=== PATIENT | male | born 1990 | race Two or more races ===

== ENCOUNTER 2017-11-03 16:29 | Emergency (ER) | payer BC ==
[2017-11-03] MEDS ORDERED: Propranolol 60 MG Cap.ER PO ONE (17:16)
[2017-11-03] MEDS ORDERED: chlordiazePOXIDE 25 MG Cap PO ONE (17:16)
--- NOTE | 2017-11-03 18:46 | EDM.PDOCBH ---
ED HPI GENERAL MEDICAL PROBLEM - General Chief Complaint: Drug or Alcohol Abuse Stated Complaint: DIABETIC HAVING ALCOHOL WITHDRAWALS Time Seen by Provider: 11/03/17 16:50 Source of Information: Reports: Patient History Limitations: Reports: No Limitations - History of Present Illness INITIAL COMMENTS - FREE TEXT/NARRATIVE: Patient is a 27-year-old male presents ED complaining of anxiety, hypertension, and also alcohol withdrawal symptoms. As of yesterday patient quit drinking alcohol. Last drink was vodka at approximately noon. Patient's been drinking 1 pint of vodka every day for the past 2 years. Has attempted to decrease the amount of alcohol use to only a few shots as of recent. Patient quit his job last week because it was not a healthy environment. His girlfriend and child moved out of his residence since she does not want to be with him anymore. Patient admits to being alcoholic and has not had routine medical care for his diabetes and hypertension. Patient states he is a type II diabetic and was on metformin thousand milligrams every day along with lisinopril 40 mg every day and also baby aspirin. He has not taken these medications for almost one year. In addition he stopped smoking pot as of recent since he wants to get a better job. He does not smoke cigarettes. Of note he has been having difficulty with sleeping and has been experiencing hot flashes with stopping alcohol. He feels like he needs to drink alcohol but is adamant about stopping. There's been no recent documented fever, nausea/vomiting, chest pain, shortness of breath, abdominal pain, hallucinations, suicidal ideations, homicidal ideations, or any additional complaints. Abdominal Pain Score (Numeric/FACES): 5 - Related Data Allergies Allergy/AdvReac Type Severity Reaction Status Date / Time No Known Allergies Allergy Verified 11/03/17 16:52 Home Meds: Home Meds . [No Known Home Meds] 11/03/17 [History] Past Medical History Cardiovascular History: Reports: Hypertension Endocrine/Metabolic History: Reports: Diabetes, Type II Social & Family History - Tobacco Use Smoking Status *Q: Former Smoker Used Tobacco, but Quit: Yes Month Tobacco Last Used: 2015 - Caffeine Use Caffeine Use: Reports: Soda Caffeine Use Comment: doesnt drink soda often, "takes me 3 hours to finish one soda" - Recreational Drug Use Recreational Drug Use: Yes Recreational Drug Type: Reports: Marijuana/Hashish Other Recreational Drug Type: quit 2 weeks ago, used to use weekly Recreational Drug Use Frequency: Weekly ED ROS GENERAL - Review of Systems Review Of Systems: ROS reveals no pertinent complaints other than HPI. ED EXAM, BEHAVIORAL HEALTH - Physical Exam Exam: See Below Exam Limited By: No Limitations General Appearance: Alert, WD/WN, Anxious Eye Exam: Bilateral Eye: EOMI, Nystagmus (None found), PERRL Ears: Hearing Grossly Normal Nose: Normal Inspection Throat/Mouth: Normal Inspection, Normal Oropharynx, Normal Voice, No Airway Compromise Neck: Normal Inspection, Supple Respiratory/Chest: No Respiratory Distress, Lungs Clear, Normal Breath Sounds, No Accessory Muscle Use, Chest Non-Tender Cardiovascular: Normal Peripheral Pulses, No Murmur, Tachycardia GI/Abdominal: Normal Bowel Sounds, Soft, Non-Tender, No Organomegaly, No Distention Back Exam: Normal Inspection Extremities: Normal Inspection Neurological: Alert, Normal Mood/Affect, CN II-XII Intact, Normal Cognition, Normal Gait, No Motor/Sensory Deficits, Oriented x 3 Psychiatric: Alert, Normal Affect, Normal Cognition, Oriented, Other (Anxious). No: Homicidal Thoughts, Suicidal Plan, Suicidal Thoughts, Auditory Hallucinations, Visual Hallucinations Skin Exam: Warm, Dry, Intact, Normal color, No rash COURSE, BEHAVIORAL HEALTH COMP - Course Vital Signs: Last Vital Signs Temp 97.8 F 11/03/17 16:40 Pulse 85 11/03/17 16:40 Resp 18 11/03/17 16:40 BP 185/138 H 11/03/17 16:40 Pulse Ox 100 11/03/17 16:40 Orders, Labs, Meds: Active Orders 24 hr Category Date Time Status EKG Documentation Completion [RC] STAT Care 11/03/17 17:16 Active HYDROmorphone [Dilaudid] Med 11/03/17 22:54 Once 0.5 mg IVPUSH ONETIME ONE LORazepam [Ativan] Med 11/03/17 22:54 Once 0.5 mg IVPUSH ONETIME ONE Sodium Chloride 0.9% @ 125 MLS/HR (1000ml Bag) Med 11/03/17 23:00 Ordered Sodium Chloride 0.9% [Normal Saline] 1,000 ml IV ASDIRECTED Laboratory Tests 11/03/17 11/03/17 11/03/17 Range/Units 16:48 16:50 16:50 WBC 6.91 (4.23-9.07) K/mm3 RBC 5.96 (4.63-6.08) M/mm3 Hgb 19.0 H (13.7-17.5) gm/L Hct 52.3 H (40.1-51.0) % MCV 87.8 (79.0-92.2) fl MCH 31.9 (25.7-32.2) pg MCHC 36.3 H (32.2-35.5) g/dl RDW Std Deviation 38.0 (35.1-43.9) fL Plt Count 189 (163-337) K/mm3 MPV 10.8 (9.4-12.3) fl Neut % (Auto) 78.5 H (34.0-67.9) % Lymph % (Auto) 11.7 L (21.8-53.1) % Bracken % (Auto) 9.0 (5.3-12.2) % Eos % (Auto) 0.1 L (0.8-7.0) Baso % (Auto) 0.4 (0.1-1.2) % Neut # (Auto) 5.42 H (1.78-5.38) K/mm3 Lymph # (Auto) 0.81 L (1.32-3.57) K/mm3 [place] # (Auto) 0.62 (0.30-0.82) K/mm3 Eos # (Auto) 0.01 L (0.04-0.54) K/mm3 Baso # (Auto) 0.03 (0.01-0.08) K/mm3 PT (8.0-13.0) SECONDS INR Sodium 135 L (136-145) mEq/L Potassium 3.5 (3.5-5.1) mEq/L Chloride 94 L (98-107) mEq/L Carbon Dioxide 25 (21-32) mEq/L Anion Gap 19.5 H (5-15) BUN 9 (7-18) mg/dL Creatinine 1.0 (0.7-1.3) mg/dL Est Cr Clr Drug Dosing 112.54 mL/min Estimated GFR (MDRD) > 60 (>60) mL/min BUN/Creatinine Ratio 9.0 L (14-18) Glucose 247 H (74-106) mg/dL POC Glucose 209 H (70-105) mg/dL Calcium 9.7 (8.5-10.1) mg/dL Total Bilirubin 2.5 H (0.2-1.0) mg/dL Direct Bilirubin (0.0-0.2) mg/dl GGT (15-85) U/L AST 176 H (15-37) U/L ALT 314 H (16-63) U/L Alkaline Phosphatase 120 H (46-116) U/L Total Protein 8.7 H (6.4-8.2) g/dl Albumin 4.4 (3.4-5.0) g/dl Globulin 4.3 gm/dL Albumin/Globulin Ratio 1.0 (1-2) Lipase (73-393) U/L TSH 3rd Generation 2.518 (0.358-3.74) uIU/mL Urine Color (Yellow) Urine Appearance (Clear) Urine pH (5.0-8.0) Ur Specific [place] (1.005-1.030) Urine Protein (Negative) Urine Glucose (UA) (Negative) Urine Ketones (Negative) Urine Occult Blood (Negative) Urine Nitrite (Negative) Urine Bilirubin (Negative) Urine Urobilinogen (0.2-1.0) Ur Leukocyte Esterase (Negative) Urine RBC (0-5) /hpf Urine WBC (0-5) /hpf Ur Epithelial Cells (0-5) /hpf Urine Bacteria (FEW) /hpf Urine Mucus (FEW) /hpf Urine Opiates Screen (NEGATIVE) Ur Buprenorphine Scrn (NEGATIVE) Ur Oxycodone Screen (NEGATIVE) Urine Methadone Screen (NEGATIVE) Ur Propoxyphene Screen (NEGATIVE) Ur Barbiturates Screen (NEGATIVE) Ur Tricyclics Screen (NEGATIVE) Ur Phencyclidine Scrn (NEGATIVE) Ur Amphetamine Screen (NEGATIVE) U Methamphetamines Scrn (NEGATIVE) U Benzodiazepines Scrn (NEGATIVE) U Cocaine Metab Screen (NEGATIVE) U Marijuana (THC) Screen (NEGATIVE) Ethyl Alcohol 0.00 (0.00) gm% 11/03/17 11/03/17 11/03/17 Range/Units 16:50 16:50 16:50 WBC (4.23-9.07) K/mm3 RBC (4.63-6.08) M/mm3 Hgb (13.7-17.5) gm/L Hct (40.1-51.0) % MCV (79.0-92.2) fl MCH (25.7-32.2) pg MCHC (32.2-35.5) g/dl RDW Std Deviation (35.1-43.9) fL Plt Count (163-337) K/mm3 MPV (9.4-12.3) fl Neut % (Auto) (34.0-67.9) % Lymph % (Auto) (21.8-53.1) % Bracken % (Auto) (5.3-12.2) % Eos % (Auto) (0.8-7.0) Baso % (Auto) (0.1-1.2) % Neut # (Auto) (1.78-5.38) K/mm3 Lymph # (Auto) (1.32-3.57) K/mm3 Bracken # (Auto) (0.30-0.82) K/mm3 Eos # (Auto) (0.04-0.54) K/mm3 Baso # (Auto) (0.01-0.08) K/mm3 PT 10.4 (8.0-13.0) SECONDS INR 0.96 Sodium (136-145) mEq/L Potassium (3.5-5.1) mEq/L Chloride (98-107) mEq/L Carbon Dioxide (21-32) mEq/L Anion Gap (5-15) BUN (7-18) mg/dL Creatinine (0.7-1.3) mg/dL Est Cr Clr Drug Dosing mL/min Estimated GFR (MDRD) (>60) mL/min BUN/Creatinine Ratio (14-18) Glucose (74-106) mg/dL POC Glucose (70-105) mg/dL Calcium (8.5-10.1) mg/dL Total Bilirubin (0.2-1.0) mg/dL Direct Bilirubin (0.0-0.2) mg/dl GGT 646 H (15-85) U/L AST (15-37) U/L ALT (16-63) U/L Alkaline Phosphatase (46-116) U/L Total Protein (6.4-8.2) g/dl Albumin (3.4-5.0) g/dl Globulin gm/dL Albumin/Globulin Ratio (1-2) Lipase 2585 H (73-393) U/L TSH 3rd Generation (0.358-3.74) uIU/mL Urine Color (Yellow) Urine Appearance (Clear) Urine pH (5.0-8.0) Ur Specific [place] (1.005-1.030) Urine Protein (Negative) Urine Glucose (UA) (Negative) Urine Ketones (Negative) Urine Occult Blood (Negative) Urine Nitrite (Negative) Urine Bilirubin (Negative) Urine Urobilinogen (0.2-1.0) Ur Leukocyte Esterase (Negative) Urine RBC (0-5) /hpf Urine WBC (0-5) /hpf Ur Epithelial Cells (0-5) /hpf Urine Bacteria (FEW) /hpf Urine Mucus (FEW) /hpf Urine Opiates Screen (NEGATIVE) Ur Buprenorphine Scrn (NEGATIVE) Ur Oxycodone Screen (NEGATIVE) Urine Methadone Screen (NEGATIVE) Ur Propoxyphene Screen (NEGATIVE) Ur Barbiturates Screen (NEGATIVE) Ur Tricyclics Screen (NEGATIVE) Ur Phencyclidine Scrn (NEGATIVE) Ur Amphetamine Screen (NEGATIVE) U Methamphetamines Scrn (NEGATIVE) U Benzodiazepines Scrn (NEGATIVE) U Cocaine Metab Screen (NEGATIVE) U Marijuana (THC) Screen (NEGATIVE) Ethyl Alcohol (0.00) gm% 11/03/17 11/03/17 11/03/17 Range/Units 17:45 17:45 19:23 WBC (4.23-9.07) K/mm3 RBC (4.63-6.08) M/mm3 Hgb (13.7-17.5) gm/L Hct (40.1-51.0) % MCV (79.0-92.2) fl MCH (25.7-32.2) pg MCHC (32.2-35.5) g/dl RDW Std Deviation (35.1-43.9) fL Plt Count (163-337) K/mm3 MPV (9.4-12.3) fl Neut % (Auto) (34.0-67.9) % Lymph % (Auto) (21.8-53.1) % Bracken % (Auto) (5.3-12.2) % Eos % (Auto) (0.8-7.0) Baso % (Auto) (0.1-1.2) % Neut # (Auto) (1.78-5.38) K/mm3 Lymph # (Auto) (1.32-3.57) K/mm3 Bracken # (Auto) (0.30-0.82) K/mm3 Eos # (Auto) (0.04-0.54) K/mm3 Baso # (Auto) (0.01-0.08) K/mm3 PT (8.0-13.0) SECONDS INR Sodium (136-145) mEq/L Potassium (3.5-5.1) mEq/L Chloride (98-107) mEq/L Carbon Dioxide (21-32) mEq/L Anion Gap (5-15) BUN (7-18) mg/dL Creatinine (0.7-1.3) mg/dL Est Cr Clr Drug Dosing mL/min Estimated GFR (MDRD) (>60) mL/min BUN/Creatinine Ratio (14-18) Glucose (74-106) mg/dL POC Glucose (70-105) mg/dL Calcium (8.5-10.1) mg/dL Total Bilirubin (0.2-1.0) mg/dL Direct Bilirubin 0.60 H (0.0-0.2) mg/dl GGT (15-85) U/L AST (15-37) U/L ALT (16-63) U/L Alkaline Phosphatase (46-116) U/L Total Protein (6.4-8.2) g/dl Albumin (3.4-5.0) g/dl Globulin gm/dL Albumin/Globulin Ratio (1-2) Lipase (73-393) U/L TSH 3rd Generation (0.358-3.74) uIU/mL Urine Color Yellow (Yellow) Urine Appearance Clear (Clear) Urine pH 6.5 (5.0-8.0) Ur Specific [place] 1.025 (1.005-1.030) Urine Protein 3+ H (Negative) Urine Glucose (UA) 2+ H (Negative) Urine Ketones 3+ H (Negative) Urine Occult Blood Trace-intact H (Negative) Urine Nitrite Negative (Negative) Urine Bilirubin 2+ H (Negative) Urine Urobilinogen 1.0 (0.2-1.0) Ur Leukocyte Esterase Negative (Negative) Urine RBC 0-5 (0-5) /hpf Urine WBC 0-5 (0-5) /hpf Ur Epithelial Cells 0-5 (0-5) /hpf Urine Bacteria Few (FEW) /hpf Urine Mucus Not seen (FEW) /hpf Urine Opiates Screen Negative (NEGATIVE) Ur Buprenorphine Scrn Negative (NEGATIVE) Ur Oxycodone Screen Negative (NEGATIVE) Urine Methadone Screen Negative (NEGATIVE) Ur Propoxyphene Screen Negative (NEGATIVE) Ur Barbiturates Screen Negative (NEGATIVE) Ur Tricyclics Screen Negative (NEGATIVE) Ur Phencyclidine Scrn Negative (NEGATIVE) Ur Amphetamine Screen Negative (NEGATIVE) U Methamphetamines Scrn Negative (NEGATIVE) U Benzodiazepines Scrn Negative (NEGATIVE) U Cocaine Metab Screen Negative (NEGATIVE) U Marijuana (THC) Screen Presumptive positive H (NEGATIVE) Ethyl Alcohol (0.00) gm% Medications Discontinued Medications Generic Name Dose Route Start Last Admin Trade Name Chase PRN Reason Stop Dose Admin Chlordiazepoxide HCl 25 mg 11/03/17 17:16 11/03/17 17:43 Librium PO 11/03/17 17:17 25 mg ONETIME ONE Administration Hydromorphone HCl 0.25 mg 11/03/17 18:52 11/03/17 18:58 Dilaudid IVPUSH 11/03/17 18:53 0.25 mg ONETIME ONE Administration Hydromorphone HCl 0.5 mg 11/03/17 21:16 11/03/17 21:23 Dilaudid IVPUSH 11/03/17 21:17 0.5 mg ONETIME ONE Administration Sodium Chloride 2,000 mls @ 999 mls/hr 11/03/17 18:49 11/03/17 18:54 Normal Saline IV 11/03/17 20:49 999 mls/hr ONETIME ONE Administration Lisinopril 40 mg 11/03/17 22:53 Prinivil PO 11/03/17 22:54 ONETIME ONE Propranolol HCl 60 mg 11/03/17 17:16 11/03/17 17:43 Inderal La PO 11/03/17 17:17 60 mg ONETIME ONE Administration Re-Assessment/Re-Exam: Will go ahead and obtain basic labs including CBC, chem 14, urine drug tox, serum EtOH, INR, TSH, UA, and EKG. Ordered Inderal long-acting 60 mg by mouth and also Librium 25 mg by mouth. EKG sinus rhythm at a rate of [address] changes noted. Labs reviewed: Blood cell count 6.91, hemoglobin 19.0, platelet count 189, INR 0.96, sodium 135, potassium 3.5, hCG 19.5, creatinine 1.0, glucose 247, bili care glucose is 209, AST 176, AST 314, alk phosphatase 120, AG 19.5, and TSH 2.518. UA revealed 2+ protein, 2+ glucose, ketones 3+, occult blood trace, bilirubin 2+ , serum EtOH 0.00. Ordered normal saline 2000mL/h. Urine drug tox positive for THC. Reassessment, patient's vital signs are normalized. He is resting comfortably but complains of some back discomfort. I ordered Dilaudid 0.25 mg IVP and and lipase. Patient's also having some pain to the right upper quadrant with positive orantes sign. Ordered ultrasound of the right upper quadrant. GGT and direct bilirubin ordered as well. GGT 646. Lipase 2585. Direct bilirubin pending. Direct Bilirubin: 0.6 Preliminary ultrasound results: Fatty liver disease with no signs of gallstones , gallbladder wall thickening and common bile duct obstruction. 2115 reassessment, patient lying in bed complaining of pain to the right upper quadrant and also back. Ordered Dilaudid 0.5 mg IVP. I did speak with Dr. Watkins absence management consultant hospitalist with possible admission. Still awaiting for final interpretation of ultrasound. She requesed attempting admission to [facility] for alcohol withdrawal, recreational drug dependency, and also pancreatitis. Patient has no hospital preference at this time. Will await for final interpretation of the ultrasound prior to calling. 2149 limited abdominal ultrasound impression: Echogenic liver compatible with fatty infiltration. Poorly seen pancreas. No additional abnormalities identified on right upper quadrant abdominal ultrasound. 2199 Discussed results of ultrasound with patient. He requested transfer to [facility] if unable to stay here. 2204 Called [facility] One Call was placed on hold for 10 minutes. They will call when admission coordinator is available. The patient requires admission for acute pancreatitis, alcohol withdrawal and treatment, and drug dependence. 2234 [facility] one call has called me back. I spoke to Dr. Earl absence management consultant hospitalist and she has accepted patient. Per patients request I spoke with Dr. Watkins to see about admission here in [place]. Dr. Watknis requested patient be transported to [facility] for admission. Ambulance has been notified for transport. Patient is experiencing some mild discomfort and is mildly anxious. Ordered Ativan 0.5 mg IVP and also Dilaudid 0.5 mg IVP. Blood pressure is trending upward. Will start him back on his lisinopril 40 mg by mouth. Patient was instructed to remain nothing by mouth. Departure - Departure Time of Disposition: 22:00 Disposition: DC/Tfer to [facility] 02 Condition: Fair Clinical Impression: Alcohol abuse, Drug abuse, Drug dependence Pancreatitis, alcoholic, acute Qualifiers: Acute pancreatitis complication: unspecified Qualified Code(s): K85.20 - Alcohol induced acute pancreatitis without necrosis or infection - Discharge Information Referrals: PCP,None [Primary Care Provider] - - My Orders Last 24 Hours: My Active Orders 11/03/17 17:16 EKG Documentation Completion [RC] STAT 11/03/17 22:54 HYDROmorphone [Dilaudid] 0.5 mg IVPUSH ONETIME ONE LORazepam [Ativan] 0.5 mg IVPUSH ONETIME ONE 11/03/17 23:00 Sodium Chloride 0.9% @ 125 MLS/HR (1000ml Bag) Sodium Chloride 0.9% [Normal Saline] 1,000 ml IV ASDIRECTED - Assessment/Plan Last 24 Hours: My Active Orders 11/03/17 17:16 EKG Documentation Completion [RC] STAT 11/03/17 22:54 HYDROmorphone [Dilaudid] 0.5 mg IVPUSH ONETIME ONE LORazepam [Ativan] 0.5 mg IVPUSH ONETIME ONE 11/03/17 23:00 Sodium Chloride 0.9% @ 125 MLS/HR (1000ml Bag) Sodium Chloride 0.9% [Normal Saline] 1,000 ml IV ASDIRECTED
[2017-11-03] MEDS ORDERED: Sodium Chloride 0.9% 2,000 ML IV ONE (18:49)
[2017-11-03] MEDS ORDERED: HYDROmorphone 0.5 MG/0.5 ML Syringe IVPUSH ONE ×3 (18:52→22:54)
--- NOTE | 2017-11-03 21:44 | US ---
Limited abdominal ultrasound: Multiple real-time images of the upper right abdomen were obtained. Liver is echogenic. Gallbladder shows no gallstones. No gallbladder wall thickening is seen. No biliary duct dilatation is seen. Right kidney shows no hydronephrosis or mass and has a length of 11.6 cm. Pancreas is poorly seen. Visualized portions of pancreas is grossly unremarkable. Inferior vena cava is patent. Portal vein shows normal hepatopedal flow. Impression: 1. Echogenic liver compatible with fatty infiltration. 2. Poorly seen pancreas. 3. No additional abnormality is identified on right upper quadrant abdominal ultrasound. Diagnostic code #3
[2017-11-03] MEDS ORDERED: Lisinopril 20 MG Tab PO ONE (22:53)
[2017-11-03] MEDS ORDERED: LORazepam 2 MG/ML MDV IVPUSH ONE (22:54)
[2017-11-03] MEDS ORDERED: Sodium Chloride 0.9% 1,000 ML IV SCH (23:00)
== END 2017-11-03 23:24 ==
LOC: JD.ED 16:29
DX: K85.20 Alcohol induced acute pancreatitis without necrosis or infection (principal); F10.10 Alcohol abuse, uncomplicated; F19.20 Other psychoactive substance dependence, uncomplicated; I10 Essential (primary) hypertension; E11.9 Type 2 diabetes mellitus without complications; Z87.891 Personal history of nicotine dependence
CPT/HCPCS: 36415; 76705; 80053; 80306; 81001; 82248; 82962; 82977; 83690; 84443; 85025; 85610; 93005; 96361; 96374; 96375; 96376; 99285; A9270; G0480; J1170; J2060; J7040; 99284-25

== ENCOUNTER 2018-01-11 03:21 | Emergency (ER) | payer SELFPAY ==
[2018-01-11] MEDS ORDERED: Acetaminophen 325 MG Tab PO ONE (03:43)
[2018-01-11] MEDS ORDERED: LORazepam 1 MG Tab PO ONE (03:43)
[2018-01-11] MEDS ORDERED: Metoprolol Tartrate 50 MG Tab PO ONE (03:43)
[2018-01-11] MEDS ORDERED: Ondansetron 4 MG Tab.DIS PO ONE (03:46)
--- NOTE | 2018-01-11 03:47 | EDM.PDOC ---
ED HPI GENERAL MEDICAL PROBLEM - General Chief Complaint: Back Pain or Injury Stated Complaint: BACK PAIN FATTY LIVER ISSUE Time Seen by Provider: 01/11/18 03:32 Source of Information: Reports: Patient, RN Notes Reviewed - History of Present Illness INITIAL COMMENTS - FREE TEXT/NARRATIVE: 27-year-old male comes in with abdominal pain. This started about 1 day ago. Pain is primarily upper mid abdomen and right upper quadrant radiating to his back. He states he is been unable to sleep last night and this morning due to severity of discomfort. He has had some nausea and vomiting as well. He states he does have history of "fatty liver from prior heavy drinking. He has cut back on the alcohol quite a lot. No chest pain or difficulty breathing. He states he ran out of his blood pressure medicine about a week ago and also ran out of his metformin a few days ago. Right Back Pain Score (Numeric/FACES): 8 - Related Data Allergies Allergy/AdvReac Type Severity Reaction Status Date / Time No Known Allergies Allergy Verified 11/03/17 16:52 Home Meds: Home Meds LORazepam [Ativan] 1 mg PO BID PRN #14 tab 01/11/18 [Rx] Metoprolol Tartrate 50 mg PO BID #20 tablet 01/11/18 [Rx] metFORMIN [Glucophage] 500 mg PO BIDMEALS #30 tab 01/11/18 [Rx] oxyCODONE HCl/Acetaminophen [Percocet 5-325 mg Tablet] 1 each PO Q6HR PRN #20 tablet 01/11/18 [Rx] Past Medical History HEENT History: Reports: Impaired Vision Other HEENT History: Wears glasss Cardiovascular History: Reports: Hypertension Gastrointestinal History: Reports: Other (See Below) Other Gastrointestinal History: Fatty liver Psychiatric History: Reports: Anxiety Endocrine/Metabolic History: Reports: Diabetes, Type II Social & Family History - Tobacco Use Smoking Status *Q: Never Smoker Used Tobacco, but Quit: Yes Month/Year Tobacco Last Used: 2015 - Caffeine Use Caffeine Use: Reports: Soda Caffeine Use Comment: doesnt drink soda often, "takes me 3 hours to finish one soda" - Alcohol Use Days Per Week of Alcohol Use: 3 Number of Drinks Per Day: 5 Total Drinks Per Week: 15 - Recreational Drug Use Recreational Drug Use: Yes Recreational Drug Type: Reports: Marijuana/Hashish Other Recreational Drug Type: quit 2 weeks ago, used to use weekly Recreational Drug Use Frequency: Weekly ED ROS GENERAL - Review of Systems Review Of Systems: See Below Constitutional: Denies: Fever, Chills, Diaphoresis HEENT: Reports: No Symptoms Respiratory: Denies: Shortness of Breath, Pleuritic Chest Pain Cardiovascular: Denies: Chest Pain GI/Abdominal: Reports: Abdominal Pain, Nausea, Vomiting : Reports: No Symptoms Musculoskeletal: Reports: Back Pain Skin: Reports: No Symptoms Neurological: Reports: No Symptoms ED EXAM, GI/ABD - Physical Exam Exam: See Below General Appearance: Alert, Anxious, Moderate Distress Throat/Mouth: Normal Inspection Head: Atraumatic. No: Facial Swelling Neck: Supple Respiratory/Chest: No Respiratory Distress, Lungs Clear, Normal Breath Sounds Cardiovascular: Tachycardia GI/Abdominal Exam: Tender (Mild to moderate tenderness upper mid abdomen and right upper quadrant, abdomen otherwise soft nontender). No: Guarding Back Exam: No: CVA Tenderness (L), CVA Tenderness (R) Extremities: Normal Inspection. No: Pedal Edema, Leg Pain Neurological: Alert, No Motor/Sensory Deficits Skin Exam: Warm, Dry, Normal Color Course - Vital Signs Last Recorded V/S: Last Vital Signs Temp 98.3 F 01/11/18 03:25 Pulse 108 H 01/11/18 03:47 Resp 16 01/11/18 03:25 BP 174/124 H 01/11/18 03:47 Pulse Ox 97 01/11/18 03:25 - Orders/Labs/Meds Labs: Laboratory Tests 01/11/18 01/11/18 Range/Units 04:05 04:05 WBC 7.64 (4.23-9.07) K/mm3 RBC 5.53 (4.63-6.08) M/mm3 Hgb 17.3 (13.7-17.5) gm/L Hct 49.1 (40.1-51.0) % MCV 88.8 (79.0-92.2) fl MCH 31.3 (25.7-32.2) pg MCHC 35.2 (32.2-35.5) g/dl RDW Std Deviation 40.5 (35.1-43.9) fL Plt Count 204 (163-337) K/mm3 MPV 10.4 (9.4-12.3) fl Neut % (Auto) 65.2 (34.0-67.9) % Lymph % (Auto) 25.5 (21.8-53.1) % Glenn % (Auto) 6.5 (5.3-12.2) % Eos % (Auto) 1.6 (0.8-7.0) Baso % (Auto) 0.9 (0.1-1.2) % Neut # (Auto) 4.98 (1.78-5.38) K/mm3 Lymph # (Auto) 1.95 (1.32-3.57) K/mm3 Glenn # (Auto) 0.50 (0.30-0.82) K/mm3 Eos # (Auto) 0.12 (0.04-0.54) K/mm3 Baso # (Auto) 0.07 (0.01-0.08) K/mm3 Sodium 135 L (136-145) mEq/L Potassium 3.5 (3.5-5.1) mEq/L Chloride 98 (98-107) mEq/L Carbon Dioxide 24 (21-32) mEq/L Anion Gap 16.5 H (5-15) BUN 11 (7-18) mg/dL Creatinine 0.9 (0.7-1.3) mg/dL Est Cr Clr Drug Dosing 125.05 mL/min Estimated GFR (MDRD) > 60 (>60) mL/min BUN/Creatinine Ratio 12.2 L (14-18) Glucose 278 H (74-106) mg/dL Calcium 8.6 (8.5-10.1) mg/dL Total Bilirubin 1.3 H (0.2-1.0) mg/dL AST 108 H (15-37) U/L ALT 164 H (16-63) U/L Alkaline Phosphatase 113 (46-116) U/L Total Protein 7.9 (6.4-8.2) g/dl Albumin 4.0 (3.4-5.0) g/dl Globulin 3.9 gm/dL Albumin/Globulin Ratio 1.0 (1-2) Lipase 491 H (73-393) U/L Meds: Medications Discontinued Medications Generic Name Dose Route Start Last Admin Trade Name Freq PRN Reason Stop Dose Admin Acetaminophen 975 mg 01/11/18 03:43 01/11/18 03:48 Tylenol PO 01/11/18 03:44 975 mg NOW ONE Administration Lorazepam 1 mg 01/11/18 03:43 01/11/18 03:48 Ativan PO 01/11/18 03:44 1 mg ONETIME ONE Administration Metoprolol Tartrate 50 mg 01/11/18 03:43 01/11/18 03:47 Lopressor PO 01/11/18 03:44 50 mg ONETIME ONE Administration Ondansetron HCl 4 mg 01/11/18 03:46 01/11/18 03:51 Zofran Odt PO 01/11/18 03:47 4 mg ONETIME ONE Administration Oxycodone/Acetaminophen 1 tab 01/11/18 05:05 01/11/18 05:10 Percocet 325-5 Mg PO 01/11/18 05:06 1 tab ONETIME ONE Administration - Re-Assessments/Exams Free Text/Narrative Re-Assessment/Exam: 01/11/18 05:21. Lipase is come back elevated at 491, other labs as documented, he apparently does have some mild pancreatitis coming back. Today her much better than what he presented with about 8 weeks ago late October. He states his abdominal pain really just started yesterday. He is not actively vomiting at this time. He has run out of his metoprolol and his metformin so those meds will be prescribed as well as Percocet for pain when necessary and also Ativan 1 mg twice a day to help him not drink. He states he was totally off alcohol for a while and then has started drinking about every second or third day but not near as heavily as he had been. He realizes he does need to stop. Also advised to contact [facility] human services regarding various support groups available and also to see a counselor as needed. Departure - Departure Time of Disposition: 05:13 Disposition: Home, Self-Care 01 Clinical Impression: Pancreatitis Qualifiers: Chronicity: acute Pancreatitis type: alcohol induced Acute pancreatitis complication: unspecified Qualified Code(s): K85.20 - Alcohol induced acute pancreatitis without necrosis or infection - Discharge Information Prescriptions: oxyCODONE HCl/Acetaminophen [Percocet 5-325 mg Tablet] 1 each PO Q6HR PRN #20 tablet PRN Reason: Pain LORazepam [Ativan] 1 mg PO BID PRN #14 tab PRN Reason: Anxiety metFORMIN [Glucophage] 500 mg PO BIDMEALS #30 tab Metoprolol Tartrate 50 mg PO BID #20 tablet Referrals: PCP,None [Primary Care Provider] - Forms: ED Department Discharge Additional Instructions: Avoid further alcohol, Ativan 1/2-1 mg twice daily for anxiety and to help you rest and to help you avoid further alcohol, Metropolol 50 mg twice daily for hypertension, Percocet 1 tab every 6-8 hours as needed for severe pain, metformin 500 mg twice daily. See one of our medical providers at our [facility] medical clinic early next week for follow-up. Dr. Edwards or Dr. Segovia, both family practice highly recommended. Call [phone] for appointment. Return to ED as needed if symptoms worsening in any way. Contact [email or web address] for information regarding support groups available and to see counselor as needed.
[2018-01-11] MEDS ORDERED: Acetaminophen/oxyCODONE 325-5 MG Tab PO ONE (05:05)
== END 2018-01-11 05:30 | disposition home or self-care (01) ==
LOC: JD.ED 03:21
DX: K85.20 Alcohol induced acute pancreatitis without necrosis or infection (principal); I10 Essential (primary) hypertension; E11.9 Type 2 diabetes mellitus without complications; Z79.899 Other long term (current) drug therapy
CPT/HCPCS: 36415; 80053; 83690; 85025; 99284; A9270; 99283

== ENCOUNTER 2018-01-30 12:32 | Inpatient (IN) | payer MEDICAID, OTHER ==
[2018-01-30] MEDS ORDERED: Morphine 2 MG/ML Syringe IVPUSH ONE ×2 (13:11→14:18)
--- NOTE | 2018-01-30 13:16 | EDM.PDOC ---
<Park Freedman - Last Filed: 01/30/18 13:16> ED HPI GENERAL MEDICAL PROBLEM - General Chief Complaint: Abdominal Pain Stated Complaint: ABDOMINAL PAIN Time Seen by Provider: 01/30/18 13:00 Source of Information: Reports: Patient History Limitations: Reports: No Limitations - History of Present Illness INITIAL COMMENTS - FREE TEXT/NARRATIVE: Patient is a 27 YO male who presents today due to continued RUQ pain. He was here 01/11/2018 and diagnosed with acute pancreatitis. Since being here, he has been drinking clear fluids and recently started to incorporate smoothies into his diet. He states he was getting better until last night when it started to feel like all the fluids were getting "stuck" in his stomach and not going through. He denies GERD symptoms. This has caused him to vomit once. He was seen at [facility] yesterday where he had some labs drawn. He does not know the results of these labs. He was then seen by a provider this morning at the clinic and they recommended to come back to the ER since he isn't getting better. He states he was drinking pretty heavy this past year and stopped drinking in October. He had a relapse 5 days ago where he drank a pint of vodka. He has not had alcohol since. He has chronic diarrhea from his Metformin. He denies recently fever. Upper Abdomen Pain Score (Numeric/FACES): 9 - Related Data Allergies Allergy/AdvReac Type Severity Reaction Status Date / Time No Known Allergies Allergy Verified 01/30/18 12:46 Home Meds: Home Meds LORazepam [Ativan] 1 mg PO BID PRN #14 tab 01/11/18 [Rx] Metoprolol Tartrate 50 mg PO BID #20 tablet 01/11/18 [Rx] metFORMIN [Glucophage] 500 mg PO BIDMEALS #30 tab 01/11/18 [Rx] Lisinopril 40 mg PO DAILY 01/30/18 [History] oxyCODONE HCl/Acetaminophen [Percocet 5-325 mg Tablet] 1 each PO BEDTIME PRN [History] Past Medical History HEENT History: Reports: Impaired Vision Other HEENT History: Wears glasss Cardiovascular History: Reports: Hypertension Gastrointestinal History: Reports: Other (See Below) Other Gastrointestinal History: Fatty liver, acute pancreatitis Psychiatric History: Reports: Anxiety Endocrine/Metabolic History: Reports: Diabetes, Type II Social & Family History - Tobacco Use Smoking Status *Q: Former Smoker Used Tobacco, but Quit: Yes Month/Year Tobacco Last Used: 2 years ago - Caffeine Use Caffeine Use: Reports: None Caffeine Use Comment: doesnt drink soda often, "takes me 3 hours to finish one soda" - Alcohol Use Days Per Week of Alcohol Use: 3 Number of Drinks Per Day: 5 Total Drinks Per Week: 15 - Recreational Drug Use Recreational Drug Use: No Recreational Drug Type: Reports: Marijuana/Hashish Other Recreational Drug Type: quit 2 weeks ago, used to use weekly Recreational Drug Use Frequency: Weekly ED ROS GENERAL - Review of Systems Review Of Systems: See Below Constitutional: Reports: No Symptoms Respiratory: Reports: No Symptoms Cardiovascular: Reports: No Symptoms GI/Abdominal: Reports: Abdominal Pain (RUQ), Diarrhea (Chronic), Decreased Appetite, Nausea, Vomiting. Denies: Bloody Stool Musculoskeletal: Reports: Back Pain (pain radiating into his back) Skin: Reports: No Symptoms Neurological: Reports: No Symptoms Psychiatric: Reports: Anxiety (reports anxiety worse in the mornings) ED EXAM, GI/ABD - Physical Exam Exam: See Below Exam Limited By: No Limitations General Appearance: Alert, WD/WN, Mild Distress Respiratory/Chest: No Respiratory Distress, Lungs Clear, Normal Breath Sounds Cardiovascular: Regular Rate, Rhythm, No Murmur GI/Abdominal Exam: Normal Bowel Sounds, Distended, Tender (RUQ and epigastic). No: Guarding, Rebound Neurological: Alert, Oriented, CN II-XII Intact, Normal Cognition, No Motor/ Sensory Deficits Psychiatric: Normal Affect, Normal Mood Skin Exam: Warm, Dry, Intact, Normal Color, No Rash Course - Vital Signs Last Recorded V/S: Last Vital Signs Temp 36.2 C 01/30/18 12:44 Pulse 91 01/30/18 12:44 Resp 19 01/30/18 12:44 BP 178/117 H 01/30/18 12:44 Pulse Ox 99 01/30/18 12:44 - Orders/Labs/Meds Orders: Active Orders 24 hr Category Date Time Status CIWAA Assessment [RC] ASDIRECTED Care 01/30/18 17:12 Active Peripheral IV Care [RC] . DIRECTED Care 01/30/18 13:11 Active DRUG SCREEN, URINE [URCHEM] Stat Lab 01/30/18 18:31 Ordered UA W/MICROSCOPIC [URIN] Stat Lab 01/30/18 18:31 Ordered Sodium Chloride 0.9% [Saline Flush] Med 01/30/18 13:11 Active 10 ml FLUSH ASDIRECTED PRN Peripheral IV Insertion Adult [OM.PC] Stat Oth 01/30/18 13:09 Ordered Medication Orders Sodium Chloride (Saline Flush) 10 ml FLUSH ASDIRECTED PRN PRN Reason: Keep Vein Open Last Admin: 01/30/18 13:35 Dose: 10 ml Labs: Laboratory Tests 01/30/18 01/30/18 01/30/18 Range/Units 12:50 12:50 12:50 WBC 11.78 H (4.23-9.07) K/mm3 RBC 5.94 (4.63-6.08) M/mm3 Hgb 18.6 H (13.7-17.5) gm/L Hct 52.5 H (40.1-51.0) % MCV 88.4 (79.0-92.2) fl MCH 31.3 (25.7-32.2) pg MCHC 35.4 (32.2-35.5) g/dl RDW Std Deviation 39.9 (35.1-43.9) fL Plt Count 230 (163-337) K/mm3 MPV 11.1 (9.4-12.3) fl Neutrophils % (Manual) 72 H (40-60) % Band Neutrophils % 0 (0-10) % Lymphocytes % (Manual) 26 (20-40) % Atypical Lymphs % 0 % Monocytes % (Manual) 2 (2-10) % Eosinophils % (Manual) 0 L (0.8-7.0) % Basophils % (Manual) 0 L (0.2-1.2) Platelet Estimate Adequate RBC Morph Comment Normal Sodium 137 (136-145) mEq/L Potassium 4.5 (3.5-5.1) mEq/L Chloride 95 L (98-107) mEq/L Carbon Dioxide 29 (21-32) mEq/L Anion Gap 17.5 H (5-15) BUN 17 (7-18) mg/dL Creatinine 1.2 (0.7-1.3) mg/dL Est Cr Clr Drug Dosing 93.78 mL/min Estimated GFR (MDRD) > 60 (>60) mL/min BUN/Creatinine Ratio 14.2 (14-18) Glucose 244 H (74-106) mg/dL Calcium 10.1 (8.5-10.1) mg/dL Total Bilirubin 2.3 H (0.2-1.0) mg/dL AST 95 H (15-37) U/L ALT 168 H (16-63) U/L Alkaline Phosphatase 115 (46-116) U/L C-Reactive Protein 1.1 H* (<1.0) mg/dL Total Protein 9.1 H (6.4-8.2) g/dl Albumin 4.7 (3.4-5.0) g/dl Globulin 4.4 gm/dL Albumin/Globulin Ratio 1.1 (1-2) Amylase 230 H (25-115) U/L Lipase 4107 H (73-393) U/L Acetaminophen 0 L (10-30) ug/mL Ethyl Alcohol 0.00 (0.00) gm% Meds: Medications Generic Name Dose Route Start Last Admin Trade Name Freq PRN Reason Stop Dose Admin Sodium Chloride 10 ml 01/30/18 13:11 01/30/18 13:35 Saline Flush FLUSH 10 ml ASDIRECTED PRN Administration Keep Vein Open Discontinued Medications Generic Name Dose Route Start Last Admin Trade Name Freq PRN Reason Stop Dose Admin Diatrizoate Meglum/Diatrizoate Sod 90 ml 01/30/18 14:22 01/30/18 14:40 Gastrografin 37% PO 01/30/18 14:23 90 ml ONETIME ONE Administration Hydromorphone HCl 1 mg 01/30/18 15:24 01/30/18 15:29 Dilaudid IVPUSH 01/30/18 15:25 1 mg ONETIME ONE Administration Hydromorphone HCl 0.5 mg 01/30/18 16:19 01/30/18 16:24 Dilaudid IVPUSH 01/30/18 16:20 0.5 mg ONETIME ONE Administration Sodium Chloride 1,000 mls @ 999 mls/hr 01/30/18 13:26 01/30/18 13:30 Normal Saline IV 01/30/18 14:26 999 mls/hr ONETIME ONE Administration Sodium Chloride 1,000 mls @ 999 mls/hr 01/30/18 15:24 01/30/18 15:29 Normal Saline IV 01/30/18 16:24 999 mls/hr ONETIME ONE Administration Iopamidol 125 ml 01/30/18 14:22 01/30/18 14:40 Isovue-300 (61%) IVPUSH 01/30/18 14:23 125 ml ONETIME ONE Administration Lorazepam 1 mg 01/30/18 16:07 01/30/18 16:17 Ativan IVPUSH 01/30/18 16:08 1 mg ONETIME ONE Administration Morphine Sulfate 2 mg 01/30/18 13:11 01/30/18 13:34 Morphine IVPUSH 01/30/18 13:12 2 mg ONETIME ONE Administration Morphine Sulfate 2 mg 01/30/18 14:18 01/30/18 14:25 Morphine IVPUSH 01/30/18 14:19 2 mg ONETIME ONE Administration Ondansetron HCl 4 mg 01/30/18 13:26 01/30/18 13:31 Zofran IVPUSH 01/30/18 13:27 4 mg ONETIME ONE Administration Sodium Chloride 10 ml 01/30/18 14:22 01/30/18 14:40 Saline Flush FLUSH 01/30/18 14:23 10 ml ONETIME ONE Administration Departure - Departure Disposition: Admitted As Inpatient 64 Clinical Impression: Pancreatitis, alcoholic, acute Qualifiers: Acute pancreatitis complication: unspecified Qualified Code(s): K85.20 - Alcohol induced acute pancreatitis without necrosis or infection - Discharge Information Referrals: Sylvester Price MD [Primary Care Provider] - Forms: ED Department Discharge Additional Instructions: Patient be admitted to ICU for acute alcohol induced pancreatitis. - My Orders Last 24 Hours: My Active Orders 01/30/18 17:12 CIWAA Assessment [RC] ASDIRECTED 01/30/18 18:31 DRUG SCREEN, URINE [URCHEM] Stat UA W/MICROSCOPIC [URIN] Stat - Assessment/Plan Last 24 Hours: My Active Orders 01/30/18 17:12 CIWAA Assessment [RC] ASDIRECTED 01/30/18 18:31 DRUG SCREEN, URINE [URCHEM] Stat UA W/MICROSCOPIC [URIN] Stat <Sana Perdomo - Last Filed: 01/30/18 18:44> ED HPI GENERAL MEDICAL PROBLEM - General Source of Information: Reports: Old Records - History of Present Illness INITIAL COMMENTS - FREE TEXT/NARRATIVE: Patient was initially seen by LUIS Tapia I seen the patient. With the history of present illness assessment by Park. States acute symptoms started this morning. He reports associated symptoms of nausea, vomiting, diaphoresis and night sweats. Reports pain in the epigastric and upper abdominal area. He states that he feels like food and fluids are being "stuck ". He did see a provider at [facility] yesterday and had labs done. He was told something was elevated but is unsure what. He was told to come to the ER today due to his increasing pain. Reviewed the patient's records show he was seen in the ER in October for pancreatitis. At that time he was sent to [facility] due to his alcohol abuse. He was seen again the end of December for pancreatitis and that time he was sent home with instructions for clear fluids. Patient states since his hospitalization in October he has been sober. 7 days ago he relapsed began drinking again. He drank for 2 days but has now been sober for the last 5 days. ED ROS GENERAL - Review of Systems Constitutional: Reports: Diaphoresis, Weight Loss (due to history of recent pancreatitis and clear fluid diet) GI/Abdominal: Reports: Other (pain across the upper abdomen, greatest in the epigastric area) ED EXAM, GI/ABD - Physical Exam General Appearance: Obese Course - Radiology Interpretation Free Text/Narrative:: CT abdomen and pelvis Technique: Multiple axial sections were obtained from above the dome of the diaphragm inferiorly through the pubic symphysis. Intravenous and oral contrast was utilized. Delayed images were also obtained through the bladder. Comparison: Prior right upper quadrant abdominal ultrasound of 11/03/17. Visualized lung bases shows nothing acute. Findings: Liver shows diffuse fatty infiltration. No focal abnormality is appreciated within the liver. Gallbladder contains no calcified gallstones. Spleen appears within normal limits. Adrenal glands show no nodule. Kidneys show symmetric contrast enhancement without hydronephrosis or mass. Mild inflammatory change is identified around the pancreas which is compatible with mild pancreatitis. Aorta shows no aneurysmal dilatation. No retroperitoneal adenopathy or mesenteric abnormalities are seen. No pelvic mass or adenopathy is seen. Delayed images shows contrast within the distal ureters and within the bladder. Bone window settings were reviewed which shows minimal degenerative change within the lower thoracic spine. 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 Impression: 1. Mild inflammatory change around the pancreas compatible with mild pancreatitis. 2. Fatty infiltration within the liver. 3. Incidental bone findings as noted above. - Re-Assessments/Exams Free Text/Narrative Re-Assessment/Exam: 01/30/18 17:20 Patient was initially seen by LUIS Tapia. I agree with history of present illness, review of systems and physical exam as documented by Park. Have seen the patient and examined him myself. Patient has required multiple doses of pain medication for pain control. He was initially given 2 mg of morphine and then another 2 mg. This was then switched to Dilaudid and he was given 1 mg IV Dilaudid. I then decided to give him a milligram of Ativan to see if that would also help but he continued to have worsening pain. given an additional 0.5 mg IV Ativan. Given his difficulty with pain control and his recurrence of his pancreatitis I do not feel he is safe to go home at this point. He is agreeable to come in the hospital. I discussed the case with Dr. Watkins, hospice on-call. She has agreed to come to see the patient in the ER. 01/30/18 18:01 Dr. Watkins has seen the patient here in the ER. He'll be admitted to the ICU. Departure - Departure Time of Disposition: 17:30 Condition: Poor
[2018-01-30] MEDS ORDERED: Ondansetron 4 MG/2 ML SDV IVPUSH ONE (13:26)
[2018-01-30] MEDS ORDERED: Sodium Chloride 0.9% 1,000 ML IV ONE ×2 (13:26→15:24)
[2018-01-30] MEDS: Sodium Chloride 0.9% 10 ML Syringe FLUSH PRN (13:35)
[2018-01-30] MEDS ORDERED: Iopamidol 612 MG/ML 150 ML Bottle IVPUSH ONE (14:22)
[2018-01-30] MEDS ORDERED: Diatrizoate Meglumine/Diatrizoate Sodium 37% 120 ML Bottle PO ONE (14:22)
[2018-01-30] MEDS ORDERED: Sodium Chloride 0.9% 10 ML Syringe FLUSH ONE (14:22)
--- NOTE | 2018-01-30 15:08 | CT ---
CT abdomen and pelvis Technique: Multiple axial sections were obtained from above the dome of the diaphragm inferiorly through the pubic symphysis. Intravenous and oral contrast was utilized. Delayed images were also obtained through the bladder. Comparison: Prior right upper quadrant abdominal ultrasound of 11/03/17. Visualized lung bases shows nothing acute. Findings: Liver shows diffuse fatty infiltration. No focal abnormality is appreciated within the liver. Gallbladder contains no calcified gallstones. Spleen appears within normal limits. Adrenal glands show no nodule. Kidneys show symmetric contrast enhancement without hydronephrosis or mass. Mild inflammatory change is identified around the pancreas which is compatible with mild pancreatitis. Aorta shows no aneurysmal dilatation. No retroperitoneal adenopathy or mesenteric abnormalities are seen. No pelvic mass or adenopathy is seen. Delayed images shows contrast within the distal ureters and within the bladder. Bone window settings were reviewed which shows minimal degenerative change within the lower thoracic spine. 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 Impression: 1. Mild inflammatory change around the pancreas compatible with mild pancreatitis. 2. Fatty infiltration within the liver. 3. Incidental bone findings as noted above. Diagnostic code #3
[2018-01-30] MEDS ORDERED: HYDROmorphone 0.5 MG/0.5 ML SYRINGE IVPUSH ONE ×2 (15:24→16:19)
--- NOTE | 2018-01-30 15:28 | CR ---
Chest: Portable view of the chest was obtained. Comparison: No prior chest x-ray. Heart size and mediastinum are normal. Lungs are clear. Bony structures are grossly intact. Impression: 1. Nothing acute is seen on portable chest x-ray. Diagnostic code #1
[2018-01-30] MEDS ORDERED: LORazepam 2 MG/ML SDV IVPUSH ONE (16:07)
[2018-01-30] MEDS ORDERED: Ondansetron 4 MG/2 ML SDV IVPUSH PRN (19:28)
[2018-01-30] MEDS ORDERED: Sodium Chloride 0.9% 1,000 ML IV SCH ×2 (19:30→21:30)
[2018-01-30] MEDS ORDERED: 50% Dextrose in Water 50 ML Syringe IVPUSH PRN (19:33)
[2018-01-30] MEDS ORDERED: Acetaminophen 325 MG Tab PO PRN (19:37)
--- NOTE | 2018-01-30 19:41 | PCM.HP ---
H&P History of Present Illness - General Date of Service: 01/30/18 Admit Problem/Dx: Admission Diagnosis/Problem Admission Diagnosis/Problem Pancreatitis Source of Information: Patient, Provider History Limitations: Reports: No Limitations - History of Present Illness Initial Comments - Free Text/Narative: 27 year old male with abdominal pain, has acute pancreatitis (ppt by ETOH). Had a 2 day period of binge drinking after reported sobriety from mid October to December 2017. The patient reports difficulty with handling stress; states that he has been anxious and medication for his anxiety has worsened his depression. He is originally from [place] and has the support of his brother and a few friends in town. 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 he admits to N/V but denies fever or chills. His abdominal pain began after his drinking binge. He is reluctant to eat or drink, stating that he is disgusted by food. There has been no change in GI/ habits. Onset of Symptoms: Reports: Gradual Symptom Onset Date: 01/25/18 Duration of Symptoms: Reports: Day(s):, Getting Worse Location: Reports: Abdomen, Generalized Severity: Moderate Improves with: Reports: Medication Worsens with: Reports: Other (drinking) Associated Symptoms: Reports: Loss of Appetite, Nausea/Vomiting, Weakness Upper Abdomen Pain Score (Numeric/FACES): 9 - Related Data Allergies/Adverse Reactions: Allergies Allergy/AdvReac Type Severity Reaction Status Date / Time No Known Allergies Allergy Verified 01/30/18 19:40 Home Medications: Home Meds LORazepam [Ativan] 1 mg PO BID PRN #14 tab 01/11/18 [Rx] Metoprolol Tartrate 50 mg PO BID #20 tablet 01/11/18 [Rx] metFORMIN [Glucophage] 500 mg PO BIDMEALS #30 tab 01/11/18 [Rx] Lisinopril 40 mg PO DAILY 01/30/18 [History] oxyCODONE HCl/Acetaminophen [Percocet 5-325 mg Tablet] 1 each PO BEDTIME PRN [History] Past Medical History HEENT History: Reports: Impaired Vision Other HEENT History: Wears glasss Cardiovascular History: Reports: Hypertension Gastrointestinal History: Reports: Other (See Below) Other Gastrointestinal History: Fatty liver, acute pancreatitis Psychiatric History: Reports: Anxiety Endocrine/Metabolic History: Reports: Diabetes, Type II Social & Family History - Tobacco Use Smoking Status *Q: Never Smoker Used Tobacco, but Quit: Yes Month/Year Tobacco Last Used: 2 years ago - Caffeine Use Caffeine Use: Reports: Soda Caffeine Use Comment: doesnt drink soda often, "takes me 3 hours to finish one soda" - Alcohol Use Days Per Week of Alcohol Use: 3 Number of Drinks Per Day: 5 Total Drinks Per Week: 15 - Recreational Drug Use Recreational Drug Use: Yes Recreational Drug Type: Reports: Marijuana/Hashish Other Recreational Drug Type: quit 2 weeks ago, used to use weekly Recreational Drug Use Frequency: Rarely H&P Review of Systems - Review of Systems: Review Of Systems: See Below General: Reports: Weakness HEENT: Reports: No Symptoms Pulmonary: Reports: No Symptoms Cardiovascular: Reports: No Symptoms Gastrointestinal: Reports: Abdominal Pain, Decreased Appetite Genitourinary: Reports: No Symptoms Musculoskeletal: Reports: No Symptoms Skin: Reports: No Symptoms Psychiatric: Reports: Depression, Anxiety Neurological: Reports: No Symptoms Hematologic/Lymphatic: Reports: No Symptoms Immunologic: Reports: No Symptoms Exam - Exam Exam: See Below - Vital Signs Vital Signs: Last Vital Signs Temp 36.2 C 01/30/18 12:44 Pulse 91 01/30/18 12:44 Resp 19 01/30/18 12:44 BP 178/117 H 01/30/18 12:44 Pulse Ox 99 01/30/18 12:44 Weight: 99.518 kg - Exam Quality Assessment: DVT Prophylaxis General: Alert, Oriented, Mild Distress HEENT: EOMI, Nares Patent, Normal Nasal Septum, Pupils Equal, Pupils Reactive, Abnormal Pupils Neck: Supple, Trachea Midline Lungs: Clear to Auscultation, Normal Respiratory Effort Cardiovascular: Regular Rate, Tachycardia GI/Abdominal Exam: Normal Bowel Sounds, Soft, No Organomegaly, No Distention, Tender (Male) Exam: Deferred Rectal (Males) Exam: Deferred Back Exam: Normal Inspection Extremities: Normal Inspection, Slow Capillary Refill Skin: Warm Neurological: Cranial Nerves Intact, Normal Gait, Normal Speech Neuro Extensive - Mental Status: Alert, Oriented x3 Neuro Extensive - Motor, Sensory, Reflexes: CN II-XII Intact Psychiatric: Alert, Anxious, Depressed - Patient Data Lab Results Last 24 hrs: Laboratory Results - last 24 hr 04/17/18 04/17/18 04/17/18 Range/Units 12:50 12:50 12:50 WBC 11.78 H (4.23-9.07) K/mm3 RBC 5.94 (4.63-6.08) M/mm3 Hgb 18.6 H (13.7-17.5) gm/L Hct 52.5 H (40.1-51.0) % MCV 88.4 (79.0-92.2) fl MCH 31.3 (25.7-32.2) pg MCHC 35.4 (32.2-35.5) g/dl RDW Std Deviation 39.9 (35.1-43.9) fL Plt Count 230 (163-337) K/mm3 MPV 11.1 (9.4-12.3) fl Neutrophils % (Manual) 72 H (40-60) % Band Neutrophils % 0 (0-10) % Lymphocytes % (Manual) 26 (20-40) % Atypical Lymphs % 0 % Monocytes % (Manual) 2 (2-10) % Eosinophils % (Manual) 0 L (0.8-7.0) % Basophils % (Manual) 0 L (0.2-1.2) Platelet Estimate Adequate RBC Morph Comment Normal Sodium 137 (136-145) mEq/L Potassium 4.5 (3.5-5.1) mEq/L Chloride 95 L (98-107) mEq/L Carbon Dioxide 29 (21-32) mEq/L Anion Gap 17.5 H (5-15) BUN 17 (7-18) mg/dL Creatinine 1.2 (0.7-1.3) mg/dL Est Cr Clr Drug Dosing 93.78 mL/min Estimated GFR (MDRD) > 60 (>60) mL/min BUN/Creatinine Ratio 14.2 (14-18) Glucose 244 H (74-106) mg/dL POC Glucose (70-105) mg/dL Calcium 10.1 (8.5-10.1) mg/dL Total Bilirubin 2.3 H (0.2-1.0) mg/dL AST 95 H (15-37) U/L ALT 168 H (16-63) U/L Alkaline Phosphatase 115 (46-116) U/L C-Reactive Protein 1.1 H* (<1.0) mg/dL Total Protein 9.1 H (6.4-8.2) g/dl Albumin 4.7 (3.4-5.0) g/dl Globulin 4.4 gm/dL Albumin/Globulin Ratio 1.1 (1-2) Amylase 230 H (25-115) U/L Lipase 4107 H (73-393) U/L Urine Color (Yellow) Urine Appearance (Clear) Urine pH (5.0-8.0) Ur Specific Plaza (1.005-1.030) Urine Protein (Negative) Urine Glucose (UA) (Negative) Urine Ketones (Negative) Urine Occult Blood (Negative) Urine Nitrite (Negative) Urine Bilirubin (Negative) Urine Urobilinogen (0.2-1.0) Ur Leukocyte Esterase (Negative) Urine RBC (0-5) /hpf Urine WBC (0-5) /hpf Ur Epithelial Cells (0-5) /hpf Urine Bacteria (FEW) /hpf Urine Mucus (FEW) /hpf Urine Opiates Screen (NEGATIVE) Ur Buprenorphine Scrn (NEGATIVE) Ur Oxycodone Screen (NEGATIVE) Urine Methadone Screen (NEGATIVE) Ur Propoxyphene Screen (NEGATIVE) Acetaminophen 0 L (10-30) ug/mL Ur Barbiturates Screen (NEGATIVE) Ur Tricyclics Screen (NEGATIVE) Ur Phencyclidine Scrn (NEGATIVE) Ur Amphetamine Screen (NEGATIVE) U Methamphetamines Scrn (NEGATIVE) U Benzodiazepines Scrn (NEGATIVE) U Cocaine Metab Screen (NEGATIVE) U Marijuana (THC) Screen (NEGATIVE) Ethyl Alcohol 0.00 (0.00) gm% 01/30/18 01/30/18 01/30/18 Range/Units 18:00 18:00 19:29 WBC (4.23-9.07) K/mm3 RBC (4.63-6.08) M/mm3 Hgb (13.7-17.5) gm/L Hct (40.1-51.0) % MCV (79.0-92.2) fl MCH (25.7-32.2) pg MCHC (32.2-35.5) g/dl RDW Std Deviation (35.1-43.9) fL Plt Count (163-337) K/mm3 MPV (9.4-12.3) fl Neutrophils % (Manual) (40-60) % Band Neutrophils % (0-10) % Lymphocytes % (Manual) (20-40) % Atypical Lymphs % % Monocytes % (Manual) (2-10) % Eosinophils % (Manual) (0.8-7.0) % Basophils % (Manual) (0.2-1.2) Platelet Estimate RBC Morph Comment Sodium (136-145) mEq/L Potassium (3.5-5.1) mEq/L Chloride (98-107) mEq/L Carbon Dioxide (21-32) mEq/L Anion Gap (5-15) BUN (7-18) mg/dL Creatinine (0.7-1.3) mg/dL Est Cr Clr Drug Dosing mL/min Estimated GFR (MDRD) (>60) mL/min BUN/Creatinine Ratio (14-18) Glucose (74-106) mg/dL POC Glucose 171 H (70-105) mg/dL Calcium (8.5-10.1) mg/dL Total Bilirubin (0.2-1.0) mg/dL AST (15-37) U/L ALT (16-63) U/L Alkaline Phosphatase (46-116) U/L C-Reactive Protein (<1.0) mg/dL Total Protein (6.4-8.2) g/dl Albumin (3.4-5.0) g/dl Globulin gm/dL Albumin/Globulin Ratio (1-2) Amylase (25-115) U/L Lipase (73-393) U/L Urine Color Yellow (Yellow) Urine Appearance Clear (Clear) Urine pH 5.5 (5.0-8.0) Ur Specific Plaza 1.015 (1.005-1.030) Urine Protein 2+ H (Negative) Urine Glucose (UA) 2+ H (Negative) Urine Ketones 4+ H (Negative) Urine Occult Blood Trace-lysed H (Negative) Urine Nitrite Negative (Negative) Urine Bilirubin 1+ H (Negative) Urine Urobilinogen 0.2 (0.2-1.0) Ur Leukocyte Esterase Negative (Negative) Urine RBC 0-5 (0-5) /hpf Urine WBC 0-5 (0-5) /hpf Ur Epithelial Cells 0-5 (0-5) /hpf Urine Bacteria Occasional (FEW) /hpf Urine Mucus Not seen (FEW) /hpf Urine Opiates Screen Presumptive positive H (NEGATIVE) Ur Buprenorphine Scrn Negative (NEGATIVE) Ur Oxycodone Screen Presumptive positive H (NEGATIVE) Urine Methadone Screen Negative (NEGATIVE) Ur Propoxyphene Screen Negative (NEGATIVE) Acetaminophen (10-30) ug/mL Ur Barbiturates Screen Negative (NEGATIVE) Ur Tricyclics Screen Negative (NEGATIVE) Ur Phencyclidine Scrn Negative (NEGATIVE) Ur Amphetamine Screen Negative (NEGATIVE) U Methamphetamines Scrn Negative (NEGATIVE) U Benzodiazepines Scrn Negative (NEGATIVE) U Cocaine Metab Screen Negative (NEGATIVE) U Marijuana (THC) Screen Presumptive positive H (NEGATIVE) Ethyl Alcohol (0.00) gm% Result Diagrams: 01/31/18 05:56 01/31/18 05:56 - Problem List (1) Hypertension SNOMED Code(s): 79476954 ICD Code: I10 - ESSENTIAL (PRIMARY) HYPERTENSION Status: Acute Current Visit: Yes (2) Diabetes mellitus SNOMED Code(s): 39516599 ICD Code: E11.9 - TYPE 2 DIABETES MELLITUS WITHOUT COMPLICATIONS Status: Acute Current Visit: Yes (3) Hyperlipidemia due to type 2 diabetes mellitus SNOMED Code(s): 537937795129519 ICD Code: E11.69 - TYPE 2 DIABETES MELLITUS WITH OTHER SPECIFIED COMPLICATION ; E78.5 - HYPERLIPIDEMIA, UNSPECIFIED Status: Acute Current Visit: Yes (4) Pancreatitis, alcoholic, acute SNOMED Code(s): 543363484 ICD Code: K85.20 - ALCOHOL INDUCED ACUTE PANCREATITIS WITHOUT NECROSIS OR INFCT Status: Acute Current Visit: Yes Qualifiers: Acute pancreatitis complication: unspecified Qualified Code(s): K85.20 - Alcohol induced acute pancreatitis without necrosis or infection (5) Alcohol abuse SNOMED Code(s): 12079001 ICD Code: F10.10 - ALCOHOL ABUSE, UNCOMPLICATED Status: Acute Current Visit: No Problem List Initiated/Reviewed/Updated: Yes Orders Last 24hrs: Active Orders 24 hr Category Date Time Status Patient Status [ADT] Stat ADT 01/30/18 18:44 Active Accu Check [Blood Glucose Check, Bedside] [RC] Q6HR Care 01/30/18 19:30 Active Blood Glucose Check, Bedside [RC] QIDACANDBED Care 01/30/18 19:33 Active CIWAA Assessment [RC] ASDIRECTED Care 01/30/18 17:12 Active Notify Provider Consults [RC] ASDIRECTED Care 01/30/18 19:35 Active Consult for Substance Abuse [CONS] Routine Cons 01/31/18 09:00 Active Consult to Case Management [CONS] Routine Cons 01/30/18 19:38 Active Consult to Physician [CONS] Routine Cons 01/30/18 19:34 Active NPO [Nothing Per Oral Diet] [DIET] Diet 01/30/18 Dinner Active DRUG SCREEN, URINE [URCHEM] Stat Lab 01/30/18 18:00 Ordered UA W/MICROSCOPIC [URIN] Stat Lab 01/30/18 18:00 Ordered Acetaminophen [Tylenol] Med 01/30/18 19:37 Ordered 650 mg PO Q8H PRN Dextrose 50% in Water Med 01/30/18 19:33 Ordered 50 ml IVPUSH ASDIRECTED PRN HYDROmorphone [Dilaudid] Med 01/30/18 19:29 Ordered 1 mg IVPUSH Q4H PRN Insulin Aspart [NovoLOG] Med 01/30/18 22:00 Ordered See Protocol SUBCUT QIDACANDBED Ketorolac [Toradol] Med 01/30/18 19:30 Ordered 30 mg IVPUSH Q6H Metoprolol Tartrate [Lopressor] Med 01/30/18 21:00 Ordered 25 mg PO Q12HR Ondansetron [Zofran] Med 01/30/18 19:28 Ordered 4 mg IVPUSH Q8H PRN Pantoprazole [ProTONIX IV] Med 01/30/18 19:30 Ordered 40 mg IVPUSH Q12H Sodium Chloride 0.9% [Normal Saline] 1,000 ml Med 01/30/18 19:30 Ordered IV ASDIRECTED Sodium Chloride 0.9% [Saline Flush] Med 01/30/18 13:11 Active 10 ml FLUSH ASDIRECTED PRN chlordiazePOXIDE [Librium] Med 01/30/18 19:30 Ordered 10 mg PO BID PRN Peripheral IV Insertion Adult [OM.PC] Stat Oth 01/30/18 13:09 Ordered HELIO Hose [Antiembolic Hose] [OM.PC] Routine Oth 01/30/18 19:36 Ordered Medication Orders Acetaminophen (Tylenol) 650 mg PO Q8H PRN PRN Reason: Pain/Fever Chlordiazepoxide HCl (Librium) 10 mg PO BID PRN PRN Reason: Anxiety Dextrose/Water (Dextrose 50% In Water) 50 ml IVPUSH ASDIRECTED PRN PRN Reason: Hypoglycemia Hydromorphone HCl (Dilaudid) 1 mg IVPUSH Q4H PRN PRN Reason: Pain (moderate 4-6) Sodium Chloride (Normal Saline) 1,000 mls @ 999 mls/hr IV ASDIRECTED [facility] Insulin Aspart (Novolog) 0 unit SUBCUT QIDACANDBED [facility]; Protocol Ketorolac Tromethamine (Toradol) 30 mg IVPUSH Q6H ALBERTO Metoprolol Tartrate (Lopressor) 25 mg PO Q12HR [facility] Ondansetron HCl (Zofran) 4 mg IVPUSH Q8H PRN PRN Reason: Nausea/Vomiting Pantoprazole Sodium (Protonix Iv) 40 mg IVPUSH Q12H [facility] Sodium Chloride (Saline Flush) 10 ml FLUSH ASDIRECTED PRN PRN Reason: Keep Vein Open Last Admin: 01/30/18 13:35 Dose: 10 ml Assessment/Plan Comment:: Impression: Acute pancreatitis Fatty liver with alcohol abuse/dependence Anxiety/depression Hypertension Diabetes mellitus type 2 Hyperlipidemia Plan: NPO except ice chips and meds IVF--0.45 NS MVI/Folic Acid/Thiamine Pain control--NSAIDS>Opiates CIWA protocol Alpha/Beta Blockade Antianxiety meds Antidepression meds Consult Psych/SA Case management re: med insurance Consult Diabetic Ed Consult Dietary re: ADA/Heart healthy/Wgt Loss DVT/GI prophylaxis
[2018-01-30] MEDS: Pantoprazole 40 MG Vial IVPUSH SCH (20:10)
[2018-01-30] MEDS: chlordiazePOXIDE 10 MG Cap PO PRN (20:11)
[2018-01-30] MEDS: Ketorolac 30 MG/ML SDV IVPUSH SCH (20:11)
[2018-01-30] MEDS: hydrALAZINE 20 MG/ML SDV IVPUSH PRN (20:11)
[2018-01-30] MEDS: Metoprolol Tartrate 25 MG Tab PO SCH (20:40)
[2018-01-30] MEDS: Sodium Chloride 0.45% 1,000 ML IV SCH ×3 (20:45→22:51)
[2018-01-30] MEDS ORDERED: LORazepam 2 MG/ML SDV IVPUSH PRN (20:53)
[2018-01-30] MEDS ORDERED: Temazepam 15 MG Cap PO PRN (22:11)
[2018-01-30] MEDS: Insulin Aspart 100 Units/ML 3 ML Pen SUBCUT SCH (22:48)
[2018-01-30] MEDS: cloNIDine 0.1 MG Tab PO SCH (22:49)
[2018-01-30] MEDS: HYDROmorphone 0.5 MG/0.5 ML SYRINGE IVPUSH PRN (23:37)
[2018-01-31] MEDS: Ketorolac 30 MG/ML SDV IVPUSH SCH ×4 (01:58→20:14)
[2018-01-31] MEDS: hydrALAZINE 20 MG/ML SDV IVPUSH PRN ×4 (02:05→23:57)
[2018-01-31] MEDS: Metoprolol Tartrate 5 MG/5 ML SDV IVPUSH PRN ×2 (02:55→11:19)
[2018-01-31] MEDS: HYDROmorphone 0.5 MG/0.5 ML SYRINGE IVPUSH PRN ×4 (05:10→23:51)
[2018-01-31] MEDS: Sodium Chloride 0.45% 1,000 ML IV SCH ×2 (05:11→11:57)
[2018-01-31] MEDS: Insulin Aspart 100 Units/ML 3 ML Pen SUBCUT SCH ×4 (06:41→21:57)
[2018-01-31] MEDS: Pantoprazole 40 MG Vial IVPUSH SCH (06:41)
[2018-01-31] MEDS: Metoprolol Tartrate 25 MG Tab PO SCH ×2 (08:02→20:14)
[2018-01-31] MEDS: cloNIDine 0.1 MG Tab PO SCH ×3 (08:03→20:15)
[2018-01-31] MEDS: chlordiazePOXIDE 10 MG Cap PO PRN (08:03)
[2018-01-31] MEDS ORDERED: chlordiazePOXIDE 10 MG Cap PO PRN (10:10)
--- NOTE | 2018-01-31 14:18 | PCM.PN ---
- General Info Date of Service: 01/31/18 Subjective Update: NPO for breakfast, will try clear liquids; less need for opiates has had relief with TORADOL. Functional Status: Reports: Pain Controlled (decreased), Ambulating, Urinating - Review of Systems General: Reports: No Symptoms HEENT: Reports: No Symptoms Pulmonary: Reports: No Symptoms Cardiovascular: Reports: No Symptoms Gastrointestinal: Reports: Abdominal Pain Genitourinary: Reports: No Symptoms Musculoskeletal: Reports: No Symptoms Skin: Reports: No Symptoms Neurological: Reports: No Symptoms Psychiatric: Reports: Depression, Anxiety - Patient Data Vitals - Most Recent: Last Vital Signs Temp 37.4 C 01/31/18 11:32 Pulse 126 H 01/31/18 11:19 Resp 16 01/31/18 11:32 BP 167/92 H 01/31/18 14:00 Pulse Ox 100 01/31/18 11:32 Weight - Most Recent: 100.244 kg I&O - Last 24 Hours: Intake & Output 01/30/18 01/31/18 01/31/18 22:59 06:59 14:59 Intake Total 2654 1347 Output Total 850 Balance 2654 497 Lab Results Last 24 Hours: Laboratory Results - last 24 hr 01/30/18 01/30/18 01/30/18 Range/Units 12:50 18:00 18:00 WBC (4.23-9.07) K/mm3 RBC (4.63-6.08) M/mm3 Hgb (13.7-17.5) gm/L Hct (40.1-51.0) % MCV (79.0-92.2) fl MCH (25.7-32.2) pg MCHC (32.2-35.5) g/dl RDW Std Deviation (35.1-43.9) fL Plt Count (163-337) K/mm3 MPV (9.4-12.3) fl Neut % (Auto) (34.0-67.9) % Lymph % (Auto) (21.8-53.1) % [place] % (Auto) (5.3-12.2) % Eos % (Auto) (0.8-7.0) Baso % (Auto) (0.1-1.2) % Neut # (Auto) (1.78-5.38) K/mm3 Lymph # (Auto) (1.32-3.57) K/mm3 [place] # (Auto) (0.30-0.82) K/mm3 Eos # (Auto) (0.04-0.54) K/mm3 Baso # (Auto) (0.01-0.08) K/mm3 Manual Slide Review Sodium 137 (136-145) mEq/L Potassium 4.5 (3.5-5.1) mEq/L Chloride 95 L (98-107) mEq/L Carbon Dioxide 29 (21-32) mEq/L Anion Gap 17.5 H (5-15) BUN 17 (7-18) mg/dL Creatinine 1.2 (0.7-1.3) mg/dL Est Cr Clr Drug Dosing 93.78 mL/min Estimated GFR (MDRD) > 60 (>60) mL/min BUN/Creatinine Ratio 14.2 (14-18) Glucose 244 H (74-106) mg/dL POC Glucose (70-105) mg/dL Calcium 10.1 (8.5-10.1) mg/dL Magnesium (1.8-2.4) mg/dl Total Bilirubin 2.3 H (0.2-1.0) mg/dL AST 95 H (15-37) U/L ALT 168 H (16-63) U/L Alkaline Phosphatase 115 (46-116) U/L C-Reactive Protein (<1.0) mg/dL Total Protein 9.1 H (6.4-8.2) g/dl Albumin 4.7 (3.4-5.0) g/dl Globulin 4.4 gm/dL Albumin/Globulin Ratio 1.1 (1-2) Amylase 230 H (25-115) U/L Lipase 4107 H (73-393) U/L Urine Color Yellow (Yellow) Urine Appearance Clear (Clear) Urine pH 5.5 (5.0-8.0) Ur Specific [place] 1.015 (1.005-1.030) Urine Protein 2+ H (Negative) Urine Glucose (UA) 2+ H (Negative) Urine Ketones 4+ H (Negative) Urine Occult Blood Trace-lysed H (Negative) Urine Nitrite Negative (Negative) Urine Bilirubin 1+ H (Negative) Urine Urobilinogen 0.2 (0.2-1.0) Ur Leukocyte Esterase Negative (Negative) Urine RBC 0-5 (0-5) /hpf Urine WBC 0-5 (0-5) /hpf Ur Epithelial Cells 0-5 (0-5) /hpf Urine Bacteria Occasional (FEW) /hpf Urine Mucus Not seen (FEW) /hpf Urine Opiates Screen Presumptive positive H (NEGATIVE) Ur Buprenorphine Scrn Negative (NEGATIVE) Ur Oxycodone Screen Presumptive positive H (NEGATIVE) Urine Methadone Screen Negative (NEGATIVE) Ur Propoxyphene Screen Negative (NEGATIVE) Ur Barbiturates Screen Negative (NEGATIVE) Ur Tricyclics Screen Negative (NEGATIVE) Ur Phencyclidine Scrn Negative (NEGATIVE) Ur Amphetamine Screen Negative (NEGATIVE) U Methamphetamines Scrn Negative (NEGATIVE) U Benzodiazepines Scrn Negative (NEGATIVE) U Cocaine Metab Screen Negative (NEGATIVE) U Marijuana (THC) Screen Presumptive positive H (NEGATIVE) Ethyl Alcohol 0.00 (0.00) gm% 01/30/18 01/30/18 01/31/18 Range/Units 19:29 22:48 05:56 WBC 13.86 H (4.23-9.07) K/mm3 RBC 5.52 (4.63-6.08) M/mm3 Hgb 17.7 H (13.7-17.5) gm/L Hct 49.0 (40.1-51.0) % MCV 88.8 (79.0-92.2) fl MCH 32.1 (25.7-32.2) pg MCHC 36.1 H (32.2-35.5) g/dl RDW Std Deviation 40.3 (35.1-43.9) fL Plt Count 193 (163-337) K/mm3 MPV 10.7 (9.4-12.3) fl Neut % (Auto) 83.6 H (34.0-67.9) % Lymph % (Auto) 8.1 L (21.8-53.1) % [place] % (Auto) 7.7 (5.3-12.2) % Eos % (Auto) 0.1 L (0.8-7.0) Baso % (Auto) 0.1 (0.1-1.2) % Neut # (Auto) 11.59 H (1.78-5.38) K/mm3 Lymph # (Auto) 1.12 L (1.32-3.57) K/mm3 [place] # (Auto) 1.07 H (0.30-0.82) K/mm3 Eos # (Auto) 0.01 L (0.04-0.54) K/mm3 Baso # (Auto) 0.02 (0.01-0.08) K/mm3 Manual Slide Review Abnormal smear Sodium (136-145) mEq/L Potassium (3.5-5.1) mEq/L Chloride (98-107) mEq/L Carbon Dioxide (21-32) mEq/L Anion Gap (5-15) BUN (7-18) mg/dL Creatinine (0.7-1.3) mg/dL Est Cr Clr Drug Dosing mL/min Estimated GFR (MDRD) (>60) mL/min BUN/Creatinine Ratio (14-18) Glucose (74-106) mg/dL POC Glucose 171 H 163 H (70-105) mg/dL Calcium (8.5-10.1) mg/dL Magnesium (1.8-2.4) mg/dl Total Bilirubin (0.2-1.0) mg/dL AST (15-37) U/L ALT (16-63) U/L Alkaline Phosphatase (46-116) U/L C-Reactive Protein (<1.0) mg/dL Total Protein (6.4-8.2) g/dl Albumin (3.4-5.0) g/dl Globulin gm/dL Albumin/Globulin Ratio (1-2) Amylase (25-115) U/L Lipase (73-393) U/L Urine Color (Yellow) Urine Appearance (Clear) Urine pH (5.0-8.0) Ur Specific [place] (1.005-1.030) Urine Protein (Negative) Urine Glucose (UA) (Negative) Urine Ketones (Negative) Urine Occult Blood (Negative) Urine Nitrite (Negative) Urine Bilirubin (Negative) Urine Urobilinogen (0.2-1.0) Ur Leukocyte Esterase (Negative) Urine RBC (0-5) /hpf Urine WBC (0-5) /hpf Ur Epithelial Cells (0-5) /hpf Urine Bacteria (FEW) /hpf Urine Mucus (FEW) /hpf Urine Opiates Screen (NEGATIVE) Ur Buprenorphine Scrn (NEGATIVE) Ur Oxycodone Screen (NEGATIVE) Urine Methadone Screen (NEGATIVE) Ur Propoxyphene Screen (NEGATIVE) Ur Barbiturates Screen (NEGATIVE) Ur Tricyclics Screen (NEGATIVE) Ur Phencyclidine Scrn (NEGATIVE) Ur Amphetamine Screen (NEGATIVE) U Methamphetamines Scrn (NEGATIVE) U Benzodiazepines Scrn (NEGATIVE) U Cocaine Metab Screen (NEGATIVE) U Marijuana (THC) Screen (NEGATIVE) Ethyl Alcohol (0.00) gm% 01/31/18 01/31/18 Range/Units 05:56 06:40 WBC (4.23-9.07) K/mm3 RBC (4.63-6.08) M/mm3 Hgb (13.7-17.5) gm/L Hct (40.1-51.0) % MCV (79.0-92.2) fl MCH (25.7-32.2) pg MCHC (32.2-35.5) g/dl RDW Std Deviation (35.1-43.9) fL Plt Count (163-337) K/mm3 MPV (9.4-12.3) fl Neut % (Auto) (34.0-67.9) % Lymph % (Auto) (21.8-53.1) % [place] % (Auto) (5.3-12.2) % Eos % (Auto) (0.8-7.0) Baso % (Auto) (0.1-1.2) % Neut # (Auto) (1.78-5.38) K/mm3 Lymph # (Auto) (1.32-3.57) K/mm3 [place] # (Auto) (0.30-0.82) K/mm3 Eos # (Auto) (0.04-0.54) K/mm3 Baso # (Auto) (0.01-0.08) K/mm3 Manual Slide Review Sodium 131 L (136-145) mEq/L Potassium 3.8 (3.5-5.1) mEq/L Chloride 96 L (98-107) mEq/L Carbon Dioxide 20 L (21-32) mEq/L Anion Gap 18.8 H (5-15) BUN 8 (7-18) mg/dL Creatinine 0.8 (0.7-1.3) mg/dL Est Cr Clr Drug Dosing 140.68 mL/min Estimated GFR (MDRD) > 60 (>60) mL/min BUN/Creatinine Ratio 10.0 L (14-18) Glucose 159 H (74-106) mg/dL POC Glucose 152 H (70-105) mg/dL Calcium 9.0 (8.5-10.1) mg/dL Magnesium 1.8 (1.8-2.4) mg/dl Total Bilirubin (0.2-1.0) mg/dL AST (15-37) U/L ALT (16-63) U/L Alkaline Phosphatase (46-116) U/L C-Reactive Protein 5.1 H* (<1.0) mg/dL Total Protein (6.4-8.2) g/dl Albumin (3.4-5.0) g/dl Globulin gm/dL Albumin/Globulin Ratio (1-2) Amylase (25-115) U/L Lipase 1775 H (73-393) U/L Urine Color (Yellow) Urine Appearance (Clear) Urine pH (5.0-8.0) Ur Specific [place] (1.005-1.030) Urine Protein (Negative) Urine Glucose (UA) (Negative) Urine Ketones (Negative) Urine Occult Blood (Negative) Urine Nitrite (Negative) Urine Bilirubin (Negative) Urine Urobilinogen (0.2-1.0) Ur Leukocyte Esterase (Negative) Urine RBC (0-5) /hpf Urine WBC (0-5) /hpf Ur Epithelial Cells (0-5) /hpf Urine Bacteria (FEW) /hpf Urine Mucus (FEW) /hpf Urine Opiates Screen (NEGATIVE) Ur Buprenorphine Scrn (NEGATIVE) Ur Oxycodone Screen (NEGATIVE) Urine Methadone Screen (NEGATIVE) Ur Propoxyphene Screen (NEGATIVE) Ur Barbiturates Screen (NEGATIVE) Ur Tricyclics Screen (NEGATIVE) Ur Phencyclidine Scrn (NEGATIVE) Ur Amphetamine Screen (NEGATIVE) U Methamphetamines Scrn (NEGATIVE) U Benzodiazepines Scrn (NEGATIVE) U Cocaine Metab Screen (NEGATIVE) U Marijuana (THC) Screen (NEGATIVE) Ethyl Alcohol (0.00) gm% Med Orders - Current: Current Medications Acetaminophen (Tylenol) 650 mg PO Q8H PRN PRN Reason: Pain/Fever Chlordiazepoxide HCl (Librium) 10 mg PO TID PRN PRN Reason: Anxiety Last Admin: 01/31/18 13:03 Dose: 10 mg Clonidine HCl (Catapres) 0.1 mg PO TID ALBERTO Last Admin: 01/31/18 08:03 Dose: 0.1 mg Dextrose/Water (Dextrose 50% In Water) 50 ml IVPUSH ASDIRECTED PRN PRN Reason: Hypoglycemia Hydralazine HCl (Apresoline) 20 mg IVPUSH Q6H PRN PRN Reason: Hypertension Last Admin: 01/31/18 13:02 Dose: 20 mg Hydromorphone HCl (Dilaudid) 1 mg IVPUSH Q4H PRN PRN Reason: Pain (moderate 4-6) Last Admin: 01/31/18 11:14 Dose: 1 mg Insulin Aspart (Novolog) 0 unit SUBCUT QIDACANDBED [facility]; Protocol Last Admin: 01/31/18 11:12 Dose: 1 unit Ketorolac Tromethamine (Toradol) 30 mg IVPUSH Q6H [facility] Last Admin: 01/31/18 13:08 Dose: 30 mg Lorazepam (Ativan) 1 mg IVPUSH Q4H PRN; Protocol PRN Reason: Anxiety Metoprolol Tartrate (Lopressor) 25 mg PO Q12HR [facility] Last Admin: 01/31/18 08:02 Dose: 25 mg Metoprolol Tartrate (Lopressor) 5 mg IVPUSH Q6H PRN PRN Reason: Tachycardia Last Admin: 01/31/18 11:19 Dose: 5 mg Ondansetron HCl (Zofran) 4 mg IVPUSH Q8H PRN PRN Reason: Nausea/Vomiting Pantoprazole Sodium (Protonix) 40 mg PO BID [facility] Sodium Chloride (Saline Flush) 10 ml FLUSH ASDIRECTED PRN PRN Reason: Keep Vein Open Last Admin: 01/30/18 13:35 Dose: 10 ml Temazepam (Restoril) 15 mg PO BEDTIME PRN PRN Reason: Insomnia Last Admin: 01/30/18 22:44 Dose: 15 mg Discontinued Medications Chlordiazepoxide HCl (Librium) 10 mg PO BID PRN PRN Reason: Anxiety Last Admin: 01/31/18 08:03 Dose: 10 mg Diatrizoate Meglum/Diatrizoate Sod (Gastrografin 37%) 90 ml PO ONETIME ONE Stop: 01/30/18 14:23 Last Admin: 01/30/18 14:40 Dose: 90 ml Hydromorphone HCl (Dilaudid) 1 mg IVPUSH ONETIME ONE Stop: 01/30/18 15:25 Last Admin: 01/30/18 15:29 Dose: 1 mg Hydromorphone HCl (Dilaudid) 0.5 mg IVPUSH ONETIME ONE Stop: 01/30/18 16:20 Last Admin: 01/30/18 16:24 Dose: 0.5 mg Sodium Chloride (Normal Saline) 1,000 mls @ 999 mls/hr IV ONETIME ONE Stop: 01/30/18 14:26 Last Admin: 01/30/18 13:30 Dose: 999 mls/hr Sodium Chloride (Normal Saline) 1,000 mls @ 999 mls/hr IV ONETIME ONE Stop: 01/30/18 16:24 Last Admin: 01/30/18 15:29 Dose: 999 mls/hr Sodium Chloride (Normal Saline) 1,000 mls @ 999 mls/hr IV ASDIRECTED ALBERTO Stop: 01/31/18 21:30 Sodium Chloride (Normal Saline) 1,000 mls @ 150 mls/hr IV ASDIRECTED ALBERTO Sodium Chloride (Sodium Chloride 0.45%) 1,000 mls @ 150 mls/hr IV ASDIRECTED ALBERTO Last Admin: 01/31/18 11:57 Dose: 150 mls/hr Sodium Chloride (Sodium Chloride 0.45%) 1,000 mls @ 1,000 mls/hr IV Q1H [facility] Stop: 01/30/18 22:44 Last Admin: 01/30/18 21:43 Dose: 1,000 mls/hr Iopamidol (Isovue-300 (61%)) 125 ml IVPUSH ONETIME ONE Stop: 01/30/18 14:23 Last Admin: 01/30/18 14:40 Dose: 125 ml Lorazepam (Ativan) 1 mg IVPUSH ONETIME ONE Stop: 01/30/18 16:08 Last Admin: 01/30/18 16:17 Dose: 1 mg Morphine Sulfate (Morphine) 2 mg IVPUSH ONETIME ONE Stop: 01/30/18 13:12 Last Admin: 01/30/18 13:34 Dose: 2 mg Morphine Sulfate (Morphine) 2 mg IVPUSH ONETIME ONE Stop: 01/30/18 14:19 Last Admin: 01/30/18 14:25 Dose: 2 mg Ondansetron HCl (Zofran) 4 mg IVPUSH ONETIME ONE Stop: 01/30/18 13:27 Last Admin: 01/30/18 13:31 Dose: 4 mg Pantoprazole Sodium (Protonix Iv) 40 mg IVPUSH Q12H ALBERTO Last Admin: 01/31/18 06:41 Dose: 40 mg Sodium Chloride (Saline Flush) 10 ml FLUSH ONETIME ONE Stop: 01/30/18 14:23 Last Admin: 01/30/18 14:40 Dose: 10 ml - Exam Quality Assessment: DVT Prophylaxis General: Alert, Oriented, Cooperative, No Acute Distress HEENT: Pupils Equal, Pupils Reactive, EOMI Neck: Supple, Trachea Midline Lungs: Clear to Auscultation, Normal Respiratory Effort Cardiovascular: Regular Rate, Tachycardia GI/Abdominal Exam: Normal Bowel Sounds, Soft, Non-Tender, No Organomegaly, No Distention (Male) Exam: Deferred Back Exam: Normal Inspection Extremities: Normal Inspection, Normal Range of Motion, Non-Tender, No Pedal Edema, Normal Capillary Refill Skin: Warm Neurological: No New Focal Deficit, Normal Gait, Normal Speech Psy/Mental Status: Alert, Anxious, Depressed - Problem List Review Problem List Initiated/Reviewed/Updated: Yes - My Orders Last 24 Hours: My Active Orders 01/30/18 19:28 Ondansetron [Zofran] 4 mg IVPUSH Q8H PRN 01/30/18 19:29 HYDROmorphone [Dilaudid] 1 mg IVPUSH Q4H PRN 01/30/18 19:33 Blood Glucose Check, Bedside [RC] QIDACANDBED Dextrose 50% in Water 50 ml IVPUSH ASDIRECTED PRN 01/30/18 19:34 Consult to Physician [CONS] Routine 01/30/18 19:35 Notify Provider Consults [RC] ASDIRECTED 01/30/18 19:36 HELIO Hose [Antiembolic Hose] [OM.PC] Routine 01/30/18 19:37 Acetaminophen [Tylenol] 650 mg PO Q8H PRN 01/30/18 19:38 Consult to Case Management [CONS] Routine 01/30/18 19:45 hydrALAZINE [Apresoline] 20 mg IVPUSH Q6H PRN 01/30/18 20:00 Ketorolac [Toradol] 30 mg IVPUSH Q6H 01/30/18 20:53 LORazepam [Ativan] 1 mg IVPUSH Q4H PRN 01/30/18 21:00 Metoprolol Tartrate [Lopressor] 25 mg PO Q12HR 01/30/18 22:00 Insulin Aspart [NovoLOG] See Protocol SUBCUT QIDACANDBED 01/30/18 22:11 Temazepam [Restoril] 15 mg PO BEDTIME PRN 01/30/18 22:19 Metoprolol Tartrate [Lopressor] 5 mg IVPUSH Q6H PRN 01/30/18 22:35 cloNIDine [Catapres] 0.1 mg PO TID 01/31/18 03:39 Resuscitation Status Routine 01/31/18 09:00 Consult for Substance Abuse [CONS] Routine 01/31/18 10:10 chlordiazePOXIDE [Librium] 10 mg PO TID PRN 01/31/18 14:13 Convert IV to Saline Lock [OM.PC] Routine 01/31/18 21:00 Pantoprazole [ProTONIX] 40 mg PO BID 01/31/18 Lunch Clear Liquid Diet [DIET] 02/01/18 05:00 BMP [BASIC METABOLIC PANEL,BMP] [CHEM] DAILY CBC WITH AUTO DIFF [HEME] DAILY CRP [C-REACTIVE PROTEIN] [CHEM] DAILY LIPASE [CHEM] DAILY MAGNESIUM [CHEM] DAILY 02/01/18 Breakfast Full Liquid Diet [DIET] 02/02/18 05:00 BMP [BASIC METABOLIC PANEL,BMP] [CHEM] DAILY CBC WITH AUTO DIFF [HEME] DAILY CRP [C-REACTIVE PROTEIN] [CHEM] DAILY LIPASE [CHEM] DAILY MAGNESIUM [CHEM] DAILY 02/03/18 05:00 BMP [BASIC METABOLIC PANEL,BMP] [CHEM] DAILY CBC WITH AUTO DIFF [HEME] DAILY CRP [C-REACTIVE PROTEIN] [CHEM] DAILY LIPASE [CHEM] DAILY MAGNESIUM [CHEM] DAILY 02/04/18 05:00 BMP [BASIC METABOLIC PANEL,BMP] [CHEM] DAILY CBC WITH AUTO DIFF [HEME] DAILY CRP [C-REACTIVE PROTEIN] [CHEM] DAILY LIPASE [CHEM] DAILY MAGNESIUM [CHEM] DAILY - Plan Plan:: mpression: Acute pancreatitis Fatty liver with alcohol abuse/dependence Anxiety/depression Hypertension Diabetes mellitus type 2 Hyperlipidemia Plan: NPO except ice chips and meds IVF--0.45 NS MVI/Folic Acid/Thiamine Pain control--NSAIDS>Opiates CIWA protocol Alpha/Beta Blockade Antianxiety meds Antidepression meds Consult Psych/SA Case management re: med insurance Consult Diabetic Ed Consult Dietary re: ADA/Heart healthy/Wgt Loss DVT/GI prophylaxis
[2018-01-31] MEDS ORDERED: Magnesium Sulfate/Water 2 GM in Premix Bag 1 BAG IV ONE (15:40)
[2018-01-31] MEDS: Thiamine 100 MG Tab PO SCH (20:14)
[2018-01-31] MEDS: Temazepam 15 MG Cap PO PRN (20:14)
[2018-01-31] MEDS: amLODIPine 10 MG Tab PO SCH (20:15)
[2018-01-31] MEDS: chlordiazePOXIDE 10 MG Cap PO SCH (20:15)
[2018-01-31] MEDS: Pantoprazole 40 MG Tab.CR PO SCH (20:16)
[2018-01-31] MEDS ORDERED: cloNIDine 0.1 MG Tab PO SCH (22:20)
[2018-02-01] MEDS: Ketorolac 30 MG/ML SDV IVPUSH SCH ×4 (02:05→20:07)
[2018-02-01] MEDS: Insulin Aspart 100 Units/ML 3 ML Pen SUBCUT SCH ×4 (06:41→21:16)
[2018-02-01] MEDS: Sodium Chloride 0.9% 10 ML Syringe FLUSH PRN (07:58)
[2018-02-01] MEDS: Pantoprazole 40 MG Tab.CR PO SCH ×2 (08:02→20:07)
[2018-02-01] MEDS: chlordiazePOXIDE 10 MG Cap PO SCH ×3 (08:02→20:07)
[2018-02-01] MEDS: FLUoxetine 20 MG Cap PO SCH (08:03)
[2018-02-01] MEDS: Folic Acid 1 MG Tab PO SCH (08:03)
[2018-02-01] MEDS: cloNIDine 0.1 MG Tab PO SCH ×3 (08:03→20:04)
[2018-02-01] MEDS: Metoprolol Tartrate 25 MG Tab PO SCH ×2 (08:04→20:06)
--- NOTE | 2018-02-01 09:53 | PCM.PN ---
- General Info Date of Service: 02/01/18 Subjective Update: Patient is feeling better, has less abdominal pain. Functional Status: Reports: Pain Controlled, Tolerating Diet, Ambulating, Urinating - Review of Systems General: Reports: No Symptoms HEENT: Reports: No Symptoms Pulmonary: Reports: No Symptoms Cardiovascular: Reports: No Symptoms Gastrointestinal: Reports: No Symptoms Genitourinary: Reports: No Symptoms Musculoskeletal: Reports: No Symptoms Skin: Reports: No Symptoms Neurological: Reports: No Symptoms Psychiatric: Reports: No Symptoms - Patient Data Vitals - Most Recent: Last Vital Signs Temp 37.2 C 02/01/18 07:37 Pulse 126 H 02/01/18 08:04 Resp 18 02/01/18 07:37 BP 154/102 H 02/01/18 09:28 Pulse Ox 99 02/01/18 07:37 Weight - Most Recent: 99.473 kg I&O - Last 24 Hours: Intake & Output 01/31/18 02/01/18 02/01/18 22:59 06:59 14:59 Intake Total 690 250 Output Total 400 450 Balance 290 -200 Lab Results Last 24 Hours: Laboratory Results - last 24 hr 01/31/18 01/31/18 01/31/18 Range/Units 11:11 17:30 21:55 WBC (4.23-9.07) K/mm3 RBC (4.63-6.08) M/mm3 Hgb (13.7-17.5) gm/L Hct (40.1-51.0) % MCV (79.0-92.2) fl MCH (25.7-32.2) pg MCHC (32.2-35.5) g/dl RDW Std Deviation (35.1-43.9) fL Plt Count (163-337) K/mm3 MPV (9.4-12.3) fl Neut % (Auto) (34.0-67.9) % Lymph % (Auto) (21.8-53.1) % [place] % (Auto) (5.3-12.2) % Eos % (Auto) (0.8-7.0) Baso % (Auto) (0.1-1.2) % Neut # (Auto) (1.78-5.38) K/mm3 Lymph # (Auto) (1.32-3.57) K/mm3 [place] # (Auto) (0.30-0.82) K/mm3 Eos # (Auto) (0.04-0.54) K/mm3 Baso # (Auto) (0.01-0.08) K/mm3 Sodium (136-145) mEq/L Potassium (3.5-5.1) mEq/L Chloride (98-107) mEq/L Carbon Dioxide (21-32) mEq/L Anion Gap (5-15) BUN (7-18) mg/dL Creatinine (0.7-1.3) mg/dL Est Cr Clr Drug Dosing mL/min Estimated GFR (MDRD) (>60) mL/min BUN/Creatinine Ratio (14-18) Glucose (74-106) mg/dL POC Glucose 150 H 161 H 172 H (70-105) mg/dL Hemoglobin A1c (4.50-6.20) % Calcium (8.5-10.1) mg/dL Magnesium (1.8-2.4) mg/dl C-Reactive Protein (<1.0) mg/dL Lipase (73-393) U/L TSH 3rd Generation (0.358-3.74) uIU/mL 02/01/18 02/01/18 02/01/18 Range/Units 05:40 05:40 05:46 WBC 9.77 H (4.23-9.07) K/mm3 RBC 5.61 (4.63-6.08) M/mm3 Hgb 17.6 H (13.7-17.5) gm/L Hct 50.1 (40.1-51.0) % MCV 89.3 (79.0-92.2) fl MCH 31.4 (25.7-32.2) pg MCHC 35.1 (32.2-35.5) g/dl RDW Std Deviation 40.9 (35.1-43.9) fL Plt Count 186 (163-337) K/mm3 MPV 10.8 (9.4-12.3) fl Neut % (Auto) 68.4 H (34.0-67.9) % Lymph % (Auto) 19.9 L (21.8-53.1) % [place] % (Auto) 10.6 (5.3-12.2) % Eos % (Auto) 0.7 L (0.8-7.0) Baso % (Auto) 0.2 (0.1-1.2) % Neut # (Auto) 6.68 H (1.78-5.38) K/mm3 Lymph # (Auto) 1.94 (1.32-3.57) K/mm3 [place] # (Auto) 1.04 H (0.30-0.82) K/mm3 Eos # (Auto) 0.07 (0.04-0.54) K/mm3 Baso # (Auto) 0.02 (0.01-0.08) K/mm3 Sodium 133 L (136-145) mEq/L Potassium 3.6 (3.5-5.1) mEq/L Chloride 97 L (98-107) mEq/L Carbon Dioxide 22 (21-32) mEq/L Anion Gap 17.6 H (5-15) BUN 13 (7-18) mg/dL Creatinine 0.8 (0.7-1.3) mg/dL Est Cr Clr Drug Dosing 140.68 mL/min Estimated GFR (MDRD) > 60 (>60) mL/min BUN/Creatinine Ratio 16.3 (14-18) Glucose 159 H (74-106) mg/dL POC Glucose (70-105) mg/dL Hemoglobin A1c 8.00 H (4.50-6.20) % Calcium 9.4 (8.5-10.1) mg/dL Magnesium 2.3 (1.8-2.4) mg/dl C-Reactive Protein 17.2 H* (<1.0) mg/dL Lipase 2168 H (73-393) U/L TSH 3rd Generation 1.023 (0.358-3.74) uIU/mL 02/01/18 Range/Units 06:40 WBC (4.23-9.07) K/mm3 RBC (4.63-6.08) M/mm3 Hgb (13.7-17.5) gm/L Hct (40.1-51.0) % MCV (79.0-92.2) fl MCH (25.7-32.2) pg MCHC (32.2-35.5) g/dl RDW Std Deviation (35.1-43.9) fL Plt Count (163-337) K/mm3 MPV (9.4-12.3) fl Neut % (Auto) (34.0-67.9) % Lymph % (Auto) (21.8-53.1) % [place] % (Auto) (5.3-12.2) % Eos % (Auto) (0.8-7.0) Baso % (Auto) (0.1-1.2) % Neut # (Auto) (1.78-5.38) K/mm3 Lymph # (Auto) (1.32-3.57) K/mm3 [place] # (Auto) (0.30-0.82) K/mm3 Eos # (Auto) (0.04-0.54) K/mm3 Baso # (Auto) (0.01-0.08) K/mm3 Sodium (136-145) mEq/L Potassium (3.5-5.1) mEq/L Chloride (98-107) mEq/L Carbon Dioxide (21-32) mEq/L Anion Gap (5-15) BUN (7-18) mg/dL Creatinine (0.7-1.3) mg/dL Est Cr Clr Drug Dosing mL/min Estimated GFR (MDRD) (>60) mL/min BUN/Creatinine Ratio (14-18) Glucose (74-106) mg/dL POC Glucose 156 H (70-105) mg/dL Hemoglobin A1c (4.50-6.20) % Calcium (8.5-10.1) mg/dL Magnesium (1.8-2.4) mg/dl C-Reactive Protein (<1.0) mg/dL Lipase (73-393) U/L TSH 3rd Generation (0.358-3.74) uIU/mL Med Orders - Current: Current Medications Acetaminophen (Tylenol) 650 mg PO Q8H PRN PRN Reason: Pain/Fever Last Admin: 02/01/18 05:44 Dose: 650 mg Amlodipine Besylate (Norvasc) 10 mg PO BEDTIME [facility] Last Admin: 01/31/18 20:15 Dose: 10 mg Chlordiazepoxide HCl (Librium) 10 mg PO TID [facility] Last Admin: 02/01/18 08:02 Dose: 10 mg Clonidine HCl (Catapres) 0.1 mg PO TID [facility] Last Admin: 02/01/18 08:03 Dose: 0.1 mg Dextrose/Water (Dextrose 50% In Water) 50 ml IVPUSH ASDIRECTED PRN PRN Reason: Hypoglycemia Fluoxetine HCl (Prozac) 20 mg PO DAILY [facility] Last Admin: 02/01/18 08:03 Dose: 20 mg Folic Acid (Folic Acid) 1 mg PO DAILY [facility] Last Admin: 02/01/18 08:03 Dose: 1 mg Hydralazine HCl (Apresoline) 20 mg IVPUSH Q6H PRN PRN Reason: Hypertension Last Admin: 01/31/18 23:57 Dose: 20 mg Hydromorphone HCl (Dilaudid) 1 mg IVPUSH Q4H PRN PRN Reason: Pain (moderate 4-6) Last Admin: 01/31/18 23:51 Dose: 1 mg Insulin Aspart (Novolog) 0 unit SUBCUT QIDACANDBED [facility]; Protocol Last Admin: 02/01/18 06:41 Dose: 1 unit Ketorolac Tromethamine (Toradol) 30 mg IVPUSH Q6H [facility] Last Admin: 02/01/18 07:58 Dose: 30 mg Lorazepam (Ativan) 1 mg IVPUSH Q4H PRN; Protocol PRN Reason: Anxiety Metoprolol Tartrate (Lopressor) 5 mg IVPUSH Q6H PRN PRN Reason: Tachycardia Last Admin: 01/31/18 11:19 Dose: 5 mg Metoprolol Tartrate (Lopressor) 50 mg PO Q12HR [facility] Last Admin: 02/01/18 08:04 Dose: 50 mg Ondansetron HCl (Zofran) 4 mg IVPUSH Q8H PRN PRN Reason: Nausea/Vomiting Pantoprazole Sodium (Protonix) 40 mg PO BID [facility] Last Admin: 02/01/18 08:02 Dose: 40 mg Sodium Chloride (Saline Flush) 10 ml FLUSH ASDIRECTED PRN PRN Reason: Keep Vein Open Last Admin: 02/01/18 07:58 Dose: 10 ml Temazepam (Restoril) 30 mg PO BEDTIME PRN PRN Reason: Insomnia Last Admin: 01/31/18 20:14 Dose: 30 mg Thiamine HCl (Vitamin B-1) 100 mg PO BEDTIME [facility] Last Admin: 01/31/18 20:14 Dose: 100 mg Discontinued Medications Chlordiazepoxide HCl (Librium) 10 mg PO BID PRN PRN Reason: Anxiety Last Admin: 01/31/18 08:03 Dose: 10 mg Chlordiazepoxide HCl (Librium) 10 mg PO TID PRN PRN Reason: Anxiety Last Admin: 01/31/18 13:03 Dose: 10 mg Diatrizoate Meglum/Diatrizoate Sod (Gastrografin 37%) 90 ml PO ONETIME ONE Stop: 01/30/18 14:23 Last Admin: 01/30/18 14:40 Dose: 90 ml Hydromorphone HCl (Dilaudid) 1 mg IVPUSH ONETIME ONE Stop: 01/30/18 15:25 Last Admin: 01/30/18 15:29 Dose: 1 mg Hydromorphone HCl (Dilaudid) 0.5 mg IVPUSH ONETIME ONE Stop: 01/30/18 16:20 Last Admin: 01/30/18 16:24 Dose: 0.5 mg Sodium Chloride (Normal Saline) 1,000 mls @ 999 mls/hr IV ONETIME ONE Stop: 01/30/18 14:26 Last Admin: 01/30/18 13:30 Dose: 999 mls/hr Sodium Chloride (Normal Saline) 1,000 mls @ 999 mls/hr IV ONETIME ONE Stop: 01/30/18 16:24 Last Admin: 01/30/18 15:29 Dose: 999 mls/hr Sodium Chloride (Normal Saline) 1,000 mls @ 999 mls/hr IV ASDIRECTED [facility] Stop: 01/31/18 21:30 Sodium Chloride (Normal Saline) 1,000 mls @ 150 mls/hr IV ASDIRECTED [facility] Sodium Chloride (Sodium Chloride 0.45%) 1,000 mls @ 150 mls/hr IV ASDIRECTED [facility] Last Admin: 01/31/18 11:57 Dose: 150 mls/hr Sodium Chloride (Sodium Chloride 0.45%) 1,000 mls @ 1,000 mls/hr IV Q1H [facility] Stop: 01/30/18 22:44 Last Admin: 01/30/18 21:43 Dose: 1,000 mls/hr Magnesium Sulfate 2 gm/ Premix 50 mls @ 25 mls/hr IV ONETIME ONE Stop: 01/31/18 17:39 Last Admin: 01/31/18 16:02 Dose: 25 mls/hr Iopamidol (Isovue-300 (61%)) 125 ml IVPUSH ONETIME ONE Stop: 01/30/18 14:23 Last Admin: 01/30/18 14:40 Dose: 125 ml Lorazepam (Ativan) 1 mg IVPUSH ONETIME ONE Stop: 01/30/18 16:08 Last Admin: 01/30/18 16:17 Dose: 1 mg Metoprolol Tartrate (Lopressor) 25 mg PO Q12HR [facility] Last Admin: 01/31/18 08:02 Dose: 25 mg Morphine Sulfate (Morphine) 2 mg IVPUSH ONETIME ONE Stop: 01/30/18 13:12 Last Admin: 01/30/18 13:34 Dose: 2 mg Morphine Sulfate (Morphine) 2 mg IVPUSH ONETIME ONE Stop: 01/30/18 14:19 Last Admin: 01/30/18 14:25 Dose: 2 mg Ondansetron HCl (Zofran) 4 mg IVPUSH ONETIME ONE Stop: 01/30/18 13:27 Last Admin: 01/30/18 13:31 Dose: 4 mg Pantoprazole Sodium (Protonix Iv) 40 mg IVPUSH Q12H [facility] Last Admin: 01/31/18 06:41 Dose: 40 mg Sodium Chloride (Saline Flush) 10 ml FLUSH ONETIME ONE Stop: 01/30/18 14:23 Last Admin: 01/30/18 14:40 Dose: 10 ml Temazepam (Restoril) 15 mg PO BEDTIME PRN PRN Reason: Insomnia Last Admin: 01/30/18 22:44 Dose: 15 mg - Exam Quality Assessment: DVT Prophylaxis General: Alert, Oriented, Cooperative, No Acute Distress HEENT: Pupils Equal, Pupils Reactive, EOMI Neck: Trachea Midline Lungs: Normal Respiratory Effort Cardiovascular: Regular Rate, Regular Rhythm GI/Abdominal Exam: Normal Bowel Sounds, Soft, Non-Tender, No Organomegaly, No Distention (Male) Exam: Deferred Back Exam: Normal Inspection Extremities: Normal Inspection, Normal Range of Motion, Non-Tender, No Pedal Edema, Normal Capillary Refill Skin: Warm, Dry, Intact Neurological: No New Focal Deficit, Normal Gait, Normal Speech Psy/Mental Status: Alert, Normal Affect, Normal Mood - Problem List Review Problem List Initiated/Reviewed/Updated: Yes - My Orders Last 24 Hours: My Active Orders 01/31/18 09:00 Consult for Substance Abuse [CONS] Routine 01/31/18 14:13 Convert IV to Saline Lock [OM.PC] Routine 01/31/18 19:56 Temazepam [Restoril] 30 mg PO BEDTIME PRN 01/31/18 21:00 Metoprolol Tartrate [Lopressor] 50 mg PO Q12HR Pantoprazole [ProTONIX] 40 mg PO BID Thiamine [Vitamin B-1] 100 mg PO BEDTIME amLODIPine [Norvasc] 10 mg PO BEDTIME chlordiazePOXIDE [Librium] 10 mg PO TID 02/01/18 09:00 FLUoxetine [PROzac] 20 mg PO DAILY Folic Acid 1 mg PO DAILY 02/01/18 Breakfast Full Liquid Diet [DIET] 02/02/18 05:00 BMP [BASIC METABOLIC PANEL,BMP] [CHEM] DAILY CBC WITH AUTO DIFF [HEME] DAILY CRP [C-REACTIVE PROTEIN] [CHEM] DAILY LIPASE [CHEM] DAILY MAGNESIUM [CHEM] DAILY 02/03/18 05:00 BMP [BASIC METABOLIC PANEL,BMP] [CHEM] DAILY CBC WITH AUTO DIFF [HEME] DAILY CRP [C-REACTIVE PROTEIN] [CHEM] DAILY LIPASE [CHEM] DAILY MAGNESIUM [CHEM] DAILY 02/04/18 05:00 BMP [BASIC METABOLIC PANEL,BMP] [CHEM] DAILY CBC WITH AUTO DIFF [HEME] DAILY CRP [C-REACTIVE PROTEIN] [CHEM] DAILY LIPASE [CHEM] DAILY MAGNESIUM [CHEM] DAILY - Plan Plan:: Impression: Acute pancreatitis Fatty liver with alcohol abuse/dependence Anxiety/depression Hypertension Diabetes mellitus type 2 Hyperlipidemia Plan: Clear liquids, well tolerated advanced to full liquids IVF--0.45 NS MVI/Folic Acid/Thiamine Pain control--NSAIDS-->DC Toradol, change to Motrin 02/02/18 Start ACEI after off of Toradol DM educator 02/02/18. CIWA protocol Alpha/Beta Blockade Antianxiety meds Antidepression meds Consult Psych/SA Case management re: med insurance Consult Diabetic Ed Consult Dietary re: ADA/Heart healthy/Wgt Loss DVT/GI prophylaxis
[2018-02-01] MEDS ORDERED: Cyclobenzaprine 10 MG Tab PO PRN (10:43)
[2018-02-01] MEDS ORDERED: Lisinopril 20 MG Tab PO SCH (12:00)
[2018-02-01] MEDS: Metoprolol Tartrate 5 MG/5 ML SDV IVPUSH PRN (14:27)
[2018-02-01] MEDS: hydrALAZINE 20 MG/ML SDV IVPUSH PRN (14:30)
[2018-02-01] MEDS ORDERED: hydrALAZINE 20 MG/ML SDV IVPUSH PRN (14:35)
[2018-02-01] MEDS: amLODIPine 10 MG Tab PO SCH (20:07)
[2018-02-01] MEDS: Thiamine 100 MG Tab PO SCH (20:07)
[2018-02-01] MEDS: Temazepam 15 MG Cap PO PRN (21:15)
[2018-02-02] MEDS: Ketorolac 30 MG/ML SDV IVPUSH SCH ×2 (01:16→07:58)
[2018-02-02] MEDS: Insulin Aspart 100 Units/ML 3 ML Pen SUBCUT SCH ×4 (06:46→21:37)
[2018-02-02] MEDS: cloNIDine 0.1 MG Tab PO SCH ×3 (09:23→21:12)
[2018-02-02] MEDS: Metoprolol Tartrate 25 MG Tab PO SCH ×2 (09:23→21:11)
[2018-02-02] MEDS: Folic Acid 1 MG Tab PO SCH (09:23)
[2018-02-02] MEDS: Pantoprazole 40 MG Tab.CR PO SCH ×2 (09:24→21:15)
[2018-02-02] MEDS: FLUoxetine 20 MG Cap PO SCH (09:24)
[2018-02-02] MEDS: chlordiazePOXIDE 10 MG Cap PO SCH (09:24)
--- NOTE | 2018-02-02 11:55 | PCM.PN ---
- General Info Date of Service: 02/02/18 Subjective Update: Feels better, diet has been advanced with mild discomfort. CIWAs are now 0-2, will adjust meds accordingly. Functional Status: Reports: Pain Controlled, Tolerating Diet, Ambulating, Urinating - Review of Systems General: Reports: No Symptoms HEENT: Reports: No Symptoms Pulmonary: Reports: No Symptoms Cardiovascular: Reports: No Symptoms Gastrointestinal: Reports: No Symptoms Genitourinary: Reports: No Symptoms Musculoskeletal: Reports: No Symptoms Skin: Reports: No Symptoms Neurological: Reports: No Symptoms Psychiatric: Reports: Anxiety - Patient Data Vitals - Most Recent: Last Vital Signs Temp 37.0 C 02/02/18 08:00 Pulse 104 H 02/02/18 09:23 Resp 16 02/02/18 08:00 BP 120/76 02/02/18 09:23 Pulse Ox 97 02/02/18 08:00 Weight - Most Recent: 99.337 kg I&O - Last 24 Hours: Intake & Output 02/01/18 02/02/18 02/02/18 22:59 06:59 14:59 Intake Total 1160 280 320 Balance 1160 280 320 Lab Results Last 24 Hours: Laboratory Results - last 24 hr 02/01/18 02/01/18 02/02/18 Range/Units 17:30 20:18 06:45 WBC (4.23-9.07) K/mm3 RBC (4.63-6.08) M/mm3 Hgb (13.7-17.5) gm/L Hct (40.1-51.0) % MCV (79.0-92.2) fl MCH (25.7-32.2) pg MCHC (32.2-35.5) g/dl RDW Std Deviation (35.1-43.9) fL Plt Count (163-337) K/mm3 MPV (9.4-12.3) fl Neut % (Auto) (34.0-67.9) % Lymph % (Auto) (21.8-53.1) % [place] % (Auto) (5.3-12.2) % Eos % (Auto) (0.8-7.0) Baso % (Auto) (0.1-1.2) % Neut # (Auto) (1.78-5.38) K/mm3 Lymph # (Auto) (1.32-3.57) K/mm3 [place] # (Auto) (0.30-0.82) K/mm3 Eos # (Auto) (0.04-0.54) K/mm3 Baso # (Auto) (0.01-0.08) K/mm3 Sodium (136-145) mEq/L Potassium (3.5-5.1) mEq/L Chloride (98-107) mEq/L Carbon Dioxide (21-32) mEq/L Anion Gap (5-15) BUN (7-18) mg/dL Creatinine (0.7-1.3) mg/dL Est Cr Clr Drug Dosing mL/min Estimated GFR (MDRD) (>60) mL/min BUN/Creatinine Ratio (14-18) Glucose (74-106) mg/dL POC Glucose 209 H 183 H 152 H (70-105) mg/dL Calcium (8.5-10.1) mg/dL Magnesium (1.8-2.4) mg/dl C-Reactive Protein (<1.0) mg/dL Lipase (73-393) U/L 02/02/18 02/02/18 02/02/18 Range/Units 07:50 07:50 11:10 WBC 7.72 (4.23-9.07) K/mm3 RBC 5.47 (4.63-6.08) M/mm3 Hgb 17.2 (13.7-17.5) gm/L Hct 49.2 (40.1-51.0) % MCV 89.9 (79.0-92.2) fl MCH 31.4 (25.7-32.2) pg MCHC 35.0 (32.2-35.5) g/dl RDW Std Deviation 41.0 (35.1-43.9) fL Plt Count 189 (163-337) K/mm3 MPV 10.3 (9.4-12.3) fl Neut % (Auto) 62.0 (34.0-67.9) % Lymph % (Auto) 23.2 (21.8-53.1) % [place] % (Auto) 11.0 (5.3-12.2) % Eos % (Auto) 2.7 (0.8-7.0) Baso % (Auto) 0.8 (0.1-1.2) % Neut # (Auto) 4.79 (1.78-5.38) K/mm3 Lymph # (Auto) 1.79 (1.32-3.57) K/mm3 [place] # (Auto) 0.85 H (0.30-0.82) K/mm3 Eos # (Auto) 0.21 (0.04-0.54) K/mm3 Baso # (Auto) 0.06 (0.01-0.08) K/mm3 Sodium 138 (136-145) mEq/L Potassium 4.2 (3.5-5.1) mEq/L Chloride 101 (98-107) mEq/L Carbon Dioxide 28 (21-32) mEq/L Anion Gap 13.2 (5-15) BUN 19 H (7-18) mg/dL Creatinine 1.1 (0.7-1.3) mg/dL Est Cr Clr Drug Dosing 102.31 mL/min Estimated GFR (MDRD) > 60 (>60) mL/min BUN/Creatinine Ratio 17.3 (14-18) Glucose 159 H (74-106) mg/dL POC Glucose 236 H (70-105) mg/dL Calcium 9.6 (8.5-10.1) mg/dL Magnesium 2.4 (1.8-2.4) mg/dl C-Reactive Protein 10.0 H* (<1.0) mg/dL Lipase 2181 H (73-393) U/L Med Orders - Current: Current Medications Acetaminophen (Tylenol) 650 mg PO Q8H PRN PRN Reason: Pain/Fever Last Admin: 02/01/18 05:44 Dose: 650 mg Amlodipine Besylate (Norvasc) 10 mg PO BEDTIME [facility] Last Admin: 02/01/18 20:07 Dose: 10 mg Chlordiazepoxide HCl (Librium) 10 mg PO Q8HR PRN PRN Reason: Withdrawal Symptoms Clonidine HCl (Catapres) 0.2 mg PO TID [facility] Last Admin: 02/02/18 09:23 Dose: 0.2 mg Cyclobenzaprine HCl (Flexeril) 10 mg PO Q8H PRN PRN Reason: PAIN Last Admin: 02/01/18 11:04 Dose: 10 mg Dextrose/Water (Dextrose 50% In Water) 50 ml IVPUSH ASDIRECTED PRN PRN Reason: Hypoglycemia Fluoxetine HCl (Prozac) 20 mg PO DAILY [facility] Last Admin: 02/02/18 09:24 Dose: 20 mg Folic Acid (Folic Acid) 1 mg PO DAILY [facility] Last Admin: 02/02/18 09:23 Dose: 1 mg Hydralazine HCl (Apresoline) 20 mg IVPUSH Q6H PRN PRN Reason: Hypertension Insulin Aspart (Novolog) 0 unit SUBCUT QIDACANDBED [facility]; Protocol Last Admin: 02/02/18 11:11 Dose: 2 unit Lisinopril (Prinivil) 20 mg PO DAILY [facility] Lorazepam (Ativan) 1 mg IVPUSH Q4H PRN; Protocol PRN Reason: Anxiety Last Admin: 02/01/18 21:15 Dose: 1 mg Metoprolol Tartrate (Lopressor) 5 mg IVPUSH Q6H PRN PRN Reason: Tachycardia Last Admin: 02/01/18 14:27 Dose: 5 mg Metoprolol Tartrate (Lopressor) 50 mg PO Q12HR [facility] Last Admin: 02/02/18 09:23 Dose: 50 mg Ondansetron HCl (Zofran) 4 mg IVPUSH Q8H PRN PRN Reason: Nausea/Vomiting Pantoprazole Sodium (Protonix) 40 mg PO BID [facility] Last Admin: 02/02/18 09:24 Dose: 40 mg Sodium Chloride (Saline Flush) 10 ml FLUSH ASDIRECTED PRN PRN Reason: Keep Vein Open Last Admin: 02/01/18 07:58 Dose: 10 ml Temazepam (Restoril) 30 mg PO BEDTIME PRN PRN Reason: Insomnia Last Admin: 02/01/18 21:15 Dose: 30 mg Thiamine HCl (Vitamin B-1) 100 mg PO BEDTIME [facility] Last Admin: 02/01/18 20:07 Dose: 100 mg Discontinued Medications Chlordiazepoxide HCl (Librium) 10 mg PO BID PRN PRN Reason: Anxiety Last Admin: 01/31/18 08:03 Dose: 10 mg Chlordiazepoxide HCl (Librium) 10 mg PO TID PRN PRN Reason: Anxiety Last Admin: 01/31/18 13:03 Dose: 10 mg Chlordiazepoxide HCl (Librium) 10 mg PO TID [facility] Last Admin: 02/02/18 09:24 Dose: 10 mg Clonidine HCl (Catapres) 0.1 mg PO TID [facility] Last Admin: 02/01/18 08:03 Dose: 0.1 mg Diatrizoate Meglum/Diatrizoate Sod (Gastrografin 37%) 90 ml PO ONETIME ONE Stop: 01/30/18 14:23 Last Admin: 01/30/18 14:40 Dose: 90 ml Hydralazine HCl (Apresoline) 20 mg IVPUSH Q6H PRN PRN Reason: Hypertension Last Admin: 02/01/18 14:30 Dose: 20 mg Hydromorphone HCl (Dilaudid) 1 mg IVPUSH ONETIME ONE Stop: 01/30/18 15:25 Last Admin: 01/30/18 15:29 Dose: 1 mg Hydromorphone HCl (Dilaudid) 0.5 mg IVPUSH ONETIME ONE Stop: 01/30/18 16:20 Last Admin: 01/30/18 16:24 Dose: 0.5 mg Hydromorphone HCl (Dilaudid) 1 mg IVPUSH Q4H PRN PRN Reason: Pain (moderate 4-6) Last Admin: 01/31/18 23:51 Dose: 1 mg Sodium Chloride (Normal Saline) 1,000 mls @ 999 mls/hr IV ONETIME ONE Stop: 01/30/18 14:26 Last Admin: 01/30/18 13:30 Dose: 999 mls/hr Sodium Chloride (Normal Saline) 1,000 mls @ 999 mls/hr IV ONETIME ONE Stop: 01/30/18 16:24 Last Admin: 01/30/18 15:29 Dose: 999 mls/hr Sodium Chloride (Normal Saline) 1,000 mls @ 999 mls/hr IV ASDIRECTED [facility] Stop: 01/31/18 21:30 Sodium Chloride (Normal Saline) 1,000 mls @ 150 mls/hr IV ASDIRECTED [facility] Sodium Chloride (Sodium Chloride 0.45%) 1,000 mls @ 150 mls/hr IV ASDIRECTED [facility] Last Admin: 01/31/18 11:57 Dose: 150 mls/hr Sodium Chloride (Sodium Chloride 0.45%) 1,000 mls @ 1,000 mls/hr IV Q1H [facility] Stop: 01/30/18 22:44 Last Admin: 01/30/18 21:43 Dose: 1,000 mls/hr Magnesium Sulfate 2 gm/ Premix 50 mls @ 25 mls/hr IV ONETIME ONE Stop: 01/31/18 17:39 Last Admin: 01/31/18 16:02 Dose: 25 mls/hr Iopamidol (Isovue-300 (61%)) 125 ml IVPUSH ONETIME ONE Stop: 01/30/18 14:23 Last Admin: 01/30/18 14:40 Dose: 125 ml Ketorolac Tromethamine (Toradol) 30 mg IVPUSH Q6H [facility] Stop: 02/02/18 09:00 Last Admin: 02/02/18 07:58 Dose: 30 mg Lisinopril (Prinivil) 20 mg PO DAILY [facility] Lorazepam (Ativan) 1 mg IVPUSH ONETIME ONE Stop: 01/30/18 16:08 Last Admin: 01/30/18 16:17 Dose: 1 mg Metoprolol Tartrate (Lopressor) 25 mg PO Q12HR [facility] Last Admin: 01/31/18 08:02 Dose: 25 mg Morphine Sulfate (Morphine) 2 mg IVPUSH ONETIME ONE Stop: 01/30/18 13:12 Last Admin: 01/30/18 13:34 Dose: 2 mg Morphine Sulfate (Morphine) 2 mg IVPUSH ONETIME ONE Stop: 01/30/18 14:19 Last Admin: 01/30/18 14:25 Dose: 2 mg Ondansetron HCl (Zofran) 4 mg IVPUSH ONETIME ONE Stop: 01/30/18 13:27 Last Admin: 01/30/18 13:31 Dose: 4 mg Pantoprazole Sodium (Protonix Iv) 40 mg IVPUSH Q12H [facility] Last Admin: 01/31/18 06:41 Dose: 40 mg Sodium Chloride (Saline Flush) 10 ml FLUSH ONETIME ONE Stop: 01/30/18 14:23 Last Admin: 01/30/18 14:40 Dose: 10 ml Temazepam (Restoril) 15 mg PO BEDTIME PRN PRN Reason: Insomnia Last Admin: 01/30/18 22:44 Dose: 15 mg - Exam Quality Assessment: DVT Prophylaxis General: Alert, Oriented, Cooperative, No Acute Distress HEENT: Pupils Equal, Pupils Reactive, EOMI Neck: Trachea Midline, No JVD Lungs: Normal Respiratory Effort Cardiovascular: Regular Rate, Regular Rhythm GI/Abdominal Exam: Normal Bowel Sounds, Soft, Non-Tender, No Organomegaly, No Distention (Male) Exam: Deferred Back Exam: Normal Inspection Extremities: Normal Inspection, Normal Range of Motion, Non-Tender, No Pedal Edema, Normal Capillary Refill Skin: Warm Neurological: No New Focal Deficit, Normal Gait, Normal Speech Psy/Mental Status: Alert, Anxious - Problem List & Annotations (1) Anxiety SNOMED Code(s): 07205561 Code(s): F41.9 - ANXIETY DISORDER, UNSPECIFIED Status: Acute (2) Major depression SNOMED Code(s): 136974433 Code(s): F32.9 - MAJOR DEPRESSIVE DISORDER, SINGLE EPISODE, UNSPECIFIED Status: Acute (3) Alcohol abuse SNOMED Code(s): 81143946 Code(s): F10.10 - ALCOHOL ABUSE, UNCOMPLICATED Status: Acute (4) Diabetes mellitus SNOMED Code(s): 51377954 Code(s): E11.9 - TYPE 2 DIABETES MELLITUS WITHOUT COMPLICATIONS Status: Acute (5) Drug abuse SNOMED Code(s): 68895879 Code(s): F19.10 - OTHER PSYCHOACTIVE SUBSTANCE ABUSE, UNCOMPLICATED Status : Acute (6) Drug dependence SNOMED Code(s): 350645375 Code(s): F19.20 - OTHER PSYCHOACTIVE SUBSTANCE DEPENDENCE, UNCOMPLICATED Status: Acute (7) Hyperlipidemia due to type 2 diabetes mellitus SNOMED Code(s): 074048959199896 Code(s): E11.69 - TYPE 2 DIABETES MELLITUS WITH OTHER SPECIFIED COMPLICATION ; E78.5 - HYPERLIPIDEMIA, UNSPECIFIED Status: Acute (8) Hypertension SNOMED Code(s): 16234516 Code(s): I10 - ESSENTIAL (PRIMARY) HYPERTENSION Status: Acute (9) Pancreatitis, alcoholic, acute SNOMED Code(s): 527409399 Code(s): K85.20 - ALCOHOL INDUCED ACUTE PANCREATITIS WITHOUT NECROSIS OR INFCT Status: Acute Qualifiers: Acute pancreatitis complication: unspecified Qualified Code(s): K85.20 - Alcohol induced acute pancreatitis without necrosis or infection - Problem List Review Problem List Initiated/Reviewed/Updated: Yes - My Orders Last 24 Hours: My Active Orders 02/01/18 14:35 hydrALAZINE [Apresoline] 20 mg IVPUSH Q6H PRN 02/01/18 15:00 cloNIDine [Catapres] 0.2 mg PO TID 02/01/18 Dinner ADA Diabetic [[place] Diet] [DIET] 02/02/18 09:00 Consult to Motor Vehicle Compliance Analyst [Consult to Diabetic Nurse Specialist] [CONS] Routine 02/02/18 09:16 Patient Status [ADT] Routine 02/02/18 12:00 Lisinopril [Prinivil] 20 mg PO DAILY 02/02/18 15:00 chlordiazePOXIDE [Librium] 10 mg PO Q8HR PRN 02/03/18 05:00 BMP [BASIC METABOLIC PANEL,BMP] [CHEM] DAILY CBC WITH AUTO DIFF [HEME] DAILY CRP [C-REACTIVE PROTEIN] [CHEM] DAILY LIPASE [CHEM] DAILY MAGNESIUM [CHEM] DAILY 02/04/18 05:00 BMP [BASIC METABOLIC PANEL,BMP] [CHEM] DAILY CBC WITH AUTO DIFF [HEME] DAILY CRP [C-REACTIVE PROTEIN] [CHEM] DAILY LIPASE [CHEM] DAILY MAGNESIUM [CHEM] DAILY - Plan Plan:: Impression: Acute pancreatitis---resolving Fatty liver with alcohol abuse/dependence Anxiety, NOS; major depressive disorder Hypertension Diabetes mellitus type 2 Hyperlipidemia--diet controlled x3 months recheck before statin Plan: Advance diet as tolerated. IVF--0.45 NS--saline locked MVI/Folic Acid/Thiamine Pain control--NSAIDS-->DC Toradol, change to Motrin 02/02/18 Start ACEI after off of Toradol DM educator 02/02/18. CIWA protocol Alpha/Beta Blockade Antianxiety meds Antidepression meds Consult Psych/SA---completed Case management re: med insurance assistance provided Consult Diabetic Ed--completed Consult Dietary re: ADA/Heart healthy/Wgt Loss needs 50 pound weight loss DVT/GI prophylaxis
[2018-02-02] MEDS ORDERED: Ibuprofen 600 MG Tab PO PRN (11:57)
[2018-02-02] MEDS: Lisinopril 20 MG Tab PO SCH (12:09)
[2018-02-02] MEDS ORDERED: chlordiazePOXIDE 10 MG Cap PO PRN (15:00)
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
[2018-02-02] MEDS ORDERED: Sodium Chloride 0.45% 1,000 ML IV SCH (16:00)
[2018-02-02] MEDS ORDERED: QUEtiapine 25 MG Tab PO SCH (21:00)
[2018-02-02] MEDS: Thiamine 100 MG Tab PO SCH (21:15)
[2018-02-02] MEDS: amLODIPine 10 MG Tab PO SCH (21:15)
[2018-02-02] MEDS: Temazepam 15 MG Cap PO PRN (21:15)
--- NOTE | 2018-02-02 23:29 | CONS ---
CONSULTING PHYSICIAN: Herminio Cartagena MD DATE OF CONSULTATION: 02/02/2018 PSYCHIATRIC EVALUATION This is a 60-minute inpatient clinical event. IDENTIFICATION: The patient is a 27-year-old male, who is admitted to the inpatient MICU at [facility] in [place], [place]. He is seen for psychiatric evaluation. CHIEF COMPLAINT: "I had acute pain from an acute pancreatitis." HISTORY OF PRESENT ILLNESS: The patient is a 27-year-old male, who reports that he was admitted on 12/01/2017 to the MICU with third episode of pancreatitis "in 2018." The patient states that he has been binge drinking and then he went sober and then he got the pancreatitis and states "it started this past Monday," a couple days before admission. He is stating that he has been struggling with increased sadness and loneliness because "my girlfriend broke up and left me in September and took our daughter" with her. He states "I just want to be with my daughter." The patient does continue to have dialogue with his ex-girlfriend, and he does see his daughter, but he states it is pretty hard. He states that he has been drinking and that was part of the reason for the break up. He reports lack of self-esteem, lack of interest. He reports increased crying episodes. He states he has a hard time falling asleep and definitely staying asleep. He gets only about 6 hours of sleep per 24-hour period. He denies any excessive mood swings, but he states "I believe I have high functioning anxiety" because he is able to hold a job. He has racing thoughts, ruminations, "especially when I go to sleep," but he states the "morning and night" are pretty tough for him, and he states he has some coughing rituals in the morning, which is a way for him to help reduce his anxiety before he goes out for the day. MEDICATIONS: On presentation, Ativan 1 mg b.i.d. p.r.n. ALLERGIES: No known drug allergies. PAST MEDICAL HISTORY: 1. Pancreatitis. 2. Type 2 diabetes. REVIEW OF SYSTEMS: Aside from GI and endocrine, all other major organ systems are negative at this point in time for acute difficulties or complications. FAMILY PSYCHIATRIC AND CD HISTORY: The patient reports his father has a history of alcoholism. PAST PSYCHIATRIC AND CD HISTORY: The patient denies any previous psychiatric hospitalizations or chemical dependency treatment. He reports 2 previous detox admissions. He denies any exposure to AA. He has been mostly drinking hard liquor. He began drinking at 19 years of age. He had a period of sobriety from about 22 to 25 years of age. He denies any previous suicide attempts, self-injurious behaviors, or eating disorder history. Past psychiatric diagnoses include depression, anxiety, possibly Tourette's. Past psychiatric medication history includes Prozac, Zoloft, and possibly Seroquel. He feels the Prozac may have helped him. SOCIAL HISTORY: The patient was born in [place], [place], raised in [place], [place]. He is the third of 4 siblings, having 1 brother, 2 stepbrothers, and a stepsister. The patient's parents when the patient was 9 years of age. He stayed with his mom. Father was working in a factory. Mother was a business center representative. The patient's highest level of education is 1 year of college. 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 He has never been , not involved in current relationships. He had a girlfriend, who he broke up with in September, who is the mother of his only child, an [id number] girl. She works as a credit control officer at the [employer]. He denies any prior service or legal difficulties. Agnostic in terms of his cy formation. He enjoys playing music. He lives in [place] with a roommate. MENTAL STATUS EXAM: The patient is a 27-year-old male in no apparent distress. Speech is of regular rate. The patient is cognitively oriented. Psychomotor activity is within normal limits. There is no abnormal motor movements or tics observed. Gait and station are not observed. This patient is lying in bed for the inpatient consult. Mood is anxious and depressed. Affect is cooperative overall for the purposes of the inpatient consult and talkative, but able to be right redirected when needed. There is no behavioral or stated evidence of acute suicidal or homicidal ideation. No acute psychotic, delusional, or paranoid symptoms. Thought processes are significant for racing thoughts and ruminations, however, there are no acute manic symptoms or loose associations evident. Judgment and insight appear unimpaired at this point. Motivation for help is fair to good. VITAL SIGNS: 5 feet 11 inches tall, 215 pounds, 118/83, 74, 16, 98.6 degrees. IMPRESSION: Lengby I: 1. Alcohol dependence, F10.20. 2. Major depressive disorder, F32.3. 3. Anxiety disorder, not otherwise specified, F41.9. 4. Rule out panic disorder. 5. Rule out obsessive-compulsive disorder. 6. Rule out bipolar affective disease, mixed type. Lengby II: Rule out personality disorder, not otherwise specified, with prominent cluster B traits. Lengby III: 1. Pancreatitis. 2. Diabetes type 2. Lengby IV: Severe. Lengby V: 55 to 60. PLAN: 1. Sobriety. 2. AA rep to visit the patient while in the unit. 3. Pastoral guidance. 4. Begin trial of Prozac 20 mg q.a.m. to help with mood. 5. Begin Seroquel 25 mg at bedtime to help with sleep initiation, maintenance of anxiety reduction, mood stability, and help with reducing racing thoughts and ruminations and clarity of thought. 6. Folic acid supplementation. 7. Thiamine supplementation. 8. Ativan per [facility] protocol as needed. 9. Other medications per primary inpatient medical treatment team. 10.Recommend that if the patient is medically stabilized, he will be discharged back to the community and follow up with AA for purposes of maintaining sobriety. 11.If the patient is unable to maintain sobriety on his own, we would recommend inpatient residential chemical dependency treatment going forward. 12.Recommend that the patient follow up with outpatient provider once discharged to community to monitor his prescribed treatment regimen on discharge. 13.We will continue to follow up with the patient on an as-needed basis while he remains in the inpatient medical unit. 14.We will follow up with the patient sooner if any complications in the interim. 15.Crisis plan is in place. MELECIO /[id number]
[2018-02-03] MEDS: Insulin Aspart 100 Units/ML 3 ML Pen SUBCUT SCH ×2 (09:07→11:24)
[2018-02-03] MEDS: cloNIDine 0.1 MG Tab PO SCH (09:08)
[2018-02-03] MEDS: Metoprolol Tartrate 25 MG Tab PO SCH (09:09)
[2018-02-03] MEDS: FLUoxetine 20 MG Cap PO SCH (09:10)
[2018-02-03] MEDS: Pantoprazole 40 MG Tab.CR PO SCH (09:10)
[2018-02-03] MEDS: Lisinopril 20 MG Tab PO SCH (09:10)
[2018-02-03] MEDS: Folic Acid 1 MG Tab PO SCH (09:10)
--- NOTE | 2018-02-03 14:18 | PCM.DCSUM1 ---
Discharge Summary - Hospital Course Free Text/Narrative:: 7 year old male with abdominal pain, has acute pancreatitis (ppt by ETOH). Had a 2 day period of binge drinking after reported sobriety from mid October to December 2017. The patient reports difficulty with handling stress; states that he has been anxious and medication for his anxiety has worsened his depression. He is originally from [place] and has the support of his brother and a few friends in town. 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 he admits to N/V but denies fever or chills. His abdominal pain began after his drinking binge. He is reluctant to eat or drink , stating that he is disgusted by food. There has been no change in GI/ habits. ++++++++++++++++ Patient did not participate in SA evaluation however appeared to be more cooperative with with psychiatric evaluation. ICU stay-2 days then transferred to [facility]. Final Dx Acute pancreatitis ppt by ETOH ETOH withdrawal ETOH dependence Anxiety, NOS Major Depressive disorder Hypertension Diabetes mellitus type 2 Obesity Psychiatric disorder as above Could not exclude Panic disorder; OCD; Bipolar affective disorder ( mixed type ) Consults Pastoral care DM educator Dietary Substance Abuse Psychiatry - Discharge Data Discharge Date: 02/03/18 Discharge Disposition: Home, Self-Care 01 Condition: Good - Patient Summary/Data Consults: Consultations 01/30/18 19:34 Consult to Physician [CONS] Routine 01/30/18 19:38 Consult to Case Management [CONS] Routine 01/31/18 09:00 Consult for Substance Abuse [CONS] Routine 02/02/18 09:00 Consult to Servicer [Consult to Diabetic Nurse Specialist] [CONS] Routine - Patient Instructions Diet: Heart Healthy Diet, Diabetic Diet Activity: As Tolerated Driving: May Drive Today Showering/Bathing: May Shower Notify Provider of: Fever, Increased Pain, Nausea and/or Vomiting - Discharge Plan Prescriptions/Med Rec: Chlorthalidone 25 mg PO DAILY #30 tab FLUoxetine HCl [Prozac] 20 mg PO DAILY #30 capsule Folic Acid 1 mg PO DAILY #30 tablet Lisinopril 40 mg PO DAILY #30 tablet metFORMIN [Glucophage] 500 mg PO BIDMEALS #60 tab Metoprolol Tartrate 50 mg PO BID #60 tablet Norvasc. 10 mg PO DAILY #30 QUEtiapine [SEROquel] 25 mg PO BEDTIME #30 tablet Thiamine [Vitamin B-1] 100 mg PO BEDTIME #30 tablet Home Medications: Home Meds LORazepam [Ativan] 1 mg PO BID PRN #14 tab 01/11/18 [Rx] Chlorthalidone 25 mg PO DAILY #30 tab 02/03/18 [Rx] FLUoxetine HCl [Prozac] 20 mg PO DAILY #30 capsule 02/03/18 [Rx] Folic Acid 1 mg PO DAILY #30 tablet 02/03/18 [Rx] Lisinopril 40 mg PO DAILY #30 tablet 02/03/18 [Rx] Metoprolol Tartrate 50 mg PO BID #60 tablet 02/03/18 [Rx] Norvasc. 10 mg PO DAILY #30 02/03/18 [Rx] QUEtiapine [SEROquel] 25 mg PO BEDTIME #30 tablet 02/03/18 [Rx] Thiamine [Vitamin B-1] 100 mg PO BEDTIME #30 tablet 02/03/18 [Rx] metFORMIN [Glucophage] 500 mg PO BIDMEALS #60 tab 02/03/18 [Rx] Other Amb Orders: BASIC METABOLIC PANEL,BMP [CHEM] Time Frame: 1 Week, Facility: [facility], Location: Program Director/[facility] - [facility] LIPASE [CHEM] Time Frame: 1 Week, Facility: [facility], Location : Program Director/[facility] Unit - [facility] MAGNESIUM [CHEM] Time Frame: 1 Week, Facility: [facility], Location: Program Director/[facility] Unit - [facility] Patient Handouts: Type 2 Diabetes Mellitus, Diagnosis, Adult, Diabetes and Foot Care, Heart Disease Prevention, Acute Pancreatitis, [id number], Chronic Pancreatitis Forms: ED Department Discharge Referrals: Sylvester Price MD [Primary Care Provider] - (Please follow up with your primary care provider in 7-10 days.) - Discharge Summary/Plan Comment DC Time >30 min.: No Discharge Summary/Plan Comment: mpression: Acute pancreatitis---resolved Fatty liver with alcohol abuse/dependence Anxiety, NOS; major depressive disorder Hypertension Diabetes mellitus type 2 Hyperlipidemia--diet controlled x3 months recheck before statin Plan: Advance diet as tolerated. IVF--0.45 NS--saline locked MVI/Folic Acid/Thiamine Pain control--NSAIDS-->DC Toradol, change to Motrin 02/02/18 Start ACEI after off of Toradol DM educator 02/02/18. CIWA protocol Alpha/Beta Blockade Antianxiety meds Antidepression meds Consult Psych/SA---completed Case management re: med insurance assistance provided Consult Diabetic Ed--completed Consult Dietary re: ADA/Heart healthy/Wgt Loss needs 50 pound weight loss DVT/GI prophylaxis - General Info Date of Service: 01/30/18 Functional Status: Reports: Pain Controlled, Tolerating Diet, Ambulating, Urinating - Review of Systems General: Reports: No Symptoms HEENT: Reports: No Symptoms Pulmonary: Reports: No Symptoms Cardiovascular: Reports: No Symptoms Gastrointestinal: Reports: No Symptoms Genitourinary: Reports: No Symptoms Musculoskeletal: Reports: No Symptoms Skin: Reports: No Symptoms Neurological: Reports: No Symptoms Psychiatric: Reports: No Symptoms - Patient Data Vitals - Most Recent: Last Vital Signs Temp 36.8 C 02/03/18 08:04 Pulse 58 L 02/03/18 09:09 Resp 12 02/03/18 08:04 BP 101/69 02/03/18 09:10 Pulse Ox 98 02/03/18 08:04 Weight - Most Recent: 95.736 kg I&O - Last 24 hours: Intake & Output 02/02/18 02/03/18 02/03/18 22:59 06:59 14:59 Intake Total 1020 700 860 Balance 1020 700 860 Lab Results - Last 24 hrs: Laboratory Results - last 24 hr 02/02/18 02/02/18 02/03/18 Range/Units 16:49 21:21 05:09 WBC 6.64 (4.23-9.07) K/mm3 RBC 5.07 (4.63-6.08) M/mm3 Hgb 16.0 (13.7-17.5) gm/L Hct 46.3 (40.1-51.0) % MCV 91.3 (79.0-92.2) fl MCH 31.6 (25.7-32.2) pg MCHC 34.6 (32.2-35.5) g/dl RDW Std Deviation 40.7 (35.1-43.9) fL Plt Count 221 (163-337) K/mm3 MPV 10.3 (9.4-12.3) fl Neut % (Auto) 50.8 (34.0-67.9) % Lymph % (Auto) 34.9 (21.8-53.1) % Guthrie % (Auto) 8.9 (5.3-12.2) % Eos % (Auto) 4.4 (0.8-7.0) Baso % (Auto) 0.8 (0.1-1.2) % Neut # (Auto) 3.38 (1.78-5.38) K/mm3 Lymph # (Auto) 2.32 (1.32-3.57) K/mm3 Guthrie # (Auto) 0.59 (0.30-0.82) K/mm3 Eos # (Auto) 0.29 (0.04-0.54) K/mm3 Baso # (Auto) 0.05 (0.01-0.08) K/mm3 Sodium (136-145) mEq/L Potassium (3.5-5.1) mEq/L Chloride (98-107) mEq/L Carbon Dioxide (21-32) mEq/L Anion Gap (5-15) BUN (7-18) mg/dL Creatinine (0.7-1.3) mg/dL Est Cr Clr Drug Dosing mL/min Estimated GFR (MDRD) (>60) mL/min BUN/Creatinine Ratio (14-18) Glucose (74-106) mg/dL POC Glucose 133 H 274 H (70-105) mg/dL Calcium (8.5-10.1) mg/dL Magnesium (1.8-2.4) mg/dl C-Reactive Protein (<1.0) mg/dL Lipase (73-393) U/L 02/03/18 02/03/18 02/03/18 Range/Units 05:09 05:52 10:54 WBC (4.23-9.07) K/mm3 RBC (4.63-6.08) M/mm3 Hgb (13.7-17.5) gm/L Hct (40.1-51.0) % MCV (79.0-92.2) fl MCH (25.7-32.2) pg MCHC (32.2-35.5) g/dl RDW Std Deviation (35.1-43.9) fL Plt Count (163-337) K/mm3 MPV (9.4-12.3) fl Neut % (Auto) (34.0-67.9) % Lymph % (Auto) (21.8-53.1) % Guthrie % (Auto) (5.3-12.2) % Eos % (Auto) (0.8-7.0) Baso % (Auto) (0.1-1.2) % Neut # (Auto) (1.78-5.38) K/mm3 Lymph # (Auto) (1.32-3.57) K/mm3 Guthrie # (Auto) (0.30-0.82) K/mm3 Eos # (Auto) (0.04-0.54) K/mm3 Baso # (Auto) (0.01-0.08) K/mm3 Sodium 141 (136-145) mEq/L Potassium 4.0 (3.5-5.1) mEq/L Chloride 105 (98-107) mEq/L Carbon Dioxide 28 (21-32) mEq/L Anion Gap 12.0 (5-15) BUN 20 H (7-18) mg/dL Creatinine 1.0 (0.7-1.3) mg/dL Est Cr Clr Drug Dosing 112.54 mL/min Estimated GFR (MDRD) > 60 (>60) mL/min BUN/Creatinine Ratio 20.0 H (14-18) Glucose 173 H (74-106) mg/dL POC Glucose 179 H 243 H (70-105) mg/dL Calcium 9.4 (8.5-10.1) mg/dL Magnesium 2.2 (1.8-2.4) mg/dl C-Reactive Protein 5.6 H* (<1.0) mg/dL Lipase 662 H (73-393) U/L Med Orders - Current: Current Medications Discontinued Medications Acetaminophen (Tylenol) 650 mg PO Q8H PRN PRN Reason: Pain/Fever Last Admin: 02/01/18 05:44 Dose: 650 mg Amlodipine Besylate (Norvasc) 10 mg PO BEDTIME ALBERTO Last Admin: 02/02/18 21:15 Dose: 10 mg Chlordiazepoxide HCl (Librium) 10 mg PO BID PRN PRN Reason: Anxiety Last Admin: 01/31/18 08:03 Dose: 10 mg Chlordiazepoxide HCl (Librium) 10 mg PO TID PRN PRN Reason: Anxiety Last Admin: 01/31/18 13:03 Dose: 10 mg Chlordiazepoxide HCl (Librium) 10 mg PO TID [facility] Last Admin: 02/02/18 09:24 Dose: 10 mg Chlordiazepoxide HCl (Librium) 10 mg PO Q8HR PRN PRN Reason: Withdrawal Symptoms Clonidine HCl (Catapres) 0.1 mg PO TID [facility] Last Admin: 02/01/18 08:03 Dose: 0.1 mg Clonidine HCl (Catapres) 0.2 mg PO TID [facility] Last Admin: 02/03/18 09:08 Dose: Not Given Cyclobenzaprine HCl (Flexeril) 10 mg PO Q8H PRN PRN Reason: PAIN Last Admin: 02/01/18 11:04 Dose: 10 mg Dextrose/Water (Dextrose 50% In Water) 50 ml IVPUSH ASDIRECTED PRN PRN Reason: Hypoglycemia Diatrizoate Meglum/Diatrizoate Sod (Gastrografin 37%) 90 ml PO ONETIME ONE Stop: 01/30/18 14:23 Last Admin: 01/30/18 14:40 Dose: 90 ml Fluoxetine HCl (Prozac) 20 mg PO DAILY [facility] Last Admin: 02/03/18 09:10 Dose: 20 mg Folic Acid (Folic Acid) 1 mg PO DAILY [facility] Last Admin: 02/03/18 09:10 Dose: 1 mg Hydralazine HCl (Apresoline) 20 mg IVPUSH Q6H PRN PRN Reason: Hypertension Last Admin: 02/01/18 14:30 Dose: 20 mg Hydralazine HCl (Apresoline) 20 mg IVPUSH Q6H PRN PRN Reason: Hypertension Hydromorphone HCl (Dilaudid) 1 mg IVPUSH ONETIME ONE Stop: 01/30/18 15:25 Last Admin: 01/30/18 15:29 Dose: 1 mg Hydromorphone HCl (Dilaudid) 0.5 mg IVPUSH ONETIME ONE Stop: 01/30/18 16:20 Last Admin: 01/30/18 16:24 Dose: 0.5 mg Hydromorphone HCl (Dilaudid) 1 mg IVPUSH Q4H PRN PRN Reason: Pain (moderate 4-6) Last Admin: 01/31/18 23:51 Dose: 1 mg Sodium Chloride (Normal Saline) 1,000 mls @ 999 mls/hr IV ONETIME ONE Stop: 01/30/18 14:26 Last Admin: 01/30/18 13:30 Dose: 999 mls/hr Sodium Chloride (Normal Saline) 1,000 mls @ 999 mls/hr IV ONETIME ONE Stop: 01/30/18 16:24 Last Admin: 01/30/18 15:29 Dose: 999 mls/hr Sodium Chloride (Normal Saline) 1,000 mls @ 999 mls/hr IV ASDIRECTED [facility] Stop: 01/31/18 21:30 Sodium Chloride (Normal Saline) 1,000 mls @ 150 mls/hr IV ASDIRECTED [facility] Sodium Chloride (Sodium Chloride 0.45%) 1,000 mls @ 150 mls/hr IV ASDIRECTED [facility] Last Admin: 01/31/18 11:57 Dose: 150 mls/hr Sodium Chloride (Sodium Chloride 0.45%) 1,000 mls @ 1,000 mls/hr IV Q1H [facility] Stop: 01/30/18 22:44 Last Admin: 01/30/18 21:43 Dose: 1,000 mls/hr Magnesium Sulfate 2 gm/ Premix 50 mls @ 25 mls/hr IV ONETIME ONE Stop: 01/31/18 17:39 Last Admin: 01/31/18 16:02 Dose: 25 mls/hr Sodium Chloride (Sodium Chloride 0.45%) 1,000 mls @ 150 mls/hr IV ASDIRECTED [facility] Stop: 02/02/18 20:00 Last Admin: 02/02/18 17:21 Dose: 150 mls/hr Ibuprofen (Motrin) 600 mg PO Q6H PRN PRN Reason: Pain/Fever Last Admin: 02/02/18 16:31 Dose: 600 mg Insulin Aspart (Novolog) 0 unit SUBCUT QIDACANDBED [facility]; Protocol Last Admin: 02/03/18 11:24 Dose: 2 unit Iopamidol (Isovue-300 (61%)) 125 ml IVPUSH ONETIME ONE Stop: 01/30/18 14:23 Last Admin: 01/30/18 14:40 Dose: 125 ml Ketorolac Tromethamine (Toradol) 30 mg IVPUSH Q6H [facility] Stop: 02/02/18 09:00 Last Admin: 02/02/18 07:58 Dose: 30 mg Lisinopril (Prinivil) 20 mg PO DAILY [facility] Lisinopril (Prinivil) 20 mg PO DAILY [facility] Last Admin: 02/03/18 09:10 Dose: Not Given Lorazepam (Ativan) 1 mg IVPUSH ONETIME ONE Stop: 01/30/18 16:08 Last Admin: 01/30/18 16:17 Dose: 1 mg Lorazepam (Ativan) 1 mg IVPUSH Q4H PRN; Protocol PRN Reason: Anxiety Last Admin: 02/01/18 21:15 Dose: 1 mg Metoprolol Tartrate (Lopressor) 25 mg PO Q12HR [facility] Last Admin: 01/31/18 08:02 Dose: 25 mg Metoprolol Tartrate (Lopressor) 5 mg IVPUSH Q6H PRN PRN Reason: Tachycardia Last Admin: 02/01/18 14:27 Dose: 5 mg Metoprolol Tartrate (Lopressor) 50 mg PO Q12HR [facility] Last Admin: 02/03/18 09:09 Dose: Not Given Morphine Sulfate (Morphine) 2 mg IVPUSH ONETIME ONE Stop: 01/30/18 13:12 Last Admin: 01/30/18 13:34 Dose: 2 mg Morphine Sulfate (Morphine) 2 mg IVPUSH ONETIME ONE Stop: 01/30/18 14:19 Last Admin: 01/30/18 14:25 Dose: 2 mg Ondansetron HCl (Zofran) 4 mg IVPUSH ONETIME ONE Stop: 01/30/18 13:27 Last Admin: 01/30/18 13:31 Dose: 4 mg Ondansetron HCl (Zofran) 4 mg IVPUSH Q8H PRN PRN Reason: Nausea/Vomiting Pantoprazole Sodium (Protonix Iv) 40 mg IVPUSH Q12H [facility] Last Admin: 01/31/18 06:41 Dose: 40 mg Pantoprazole Sodium (Protonix) 40 mg PO BID [facility] Last Admin: 02/03/18 09:10 Dose: 40 mg Quetiapine Fumarate (Seroquel) 25 mg PO BEDTIME [facility] Last Admin: 02/02/18 21:15 Dose: 25 mg Sodium Chloride (Saline Flush) 10 ml FLUSH ASDIRECTED PRN PRN Reason: Keep Vein Open Last Admin: 02/01/18 07:58 Dose: 10 ml Sodium Chloride (Saline Flush) 10 ml FLUSH ONETIME ONE Stop: 01/30/18 14:23 Last Admin: 01/30/18 14:40 Dose: 10 ml Temazepam (Restoril) 15 mg PO BEDTIME PRN PRN Reason: Insomnia Last Admin: 01/30/18 22:44 Dose: 15 mg Temazepam (Restoril) 30 mg PO BEDTIME PRN PRN Reason: Insomnia Last Admin: 02/02/18 21:15 Dose: 30 mg Thiamine HCl (Vitamin B-1) 100 mg PO BEDTIME ALBERTO Last Admin: 02/02/18 21:15 Dose: 100 mg - Exam Quality Assessment: Reports: DVT Prophylaxis General: Reports: Alert, Oriented, Cooperative, No Acute Distress HEENT: Reports: Pupils Equal, Pupils Reactive, EOMI Neck: Reports: Supple, Trachea Midline, No JVD Lungs: Reports: Normal Respiratory Effort Cardiovascular: Reports: Regular Rate, Regular Rhythm GI/Abdominal Exam: Normal Bowel Sounds, Soft, Non-Tender, No Organomegaly, No Distention (Male) Exam: Deferred Rectal (Males) Exam: Deferred Back Exam: Reports: Normal Inspection Extremities: Normal Inspection, Normal Range of Motion, Non-Tender, No Pedal Edema, Normal Capillary Refill Skin: Reports: Warm, Dry Neurological: Reports: No New Focal Deficit, Normal Gait, Normal Speech Psy/Mental Status: Reports: Alert, Normal Affect, Normal Mood
== END 2018-02-03 12:52 | disposition home or self-care (01) | DRG 439 ==
LOC: JD.ED 12:32 → JD.ICU 18:44 → JD.MS 02-02 15:58
PROVIDERS: ADMIT Internal Medicine Cardiovascular Disease; ATTEND Internal Medicine Cardiovascular Disease
DX: K85.20 Alcohol induced acute pancreatitis without necrosis or infection (principal); F10.239 Alcohol dependence with withdrawal, unspecified; F31.89 Other bipolar disorder; K52.1 Toxic gastroenteritis and colitis; F41.9 Anxiety disorder, unspecified; I10 Essential (primary) hypertension; E11.9 Type 2 diabetes mellitus without complications; E66.9 Obesity, unspecified; Z68.31 Body mass index [BMI] 31.0-31.9, adult; F41.0 Panic disorder [episodic paroxysmal anxiety]; F42.9 Obsessive-compulsive disorder, unspecified; K70.0 Alcoholic fatty liver; E78.5 Hyperlipidemia, unspecified; H54.7 Unspecified visual loss; Z87.891 Personal history of nicotine dependence; T38.3X5A Adverse effect of insulin and oral hypoglycemic [antidiabetic] drugs, initial encounter; F12.10 Cannabis abuse, uncomplicated; Z79.84 Long term (current) use of oral hypoglycemic drugs; Z79.891 Long term (current) use of opiate analgesic; Z79.899 Other long term (current) drug therapy
CPT/HCPCS: 36415; 71045; 71045-26; 74177; 74177-26; 80048; 80053; 80306; 81001; 82150; 82962; 83036; 83690; 83735; 84443; 85025; 86140; 96361; 96374; 96375; 96376; 99222; 99231; 99232; 99238; 99284; 99285-25; A9270-GY; C9113; G0480; J0360; J1170; J1815-GY; J1885; J2060; J2270; J2405; J3475; J3490; J7030; J7040; J7050; Q9963; Q9967

== ENCOUNTER 2019-02-14 14:07 | Inpatient (IN) | payer MEDICAID ==
--- NOTE | 2019-02-14 14:20 | EDM.PDOC ---
ED HPI GENERAL MEDICAL PROBLEM - General Chief Complaint: Abdominal Pain Stated Complaint: FEELS LIKE PANCREAS IS SWOLLEN Time Seen by Provider: 02/14/19 14:20 Source of Information: Reports: Patient History Limitations: Reports: No Limitations - History of Present Illness INITIAL COMMENTS - FREE TEXT/NARRATIVE: 28-year-old male presents to the ED with diffuse upper abdominal pain 2 days. States he first awoke with pain yesterday morning about 0500 hrs. History of recurrent pancreatitis. He was felt mostly to be alcohol induced. However he was identified to have cholelithiasis in September last year and did undergo a laparoscopic cholecystectomy a believe October 08. Was identified to have stones in the common bile duct and had to go to [place] for ERCP and had a common bile duct stent placed. He had to go back 3 weeks later to have the stent removed through EGD. He said since that time he's been pretty good he's had 1 bout of or flareup of pancreatitis which was alcohol induced. Patient was sent to [place] for treatment after consultation with alcohol and drug counselor Ricci Oconnell. He states he still has the occasional drink but has cut down. Will to nothing. He has been taking some protein milkshakes the last day or so. States for 3 hours during the night he had no pain but pain recurred again 5:00 this morning and is persisted as the day has gone on. Feels nauseated but has not vomited. He gets anxious at times which starts him coughing and wretching. States pain is radiating through to his right back inferior to the scapula. Bowels are loose and but semi-formed without blood. States he last drank any alcohol 2 weeks ago. He's been using his insulin-- lispro per sliding scale. This is usually 2-5 units as needed Onset: Sudden Onset Date: 02/13/19 Onset Time: 05:00 Duration: Day(s):, Constant, Getting Worse Location: Reports: Abdomen (Dose the epigastrium right upper quadrant that radiated through to his right back inferior to the scapula. Today moved over to the left upper abdomen and into his left upper back as well.), Radiates to ( Both infrascapular areas.) Quality: Reports: Ache Severity: Moderate (Rates pain as 8 out of 10) Improves with: Reports: None Worsens with: Reports: Eating Context: Denies: Activity, Exercise, Lifting, Sick Contact, Trauma, Other Associated Symptoms: Reports: Loss of Appetite, Weakness. 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: Reports: Other (see below) (None.) Upper Abdomen Pain Score (Numeric/FACES): 7 - Related Data Allergies Allergy/AdvReac Type Severity Reaction Status Date / Time No Known Allergies Allergy Verified 11/24/18 20:28 Home Meds: Home Meds metFORMIN [Glucophage] 500 mg PO BIDMEALS #60 tab 02/03/18 [Rx] Metoprolol Tartrate 25 mg PO BID 07/27/18 [History] Lisinopril [Prinivil] 40 mg PO DAILY tablet 11/29/18 [Rx] Insulin Lispro [HumaLOG] 2 - 5 unit INJECT ASDIRECTED 02/14/19 [History] Past Medical History HEENT History: Reports: Impaired Vision Other HEENT History: Wears glasss Cardiovascular History: Reports: Hypertension Gastrointestinal History: Reports: Pancreatitis, Other (See Below) Other Gastrointestinal History: Fatty liver, acute pancreatitis--recurrent bouts of pancreatitis due to alcohol use Psychiatric History: Reports: Addiction, Anxiety, Other (See Below) Other Psychiatric History: alcohol abuse Endocrine/Metabolic History: Reports: Diabetes, Type II (for past two years) - Infectious Disease History Infectious Disease History: Reports: Chicken Pox - Past Surgical History Head Surgeries/Procedures: Reports: None Social & Family History - Family History Family Medical History: Noncontributory - Caffeine Use Caffeine Use: Reports: Soda Caffeine Use Comment: doesnt drink soda often, "takes me 3 hours to finish one soda" - Living Situation & Occupation Living situation: Reports: Single, Other (Has a 2-year daughter with ex- girlfriend) 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 Denies: Fever, Chills , Malaise, Weakness, Fatigue HEENT: Reports: No Symptoms Respiratory: Reports: No Symptoms Cardiovascular: Reports: No Symptoms Endocrine: Reports: No Symptoms GI/Abdominal: Reports: Abdominal Pain (See history of present illness), Diarrhea , Nausea. Denies: Constipation (Stools are looser than normal but not watery diarrhea.), Vomiting : Reports: No Symptoms Musculoskeletal: Reports: Back Pain Skin: Reports: No Symptoms (Bilateral mid back pain infrascapular bilaterally.) Neurological: Reports: No Symptoms Psychiatric: Reports: Anxiety Hematologic/Lymphatic: Reports: No Symptoms Immunologic: Reports: No Symptoms ED EXAM, GI/ABD - Physical Exam Exam: See Below Exam Limited By: No Limitations General Appearance: Alert, WD/WN, No Apparent Distress, Other (Blood pressure is elevated at 1 5496. Respiratory is 20 sats are 99% on room air he is afebrile.) Eyes: Bilateral: Normal Appearance (No scleral icterus) Throat/Mouth: Other Head: Atraumatic (Tongue is mildly dry and coated white.), Normocephalic Neck: Normal Inspection, Supple, Non-Tender, Full Range of Motion. No: Lymphadenopathy (L), Lymphadenopathy (R) Respiratory/Chest: No Respiratory Distress, Lungs Clear, Normal Breath Sounds, No Accessory Muscle Use, Chest Non-Tender, Respiratory Distress (Mild tachypnea. No ketones on his breath.) Cardiovascular: Normal Peripheral Pulses, Regular Rate, Rhythm, No Edema, No Gallop, No Murmur, No Rub GI/Abdominal Exam: Soft, No Organomegaly, Tender, Abnormal Bowel Sounds (Bowel sounds are quiet sent in all 4 quadrants.). No: Distended, Guarding (Mildly tender epigastrium right upper quadrant and left upper quadrant with no rebound or guarding), Rigid, Rebound (Male) Exam: No Hernia Extremities: Normal Inspection, Normal Range of Motion, Non-Tender, No Pedal Edema Neurological: Alert, Oriented, CN II-XII Intact, Normal Cognition Psychiatric: Normal Affect, Normal Mood, Other (Mildly apprehensive as he was told he had any further alcohol on his assessments he would be sent directly back to [place].) Skin Exam: Warm, Dry, Intact, Normal Color Course - Vital Signs Last Recorded V/S: Last Vital Signs Temp 36.4 C 02/14/19 17:29 Pulse 108 H 02/14/19 17:29 Resp 17 02/14/19 17:29 BP 170/99 H 02/14/19 18:54 Pulse Ox 97 02/14/19 17:29 - Orders/Labs/Meds Orders: Medication Orders Clonazepam (Klonopin) 0.5 mg PO TID [facility] Last Admin: 02/14/19 20:14 Dose: 0.5 mg Admin: 02/14/19 18:51 Dose: 0.5 mg Enoxaparin Sodium (Lovenox) 40 mg SUBCUT DAILY [facility] Last Admin: 02/14/19 18:00 Dose: 40 mg Hydromorphone HCl (Dilaudid) 1 mg IVPUSH Q2H PRN PRN Reason: Pain (severe 7-10) Lactated Ringer's (Ringers, Lactated) 1,000 mls @ 125 mls/hr IV ASDIRECTED [facility] Last Admin: 02/14/19 17:59 Dose: 125 mls/hr Insulin Human Lispro (Humalog) 0 unit SUBCUT Q6HR [facility]; Protocol Last Admin: 02/14/19 18:59 Dose: 6 unit Ondansetron HCl (Zofran) 4 mg IV Q4H PRN PRN Reason: Nausea/Vomiting Last Admin: 02/14/19 18:50 Dose: 4 mg Labs: Laboratory Tests 02/14/19 02/14/19 02/14/19 Range/Units 14:33 14:33 14:33 WBC 8.06 (4.23-9.07) K/mm3 RBC 5.43 (4.63-6.08) M/mm3 Hgb 16.6 D (13.7-17.5) gm/L Hct 47.4 (40.1-51.0) % MCV 87.3 (79.0-92.2) fl MCH 30.6 (25.7-32.2) pg MCHC 35.0 (32.2-35.5) g/dl RDW Std Deviation 40.9 (35.1-43.9) fL Plt Count 186 (163-337) K/mm3 MPV 10.5 (9.4-12.3) fl Neutrophils % (Manual) 75 H (40-60) % Band Neutrophils % 0 (0-10) % Lymphocytes % (Manual) 17 L (20-40) % Atypical Lymphs % 0 % Monocytes % (Manual) 7 (2-10) % Eosinophils % (Manual) 1 (0.8-7.0) % Basophils % (Manual) 0 L (0.2-1.2) Platelet Estimate Adequate Plt Morphology Comment Normal RBC Morph Comment Normal PT 10.3 (9.5-12.1) SECONDS INR 0.94 Sodium 135 L (136-145) mEq/L Potassium 4.1 (3.5-5.1) mEq/L Chloride 96 L (98-107) mEq/L Carbon Dioxide 16 L (21-32) mEq/L Anion Gap 27.1 H (5-15) BUN 16 (7-18) mg/dL Creatinine 0.8 (0.7-1.3) mg/dL Est Cr Clr Drug Dosing 139.41 mL/min Estimated GFR (MDRD) > 60 (>60) mL/min BUN/Creatinine Ratio 20.0 H (14-18) Glucose 234 H (74-106) mg/dL POC Glucose (70-105) mg/dL Hemoglobin A1c (4.50-6.20) % Calcium 9.7 (8.5-10.1) mg/dL Magnesium 2.0 (1.8-2.4) mg/dl Total Bilirubin 2.1 H (0.2-1.0) mg/dL GGT 277 H (15-85) U/L AST 61 H (15-37) U/L ALT 160 H (16-63) U/L Alkaline Phosphatase 134 H (46-116) U/L C-Reactive Protein 1.0 (<1.0) mg/dL Total Protein 8.3 H (6.4-8.2) g/dl Albumin 4.6 (3.4-5.0) g/dl Globulin 3.7 gm/dL Albumin/Globulin Ratio 1.2 (1-2) Amylase 227 H (25-115) U/L Lipase 3485 H (73-393) U/L Ethyl Alcohol 0.00 (0.00) gm% 02/14/19 02/14/19 Range/Units 14:44 15:05 WBC (4.23-9.07) K/mm3 RBC (4.63-6.08) M/mm3 Hgb (13.7-17.5) gm/L Hct (40.1-51.0) % MCV (79.0-92.2) fl MCH (25.7-32.2) pg MCHC (32.2-35.5) g/dl RDW Std Deviation (35.1-43.9) fL Plt Count (163-337) K/mm3 MPV (9.4-12.3) fl Neutrophils % (Manual) (40-60) % Band Neutrophils % (0-10) % Lymphocytes % (Manual) (20-40) % Atypical Lymphs % % Monocytes % (Manual) (2-10) % Eosinophils % (Manual) (0.8-7.0) % Basophils % (Manual) (0.2-1.2) Platelet Estimate Plt Morphology Comment RBC Morph Comment PT (9.5-12.1) SECONDS INR Sodium (136-145) mEq/L Potassium (3.5-5.1) mEq/L Chloride (98-107) mEq/L Carbon Dioxide (21-32) mEq/L Anion Gap (5-15) BUN (7-18) mg/dL Creatinine (0.7-1.3) mg/dL Est Cr Clr Drug Dosing mL/min Estimated GFR (MDRD) (>60) mL/min BUN/Creatinine Ratio (14-18) Glucose (74-106) mg/dL POC Glucose 204 H (70-105) mg/dL Hemoglobin A1c 9.90 H (4.50-6.20) % Calcium (8.5-10.1) mg/dL Magnesium (1.8-2.4) mg/dl Total Bilirubin (0.2-1.0) mg/dL GGT (15-85) U/L AST (15-37) U/L ALT (16-63) U/L Alkaline Phosphatase (46-116) U/L C-Reactive Protein (<1.0) mg/dL Total Protein (6.4-8.2) g/dl Albumin (3.4-5.0) g/dl Globulin gm/dL Albumin/Globulin Ratio (1-2) Amylase (25-115) U/L Lipase (73-393) U/L Ethyl Alcohol (0.00) gm% Meds: Medications Generic Name Dose Route Start Last Admin Trade Name Freq PRN Reason Stop Dose Admin Clonazepam 0.5 mg 02/14/19 18:00 02/14/19 20:14 Klonopin PO 0.5 mg TID ALBERTO Administration Enoxaparin Sodium 40 mg 02/14/19 17:30 02/14/19 18:00 Lovenox SUBCUT 40 mg DAILY ALBERTO Administration Hydromorphone HCl 1 mg 02/14/19 18:48 Dilaudid IVPUSH Q2H PRN Pain (severe 7-10) Lactated Ringer's 1,000 mls @ 125 mls/hr 02/14/19 17:30 02/14/19 17:59 Ringers, Lactated IV 125 mls/hr ASDIRECTED ALBERTO Administration Insulin Human Lispro 0 unit 02/14/19 18:00 02/14/19 18:59 Humalog SUBCUT 6 unit Q6HR ALBERTO Administration Protocol Ondansetron HCl 4 mg 02/14/19 17:23 02/14/19 18:50 Zofran IV 4 mg Q4H PRN Administration Nausea/Vomiting Discontinued Medications Generic Name Dose Route Start Last Admin Trade Name Freq PRN Reason Stop Dose Admin Hydromorphone HCl 1 mg 02/14/19 14:35 02/14/19 15:00 Dilaudid IVPUSH 02/14/19 14:36 1 mg ONETIME ONE Administration Hydromorphone HCl 1 mg 02/14/19 15:48 02/14/19 15:57 Dilaudid IVPUSH 02/14/19 15:49 1 mg ONETIME ONE Administration Hydromorphone HCl 0.5 mg 02/14/19 17:23 02/14/19 18:46 Dilaudid IVPUSH 0.5 mg Q2H PRN Administration Pain (severe 7-10) Sodium Chloride 150 mls @ 999 mls/hr 02/14/19 14:34 02/14/19 14:54 Normal Saline IV 02/14/19 14:43 Not Given ASDIRECTED ONE Sodium Chloride 1,000 mls @ 999 mls/hr 02/14/19 15:00 02/14/19 14:58 Normal Saline IV 999 mls/hr ASDIRECTED ALBERTO Administration Sodium Chloride 1,000 mls @ 999 mls/hr 02/14/19 17:09 02/14/19 17:15 Normal Saline IV 02/14/19 18:09 999 mls/hr ONETIME ONE Administration Insulin Human Lispro 0 unit 02/14/19 18:00 Humalog SUBCUT Q6HR ALBERTO Protocol Lorazepam 1 mg 02/14/19 15:49 02/14/19 15:58 Ativan IVPUSH 02/14/19 15:50 1 mg ONETIME ONE Administration Metoclopramide HCl 7.5 mg 02/14/19 14:35 02/14/19 14:58 Reglan IVPUSH 02/14/19 14:36 7.5 mg ONETIME ONE Administration - Radiology Interpretation Free Text/Narrative:: 28-year-old male presents to the ED with diffuse upper abdominal pain of 2 days ' duration. Patient has a history of recurrent pancreatitis or chronic pancreatitis secondary to chronic alcohol abuse. Patient had his gallbladder removed and did have some stones in his common bile duct before [place] and states that he's only had one bout of parotitis since that time. This is felt to be alcohol-related in November of this year and he was sent to [place] to time of discharge for alcohol treatment. He states he's had a few alcohol drinks since that time but doesn't drink near as heavily as he used to. Awoke with upper abdominal pain yesterday morning about 5:00 and this then became right upper quadrant abdominal pain right infrascapular pain. For. Of time last night he seemed to settle down about 34 hours but then returned about 5:00 this morning and has persisted. Pain is now moved over to the left upper quadrant and into his left upper back. He feels nauseated times but is not vomiting. Stools are quite loose but semi-formed. No blood noted. No fever or chills. States his last alcohol drink was probably 2 weeks ago. Plan normal saline at open. Patient has type 2 diabetes and is controlled with metformin and insulin. He's not sure what her sugars been running because he ran out of strips to test. Plan bedside blood sugar. Will be given Dilaudid 1 mg IV with Reglan 7.5 mg IV for pain. Labs to include an amylase and lipase since on the last 3 occasions they were still in the normal range. GGT to be done since he has a history of choledocholithiasis. Blood alcohol will also be obtained. One view of the abdomen will be obtained as well. - Re-Assessments/Exams Free Text/Narrative Re-Assessment/Exam: 02/14/19 15:48 Labs are back. White count is 8.06 with 75% neutrophils and no band cells. Hemoglobin is 16.6 with hematocrit of 47.4 indicating some degree of hemoconcentration. Platelet count is normal and 186,000. Sodium is 135 with a potassium of 4.1. Chloride is 96 with a bicarbonate of 16. Anion gap is markedly elevated at 27.1. BUN is 16 with a creatinine of 0.8. GFR is greater than 60. Glucose is 234 in the lab in 204 at the bedside. Calcium is 9.7. Magnesium is 2.0 total bilirubin is 2.1 GGT is elevated at 277. Normal in our lab is up to 85. AST is 61 ALT is 160. Alk phosphatase is 134 mildly elevated. C -reactive protein is 1.0. Total protein is 8.3. His lipase is 3485 amylase is 227. Blood alcohol is currently 0.00. Patient is asking for more analgesia. I will repeat Dilaudid 1 mg IV and Ativan 1 mg IV for pain relief. The elevated liver function and GGT's suggest that he does have some mild biliary tree inflammation and/or early cirrhosis development. Normal white count is against any significant infection. He is indeed volume depleted and will require volume replacement and pain management likely in the hospital. 02/14/19 16:[address] Padilla--[facility] hospitalist. He will accept the patient to the [facility] surgery floor at this time. He is to be admitted for rehydration, pain management, for relapsing pancreatitis most likely induced by alcohol use although the patient will not admit to recent usage of alcohol. Departure - Departure Time of Disposition: 17:10 Disposition: Admitted As Inpatient 64 Condition: Fair Clinical Impression: Relapsing pancreatitis, Volume depletion Uncontrolled type 2 diabetes mellitus Qualifiers: Glycemic state: with hyperglycemia Qualified Code(s): E11.65 - Type 2 diabetes mellitus with hyperglycemia - Discharge Information *PRESCRIPTION DRUG MONITORING PROGRAM REVIEWED*: Not Applicable *COPY OF PRESCRIPTION DRUG MONITORING REPORT IN PATIENT KENJI: Not Applicable
[2019-02-14] MEDS ORDERED: HYDROmorphone 1 MG/ML Syringe IVPUSH ONE ×2 (14:35→15:48)
[2019-02-14] MEDS ORDERED: Metoclopramide 10 MG/2 ML SDV IVPUSH ONE (14:35)
[2019-02-14] MEDS ORDERED: Sodium Chloride 0.9% 1,000 ML IV SCH (15:00)
[2019-02-14] MEDS ORDERED: LORazepam 2 MG/ML SDV IVPUSH ONE (15:49)
[2019-02-14 15:54] LABS: HEMOGLOBIN A1C 9.9 % (4.50-6.20)
[2019-02-14] MEDS ORDERED: Sodium Chloride 0.9% 1,000 ML IV ONE (17:09)
--- NOTE | 2019-02-14 17:52 | CR ---
Abdomen: Supine view of the abdomen was obtained. Comparison: No prior abdominal x-ray previous CT abdomen and pelvis exam of 10/02/18. Bowel gas pattern is normal. Surgical clips are seen presumably from prior cholecystectomy which is an interval change from prior CT exam. No abnormal calcifications or soft tissue abnormality is seen. Bony structures are unremarkable. Impression: 1. Surgical clips presumably from prior cholecystectomy. 2. Supine abdominal x-ray is otherwise unremarkable. Diagnostic code #2
[2019-02-14] MEDS: HYDROmorphone 1 MG/ML Syringe IVPUSH PRN ×4 (17:59→23:00)
[2019-02-14] MEDS: Lactated Ringers 1,000 ML IV SCH (17:59)
[2019-02-14] MEDS: Enoxaparin 40 MG/0.4 ML Syringe SUBCUT SCH (18:00)
[2019-02-14] MEDS ORDERED: Insulin Lispro 100 Units/ML 3 ML Vial SUBCUT SCH (18:00)
[2019-02-14] MEDS: Ondansetron 4 MG/2 ML SDV IV PRN (18:50)
[2019-02-14] MEDS: ClonazePAM 0.5 MG Tab PO SCH ×2 (18:51→20:14)
[2019-02-14] MEDS: Insulin Lispro 100 Units/ML 3 ML Vial SUBCUT SCH ×2 (18:59→23:14)
--- NOTE | 2019-02-14 19:03 | PCM.HP ---
H&P History of Present Illness - General Date of Service: 02/14/19 Admit Problem/Dx: Admission Diagnosis/Problem Admission Diagnosis/Problem Relapsing pancreatitis Source of Information: Patient - History of Present Illness Initial Comments - Free Text/Narative: 28 yo male with h/o DM, Etoh abuse, pancreatitis, cholelithiasis admitted through ED with acute onset of severe abdominal pain, elevated lipase, N/V. Previously underwent cholecystectomy with subsequent ERCP. Admitted for further treatment. Upper Abdomen Pain Score (Numeric/FACES): 7 - Related Data Allergies/Adverse Reactions: Allergies Allergy/AdvReac Type Severity Reaction Status Date / Time No Known Allergies Allergy Verified 11/24/18 20:28 Home Medications: Home Meds metFORMIN [Glucophage] 500 mg PO BIDMEALS #60 tab 02/03/18 [Rx] Metoprolol Tartrate 25 mg PO BID 07/27/18 [History] Lisinopril [Prinivil] 40 mg PO DAILY tablet 11/29/18 [Rx] Insulin Lispro [HumaLOG] 2 - 5 unit INJECT ASDIRECTED 02/14/19 [History] Past Medical History HEENT History: Reports: Impaired Vision Other HEENT History: Wears glasss Cardiovascular History: Reports: Hypertension Gastrointestinal History: Reports: Pancreatitis, Other (See Below) Other Gastrointestinal History: Fatty liver, acute pancreatitis--recurrent bouts of pancreatitis due to alcohol use Psychiatric History: Reports: Addiction, Anxiety, Other (See Below) Other Psychiatric History: alcohol abuse Endocrine/Metabolic History: Reports: Diabetes, Type II - Infectious Disease History Infectious Disease History: Reports: Chicken Pox - Past Surgical History Head Surgeries/Procedures: Reports: None Cardiovascular Surgical History: Reports: None GI Surgical History: Reports: Cholecystectomy Endocrine Surgical History: Reports: None Social & Family History - Family History Family Medical History: Noncontributory - Tobacco Use Smoking Status *Q: Never Smoker - Caffeine Use Caffeine Use: Reports: Soda Caffeine Use Comment: doesnt drink soda often, "takes me 3 hours to finish one soda" - Alcohol Use Days Per Week of Alcohol Use: 0 - Recreational Drug Use Recreational Drug Use: Yes Recreational Drug Type: Reports: Other (see below) Other Recreational Drug Type: THC 5 days ago Recreational Drug Last Use: When available - Living Situation & Occupation Living situation: Reports: Single, Other (Has a 2-year daughter with ex- girlfriend) 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 Denies: Chest Pain, Palpitations Gastrointestinal: Reports: Abdominal Pain, Anorexia, Nausea, Vomiting Genitourinary: Reports: No Symptoms Musculoskeletal: Reports: No Symptoms Skin: Reports: No Symptoms Psychiatric: Reports: Anxiety. Denies: Suicidal Ideation, Homicidal Ideation Neurological: Denies: Confusion, Seizure, Syncope Hematologic/Lymphatic: Denies: Easy Bleeding, Easy Bruising Exam - Exam Exam: See Below - Vital Signs Vital Signs: Last Vital Signs Temp 97.3 F 02/14/19 14:23 Pulse 63 02/14/19 14:23 Resp 20 02/14/19 14:23 BP 154/96 H 02/14/19 14:23 Pulse Ox 99 02/14/19 14:23 Weight: 204 lb 14.4 oz - Exam General: Alert, Oriented, Moderate Distress HEENT: Conjunctiva Clear, EOMI. No: Mucosa Moist & [place] Neck: Supple, Trachea Midline. No: Lymphadenopathy Lungs: Clear to Auscultation, Normal Respiratory Effort. No: Wheezing Cardiovascular: Regular Rate, Regular Rhythm, Normal S1, Normal S2 GI/Abdominal Exam: No Distention, Tender, Abnormal Bowel Sounds. No: Distended , Hepatomegaly, Splenomegaly Extremities: Normal Range of Motion, Normal Capillary Refill. No: Pedal Edema Peripheral Pulses: 2+: Posterior Tibial (L), Posterior Tibial (R) Skin: Warm, Dry, Intact Neuro Extensive - Mental Status: Alert, Oriented x3, Memory Intact Neuro Extensive - Motor, Sensory, Reflexes: CN II-XII Intact, Normal Gait, Normal Reflexes. No: Motor/Sensory Deficits Psychiatric: Normal Affect, Anxious - Patient Data Lab Results Last 24 hrs: Laboratory Results - last 24 hr 02/14/19 02/14/19 02/14/19 Range/Units 14:33 14:33 14:33 WBC 8.06 (4.23-9.07) K/mm3 RBC 5.43 (4.63-6.08) M/mm3 Hgb 16.6 D (13.7-17.5) gm/L Hct 47.4 (40.1-51.0) % MCV 87.3 (79.0-92.2) fl MCH 30.6 (25.7-32.2) pg MCHC 35.0 (32.2-35.5) g/dl RDW Std Deviation 40.9 (35.1-43.9) fL Plt Count 186 (163-337) K/mm3 MPV 10.5 (9.4-12.3) fl Neutrophils % (Manual) 75 H (40-60) % Band Neutrophils % 0 (0-10) % Lymphocytes % (Manual) 17 L (20-40) % Atypical Lymphs % 0 % Monocytes % (Manual) 7 (2-10) % Eosinophils % (Manual) 1 (0.8-7.0) % Basophils % (Manual) 0 L (0.2-1.2) Platelet Estimate Adequate Plt Morphology Comment Normal RBC Morph Comment Normal PT 10.3 (9.5-12.1) SECONDS INR 0.94 Sodium 135 L (136-145) mEq/L Potassium 4.1 (3.5-5.1) mEq/L Chloride 96 L (98-107) mEq/L Carbon Dioxide 16 L (21-32) mEq/L Anion Gap 27.1 H (5-15) BUN 16 (7-18) mg/dL Creatinine 0.8 (0.7-1.3) mg/dL Est Cr Clr Drug Dosing 139.41 mL/min Estimated GFR (MDRD) > 60 (>60) mL/min BUN/Creatinine Ratio 20.0 H (14-18) Glucose 234 H (74-106) mg/dL POC Glucose (70-105) mg/dL Hemoglobin A1c (4.50-6.20) % Calcium 9.7 (8.5-10.1) mg/dL Magnesium 2.0 (1.8-2.4) mg/dl Total Bilirubin 2.1 H (0.2-1.0) mg/dL GGT 277 H (15-85) U/L AST 61 H (15-37) U/L ALT 160 H (16-63) U/L Alkaline Phosphatase 134 H (46-116) U/L C-Reactive Protein 1.0 (<1.0) mg/dL Total Protein 8.3 H (6.4-8.2) g/dl Albumin 4.6 (3.4-5.0) g/dl Globulin 3.7 gm/dL Albumin/Globulin Ratio 1.2 (1-2) Amylase 227 H (25-115) U/L Lipase 3485 H (73-393) U/L Ethyl Alcohol 0.00 (0.00) gm% 02/14/19 02/14/19 Range/Units 14:44 15:05 WBC (4.23-9.07) K/mm3 RBC (4.63-6.08) M/mm3 Hgb (13.7-17.5) gm/L Hct (40.1-51.0) % MCV (79.0-92.2) fl MCH (25.7-32.2) pg MCHC (32.2-35.5) g/dl RDW Std Deviation (35.1-43.9) fL Plt Count (163-337) K/mm3 MPV (9.4-12.3) fl Neutrophils % (Manual) (40-60) % Band Neutrophils % (0-10) % Lymphocytes % (Manual) (20-40) % Atypical Lymphs % % Monocytes % (Manual) (2-10) % Eosinophils % (Manual) (0.8-7.0) % Basophils % (Manual) (0.2-1.2) Platelet Estimate Plt Morphology Comment RBC Morph Comment PT (9.5-12.1) SECONDS INR Sodium (136-145) mEq/L Potassium (3.5-5.1) mEq/L Chloride (98-107) mEq/L Carbon Dioxide (21-32) mEq/L Anion Gap (5-15) BUN (7-18) mg/dL Creatinine (0.7-1.3) mg/dL Est Cr Clr Drug Dosing mL/min Estimated GFR (MDRD) (>60) mL/min BUN/Creatinine Ratio (14-18) Glucose (74-106) mg/dL POC Glucose 204 H (70-105) mg/dL Hemoglobin A1c 9.90 H (4.50-6.20) % Calcium (8.5-10.1) mg/dL Magnesium (1.8-2.4) mg/dl Total Bilirubin (0.2-1.0) mg/dL GGT (15-85) U/L AST (15-37) U/L ALT (16-63) U/L Alkaline Phosphatase (46-116) U/L C-Reactive Protein (<1.0) mg/dL Total Protein (6.4-8.2) g/dl Albumin (3.4-5.0) g/dl Globulin gm/dL Albumin/Globulin Ratio (1-2) Amylase (25-115) U/L Lipase (73-393) U/L Ethyl Alcohol (0.00) gm% Result Diagrams: 02/14/19 14:33 02/14/19 14:33 - Problem List (1) Relapsing pancreatitis SNOMED Code(s): 479796845 ICD Code: K86.1 - OTHER CHRONIC PANCREATITIS Status: Acute Priority: High Current Visit: Yes (2) Uncontrolled type 2 diabetes mellitus SNOMED Code(s): 080591907, 347262305 ICD Code: E11.65 - TYPE 2 DIABETES MELLITUS WITH HYPERGLYCEMIA Status: Acute Current Visit: Yes Qualifiers: Glycemic state: with hyperglycemia Qualified Code(s): E11.65 - Type 2 diabetes mellitus with hyperglycemia (3) Anxiety SNOMED Code(s): 24904409 ICD Code: F41.9 - ANXIETY DISORDER, UNSPECIFIED Status: Acute Priority: High Current Visit: Yes Problem List Initiated/Reviewed/Updated: Yes Orders Last 24hrs: Active Orders 24 hr Category Date Time Status Admission Status [Patient Status] [ADT] Routine ADT 02/14/19 16:37 Active Change Admitting Physician [ADT] Stat ADT 02/14/19 18:03 Ordered Bedrest Bedside Commode [RC] ASDIRECTED Care 02/14/19 17:23 Active Blood Glucose Check, Bedside [RC] ONETIME Care 02/14/19 14:48 Active Blood Glucose Check, Bedside [RC] Q6HR Care 02/14/19 17:27 Active Height and Weight [RC] DAILY Care 02/14/19 17:23 Active Intake and Output [RC] QSHIFT Care 02/14/19 17:24 Active VTE/DVT Education [RC] PER UNIT ROUTINE Care 02/14/19 17:24 Active Vital Signs [RC] Q4H Care 02/14/19 17:24 Active Nothing per Oral Now Diet [DIET] Diet 02/14/19 Breakfast Active Abdomen Pelvis wo Cont [CT] Stat Exams 02/14/19 18:00 Ordered CBC WITH AUTO DIFF [HEME] AM Lab 02/15/19 05:11 Ordered COMPREHENSIVE METABOLIC PN,CMP [CHEM] AM Lab 02/15/19 05:11 Ordered GLUCOSE,POC [POC] Routine Lab 02/14/19 18:56 Received GLYCOSYLATED HEMOGLOBIN,HGBA1C [CHEM] AM Lab 02/15/19 05:11 Ordered LACTIC ACID [CHEM] Q6H Lab 02/14/19 18:02 Received LACTIC ACID [CHEM] Q6H Lab 02/14/19 23:33 Ordered LACTIC ACID [CHEM] Q6H Lab 02/15/19 05:33 Ordered LIPASE [CHEM] AM Lab 02/15/19 05:11 Ordered LIPID PANEL [CHEM] AM Lab 02/15/19 05:11 Ordered MAGNESIUM [CHEM] AM Lab 02/15/19 05:00 Ordered PHOSPHORUS [CHEM] AM Lab 02/15/19 05:00 Ordered ClonazePAM [KlonoPIN] Med 02/14/19 18:00 Active 0.5 mg PO TID Enoxaparin [Lovenox] Med 02/14/19 17:30 Active 40 mg SUBCUT DAILY HYDROmorphone [Dilaudid] Med 02/14/19 18:48 Ordered 1 mg IVPUSH Q2H PRN Insulin Lispro [HumaLOG] Med 02/14/19 18:00 Active See Protocol SUBCUT Q6HR Lactated Ringers [Ringers, Lactated] 1,000 ml Med 02/14/19 17:30 Active IV ASDIRECTED Ondansetron [Zofran] Med 02/14/19 17:23 Active 4 mg IV Q4H PRN Resuscitation Status Routine Resus Stat 02/14/19 17:23 Ordered Medication Orders Clonazepam (Klonopin) 0.5 mg PO TID [facility] Last Admin: 02/14/19 18:51 Dose: 0.5 mg Enoxaparin Sodium (Lovenox) 40 mg SUBCUT DAILY [facility] Last Admin: 02/14/19 18:00 Dose: 40 mg Hydromorphone HCl (Dilaudid) 1 mg IVPUSH Q2H PRN PRN Reason: Pain (severe 7-10) Lactated Ringer's (Ringers, Lactated) 1,000 mls @ 125 mls/hr IV ASDIRECTED [facility] Last Admin: 02/14/19 17:59 Dose: 125 mls/hr Insulin Human Lispro (Humalog) 0 unit SUBCUT Q6HR ALBERTO; Protocol Ondansetron HCl (Zofran) 4 mg IV Q4H PRN PRN Reason: Nausea/Vomiting Last Admin: 02/14/19 18:50 Dose: 4 mg Assessment/Plan Comment:: 1. NPO, IVF, pain control, CT abdomen, serial lipase. 2. Hold metformin, start SSI. 3. Start clonazepam, will add SSRI before discharge.
--- NOTE | 2019-02-14 20:47 | CT ---
CT abdomen and pelvis Technique: Multiple axial sections were obtained from above the dome of the diaphragm inferiorly through the pubic symphysis. Intravenous and oral contrast not utilized which diminishes details of the study. Comparison: Prior CT abdomen and pelvis exam dated 11/24/18. Findings: Small portion of the visualized lung bases shows nothing acute. Diffuse and severe fatty infiltration is seen within the liver. Surgical clips are seen from prior cholecystectomy. Spleen appears normal. Adrenal glands are unremarkable. Kidneys show no abnormal calcifications or hydronephrosis. Mild inflammatory change is noted around the pancreas which does not appear as severe as on previous CT exam. Aorta shows no aneurysm. No retroperitoneal adenopathy is seen. Appendix is seen which is normal in size. No pelvic mass or adenopathy is seen. No free fluid or inflammatory change is seen. Bone window settings were reviewed which shows nothing acute. Impression: 1. Mild inflammatory change around the pancreas compatible with pancreatitis. Findings do not appear as severe as on prior CT exam. 2. Severe fatty infiltration within the liver. 3. No additional abnormality is appreciated. Diagnostic code #3
[2019-02-15] MEDS: HYDROmorphone 1 MG/ML Syringe IVPUSH PRN ×7 (01:04→22:04)
[2019-02-15] MEDS: Ondansetron 4 MG/2 ML SDV IV PRN ×2 (01:11→08:07)
[2019-02-15] MEDS: Lactated Ringers 1,000 ML IV SCH ×2 (02:26→10:26)
[2019-02-15] MEDS: HYDROmorphone 0.5 MG/0.5 ML Syringe IVPUSH PRN ×3 (03:47→08:02)
[2019-02-15] MEDS: Insulin Lispro 100 Units/ML 3 ML Vial SUBCUT SCH ×2 (05:58→13:24)
[2019-02-15 07:04] LABS: HEMOGLOBIN A1C 9.5 % (4.50-6.20)
[2019-02-15] MEDS: Enoxaparin 40 MG/0.4 ML Syringe SUBCUT SCH (08:02)
[2019-02-15] MEDS: ClonazePAM 0.5 MG Tab PO SCH ×3 (08:02→20:01)
[2019-02-15] MEDS: Dextrose 5%-0.9% NaCl 1,000 ML IV SCH ×2 (13:25→19:15)
--- NOTE | 2019-02-15 16:08 | PCM.PN ---
- General Info Date of Service: 02/15/19 Admission Dx/Problem (Free Text): 28 yo male with h/o DM, Etoh abuse, pancreatitis, cholelithiasis admitted through ED with acute onset of severe abdominal pain, elevated lipase, N/V. Previously underwent cholecystectomy with subsequent ERCP. Admitted for further treatment. 02/15/19, lipase improving, pain persists, developed metabolic acidosis/DKA, started insulin IV gtt. CT showed pancreatitis, fatty liver, no gallstones. - Review of Systems Systems Review Comment:: General: Denies: Fever, Chills, Weight Loss HEENT: Denies: Dysphasia, Hearing Changes, Vertigo Pulmonary: Denies: Shortness of Breath, Wheezing, Hemoptysis Cardiovascular: Reports: Blood Pressure Problem. Denies: Chest Pain, Palpitations Gastrointestinal: Reports: Abdominal Pain, Anorexia, Nausea, Vomiting Genitourinary: Reports: No Symptoms Musculoskeletal: Reports: No Symptoms Skin: Reports: No Symptoms Psychiatric: Reports: Anxiety. Denies: Suicidal Ideation, Homicidal Ideation Neurological: Denies: Confusion, Seizure, Syncope Hematologic/Lymphatic: Denies: Easy Bleeding, Easy Bruising - Patient Data Vitals - Most Recent: Last Vital Signs Temp 98.1 F 02/15/19 03:41 Pulse 130 H 02/15/19 12:34 Resp 16 02/15/19 12:34 BP 157/92 H 02/15/19 12:43 Pulse Ox 100 02/15/19 12:34 Weight - Most Recent: 204 lb 14.4 oz I&O - Last 24 Hours: Intake & Output 02/15/19 02/15/19 02/15/19 03:59 11:59 19:59 Intake Total 1066 Output Total 2100 Balance -1034 Lab Results Last 24 Hours: Laboratory Results - last 24 hr 02/14/19 02/14/19 02/14/19 Range/Units 18:02 18:56 21:06 WBC (4.23-9.07) K/mm3 RBC (4.63-6.08) M/mm3 Hgb (13.7-17.5) gm/L Hct (40.1-51.0) % MCV (79.0-92.2) fl MCH (25.7-32.2) pg MCHC (32.2-35.5) g/dl RDW Std Deviation (35.1-43.9) fL Plt Count (163-337) K/mm3 MPV (9.4-12.3) fl Neut % (Auto) (34.0-67.9) % Lymph % (Auto) (21.8-53.1) % [place] % (Auto) (5.3-12.2) % Eos % (Auto) (0.8-7.0) Baso % (Auto) (0.1-1.2) % Neut # (Auto) (1.78-5.38) K/mm3 Lymph # (Auto) (1.32-3.57) K/mm3 [place] # (Auto) (0.30-0.82) K/mm3 Eos # (Auto) (0.04-0.54) K/mm3 Baso # (Auto) (0.01-0.08) K/mm3 Manual Slide Review Puncture Site ABG pH (7.35-7.45) ABG pCO2 (35.0-45.0) mmHg ABG pO2 (80.0-100.0) mmHg ABG HCO3 (22.0-26.0) meq/L ABG O2 Saturation (96.0-97.0) % ABG Base Excess (-2-2.0) Faisal Test O2 Delivery Device FiO2 (21.00-100.00) % Sodium (136-145) mEq/L Potassium (3.5-5.1) mEq/L Chloride (98-107) mEq/L Carbon Dioxide (21-32) mEq/L Anion Gap (5-15) BUN (7-18) mg/dL Creatinine (0.7-1.3) mg/dL Est Cr Clr Drug Dosing mL/min Estimated GFR (MDRD) (>60) mL/min BUN/Creatinine Ratio (14-18) Glucose (74-106) mg/dL POC Glucose 219 H 186 H (70-105) mg/dL Hemoglobin A1c (4.50-6.20) % Lactic Acid 1.3 (0.4-2.0) mmol/L Calcium (8.5-10.1) mg/dL Phosphorus (2.6-4.7) mg/dL Magnesium (1.8-2.4) mg/dl Total Bilirubin (0.2-1.0) mg/dL AST (15-37) U/L ALT (16-63) U/L Alkaline Phosphatase (46-116) U/L Total Protein (6.4-8.2) g/dl Albumin (3.4-5.0) g/dl Globulin gm/dL Albumin/Globulin Ratio (1-2) Triglycerides (<150) mg/dL Cholesterol (<200) mg/dL LDL Cholesterol Direct (<100) mg/dL HDL Cholesterol (40-59) mg/dL Lipase (73-393) U/L Urine Opiates Screen (JEFQKU=342) Ur Buprenorphine Scrn (CUTOFF=10) Ur Oxycodone Screen (HME7FA=039) Urine Methadone Screen (FFF5YI=974) Ur Propoxyphene Screen (SBEBDU=970) Ur Barbiturates Screen (PQFJST=531) Ur Tricyclics Screen (YSOKLE=764) Ur Phencyclidine Scrn (CUTOFF=25) Ur Amphetamine Screen (IDNQTT=337) U Methamphetamines Scrn (MHSXTR=721) U Benzodiazepines Scrn (CEYRQS=492) U Cocaine Metab Screen (IDFDUE=107) U Marijuana (THC) Screen (CUTOFF=50) 02/14/19 02/14/19 02/15/19 Range/Units 23:02 23:40 05:41 WBC (4.23-9.07) K/mm3 RBC (4.63-6.08) M/mm3 Hgb (13.7-17.5) gm/L Hct (40.1-51.0) % MCV (79.0-92.2) fl MCH (25.7-32.2) pg MCHC (32.2-35.5) g/dl RDW Std Deviation (35.1-43.9) fL Plt Count (163-337) K/mm3 MPV (9.4-12.3) fl Neut % (Auto) (34.0-67.9) % Lymph % (Auto) (21.8-53.1) % [place] % (Auto) (5.3-12.2) % Eos % (Auto) (0.8-7.0) Baso % (Auto) (0.1-1.2) % Neut # (Auto) (1.78-5.38) K/mm3 Lymph # (Auto) (1.32-3.57) K/mm3 [place] # (Auto) (0.30-0.82) K/mm3 Eos # (Auto) (0.04-0.54) K/mm3 Baso # (Auto) (0.01-0.08) K/mm3 Manual Slide Review Puncture Site ABG pH (7.35-7.45) ABG pCO2 (35.0-45.0) mmHg ABG pO2 (80.0-100.0) mmHg ABG HCO3 (22.0-26.0) meq/L ABG O2 Saturation (96.0-97.0) % ABG Base Excess (-2-2.0) Faisal Test O2 Delivery Device FiO2 (21.00-100.00) % Sodium (136-145) mEq/L Potassium (3.5-5.1) mEq/L Chloride (98-107) mEq/L Carbon Dioxide (21-32) mEq/L Anion Gap (5-15) BUN (7-18) mg/dL Creatinine (0.7-1.3) mg/dL Est Cr Clr Drug Dosing mL/min Estimated GFR (MDRD) (>60) mL/min BUN/Creatinine Ratio (14-18) Glucose (74-106) mg/dL POC Glucose 195 H 169 H (70-105) mg/dL Hemoglobin A1c (4.50-6.20) % Lactic Acid 1.0 (0.4-2.0) mmol/L Calcium (8.5-10.1) mg/dL Phosphorus (2.6-4.7) mg/dL Magnesium (1.8-2.4) mg/dl Total Bilirubin (0.2-1.0) mg/dL AST (15-37) U/L ALT (16-63) U/L Alkaline Phosphatase (46-116) U/L Total Protein (6.4-8.2) g/dl Albumin (3.4-5.0) g/dl Globulin gm/dL Albumin/Globulin Ratio (1-2) Triglycerides (<150) mg/dL Cholesterol (<200) mg/dL LDL Cholesterol Direct (<100) mg/dL HDL Cholesterol (40-59) mg/dL Lipase (73-393) U/L Urine Opiates Screen (YQAIBK=467) Ur Buprenorphine Scrn (CUTOFF=10) Ur Oxycodone Screen (FGK2LK=173) Urine Methadone Screen (KRC8GA=451) Ur Propoxyphene Screen (BUAAOG=696) Ur Barbiturates Screen (FZDWPW=663) Ur Tricyclics Screen (ROGERH=731) Ur Phencyclidine Scrn (CUTOFF=25) Ur Amphetamine Screen (YBLDDU=134) U Methamphetamines Scrn (YODTTT=351) U Benzodiazepines Scrn (XOZCVM=218) U Cocaine Metab Screen (WUEBKD=405) U Marijuana (THC) Screen (CUTOFF=50) 02/15/19 02/15/19 02/15/19 Range/Units 05:42 05:42 05:42 WBC 13.23 H (4.23-9.07) K/mm3 RBC 5.81 (4.63-6.08) M/mm3 Hgb 17.8 H (13.7-17.5) gm/L Hct 52.0 H (40.1-51.0) % MCV 89.5 (79.0-92.2) fl MCH 30.6 (25.7-32.2) pg MCHC 34.2 (32.2-35.5) g/dl RDW Std Deviation 42.5 (35.1-43.9) fL Plt Count 184 (163-337) K/mm3 MPV 10.8 (9.4-12.3) fl Neut % (Auto) 87.1 H (34.0-67.9) % Lymph % (Auto) 4.8 L (21.8-53.1) % [place] % (Auto) 7.0 (5.3-12.2) % Eos % (Auto) 0 L (0.8-7.0) Baso % (Auto) 0.1 (0.1-1.2) % Neut # (Auto) 11.52 H (1.78-5.38) K/mm3 Lymph # (Auto) 0.64 L (1.32-3.57) K/mm3 [place] # (Auto) 0.93 H (0.30-0.82) K/mm3 Eos # (Auto) 0.00 L (0.04-0.54) K/mm3 Baso # (Auto) 0.01 (0.01-0.08) K/mm3 Manual Slide Review Abnormal smear Puncture Site ABG pH (7.35-7.45) ABG pCO2 (35.0-45.0) mmHg ABG pO2 (80.0-100.0) mmHg ABG HCO3 (22.0-26.0) meq/L ABG O2 Saturation (96.0-97.0) % ABG Base Excess (-2-2.0) Faisal Test O2 Delivery Device FiO2 (21.00-100.00) % Sodium 131 L (136-145) mEq/L Potassium 5.2 H (3.5-5.1) mEq/L Chloride 97 L (98-107) mEq/L Carbon Dioxide 8 L* (21-32) mEq/L Anion Gap 31.2 H (5-15) BUN 10 (7-18) mg/dL Creatinine 1.0 (0.7-1.3) mg/dL Est Cr Clr Drug Dosing 111.53 mL/min Estimated GFR (MDRD) > 60 (>60) mL/min BUN/Creatinine Ratio 10.0 L (14-18) Glucose 192 H (74-106) mg/dL POC Glucose (70-105) mg/dL Hemoglobin A1c (4.50-6.20) % Lactic Acid (0.4-2.0) mmol/L Calcium 9.2 (8.5-10.1) mg/dL Phosphorus 3.9 (2.6-4.7) mg/dL Magnesium 2.1 (1.8-2.4) mg/dl Total Bilirubin 1.2 H (0.2-1.0) mg/dL AST 97 H (15-37) U/L ALT 190 H (16-63) U/L Alkaline Phosphatase 141 H (46-116) U/L Total Protein 8.9 H (6.4-8.2) g/dl Albumin 4.6 (3.4-5.0) g/dl Globulin 4.3 gm/dL Albumin/Globulin Ratio 1.1 (1-2) Triglycerides 144 (<150) mg/dL Cholesterol 284 H (<200) mg/dL LDL Cholesterol Direct 184 H* (<100) mg/dL HDL Cholesterol 79.0 H (40-59) mg/dL Lipase 2149 H (73-393) U/L Urine Opiates Screen (FEOHCL=585) Ur Buprenorphine Scrn (CUTOFF=10) Ur Oxycodone Screen (KHV7SD=053) Urine Methadone Screen (ANQ0IM=422) Ur Propoxyphene Screen (KBVOLC=802) Ur Barbiturates Screen (ZUCOJM=515) Ur Tricyclics Screen (DLTLTN=220) Ur Phencyclidine Scrn (CUTOFF=25) Ur Amphetamine Screen (AXYFON=074) U Methamphetamines Scrn (QHRKOZ=716) U Benzodiazepines Scrn (SFTQJT=009) U Cocaine Metab Screen (ORIWAV=547) U Marijuana (THC) Screen (CUTOFF=50) 02/15/19 02/15/19 02/15/19 Range/Units 05:42 05:42 10:46 WBC (4.23-9.07) K/mm3 RBC (4.63-6.08) M/mm3 Hgb (13.7-17.5) gm/L Hct (40.1-51.0) % MCV (79.0-92.2) fl MCH (25.7-32.2) pg MCHC (32.2-35.5) g/dl RDW Std Deviation (35.1-43.9) fL Plt Count (163-337) K/mm3 MPV (9.4-12.3) fl Neut % (Auto) (34.0-67.9) % Lymph % (Auto) (21.8-53.1) % [place] % (Auto) (5.3-12.2) % Eos % (Auto) (0.8-7.0) Baso % (Auto) (0.1-1.2) % Neut # (Auto) (1.78-5.38) K/mm3 Lymph # (Auto) (1.32-3.57) K/mm3 [place] # (Auto) (0.30-0.82) K/mm3 Eos # (Auto) (0.04-0.54) K/mm3 Baso # (Auto) (0.01-0.08) K/mm3 Manual Slide Review Puncture Site Lt radial ABG pH 7.16 L* (7.35-7.45) ABG pCO2 19.7 L* (35.0-45.0) mmHg ABG pO2 102.0 H (80.0-100.0) mmHg ABG HCO3 6.8 L (22.0-26.0) meq/L ABG O2 Saturation 98.0 H (96.0-97.0) % ABG Base Excess -21.4 L (-2-2.0) Faisal Test Positive O2 Delivery Device Room air FiO2 0.00 L (21.00-100.00) % Sodium (136-145) mEq/L Potassium (3.5-5.1) mEq/L Chloride (98-107) mEq/L Carbon Dioxide (21-32) mEq/L Anion Gap (5-15) BUN (7-18) mg/dL Creatinine (0.7-1.3) mg/dL Est Cr Clr Drug Dosing mL/min Estimated GFR (MDRD) (>60) mL/min BUN/Creatinine Ratio (14-18) Glucose (74-106) mg/dL POC Glucose (70-105) mg/dL Hemoglobin A1c 9.50 H (4.50-6.20) % Lactic Acid 0.9 (0.4-2.0) mmol/L Calcium (8.5-10.1) mg/dL Phosphorus (2.6-4.7) mg/dL Magnesium (1.8-2.4) mg/dl Total Bilirubin (0.2-1.0) mg/dL AST (15-37) U/L ALT (16-63) U/L Alkaline Phosphatase (46-116) U/L Total Protein (6.4-8.2) g/dl Albumin (3.4-5.0) g/dl Globulin gm/dL Albumin/Globulin Ratio (1-2) Triglycerides (<150) mg/dL Cholesterol (<200) mg/dL LDL Cholesterol Direct (<100) mg/dL HDL Cholesterol (40-59) mg/dL Lipase (73-393) U/L Urine Opiates Screen (WHXZJP=180) Ur Buprenorphine Scrn (CUTOFF=10) Ur Oxycodone Screen (KKS7ZJ=291) Urine Methadone Screen (XUU2FL=922) Ur Propoxyphene Screen (SRJFOQ=134) Ur Barbiturates Screen (IPUVOO=616) Ur Tricyclics Screen (TVQRJU=617) Ur Phencyclidine Scrn (CUTOFF=25) Ur Amphetamine Screen (DQRDKN=498) U Methamphetamines Scrn (TVSIPS=232) U Benzodiazepines Scrn (SYAHZA=503) U Cocaine Metab Screen (YKBVNH=973) U Marijuana (THC) Screen (CUTOFF=50) 02/15/19 02/15/19 02/15/19 Range/Units 12:11 12:41 13:28 WBC (4.23-9.07) K/mm3 RBC (4.63-6.08) M/mm3 Hgb (13.7-17.5) gm/L Hct (40.1-51.0) % MCV (79.0-92.2) fl MCH (25.7-32.2) pg MCHC (32.2-35.5) g/dl RDW Std Deviation (35.1-43.9) fL Plt Count (163-337) K/mm3 MPV (9.4-12.3) fl Neut % (Auto) (34.0-67.9) % Lymph % (Auto) (21.8-53.1) % [place] % (Auto) (5.3-12.2) % Eos % (Auto) (0.8-7.0) Baso % (Auto) (0.1-1.2) % Neut # (Auto) (1.78-5.38) K/mm3 Lymph # (Auto) (1.32-3.57) K/mm3 [place] # (Auto) (0.30-0.82) K/mm3 Eos # (Auto) (0.04-0.54) K/mm3 Baso # (Auto) (0.01-0.08) K/mm3 Manual Slide Review Puncture Site ABG pH (7.35-7.45) ABG pCO2 (35.0-45.0) mmHg ABG pO2 (80.0-100.0) mmHg ABG HCO3 (22.0-26.0) meq/L ABG O2 Saturation (96.0-97.0) % ABG Base Excess (-2-2.0) Faisal Test O2 Delivery Device FiO2 (21.00-100.00) % Sodium 129 L (136-145) mEq/L Potassium 5.0 (3.5-5.1) mEq/L Chloride 96 L (98-107) mEq/L Carbon Dioxide 9 L (21-32) mEq/L Anion Gap 29.0 H (5-15) BUN 10 (7-18) mg/dL Creatinine 1.1 (0.7-1.3) mg/dL Est Cr Clr Drug Dosing 101.39 mL/min Estimated GFR (MDRD) > 60 (>60) mL/min BUN/Creatinine Ratio 9.1 L (14-18) Glucose 183 H (74-106) mg/dL POC Glucose 177 H 170 H (70-105) mg/dL Hemoglobin A1c (4.50-6.20) % Lactic Acid (0.4-2.0) mmol/L Calcium 9.1 (8.5-10.1) mg/dL Phosphorus 3.2 (2.6-4.7) mg/dL Magnesium 1.9 (1.8-2.4) mg/dl Total Bilirubin (0.2-1.0) mg/dL AST (15-37) U/L ALT (16-63) U/L Alkaline Phosphatase (46-116) U/L Total Protein (6.4-8.2) g/dl Albumin (3.4-5.0) g/dl Globulin gm/dL Albumin/Globulin Ratio (1-2) Triglycerides (<150) mg/dL Cholesterol (<200) mg/dL LDL Cholesterol Direct (<100) mg/dL HDL Cholesterol (40-59) mg/dL Lipase (73-393) U/L Urine Opiates Screen (FPCAPH=634) Ur Buprenorphine Scrn (CUTOFF=10) Ur Oxycodone Screen (MRA7MM=040) Urine Methadone Screen (ZNB9HE=962) Ur Propoxyphene Screen (JDKICN=641) Ur Barbiturates Screen (PTIHCM=612) Ur Tricyclics Screen (WTUUJJ=282) Ur Phencyclidine Scrn (CUTOFF=25) Ur Amphetamine Screen (HVHLIS=752) U Methamphetamines Scrn (OOQPDF=716) U Benzodiazepines Scrn (KROGCR=935) U Cocaine Metab Screen (YEUGYD=992) U Marijuana (THC) Screen (CUTOFF=50) 02/15/19 02/15/19 02/15/19 Range/Units 14:28 14:40 15:25 WBC (4.23-9.07) K/mm3 RBC (4.63-6.08) M/mm3 Hgb (13.7-17.5) gm/L Hct (40.1-51.0) % MCV (79.0-92.2) fl MCH (25.7-32.2) pg MCHC (32.2-35.5) g/dl RDW Std Deviation (35.1-43.9) fL Plt Count (163-337) K/mm3 MPV (9.4-12.3) fl Neut % (Auto) (34.0-67.9) % Lymph % (Auto) (21.8-53.1) % [place] % (Auto) (5.3-12.2) % Eos % (Auto) (0.8-7.0) Baso % (Auto) (0.1-1.2) % Neut # (Auto) (1.78-5.38) K/mm3 Lymph # (Auto) (1.32-3.57) K/mm3 [place] # (Auto) (0.30-0.82) K/mm3 Eos # (Auto) (0.04-0.54) K/mm3 Baso # (Auto) (0.01-0.08) K/mm3 Manual Slide Review Puncture Site ABG pH (7.35-7.45) ABG pCO2 (35.0-45.0) mmHg ABG pO2 (80.0-100.0) mmHg ABG HCO3 (22.0-26.0) meq/L ABG O2 Saturation (96.0-97.0) % ABG Base Excess (-2-2.0) Faisal Test O2 Delivery Device FiO2 (21.00-100.00) % Sodium (136-145) mEq/L Potassium (3.5-5.1) mEq/L Chloride (98-107) mEq/L Carbon Dioxide (21-32) mEq/L Anion Gap (5-15) BUN (7-18) mg/dL Creatinine (0.7-1.3) mg/dL Est Cr Clr Drug Dosing mL/min Estimated GFR (MDRD) (>60) mL/min BUN/Creatinine Ratio (14-18) Glucose (74-106) mg/dL POC Glucose 126 H 116 H (70-105) mg/dL Hemoglobin A1c (4.50-6.20) % Lactic Acid (0.4-2.0) mmol/L Calcium (8.5-10.1) mg/dL Phosphorus (2.6-4.7) mg/dL Magnesium (1.8-2.4) mg/dl Total Bilirubin (0.2-1.0) mg/dL AST (15-37) U/L ALT (16-63) U/L Alkaline Phosphatase (46-116) U/L Total Protein (6.4-8.2) g/dl Albumin (3.4-5.0) g/dl Globulin gm/dL Albumin/Globulin Ratio (1-2) Triglycerides (<150) mg/dL Cholesterol (<200) mg/dL LDL Cholesterol Direct (<100) mg/dL HDL Cholesterol (40-59) mg/dL Lipase (73-393) U/L Urine Opiates Screen Presumptive positive H (SZVGNJ=467) Ur Buprenorphine Scrn Negative (CUTOFF=10) Ur Oxycodone Screen Negative (PYT2FG=651) Urine Methadone Screen Negative (DTV8DM=945) Ur Propoxyphene Screen Negative (GXSCWL=454) Ur Barbiturates Screen Negative (LQXARB=247) Ur Tricyclics Screen Negative (IYYEZC=943) Ur Phencyclidine Scrn Negative (CUTOFF=25) Ur Amphetamine Screen Negative (PIYOAD=841) U Methamphetamines Scrn Negative (JSEHZF=292) U Benzodiazepines Scrn Presumptive positive H (QOLRQD=297) U Cocaine Metab Screen Negative (QYIKRN=088) U Marijuana (THC) Screen Presumptive positive H (CUTOFF=50) Med Orders - Current: Current Medications Clonazepam (Klonopin) 0.5 mg PO TID [facility] Last Admin: 02/15/19 14:29 Dose: 0.5 mg Hydromorphone HCl (Dilaudid) 2 mg IVPUSH Q2H PRN PRN Reason: Abdominal Pain Last Admin: 02/15/19 14:30 Dose: 2 mg Dextrose/Sodium Chloride (Dextrose 5%-Normal Saline) 1,000 mls @ 125 mls/hr IV CONTINUOUS ALBERTO Last Admin: 02/15/19 13:25 Dose: 125 mls/hr Insulin Human Regular 100 unit (/ Sodium Chloride) 100 mls @ 5 mls/hr IV CONTINUOUS ALBERTO Last Infusion: 02/15/19 15:29 Dose: 4 mls/hr Discontinued Medications Enoxaparin Sodium (Lovenox) 40 mg SUBCUT DAILY ALBERTO Last Admin: 02/15/19 08:02 Dose: 40 mg Hydromorphone HCl (Dilaudid) 1 mg IVPUSH ONETIME ONE Stop: 02/14/19 14:36 Last Admin: 02/14/19 15:00 Dose: 1 mg Hydromorphone HCl (Dilaudid) 1 mg IVPUSH ONETIME ONE Stop: 02/14/19 15:49 Last Admin: 02/14/19 15:57 Dose: 1 mg Hydromorphone HCl (Dilaudid) 0.5 mg IVPUSH Q2H PRN PRN Reason: Pain (severe 7-10) Last Admin: 02/14/19 18:46 Dose: 0.5 mg Hydromorphone HCl (Dilaudid) 1 mg IVPUSH Q2H PRN PRN Reason: Pain (severe 7-10) Last Admin: 02/15/19 01:04 Dose: 1 mg Hydromorphone HCl (Dilaudid) 1 mg IVPUSH Q2H PRN PRN Reason: Pain (severe 7-10) Last Admin: 02/15/19 08:02 Dose: 1 mg Hydromorphone HCl (Dilaudid) 1 mg IVPUSH Q2H PRN PRN Reason: Pain (severe 7-10) Last Admin: 02/15/19 12:30 Dose: 1 mg Sodium Chloride (Normal Saline) 150 mls @ 999 mls/hr IV ASDIRECTED ONE Stop: 02/14/19 14:43 Last Admin: 02/14/19 14:54 Dose: Not Given Sodium Chloride (Normal Saline) 1,000 mls @ 999 mls/hr IV ASDIRECTED ALBERTO Last Admin: 02/14/19 14:58 Dose: 999 mls/hr Sodium Chloride (Normal Saline) 1,000 mls @ 999 mls/hr IV ONETIME ONE Stop: 02/14/19 18:09 Last Admin: 02/14/19 17:15 Dose: 999 mls/hr Lactated Ringer's (Ringers, Lactated) 1,000 mls @ 125 mls/hr IV ASDIRECTED ALBERTO Last Admin: 02/15/19 10:26 Dose: 125 mls/hr Insulin Human Lispro (Humalog) 0 unit SUBCUT Q6HR ALBERTO; Protocol Insulin Human Lispro (Humalog) 0 unit SUBCUT Q6HR ALBERTO; Protocol Last Admin: 02/15/19 13:24 Dose: Not Given Lorazepam (Ativan) 1 mg IVPUSH ONETIME ONE Stop: 02/14/19 15:50 Last Admin: 05/02/19 15:58 Dose: 1 mg Metoclopramide HCl (Reglan) 7.5 mg IVPUSH ONETIME ONE Stop: 02/14/19 14:36 Last Admin: 02/14/19 14:58 Dose: 7.5 mg Ondansetron HCl (Zofran) 4 mg IV Q4H PRN PRN Reason: Nausea/Vomiting Last Admin: 02/15/19 08:07 Dose: 4 mg - Exam Physical Findings Comments:: General: Alert, Oriented, Moderate Distress HEENT: Conjunctiva Clear, EOMI. No: Mucosa Moist & Ixl Neck: Supple, Trachea Midline. No: Lymphadenopathy Lungs: Clear to Auscultation, Normal Respiratory Effort. No: Wheezing Cardiovascular: Regular Rate, Regular Rhythm, Normal S1, Normal S2 GI/Abdominal Exam: No Distention, Tender, Abnormal Bowel Sounds. No: Distended , Hepatomegaly, Splenomegaly Extremities: Normal Range of Motion, Normal Capillary Refill. No: Pedal Edema Peripheral Pulses: 2+: Posterior Tibial (L), Posterior Tibial (R) Skin: Warm, Dry, Intact Neuro Extensive - Mental Status: Alert, Oriented x3, Memory Intact Neuro Extensive - Motor, Sensory, Reflexes: CN II-XII Intact, Normal Gait, Normal Reflexes. No: Motor/Sensory Deficits Psychiatric: Normal Affect, Anxious - Problem List & Annotations (1) Relapsing pancreatitis SNOMED Code(s): 441310861 Code(s): K86.1 - OTHER CHRONIC PANCREATITIS Status: Acute Priority: High Current Visit: Yes (2) Uncontrolled type 2 diabetes mellitus SNOMED Code(s): 137836361, 245357909 Code(s): E11.65 - TYPE 2 DIABETES MELLITUS WITH HYPERGLYCEMIA Status: Acute Current Visit: Yes Qualifiers: Glycemic state: with hyperglycemia Qualified Code(s): E11.65 - Type 2 diabetes mellitus with hyperglycemia (3) Anxiety SNOMED Code(s): 42508280 Code(s): F41.9 - ANXIETY DISORDER, UNSPECIFIED Status: Acute Priority: High Current Visit: Yes - Problem List Review Problem List Initiated/Reviewed/Updated: Yes - My Orders Last 24 Hours: My Active Orders 02/14/19 18:00 ClonazePAM [KlonoPIN] 0.5 mg PO TID 02/14/19 18:03 Change Admitting Physician [ADT] Stat 02/15/19 10:46 Consult to Relay Dispatcher [Consult to Diabetic Nurse Specialist] [CONS] Routine 02/15/19 12:28 Dextrose 5%-0.9% NaCl [Dextrose 5%-Normal Saline] 1,000 ml IV CONTINUOUS 02/15/19 12:30 Blood Glucose Check, Bedside [RC] Q1HR 02/15/19 12:59 HYDROmorphone [Dilaudid] 2 mg IVPUSH Q2H PRN 02/15/19 13:00 Patient Status [ADT] Routine Insulin Regular, Human [HumuLIN R] 100 unit Sodium Chloride 0.9% [Normal Saline] 99 ml IV CONTINUOUS 02/15/19 18:33 BASIC METABOLIC PANEL,BMP [CHEM] Q6H MAGNESIUM [CHEM] Q6H PHOSPHORUS [CHEM] Q6H 02/16/19 00:33 BASIC METABOLIC PANEL,BMP [CHEM] Q6H 02/16/19 00:34 MAGNESIUM [CHEM] Q6H 02/16/19 00:35 PHOSPHORUS [CHEM] Q6H 02/16/19 05:00 MAGNESIUM [CHEM] AM PHOSPHORUS [CHEM] AM 02/16/19 05:11 CBC WITH AUTO DIFF [HEME] AM COMPREHENSIVE METABOLIC PN,CMP [CHEM] AM LACTIC ACID [CHEM] AM LIPASE [CHEM] AM - Plan Plan:: 1. NPO, IVF, pain control, CT abdomen, serial lipase.improving. 2. Hold metformin, start SSI.now on IV insulin due to worsening acidosis. 3.continue clonazepam, SSRI before discharge.
[2019-02-15] MEDS: Lisinopril 20 MG Tab PO SCH (19:11)
[2019-02-15] MEDS ORDERED: Labetalol 100 MG/20 ML MDV IVPUSH ONE (21:07)
[2019-02-16] MEDS ORDERED: Insulin Regular, Human 100 Units/ML 3 ML Vial IV ONE ×2 (00:44→17:22)
[2019-02-16] MEDS: Dextrose 5%-0.9% NaCl 1,000 ML IV SCH ×5 (01:13→23:05)
[2019-02-16] MEDS: HYDROmorphone 1 MG/ML Syringe IVPUSH PRN ×8 (02:32→23:06)
[2019-02-16] MEDS ORDERED: Magnesium Sulfate/Water 2 GM in Premix Bag 1 BAG IV ONE (06:36)
[2019-02-16] MEDS: ClonazePAM 0.5 MG Tab PO SCH ×3 (08:17→20:11)
[2019-02-16] MEDS: Lisinopril 20 MG Tab PO SCH (08:17)
[2019-02-16] MEDS ORDERED: Potassium Phosphates 30 MMOLE in Sodium Chloride 0.9% 250 ML IV ONE (09:45)
[2019-02-16] MEDS: Citalopram 20 MG Tab PO SCH (10:12)
[2019-02-16] MEDS: Ondansetron 4 MG/2 ML SDV IVPUSH SCH ×2 (10:12→17:45)
[2019-02-16] MEDS: Metoclopramide 10 MG/2 ML SDV IVPUSH SCH ×3 (10:12→21:00)
[2019-02-16] MEDS: Insulin Glarg,Human.Rec.Analog 100 UNIT/ML ML SUBCUT SCH (10:15)
--- NOTE | 2019-02-16 17:17 | PCM.PN ---
- General Info Date of Service: 02/16/19 Admission Dx/Problem (Free Text): 28 yo male with h/o DM, Etoh abuse, pancreatitis, cholelithiasis admitted through ED with acute onset of severe abdominal pain, elevated lipase, N/V. Previously underwent cholecystectomy with subsequent ERCP. Admitted for further treatment. Daily progress: 02/15/19, lipase improving, pain persists, developed metabolic acidosis/DKA, started insulin IV gtt. CT showed pancreatitis, fatty liver, no gallstones. 02/19/19, acidosis improving, AG at 20, still requires insulin IV gtt, added glargine, started po intake, lipase normalizing, added citalopram, continue clonazepam, added ondansetron.Persistently tachycardic, will benefit from CCB instead of BBL. - Review of Systems Systems Review Comment:: General: Denies: Fever, Chills, Weight Loss HEENT: Denies: Dysphasia, Hearing Changes, Vertigo Pulmonary: Denies: Shortness of Breath, Wheezing, Hemoptysis Cardiovascular: Reports: Blood Pressure Problem. Denies: Chest Pain, Palpitations Gastrointestinal: Reports: Abdominal Pain, Anorexia, Nausea, Vomiting Genitourinary: Reports: No Symptoms Musculoskeletal: Reports: No Symptoms Skin: Reports: No Symptoms Psychiatric: Reports: Anxiety. Denies: Suicidal Ideation, Homicidal Ideation Neurological: Denies: Confusion, Seizure, Syncope Hematologic/Lymphatic: Denies: Easy Bleeding, Easy Bruising - Patient Data Vitals - Most Recent: Last Vital Signs Temp 97.8 F 02/16/19 16:00 Pulse 99 02/16/19 04:00 Resp 18 02/16/19 16:00 BP 148/96 H 02/16/19 16:00 Pulse Ox 100 02/16/19 16:00 Weight - Most Recent: 202 lb 1.6 oz I&O - Last 24 Hours: Intake & Output 02/16/19 02/16/19 02/16/19 03:59 11:59 19:59 Intake Total 1843 2185 Output Total 1600 800 Balance 243 1385 Lab Results Last 24 Hours: Laboratory Results - last 24 hr 02/15/19 02/15/19 02/15/19 Range/Units 17:28 17:42 18:02 WBC (4.23-9.07) K/mm3 RBC (4.63-6.08) M/mm3 Hgb (13.7-17.5) gm/L Hct (40.1-51.0) % MCV (79.0-92.2) fl MCH (25.7-32.2) pg MCHC (32.2-35.5) g/dl RDW Std Deviation (35.1-43.9) fL Plt Count (163-337) K/mm3 MPV (9.4-12.3) fl Neut % (Auto) (34.0-67.9) % Lymph % (Auto) (21.8-53.1) % [place] % (Auto) (5.3-12.2) % Eos % (Auto) (0.8-7.0) Baso % (Auto) (0.1-1.2) % Neut # (Auto) (1.78-5.38) K/mm3 Lymph # (Auto) (1.32-3.57) K/mm3 [place] # (Auto) (0.30-0.82) K/mm3 Eos # (Auto) (0.04-0.54) K/mm3 Baso # (Auto) (0.01-0.08) K/mm3 Puncture Site ABG pH (7.35-7.45) ABG pCO2 (35.0-45.0) mmHg ABG pO2 (80.0-100.0) mmHg ABG HCO3 (22.0-26.0) meq/L ABG O2 Saturation (96.0-97.0) % ABG Base Excess (-2-2.0) Faisal Test A-a Gradient mmHg O2 Delivery Device FiO2 (21.00-100.00) % Sodium 134 L (136-145) mEq/L Potassium 4.0 (3.5-5.1) mEq/L Chloride 100 (98-107) mEq/L Carbon Dioxide 12 L (21-32) mEq/L Anion Gap 26.0 H (5-15) BUN 10 (7-18) mg/dL Creatinine 1.0 (0.7-1.3) mg/dL Est Cr Clr Drug Dosing 111.53 mL/min Estimated GFR (MDRD) > 60 (>60) mL/min BUN/Creatinine Ratio 10.0 L (14-18) Glucose 133 H (74-106) mg/dL POC Glucose 84 134 H (70-105) mg/dL Lactic Acid (0.4-2.0) mmol/L Calcium 9.1 (8.5-10.1) mg/dL Phosphorus 2.2 L (2.6-4.7) mg/dL Magnesium 2.0 (1.8-2.4) mg/dl Total Bilirubin (0.2-1.0) mg/dL AST (15-37) U/L ALT (16-63) U/L Alkaline Phosphatase (46-116) U/L Total Protein (6.4-8.2) g/dl Albumin (3.4-5.0) g/dl Globulin gm/dL Albumin/Globulin Ratio (1-2) Lipase (73-393) U/L 02/15/19 02/15/19 02/15/19 Range/Units 19:10 20:02 21:02 WBC (4.23-9.07) K/mm3 RBC (4.63-6.08) M/mm3 Hgb (13.7-17.5) gm/L Hct (40.1-51.0) % MCV (79.0-92.2) fl MCH (25.7-32.2) pg MCHC (32.2-35.5) g/dl RDW Std Deviation (35.1-43.9) fL Plt Count (163-337) K/mm3 MPV (9.4-12.3) fl Neut % (Auto) (34.0-67.9) % Lymph % (Auto) (21.8-53.1) % [place] % (Auto) (5.3-12.2) % Eos % (Auto) (0.8-7.0) Baso % (Auto) (0.1-1.2) % Neut # (Auto) (1.78-5.38) K/mm3 Lymph # (Auto) (1.32-3.57) K/mm3 [place] # (Auto) (0.30-0.82) K/mm3 Eos # (Auto) (0.04-0.54) K/mm3 Baso # (Auto) (0.01-0.08) K/mm3 Puncture Site ABG pH (7.35-7.45) ABG pCO2 (35.0-45.0) mmHg ABG pO2 (80.0-100.0) mmHg ABG HCO3 (22.0-26.0) meq/L ABG O2 Saturation (96.0-97.0) % ABG Base Excess (-2-2.0) Faisal Test A-a Gradient mmHg O2 Delivery Device FiO2 (21.00-100.00) % Sodium (136-145) mEq/L Potassium (3.5-5.1) mEq/L Chloride (98-107) mEq/L Carbon Dioxide (21-32) mEq/L Anion Gap (5-15) BUN (7-18) mg/dL Creatinine (0.7-1.3) mg/dL Est Cr Clr Drug Dosing mL/min Estimated GFR (MDRD) (>60) mL/min BUN/Creatinine Ratio (14-18) Glucose (74-106) mg/dL POC Glucose 124 H 141 H 127 H (70-105) mg/dL Lactic Acid (0.4-2.0) mmol/L Calcium (8.5-10.1) mg/dL Phosphorus (2.6-4.7) mg/dL Magnesium (1.8-2.4) mg/dl Total Bilirubin (0.2-1.0) mg/dL AST (15-37) U/L ALT (16-63) U/L Alkaline Phosphatase (46-116) U/L Total Protein (6.4-8.2) g/dl Albumin (3.4-5.0) g/dl Globulin gm/dL Albumin/Globulin Ratio (1-2) Lipase (73-393) U/L 02/15/19 02/15/19 02/16/19 Range/Units 22:00 23:02 00:02 WBC (4.23-9.07) K/mm3 RBC (4.63-6.08) M/mm3 Hgb (13.7-17.5) gm/L Hct (40.1-51.0) % MCV (79.0-92.2) fl MCH (25.7-32.2) pg MCHC (32.2-35.5) g/dl RDW Std Deviation (35.1-43.9) fL Plt Count (163-337) K/mm3 MPV (9.4-12.3) fl Neut % (Auto) (34.0-67.9) % Lymph % (Auto) (21.8-53.1) % [place] % (Auto) (5.3-12.2) % Eos % (Auto) (0.8-7.0) Baso % (Auto) (0.1-1.2) % Neut # (Auto) (1.78-5.38) K/mm3 Lymph # (Auto) (1.32-3.57) K/mm3 [place] # (Auto) (0.30-0.82) K/mm3 Eos # (Auto) (0.04-0.54) K/mm3 Baso # (Auto) (0.01-0.08) K/mm3 Puncture Site ABG pH (7.35-7.45) ABG pCO2 (35.0-45.0) mmHg ABG pO2 (80.0-100.0) mmHg ABG HCO3 (22.0-26.0) meq/L ABG O2 Saturation (96.0-97.0) % ABG Base Excess (-2-2.0) Faisal Test A-a Gradient mmHg O2 Delivery Device FiO2 (21.00-100.00) % Sodium (136-145) mEq/L Potassium (3.5-5.1) mEq/L Chloride (98-107) mEq/L Carbon Dioxide (21-32) mEq/L Anion Gap (5-15) BUN (7-18) mg/dL Creatinine (0.7-1.3) mg/dL Est Cr Clr Drug Dosing mL/min Estimated GFR (MDRD) (>60) mL/min BUN/Creatinine Ratio (14-18) Glucose (74-106) mg/dL POC Glucose 155 H 150 H 182 H (70-105) mg/dL Lactic Acid (0.4-2.0) mmol/L Calcium (8.5-10.1) mg/dL Phosphorus (2.6-4.7) mg/dL Magnesium (1.8-2.4) mg/dl Total Bilirubin (0.2-1.0) mg/dL AST (15-37) U/L ALT (16-63) U/L Alkaline Phosphatase (46-116) U/L Total Protein (6.4-8.2) g/dl Albumin (3.4-5.0) g/dl Globulin gm/dL Albumin/Globulin Ratio (1-2) Lipase (73-393) U/L 02/16/19 02/16/19 02/16/19 Range/Units 00:05 01:11 02:01 WBC (4.23-9.07) K/mm3 RBC (4.63-6.08) M/mm3 Hgb (13.7-17.5) gm/L Hct (40.1-51.0) % MCV (79.0-92.2) fl MCH (25.7-32.2) pg MCHC (32.2-35.5) g/dl RDW Std Deviation (35.1-43.9) fL Plt Count (163-337) K/mm3 MPV (9.4-12.3) fl Neut % (Auto) (34.0-67.9) % Lymph % (Auto) (21.8-53.1) % [place] % (Auto) (5.3-12.2) % Eos % (Auto) (0.8-7.0) Baso % (Auto) (0.1-1.2) % Neut # (Auto) (1.78-5.38) K/mm3 Lymph # (Auto) (1.32-3.57) K/mm3 [place] # (Auto) (0.30-0.82) K/mm3 Eos # (Auto) (0.04-0.54) K/mm3 Baso # (Auto) (0.01-0.08) K/mm3 Puncture Site ABG pH (7.35-7.45) ABG pCO2 (35.0-45.0) mmHg ABG pO2 (80.0-100.0) mmHg ABG HCO3 (22.0-26.0) meq/L ABG O2 Saturation (96.0-97.0) % ABG Base Excess (-2-2.0) Faisal Test A-a Gradient mmHg O2 Delivery Device FiO2 (21.00-100.00) % Sodium 135 L (136-145) mEq/L Potassium 4.0 (3.5-5.1) mEq/L Chloride 101 (98-107) mEq/L Carbon Dioxide 17 L (21-32) mEq/L Anion Gap 21.0 H (5-15) BUN 9 (7-18) mg/dL Creatinine 1.0 (0.7-1.3) mg/dL Est Cr Clr Drug Dosing 111.53 mL/min Estimated GFR (MDRD) > 60 (>60) mL/min BUN/Creatinine Ratio 9.0 L (14-18) Glucose 193 H (74-106) mg/dL POC Glucose 156 H 126 H (70-105) mg/dL Lactic Acid (0.4-2.0) mmol/L Calcium 9.0 (8.5-10.1) mg/dL Phosphorus 2.2 L (2.6-4.7) mg/dL Magnesium 1.9 (1.8-2.4) mg/dl Total Bilirubin (0.2-1.0) mg/dL AST (15-37) U/L ALT (16-63) U/L Alkaline Phosphatase (46-116) U/L Total Protein (6.4-8.2) g/dl Albumin (3.4-5.0) g/dl Globulin gm/dL Albumin/Globulin Ratio (1-2) Lipase (73-393) U/L 02/16/19 02/16/19 02/16/19 Range/Units 03:04 04:00 05:01 WBC (4.23-9.07) K/mm3 RBC (4.63-6.08) M/mm3 Hgb (13.7-17.5) gm/L Hct (40.1-51.0) % MCV (79.0-92.2) fl MCH (25.7-32.2) pg MCHC (32.2-35.5) g/dl RDW Std Deviation (35.1-43.9) fL Plt Count (163-337) K/mm3 MPV (9.4-12.3) fl Neut % (Auto) (34.0-67.9) % Lymph % (Auto) (21.8-53.1) % [place] % (Auto) (5.3-12.2) % Eos % (Auto) (0.8-7.0) Baso % (Auto) (0.1-1.2) % Neut # (Auto) (1.78-5.38) K/mm3 Lymph # (Auto) (1.32-3.57) K/mm3 [place] # (Auto) (0.30-0.82) K/mm3 Eos # (Auto) (0.04-0.54) K/mm3 Baso # (Auto) (0.01-0.08) K/mm3 Puncture Site ABG pH (7.35-7.45) ABG pCO2 (35.0-45.0) mmHg ABG pO2 (80.0-100.0) mmHg ABG HCO3 (22.0-26.0) meq/L ABG O2 Saturation (96.0-97.0) % ABG Base Excess (-2-2.0) Faisal Test A-a Gradient mmHg O2 Delivery Device FiO2 (21.00-100.00) % Sodium (136-145) mEq/L Potassium (3.5-5.1) mEq/L Chloride (98-107) mEq/L Carbon Dioxide (21-32) mEq/L Anion Gap (5-15) BUN (7-18) mg/dL Creatinine (0.7-1.3) mg/dL Est Cr Clr Drug Dosing mL/min Estimated GFR (MDRD) (>60) mL/min BUN/Creatinine Ratio (14-18) Glucose (74-106) mg/dL POC Glucose 138 H 171 H 179 H (70-105) mg/dL Lactic Acid (0.4-2.0) mmol/L Calcium (8.5-10.1) mg/dL Phosphorus (2.6-4.7) mg/dL Magnesium (1.8-2.4) mg/dl Total Bilirubin (0.2-1.0) mg/dL AST (15-37) U/L ALT (16-63) U/L Alkaline Phosphatase (46-116) U/L Total Protein (6.4-8.2) g/dl Albumin (3.4-5.0) g/dl Globulin gm/dL Albumin/Globulin Ratio (1-2) Lipase (73-393) U/L 02/16/19 02/16/19 02/16/19 Range/Units 05:10 05:10 05:10 WBC 9.57 H (4.23-9.07) K/mm3 RBC 5.38 (4.63-6.08) M/mm3 Hgb 16.9 (13.7-17.5) gm/L Hct 47.6 (40.1-51.0) % MCV 88.5 (79.0-92.2) fl MCH 31.4 (25.7-32.2) pg MCHC 35.5 (32.2-35.5) g/dl RDW Std Deviation 43.2 (35.1-43.9) fL Plt Count 163 (163-337) K/mm3 MPV 10.3 (9.4-12.3) fl Neut % (Auto) 75.5 H (34.0-67.9) % Lymph % (Auto) 11.5 L (21.8-53.1) % [place] % (Auto) 12.3 H (5.3-12.2) % Eos % (Auto) 0.3 L (0.8-7.0) Baso % (Auto) 0.1 (0.1-1.2) % Neut # (Auto) 7.22 H (1.78-5.38) K/mm3 Lymph # (Auto) 1.10 L (1.32-3.57) K/mm3 [place] # (Auto) 1.18 H (0.30-0.82) K/mm3 Eos # (Auto) 0.03 L (0.04-0.54) K/mm3 Baso # (Auto) 0.01 (0.01-0.08) K/mm3 Puncture Site ABG pH (7.35-7.45) ABG pCO2 (35.0-45.0) mmHg ABG pO2 (80.0-100.0) mmHg ABG HCO3 (22.0-26.0) meq/L ABG O2 Saturation (96.0-97.0) % ABG Base Excess (-2-2.0) Faisal Test A-a Gradient mmHg O2 Delivery Device FiO2 (21.00-100.00) % Sodium 134 L (136-145) mEq/L Potassium 3.8 (3.5-5.1) mEq/L Chloride 101 (98-107) mEq/L Carbon Dioxide 18 L (21-32) mEq/L Anion Gap 18.8 H (5-15) BUN 8 (7-18) mg/dL Creatinine 0.9 (0.7-1.3) mg/dL Est Cr Clr Drug Dosing 123.92 mL/min Estimated GFR (MDRD) > 60 (>60) mL/min BUN/Creatinine Ratio 8.9 L (14-18) Glucose 180 H (74-106) mg/dL POC Glucose (70-105) mg/dL Lactic Acid (0.4-2.0) mmol/L Calcium 8.9 (8.5-10.1) mg/dL Phosphorus 1.5 L (2.6-4.7) mg/dL Magnesium 1.7 L (1.8-2.4) mg/dl Total Bilirubin 1.6 H (0.2-1.0) mg/dL AST 42 H (15-37) U/L ALT 126 H (16-63) U/L Alkaline Phosphatase 112 (46-116) U/L Total Protein 7.7 (6.4-8.2) g/dl Albumin 3.6 (3.4-5.0) g/dl Globulin 4.1 gm/dL Albumin/Globulin Ratio 0.9 L (1-2) Lipase 273 (73-393) U/L 02/16/19 02/16/19 02/16/19 Range/Units 05:10 06:00 06:20 WBC (4.23-9.07) K/mm3 RBC (4.63-6.08) M/mm3 Hgb (13.7-17.5) gm/L Hct (40.1-51.0) % MCV (79.0-92.2) fl MCH (25.7-32.2) pg MCHC (32.2-35.5) g/dl RDW Std Deviation (35.1-43.9) fL Plt Count (163-337) K/mm3 MPV (9.4-12.3) fl Neut % (Auto) (34.0-67.9) % Lymph % (Auto) (21.8-53.1) % [place] % (Auto) (5.3-12.2) % Eos % (Auto) (0.8-7.0) Baso % (Auto) (0.1-1.2) % Neut # (Auto) (1.78-5.38) K/mm3 Lymph # (Auto) (1.32-3.57) K/mm3 [place] # (Auto) (0.30-0.82) K/mm3 Eos # (Auto) (0.04-0.54) K/mm3 Baso # (Auto) (0.01-0.08) K/mm3 Puncture Site Lt radial ABG pH 7.28 L (7.35-7.45) ABG pCO2 36.5 (35.0-45.0) mmHg ABG pO2 79.0 L (80.0-100.0) mmHg ABG HCO3 16.7 L (22.0-26.0) meq/L ABG O2 Saturation 97.2 H (96.0-97.0) % ABG Base Excess -9.0 L (-2-2.0) Faisal Test Positive A-a Gradient 10 mmHg O2 Delivery Device Room air FiO2 21.00 (21.00-100.00) % Sodium (136-145) mEq/L Potassium (3.5-5.1) mEq/L Chloride (98-107) mEq/L Carbon Dioxide (21-32) mEq/L Anion Gap (5-15) BUN (7-18) mg/dL Creatinine (0.7-1.3) mg/dL Est Cr Clr Drug Dosing mL/min Estimated GFR (MDRD) (>60) mL/min BUN/Creatinine Ratio (14-18) Glucose (74-106) mg/dL POC Glucose 152 H (70-105) mg/dL Lactic Acid 0.7 (0.4-2.0) mmol/L Calcium (8.5-10.1) mg/dL Phosphorus (2.6-4.7) mg/dL Magnesium (1.8-2.4) mg/dl Total Bilirubin (0.2-1.0) mg/dL AST (15-37) U/L ALT (16-63) U/L Alkaline Phosphatase (46-116) U/L Total Protein (6.4-8.2) g/dl Albumin (3.4-5.0) g/dl Globulin gm/dL Albumin/Globulin Ratio (1-2) Lipase (73-393) U/L 02/16/19 02/16/19 02/16/19 Range/Units 06:55 08:19 09:19 WBC (4.23-9.07) K/mm3 RBC (4.63-6.08) M/mm3 Hgb (13.7-17.5) gm/L Hct (40.1-51.0) % MCV (79.0-92.2) fl MCH (25.7-32.2) pg MCHC (32.2-35.5) g/dl RDW Std Deviation (35.1-43.9) fL Plt Count (163-337) K/mm3 MPV (9.4-12.3) fl Neut % (Auto) (34.0-67.9) % Lymph % (Auto) (21.8-53.1) % [place] % (Auto) (5.3-12.2) % Eos % (Auto) (0.8-7.0) Baso % (Auto) (0.1-1.2) % Neut # (Auto) (1.78-5.38) K/mm3 Lymph # (Auto) (1.32-3.57) K/mm3 [place] # (Auto) (0.30-0.82) K/mm3 Eos # (Auto) (0.04-0.54) K/mm3 Baso # (Auto) (0.01-0.08) K/mm3 Puncture Site ABG pH (7.35-7.45) ABG pCO2 (35.0-45.0) mmHg ABG pO2 (80.0-100.0) mmHg ABG HCO3 (22.0-26.0) meq/L ABG O2 Saturation (96.0-97.0) % ABG Base Excess (-2-2.0) Faisal Test A-a Gradient mmHg O2 Delivery Device FiO2 (21.00-100.00) % Sodium (136-145) mEq/L Potassium (3.5-5.1) mEq/L Chloride (98-107) mEq/L Carbon Dioxide (21-32) mEq/L Anion Gap (5-15) BUN (7-18) mg/dL Creatinine (0.7-1.3) mg/dL Est Cr Clr Drug Dosing mL/min Estimated GFR (MDRD) (>60) mL/min BUN/Creatinine Ratio (14-18) Glucose (74-106) mg/dL POC Glucose 167 H 120 H 150 H (70-105) mg/dL Lactic Acid (0.4-2.0) mmol/L Calcium (8.5-10.1) mg/dL Phosphorus (2.6-4.7) mg/dL Magnesium (1.8-2.4) mg/dl Total Bilirubin (0.2-1.0) mg/dL AST (15-37) U/L ALT (16-63) U/L Alkaline Phosphatase (46-116) U/L Total Protein (6.4-8.2) g/dl Albumin (3.4-5.0) g/dl Globulin gm/dL Albumin/Globulin Ratio (1-2) Lipase (73-393) U/L 02/16/19 02/16/19 02/16/19 Range/Units 10:18 11:40 12:12 WBC (4.23-9.07) K/mm3 RBC (4.63-6.08) M/mm3 Hgb (13.7-17.5) gm/L Hct (40.1-51.0) % MCV (79.0-92.2) fl MCH (25.7-32.2) pg MCHC (32.2-35.5) g/dl RDW Std Deviation (35.1-43.9) fL Plt Count (163-337) K/mm3 MPV (9.4-12.3) fl Neut % (Auto) (34.0-67.9) % Lymph % (Auto) (21.8-53.1) % [place] % (Auto) (5.3-12.2) % Eos % (Auto) (0.8-7.0) Baso % (Auto) (0.1-1.2) % Neut # (Auto) (1.78-5.38) K/mm3 Lymph # (Auto) (1.32-3.57) K/mm3 [place] # (Auto) (0.30-0.82) K/mm3 Eos # (Auto) (0.04-0.54) K/mm3 Baso # (Auto) (0.01-0.08) K/mm3 Puncture Site ABG pH (7.35-7.45) ABG pCO2 (35.0-45.0) mmHg ABG pO2 (80.0-100.0) mmHg ABG HCO3 (22.0-26.0) meq/L ABG O2 Saturation (96.0-97.0) % ABG Base Excess (-2-2.0) Faisal Test A-a Gradient mmHg O2 Delivery Device FiO2 (21.00-100.00) % Sodium (136-145) mEq/L Potassium (3.5-5.1) mEq/L Chloride (98-107) mEq/L Carbon Dioxide (21-32) mEq/L Anion Gap (5-15) BUN (7-18) mg/dL Creatinine (0.7-1.3) mg/dL Est Cr Clr Drug Dosing mL/min Estimated GFR (MDRD) (>60) mL/min BUN/Creatinine Ratio (14-18) Glucose (74-106) mg/dL POC Glucose 156 H 168 H 184 H (70-105) mg/dL Lactic Acid (0.4-2.0) mmol/L Calcium (8.5-10.1) mg/dL Phosphorus (2.6-4.7) mg/dL Magnesium (1.8-2.4) mg/dl Total Bilirubin (0.2-1.0) mg/dL AST (15-37) U/L ALT (16-63) U/L Alkaline Phosphatase (46-116) U/L Total Protein (6.4-8.2) g/dl Albumin (3.4-5.0) g/dl Globulin gm/dL Albumin/Globulin Ratio (1-2) Lipase (73-393) U/L 02/16/19 02/16/19 02/16/19 Range/Units 13:13 14:31 15:11 WBC (4.23-9.07) K/mm3 RBC (4.63-6.08) M/mm3 Hgb (13.7-17.5) gm/L Hct (40.1-51.0) % MCV (79.0-92.2) fl MCH (25.7-32.2) pg MCHC (32.2-35.5) g/dl RDW Std Deviation (35.1-43.9) fL Plt Count (163-337) K/mm3 MPV (9.4-12.3) fl Neut % (Auto) (34.0-67.9) % Lymph % (Auto) (21.8-53.1) % [place] % (Auto) (5.3-12.2) % Eos % (Auto) (0.8-7.0) Baso % (Auto) (0.1-1.2) % Neut # (Auto) (1.78-5.38) K/mm3 Lymph # (Auto) (1.32-3.57) K/mm3 [place] # (Auto) (0.30-0.82) K/mm3 Eos # (Auto) (0.04-0.54) K/mm3 Baso # (Auto) (0.01-0.08) K/mm3 Puncture Site ABG pH (7.35-7.45) ABG pCO2 (35.0-45.0) mmHg ABG pO2 (80.0-100.0) mmHg ABG HCO3 (22.0-26.0) meq/L ABG O2 Saturation (96.0-97.0) % ABG Base Excess (-2-2.0) Faisal Test A-a Gradient mmHg O2 Delivery Device FiO2 (21.00-100.00) % Sodium (136-145) mEq/L Potassium (3.5-5.1) mEq/L Chloride (98-107) mEq/L Carbon Dioxide (21-32) mEq/L Anion Gap (5-15) BUN (7-18) mg/dL Creatinine (0.7-1.3) mg/dL Est Cr Clr Drug Dosing mL/min Estimated GFR (MDRD) (>60) mL/min BUN/Creatinine Ratio (14-18) Glucose (74-106) mg/dL POC Glucose 172 H 172 H 160 H (70-105) mg/dL Lactic Acid (0.4-2.0) mmol/L Calcium (8.5-10.1) mg/dL Phosphorus (2.6-4.7) mg/dL Magnesium (1.8-2.4) mg/dl Total Bilirubin (0.2-1.0) mg/dL AST (15-37) U/L ALT (16-63) U/L Alkaline Phosphatase (46-116) U/L Total Protein (6.4-8.2) g/dl Albumin (3.4-5.0) g/dl Globulin gm/dL Albumin/Globulin Ratio (1-2) Lipase (73-393) U/L 02/16/19 02/16/19 Range/Units 16:20 16:21 WBC (4.23-9.07) K/mm3 RBC (4.63-6.08) M/mm3 Hgb (13.7-17.5) gm/L Hct (40.1-51.0) % MCV (79.0-92.2) fl MCH (25.7-32.2) pg MCHC (32.2-35.5) g/dl RDW Std Deviation (35.1-43.9) fL Plt Count (163-337) K/mm3 MPV (9.4-12.3) fl Neut % (Auto) (34.0-67.9) % Lymph % (Auto) (21.8-53.1) % [place] % (Auto) (5.3-12.2) % Eos % (Auto) (0.8-7.0) Baso % (Auto) (0.1-1.2) % Neut # (Auto) (1.78-5.38) K/mm3 Lymph # (Auto) (1.32-3.57) K/mm3 [place] # (Auto) (0.30-0.82) K/mm3 Eos # (Auto) (0.04-0.54) K/mm3 Baso # (Auto) (0.01-0.08) K/mm3 Puncture Site ABG pH (7.35-7.45) ABG pCO2 (35.0-45.0) mmHg ABG pO2 (80.0-100.0) mmHg ABG HCO3 (22.0-26.0) meq/L ABG O2 Saturation (96.0-97.0) % ABG Base Excess (-2-2.0) Faisal Test A-a Gradient mmHg O2 Delivery Device FiO2 (21.00-100.00) % Sodium 137 (136-145) mEq/L Potassium 3.6 (3.5-5.1) mEq/L Chloride 102 (98-107) mEq/L Carbon Dioxide 18 L (21-32) mEq/L Anion Gap 20.6 H (5-15) BUN 5 L (7-18) mg/dL Creatinine 0.7 (0.7-1.3) mg/dL Est Cr Clr Drug Dosing 159.33 mL/min Estimated GFR (MDRD) > 60 (>60) mL/min BUN/Creatinine Ratio 7.1 L (14-18) Glucose 180 H (74-106) mg/dL POC Glucose 173 H (70-105) mg/dL Lactic Acid (0.4-2.0) mmol/L Calcium 8.4 L (8.5-10.1) mg/dL Phosphorus 2.8 (2.6-4.7) mg/dL Magnesium 1.9 (1.8-2.4) mg/dl Total Bilirubin (0.2-1.0) mg/dL AST (15-37) U/L ALT (16-63) U/L Alkaline Phosphatase (46-116) U/L Total Protein (6.4-8.2) g/dl Albumin (3.4-5.0) g/dl Globulin gm/dL Albumin/Globulin Ratio (1-2) Lipase (73-393) U/L Med Orders - Current: Current Medications Citalopram Hydrobromide (Celexa) 20 mg PO DAILY [facility] Last Admin: 02/16/19 10:12 Dose: 20 mg Clonazepam (Klonopin) 0.5 mg PO TID [facility] Last Admin: 02/16/19 15:15 Dose: 0.5 mg Hydromorphone HCl (Dilaudid) 2 mg IVPUSH Q2H PRN PRN Reason: Abdominal Pain Last Admin: 02/16/19 15:15 Dose: 2 mg Insulin Human Regular 100 unit (/ Sodium Chloride) 100 mls @ 5 mls/hr IV CONTINUOUS [facility] Last Admin: 02/16/19 10:12 Dose: 3 mls/hr Dextrose/Sodium Chloride (Dextrose 5%-Normal Saline) 1,000 mls @ 175 mls/hr IV ASDIRECTED [facility] Last Admin: 02/16/19 12:20 Dose: 175 mls/hr Insulin Glargine (Lantus) 25 unit SUBCUT Q24H [facility] Last Admin: 02/16/19 10:15 Dose: 25 units Lisinopril (Prinivil) 40 mg PO DAILY [facility] Last Admin: 02/16/19 08:17 Dose: 40 mg Metoclopramide HCl (Reglan) 10 mg IVPUSH Q6H [facility] Stop: 02/17/19 04:01 Last Admin: 02/16/19 15:15 Dose: 10 mg Ondansetron HCl (Zofran) 4 mg IVPUSH Q8H [facility] Stop: 02/17/19 10:01 Last Admin: 02/16/19 10:12 Dose: 4 mg Discontinued Medications Enoxaparin Sodium (Lovenox) 40 mg SUBCUT DAILY [facility] Last Admin: 02/15/19 08:02 Dose: 40 mg Hydromorphone HCl (Dilaudid) 1 mg IVPUSH ONETIME ONE Stop: 02/14/19 14:36 Last Admin: 02/14/19 15:00 Dose: 1 mg Hydromorphone HCl (Dilaudid) 1 mg IVPUSH ONETIME ONE Stop: 02/14/19 15:49 Last Admin: 02/14/19 15:57 Dose: 1 mg Hydromorphone HCl (Dilaudid) 0.5 mg IVPUSH Q2H PRN PRN Reason: Pain (severe 7-10) Last Admin: 02/14/19 18:46 Dose: 0.5 mg Hydromorphone HCl (Dilaudid) 1 mg IVPUSH Q2H PRN PRN Reason: Pain (severe 7-10) Last Admin: 02/15/19 01:04 Dose: 1 mg Hydromorphone HCl (Dilaudid) 1 mg IVPUSH Q2H PRN PRN Reason: Pain (severe 7-10) Last Admin: 02/15/19 08:02 Dose: 1 mg Hydromorphone HCl (Dilaudid) 1 mg IVPUSH Q2H PRN PRN Reason: Pain (severe 7-10) Last Admin: 02/15/19 12:30 Dose: 1 mg Sodium Chloride (Normal Saline) 150 mls @ 999 mls/hr IV ASDIRECTED ONE Stop: 02/14/19 14:43 Last Admin: 02/14/19 14:54 Dose: Not Given Sodium Chloride (Normal Saline) 1,000 mls @ 999 mls/hr IV ASDIRECTED [facility] Last Admin: 02/14/19 14:58 Dose: 999 mls/hr Sodium Chloride (Normal Saline) 1,000 mls @ 999 mls/hr IV ONETIME ONE Stop: 02/14/19 18:09 Last Admin: 02/14/19 17:15 Dose: 999 mls/hr Lactated Ringer's (Ringers, Lactated) 1,000 mls @ 125 mls/hr IV ASDIRECTED [facility] Last Admin: 02/15/19 10:26 Dose: 125 mls/hr Dextrose/Sodium Chloride (Dextrose 5%-Normal Saline) 1,000 mls @ 125 mls/hr IV CONTINUOUS [facility] Last Admin: 02/16/19 04:57 Dose: 175 mls/hr Magnesium Sulfate 2 gm/ Premix 50 mls @ 25 mls/hr IV ONETIME ONE Stop: 02/16/19 08:35 Last Admin: 02/16/19 07:09 Dose: 25 mls/hr Potassium Phosphate 30 mmole/ (Sodium Chloride) 260 mls @ 50 mls/hr IV ONETIME ONE Stop: 02/16/19 14:56 Last Admin: 02/16/19 10:11 Dose: 50 mls/hr Insulin Human Lispro (Humalog) 0 unit SUBCUT Q6HR [facility]; Protocol Insulin Human Lispro (Humalog) 0 unit SUBCUT Q6HR [facility]; Protocol Last Admin: 02/15/19 13:24 Dose: Not Given Insulin Human Regular (Humulin R) 5 unit IV ONETIME ONE Stop: 02/16/19 00:45 Last Admin: 02/16/19 01:07 Dose: 5 units Labetalol HCl (Normodyne) 15 mg IVPUSH ONETIME ONE; Protocol Stop: 02/15/19 21:08 Last Admin: 02/15/19 21:20 Dose: 15 mg Lorazepam (Ativan) 1 mg IVPUSH ONETIME ONE Stop: 02/14/19 15:50 Last Admin: 02/14/19 15:58 Dose: 1 mg Metoclopramide HCl (Reglan) 7.5 mg IVPUSH ONETIME ONE Stop: 02/14/19 14:36 Last Admin: 02/14/19 14:58 Dose: 7.5 mg Ondansetron HCl (Zofran) 4 mg IV Q4H PRN PRN Reason: Nausea/Vomiting Last Admin: 02/15/19 08:07 Dose: 4 mg - Exam Physical Findings Comments:: General: Alert, Oriented, Moderate Distress HEENT: Conjunctiva Clear, EOMI. No: Mucosa Moist & [place] Neck: Supple, Trachea Midline. No: Lymphadenopathy Lungs: Clear to Auscultation, Normal Respiratory Effort. No: Wheezing Cardiovascular: Regular Rate, Regular Rhythm, Normal S1, Normal S2 GI/Abdominal Exam: No Distention, Tender, Abnormal Bowel Sounds. No: Distended , Hepatomegaly, Splenomegaly Extremities: Normal Range of Motion, Normal Capillary Refill. No: Pedal Edema Peripheral Pulses: 2+: Posterior Tibial (L), Posterior Tibial (R) Skin: Warm, Dry, Intact Neuro Extensive - Mental Status: Alert, Oriented x3, Memory Intact Neuro Extensive - Motor, Sensory, Reflexes: CN II-XII Intact, Normal Gait, Normal Reflexes. No: Motor/Sensory Deficits Psychiatric: Normal Affect, Anxious - Problem List & Annotations (1) Relapsing pancreatitis SNOMED Code(s): 622768486 Code(s): K86.1 - OTHER CHRONIC PANCREATITIS Status: Acute Priority: High Current Visit: Yes (2) Uncontrolled type 2 diabetes mellitus SNOMED Code(s): 570221710, 540835390 Code(s): E11.65 - TYPE 2 DIABETES MELLITUS WITH HYPERGLYCEMIA Status: Acute Current Visit: Yes Qualifiers: Glycemic state: with hyperglycemia Qualified Code(s): E11.65 - Type 2 diabetes mellitus with hyperglycemia (3) Anxiety SNOMED Code(s): 64554219 Code(s): F41.9 - ANXIETY DISORDER, UNSPECIFIED Status: Acute Priority: High Current Visit: Yes (4) Tachycardia SNOMED Code(s): 4629451 Code(s): R00.0 - TACHYCARDIA, UNSPECIFIED Status: Acute Priority: High Current Visit: Yes - Problem List Review Problem List Initiated/Reviewed/Updated: Yes - My Orders Last 24 Hours: My Active Orders 02/15/19 16:47 Up ad Krista [RC] ASDIRECTED Resuscitation Status Routine 02/15/19 18:15 Lisinopril [Prinivil] 40 mg PO DAILY 02/16/19 10:00 Citalopram [Celexa] 20 mg PO DAILY Insulin Glarg,Human.Rec.Analog [LantUS] 25 unit SUBCUT Q24H Metoclopramide [Reglan] 10 mg IVPUSH Q6H Ondansetron [Zofran] 4 mg IVPUSH Q8H 02/16/19 14:30 Dextrose 5%-0.9% NaCl [Dextrose 5%-Normal Saline] 1,000 ml IV ASDIRECTED 02/16/19 Breakfast Regular Diet [DIET] 02/17/19 05:00 RT Arterial Blood Gases, ABG [RC] ASDIRECTED ABG [BLOOD GAS ARTERIAL] [BG] Timed MAGNESIUM [CHEM] AM PHOSPHORUS [CHEM] AM 02/17/19 05:11 CBC WITH AUTO DIFF [HEME] AM COMPREHENSIVE METABOLIC PN,CMP [CHEM] AM LIPASE [CHEM] AM - Plan Plan:: 1. Started PO, IVF, pain control, CT abdomen, no stones, serial lipase.improving. 2. Hold metformin, start SSI.now on IV insulin due to worsening acidosis, added glargine 3.continue clonazepam, SSRI added. 4. Added low dose IR diltiazem for persistent sinus tachycardia.
[2019-02-16] MEDS: Diltiazem IR 60 MG Tab PO SCH ×2 (17:45→23:06)
[2019-02-16] MEDS ORDERED: Labetalol 100 MG/20 ML MDV IVPUSH ONE ×2 (19:48→21:06)
[2019-02-17] MEDS: Ondansetron 4 MG/2 ML SDV IVPUSH SCH ×2 (01:50→09:54)
[2019-02-17] MEDS: Metoclopramide 10 MG/2 ML SDV IVPUSH SCH (04:00)
[2019-02-17] MEDS: Dextrose 5%-0.9% NaCl 1,000 ML IV SCH ×2 (04:02→09:53)
[2019-02-17] MEDS: Diltiazem IR 60 MG Tab PO SCH ×5 (04:53→23:32)
[2019-02-17] MEDS ORDERED: hydrALAZINE 20 MG/ML SDV IVPUSH ONE (05:38)
[2019-02-17] MEDS: Lisinopril 20 MG Tab PO SCH (07:59)
[2019-02-17] MEDS: ClonazePAM 0.5 MG Tab PO SCH ×3 (08:00→20:04)
[2019-02-17] MEDS: Citalopram 20 MG Tab PO SCH (08:00)
[2019-02-17] MEDS: HYDROmorphone 1 MG/ML Syringe IVPUSH PRN ×3 (08:22→18:39)
[2019-02-17] MEDS ORDERED: Potassium Phosphates 30 MMOLE in Sodium Chloride 0.9% 250 ML IV ONE (09:45)
[2019-02-17] MEDS: Insulin Glarg,Human.Rec.Analog 100 UNIT/ML ML SUBCUT SCH (09:55)
[2019-02-17] MEDS ORDERED: Insulin Regular, Human 100 Units/ML 3 ML Vial IV ONE (11:23)
[2019-02-17] MEDS: Insulin Lispro 100 Units/ML 3 ML Vial SUBCUT SCH ×3 (13:32→20:54)
[2019-02-17] MEDS: Labetalol 100 MG Tab PO SCH ×2 (15:19→20:04)
[2019-02-17] MEDS: Potassium Chloride 10 MEQ in Premix Bag 1 BAG IV SCH ×4 (16:14→19:41)
[2019-02-17] MEDS ORDERED: Insulin Lispro 100 Units/ML 3 ML Vial SUBCUT SCH (17:00)
--- NOTE | 2019-02-17 17:57 | PCM.PN ---
- General Info Date of Service: 02/17/19 Admission Dx/Problem (Free Text): 28 yo male with h/o DM, Etoh abuse, pancreatitis, cholelithiasis admitted through ED with acute onset of severe abdominal pain, elevated lipase, N/V. Previously underwent cholecystectomy with subsequent ERCP. Admitted for further treatment. Daily progress: 02/15/19, lipase improving, pain persists, developed metabolic acidosis/DKA, started insulin IV gtt. CT showed pancreatitis, fatty liver, no gallstones. 02/16/19, acidosis improving, AG at 20, still requires insulin IV gtt, added glargine, started po intake, lipase normalizing, added citalopram, continue clonazepam, added ondansetron.Persistently tachycardic, will benefit from CCB instead of BBL. , acidosis resolved, converting to SC insulin, improving PO intake, added labetalol for BP. - Review of Systems Systems Review Comment:: General: Denies: Fever, Chills, Weight Loss HEENT: Denies: Dysphasia, Hearing Changes, Vertigo Pulmonary: Denies: Shortness of Breath, Wheezing, Hemoptysis Cardiovascular: Reports: Blood Pressure Problem. Denies: Chest Pain, Palpitations Gastrointestinal: Reports: Abdominal Pain, Anorexia, Nausea, Vomiting Genitourinary: Reports: No Symptoms Musculoskeletal: Reports: No Symptoms Skin: Reports: No Symptoms Psychiatric: Reports: Anxiety. Denies: Suicidal Ideation, Homicidal Ideation Neurological: Denies: Confusion, Seizure, Syncope Hematologic/Lymphatic: Denies: Easy Bleeding, Easy Bruising - Patient Data Vitals - Most Recent: Last Vital Signs Temp 97.6 F 02/17/19 15:30 Pulse 76 02/17/19 15:30 Resp 12 02/17/19 15:30 BP 136/98 H 02/17/19 15:30 Pulse Ox 99 02/17/19 15:30 Weight - Most Recent: 204 lb 4.8 oz I&O - Last 24 Hours: Intake & Output 02/17/19 02/17/19 02/17/19 03:59 11:59 19:59 Intake Total 400 2365 1987 Output Total 900 1650 950 Balance -748 124 4140 Lab Results Last 24 Hours: Laboratory Results - last 24 hr 02/16/19 02/16/19 02/16/19 Range/Units 18:20 18:56 21:00 WBC (4.23-9.07) K/mm3 RBC (4.63-6.08) M/mm3 Hgb (13.7-17.5) gm/L Hct (40.1-51.0) % MCV (79.0-92.2) fl MCH (25.7-32.2) pg MCHC (32.2-35.5) g/dl RDW Std Deviation (35.1-43.9) fL Plt Count (163-337) K/mm3 MPV (9.4-12.3) fl Neut % (Auto) (34.0-67.9) % Lymph % (Auto) (21.8-53.1) % Coffee % (Auto) (5.3-12.2) % Eos % (Auto) (0.8-7.0) Baso % (Auto) (0.1-1.2) % Neut # (Auto) (1.78-5.38) K/mm3 Lymph # (Auto) (1.32-3.57) K/mm3 Coffee # (Auto) (0.30-0.82) K/mm3 Eos # (Auto) (0.04-0.54) K/mm3 Baso # (Auto) (0.01-0.08) K/mm3 Puncture Site ABG pH (7.35-7.45) ABG pCO2 (35.0-45.0) mmHg ABG pO2 (80.0-100.0) mmHg ABG HCO3 (22.0-26.0) meq/L ABG O2 Saturation (96.0-97.0) % ABG Base Excess (-2-2.0) Faisal Test A-a Gradient mmHg O2 Delivery Device FiO2 (21.00-100.00) % Sodium (136-145) mEq/L Potassium (3.5-5.1) mEq/L Chloride (98-107) mEq/L Carbon Dioxide (21-32) mEq/L Anion Gap (5-15) BUN (7-18) mg/dL Creatinine (0.7-1.3) mg/dL Est Cr Clr Drug Dosing mL/min Estimated GFR (MDRD) (>60) mL/min BUN/Creatinine Ratio (14-18) Glucose (74-106) mg/dL POC Glucose 150 H 173 H 137 H (70-105) mg/dL Calcium (8.5-10.1) mg/dL Phosphorus (2.6-4.7) mg/dL Magnesium (1.8-2.4) mg/dl Total Bilirubin (0.2-1.0) mg/dL AST (15-37) U/L ALT (16-63) U/L Alkaline Phosphatase (46-116) U/L Total Protein (6.4-8.2) g/dl Albumin (3.4-5.0) g/dl Globulin gm/dL Albumin/Globulin Ratio (1-2) Lipase (73-393) U/L 02/16/19 02/17/19 02/17/19 Range/Units 23:03 01:56 04:34 WBC (4.23-9.07) K/mm3 RBC (4.63-6.08) M/mm3 Hgb (13.7-17.5) gm/L Hct (40.1-51.0) % MCV (79.0-92.2) fl MCH (25.7-32.2) pg MCHC (32.2-35.5) g/dl RDW Std Deviation (35.1-43.9) fL Plt Count (163-337) K/mm3 MPV (9.4-12.3) fl Neut % (Auto) (34.0-67.9) % Lymph % (Auto) (21.8-53.1) % Coffee % (Auto) (5.3-12.2) % Eos % (Auto) (0.8-7.0) Baso % (Auto) (0.1-1.2) % Neut # (Auto) (1.78-5.38) K/mm3 Lymph # (Auto) (1.32-3.57) K/mm3 Coffee # (Auto) (0.30-0.82) K/mm3 Eos # (Auto) (0.04-0.54) K/mm3 Baso # (Auto) (0.01-0.08) K/mm3 Puncture Site ABG pH (7.35-7.45) ABG pCO2 (35.0-45.0) mmHg ABG pO2 (80.0-100.0) mmHg ABG HCO3 (22.0-26.0) meq/L ABG O2 Saturation (96.0-97.0) % ABG Base Excess (-2-2.0) Faisal Test A-a Gradient mmHg O2 Delivery Device FiO2 (21.00-100.00) % Sodium (136-145) mEq/L Potassium (3.5-5.1) mEq/L Chloride (98-107) mEq/L Carbon Dioxide (21-32) mEq/L Anion Gap (5-15) BUN (7-18) mg/dL Creatinine (0.7-1.3) mg/dL Est Cr Clr Drug Dosing mL/min Estimated GFR (MDRD) (>60) mL/min BUN/Creatinine Ratio (14-18) Glucose (74-106) mg/dL POC Glucose 119 H 99 127 H (70-105) mg/dL Calcium (8.5-10.1) mg/dL Phosphorus (2.6-4.7) mg/dL Magnesium (1.8-2.4) mg/dl Total Bilirubin (0.2-1.0) mg/dL AST (15-37) U/L ALT (16-63) U/L Alkaline Phosphatase (46-116) U/L Total Protein (6.4-8.2) g/dl Albumin (3.4-5.0) g/dl Globulin gm/dL Albumin/Globulin Ratio (1-2) Lipase (73-393) U/L 02/17/19 02/17/19 02/17/19 Range/Units 04:55 04:55 04:55 WBC 5.92 (4.23-9.07) K/mm3 RBC 5.04 (4.63-6.08) M/mm3 Hgb 15.8 (13.7-17.5) gm/L Hct 44.2 (40.1-51.0) % MCV 87.7 (79.0-92.2) fl MCH 31.3 (25.7-32.2) pg MCHC 35.7 H (32.2-35.5) g/dl RDW Std Deviation 42.3 (35.1-43.9) fL Plt Count 156 L (163-337) K/mm3 MPV 10.2 (9.4-12.3) fl Neut % (Auto) 56.9 (34.0-67.9) % Lymph % (Auto) 29.9 (21.8-53.1) % Coffee % (Auto) 10.5 (5.3-12.2) % Eos % (Auto) 1.4 (0.8-7.0) Baso % (Auto) 0.8 (0.1-1.2) % Neut # (Auto) 3.37 (1.78-5.38) K/mm3 Lymph # (Auto) 1.77 (1.32-3.57) K/mm3 Coffee # (Auto) 0.62 (0.30-0.82) K/mm3 Eos # (Auto) 0.08 (0.04-0.54) K/mm3 Baso # (Auto) 0.05 (0.01-0.08) K/mm3 Puncture Site ABG pH (7.35-7.45) ABG pCO2 (35.0-45.0) mmHg ABG pO2 (80.0-100.0) mmHg ABG HCO3 (22.0-26.0) meq/L ABG O2 Saturation (96.0-97.0) % ABG Base Excess (-2-2.0) Faisal Test A-a Gradient mmHg O2 Delivery Device FiO2 (21.00-100.00) % Sodium 138 (136-145) mEq/L Potassium 3.1 L (3.5-5.1) mEq/L Chloride 101 (98-107) mEq/L Carbon Dioxide 25 (21-32) mEq/L Anion Gap 15.1 H (5-15) BUN 5 L (7-18) mg/dL Creatinine 0.7 (0.7-1.3) mg/dL Est Cr Clr Drug Dosing 159.33 mL/min Estimated GFR (MDRD) > 60 (>60) mL/min BUN/Creatinine Ratio 7.1 L (14-18) Glucose 120 H (74-106) mg/dL POC Glucose (70-105) mg/dL Calcium 8.4 L (8.5-10.1) mg/dL Phosphorus 2.5 L (2.6-4.7) mg/dL Magnesium 1.8 (1.8-2.4) mg/dl Total Bilirubin 2.1 H (0.2-1.0) mg/dL AST 615 H (15-37) U/L ALT 483 H (16-63) U/L Alkaline Phosphatase 178 H (46-116) U/L Total Protein 7.0 (6.4-8.2) g/dl Albumin 3.3 L (3.4-5.0) g/dl Globulin 3.7 gm/dL Albumin/Globulin Ratio 0.9 L (1-2) Lipase 106 (73-393) U/L 02/17/19 02/17/19 02/17/19 Range/Units 04:55 07:56 11:14 WBC (4.23-9.07) K/mm3 RBC (4.63-6.08) M/mm3 Hgb (13.7-17.5) gm/L Hct (40.1-51.0) % MCV (79.0-92.2) fl MCH (25.7-32.2) pg MCHC (32.2-35.5) g/dl RDW Std Deviation (35.1-43.9) fL Plt Count (163-337) K/mm3 MPV (9.4-12.3) fl Neut % (Auto) (34.0-67.9) % Lymph % (Auto) (21.8-53.1) % Coffee % (Auto) (5.3-12.2) % Eos % (Auto) (0.8-7.0) Baso % (Auto) (0.1-1.2) % Neut # (Auto) (1.78-5.38) K/mm3 Lymph # (Auto) (1.32-3.57) K/mm3 Coffee # (Auto) (0.30-0.82) K/mm3 Eos # (Auto) (0.04-0.54) K/mm3 Baso # (Auto) (0.01-0.08) K/mm3 Puncture Site Lt radial ABG pH 7.38 (7.35-7.45) ABG pCO2 38.3 (35.0-45.0) mmHg ABG pO2 73.0 L (80.0-100.0) mmHg ABG HCO3 21.9 L (22.0-26.0) meq/L ABG O2 Saturation 98.0 H (96.0-97.0) % ABG Base Excess -2.4 L (-2-2.0) Faisal Test Positive A-a Gradient 14 mmHg O2 Delivery Device Room air FiO2 21.00 (21.00-100.00) % Sodium (136-145) mEq/L Potassium (3.5-5.1) mEq/L Chloride (98-107) mEq/L Carbon Dioxide (21-32) mEq/L Anion Gap (5-15) BUN (7-18) mg/dL Creatinine (0.7-1.3) mg/dL Est Cr Clr Drug Dosing mL/min Estimated GFR (MDRD) (>60) mL/min BUN/Creatinine Ratio (14-18) Glucose (74-106) mg/dL POC Glucose 153 H 208 H (70-105) mg/dL Calcium (8.5-10.1) mg/dL Phosphorus (2.6-4.7) mg/dL Magnesium (1.8-2.4) mg/dl Total Bilirubin (0.2-1.0) mg/dL AST (15-37) U/L ALT (16-63) U/L Alkaline Phosphatase (46-116) U/L Total Protein (6.4-8.2) g/dl Albumin (3.4-5.0) g/dl Globulin gm/dL Albumin/Globulin Ratio (1-2) Lipase (73-393) U/L 02/17/19 02/17/19 Range/Units 13:24 17:08 WBC (4.23-9.07) K/mm3 RBC (4.63-6.08) M/mm3 Hgb (13.7-17.5) gm/L Hct (40.1-51.0) % MCV (79.0-92.2) fl MCH (25.7-32.2) pg MCHC (32.2-35.5) g/dl RDW Std Deviation (35.1-43.9) fL Plt Count (163-337) K/mm3 MPV (9.4-12.3) fl Neut % (Auto) (34.0-67.9) % Lymph % (Auto) (21.8-53.1) % Coffee % (Auto) (5.3-12.2) % Eos % (Auto) (0.8-7.0) Baso % (Auto) (0.1-1.2) % Neut # (Auto) (1.78-5.38) K/mm3 Lymph # (Auto) (1.32-3.57) K/mm3 Coffee # (Auto) (0.30-0.82) K/mm3 Eos # (Auto) (0.04-0.54) K/mm3 Baso # (Auto) (0.01-0.08) K/mm3 Puncture Site ABG pH (7.35-7.45) ABG pCO2 (35.0-45.0) mmHg ABG pO2 (80.0-100.0) mmHg ABG HCO3 (22.0-26.0) meq/L ABG O2 Saturation (96.0-97.0) % ABG Base Excess (-2-2.0) Faisal Test A-a Gradient mmHg O2 Delivery Device FiO2 (21.00-100.00) % Sodium (136-145) mEq/L Potassium (3.5-5.1) mEq/L Chloride (98-107) mEq/L Carbon Dioxide (21-32) mEq/L Anion Gap (5-15) BUN (7-18) mg/dL Creatinine (0.7-1.3) mg/dL Est Cr Clr Drug Dosing mL/min Estimated GFR (MDRD) (>60) mL/min BUN/Creatinine Ratio (14-18) Glucose (74-106) mg/dL POC Glucose 112 H 145 H (70-105) mg/dL Calcium (8.5-10.1) mg/dL Phosphorus (2.6-4.7) mg/dL Magnesium (1.8-2.4) mg/dl Total Bilirubin (0.2-1.0) mg/dL AST (15-37) U/L ALT (16-63) U/L Alkaline Phosphatase (46-116) U/L Total Protein (6.4-8.2) g/dl Albumin (3.4-5.0) g/dl Globulin gm/dL Albumin/Globulin Ratio (1-2) Lipase (73-393) U/L Med Orders - Current: Current Medications Citalopram Hydrobromide (Celexa) 20 mg PO DAILY [facility] Last Admin: 02/17/19 08:00 Dose: 20 mg Clonazepam (Klonopin) 0.5 mg PO TID [facility] Last Admin: 02/17/19 15:20 Dose: 0.5 mg Diltiazem HCl (Cardizem) 60 mg PO Q6HR [facility] Last Admin: 02/17/19 17:33 Dose: 60 mg Hydromorphone HCl (Dilaudid) 2 mg IVPUSH Q2H PRN PRN Reason: Abdominal Pain Last Admin: 02/17/19 11:48 Dose: 2 mg Insulin Human Regular 100 unit (/ Sodium Chloride) 100 mls @ 5 mls/hr IV CONTINUOUS [facility] Stop: 02/17/19 18:00 Last Infusion: 02/17/19 02:05 Dose: 2 mls/hr Dextrose/Sodium Chloride (Dextrose 5%-Normal Saline) 1,000 mls @ 175 mls/hr IV ASDIRECTED [facility] Last Admin: 02/17/19 09:53 Dose: 175 mls/hr Potassium Chloride 10 meq/ (Premix) 100 mls @ 100 mls/hr IV Q1H [facility] Stop: 02/17/19 19:29 Last Admin: 02/17/19 17:32 Dose: 100 mls/hr Insulin Glargine (Lantus) 35 unit SUBCUT Q24H [facility] Insulin Human Lispro (Humalog) 0 unit SUBCUT QIDACANDBED [facility]; Protocol Last Admin: 02/17/19 17:10 Dose: Not Given Labetalol HCl (Normodyne) 100 mg PO TID [facility] Last Admin: 02/17/19 15:19 Dose: 100 mg Lisinopril (Prinivil) 40 mg PO DAILY [facility] Last Admin: 02/17/19 07:59 Dose: 40 mg Discontinued Medications Enoxaparin Sodium (Lovenox) 40 mg SUBCUT DAILY [facility] Last Admin: 02/15/19 08:02 Dose: 40 mg Hydralazine HCl (Apresoline) 10 mg IVPUSH ONETIME ONE Stop: 02/17/19 05:39 Last Admin: 02/17/19 05:45 Dose: 10 mg Hydromorphone HCl (Dilaudid) 1 mg IVPUSH ONETIME ONE Stop: 02/14/19 14:36 Last Admin: 02/14/19 15:00 Dose: 1 mg Hydromorphone HCl (Dilaudid) 1 mg IVPUSH ONETIME ONE Stop: 02/14/19 15:49 Last Admin: 02/14/19 15:57 Dose: 1 mg Hydromorphone HCl (Dilaudid) 0.5 mg IVPUSH Q2H PRN PRN Reason: Pain (severe 7-10) Last Admin: 02/14/19 18:46 Dose: 0.5 mg Hydromorphone HCl (Dilaudid) 1 mg IVPUSH Q2H PRN PRN Reason: Pain (severe 7-10) Last Admin: 02/15/19 01:04 Dose: 1 mg Hydromorphone HCl (Dilaudid) 1 mg IVPUSH Q2H PRN PRN Reason: Pain (severe 7-10) Last Admin: 02/15/19 08:02 Dose: 1 mg Hydromorphone HCl (Dilaudid) 1 mg IVPUSH Q2H PRN PRN Reason: Pain (severe 7-10) Last Admin: 02/15/19 12:30 Dose: 1 mg Sodium Chloride (Normal Saline) 150 mls @ 999 mls/hr IV ASDIRECTED ONE Stop: 02/14/19 14:43 Last Admin: 02/14/19 14:54 Dose: Not Given Sodium Chloride (Normal Saline) 1,000 mls @ 999 mls/hr IV ASDIRECTED [facility] Last Admin: 02/14/19 14:58 Dose: 999 mls/hr Sodium Chloride (Normal Saline) 1,000 mls @ 999 mls/hr IV ONETIME ONE Stop: 02/14/19 18:09 Last Admin: 02/14/19 17:15 Dose: 999 mls/hr Lactated Ringer's (Ringers, Lactated) 1,000 mls @ 125 mls/hr IV ASDIRECTED [facility] Last Admin: 02/15/19 10:26 Dose: 125 mls/hr Dextrose/Sodium Chloride (Dextrose 5%-Normal Saline) 1,000 mls @ 125 mls/hr IV CONTINUOUS [facility] Last Admin: 02/16/19 04:57 Dose: 175 mls/hr Magnesium Sulfate 2 gm/ Premix 50 mls @ 25 mls/hr IV ONETIME ONE Stop: 02/16/19 08:35 Last Admin: 02/16/19 07:09 Dose: 25 mls/hr Potassium Phosphate 30 mmole/ (Sodium Chloride) 260 mls @ 50 mls/hr IV ONETIME ONE Stop: 02/16/19 14:56 Last Admin: 02/16/19 10:11 Dose: 50 mls/hr Potassium Phosphate 30 mmole/ (Sodium Chloride) 260 mls @ 50 mls/hr IV ONETIME ONE Stop: 02/17/19 14:56 Last Admin: 02/17/19 09:48 Dose: 50 mls/hr Insulin Glargine (Lantus) 25 unit SUBCUT Q24H [facility] Last Admin: 02/17/19 09:55 Dose: 25 units Insulin Human Lispro (Humalog) 0 unit SUBCUT Q6HR [facility]; Protocol Insulin Human Lispro (Humalog) 0 unit SUBCUT Q6HR [facility]; Protocol Last Admin: 02/15/19 13:24 Dose: Not Given Insulin Human Lispro (Humalog) 0 unit SUBCUT TIDMEALS [facility]; Protocol Insulin Human Regular (Humulin R) 5 unit IV ONETIME ONE Stop: 02/16/19 00:45 Last Admin: 02/16/19 01:07 Dose: 5 units Insulin Human Regular (Humulin R) 3 unit IV ONETIME ONE Stop: 02/16/19 17:23 Last Admin: 02/16/19 17:45 Dose: 3 units Insulin Human Regular (Humulin R) 6 unit IV ONETIME ONE Stop: 02/17/19 11:24 Last Admin: 02/17/19 11:38 Dose: 6 units Labetalol HCl (Normodyne) 15 mg IVPUSH ONETIME ONE; Protocol Stop: 02/15/19 21:08 Last Admin: 02/15/19 21:20 Dose: 15 mg Labetalol HCl (Normodyne) 10 mg IVPUSH ONETIME ONE; Protocol Stop: 02/16/19 19:49 Last Admin: 02/16/19 20:10 Dose: 10 mg Labetalol HCl (Normodyne) 10 mg IVPUSH ONETIME ONE; Protocol Stop: 02/16/19 21:07 Last Admin: 02/16/19 21:10 Dose: 10 mg Lorazepam (Ativan) 1 mg IVPUSH ONETIME ONE Stop: 02/14/19 15:50 Last Admin: 02/14/19 15:58 Dose: 1 mg Metoclopramide HCl (Reglan) 7.5 mg IVPUSH ONETIME ONE Stop: 02/14/19 14:36 Last Admin: 02/14/19 14:58 Dose: 7.5 mg Metoclopramide HCl (Reglan) 10 mg IVPUSH Q6H [facility] Stop: 02/17/19 04:01 Last Admin: 02/17/19 04:00 Dose: 10 mg Ondansetron HCl (Zofran) 4 mg IV Q4H PRN PRN Reason: Nausea/Vomiting Last Admin: 02/15/19 08:07 Dose: 4 mg Ondansetron HCl (Zofran) 4 mg IVPUSH Q8H [facility] Stop: 02/17/19 10:01 Last Admin: 02/17/19 09:54 Dose: 4 mg - Exam Physical Findings Comments:: General: Alert, Oriented, Moderate Distress HEENT: Conjunctiva Clear, EOMI. No: Mucosa Moist & [place] Neck: Supple, Trachea Midline. No: Lymphadenopathy Lungs: Clear to Auscultation, Normal Respiratory Effort. No: Wheezing Cardiovascular: Regular Rate, Regular Rhythm, Normal S1, Normal S2 GI/Abdominal Exam: No Distention, Tender, Abnormal Bowel Sounds. No: Distended , Hepatomegaly, Splenomegaly Extremities: Normal Range of Motion, Normal Capillary Refill. No: Pedal Edema Peripheral Pulses: 2+: Posterior Tibial (L), Posterior Tibial (R) Skin: Warm, Dry, Intact Neuro Extensive - Mental Status: Alert, Oriented x3, Memory Intact Neuro Extensive - Motor, Sensory, Reflexes: CN II-XII Intact, Normal Gait, Normal Reflexes. No: Motor/Sensory Deficits Psychiatric: Normal Affect, Anxious - Problem List & Annotations (1) Relapsing pancreatitis SNOMED Code(s): 891960677 Code(s): K86.1 - OTHER CHRONIC PANCREATITIS Status: Acute Priority: High Current Visit: Yes (2) Uncontrolled type 2 diabetes mellitus SNOMED Code(s): 441387710, 071462493 Code(s): E11.65 - TYPE 2 DIABETES MELLITUS WITH HYPERGLYCEMIA Status: Acute Current Visit: Yes Qualifiers: Glycemic state: with hyperglycemia Qualified Code(s): E11.65 - Type 2 diabetes mellitus with hyperglycemia (3) Anxiety SNOMED Code(s): 83607287 Code(s): F41.9 - ANXIETY DISORDER, UNSPECIFIED Status: Acute Priority: High Current Visit: Yes (4) Tachycardia SNOMED Code(s): 6303549 Code(s): R00.0 - TACHYCARDIA, UNSPECIFIED Status: Acute Priority: High Current Visit: Yes - Problem List Review Problem List Initiated/Reviewed/Updated: Yes - My Orders Last 24 Hours: My Active Orders 02/16/19 18:00 Diltiazem IR [Cardizem] 60 mg PO Q6HR 02/16/19 21:00 Blood Glucose Check, Bedside [RC] QIDACANDBED 02/17/19 08:49 Communication Order [RC] ASDIRECTED 02/17/19 11:13 Insulin Lispro [HumaLOG] See Protocol SUBCUT QIDACANDBED 02/17/19 15:00 Labetalol [Normodyne] 100 mg PO TID 02/17/19 15:30 Potassium Chloride [KCl 10 MEQ in Water 100 ML] 10 meq Premix Bag 1 bag IV Q1H 02/18/19 10:00 Insulin Glarg,Human.Rec.Analog [LantUS] 35 unit SUBCUT Q24H - Plan Plan:: 1. Started PO, IVF, pain control, CT abdomen, no stones, serial lipase.improving. 2. Started SSI, stopping IV insulin ,on glargine 3. continue clonazepam, SSRI added. 4. Added low dose IR diltiazem for persistent sinus tachycardia, added labetalol.Also on ACEi for BP.
[2019-02-17] MEDS: Enoxaparin 40 MG/0.4 ML Syringe SUBCUT SCH (20:54)
[2019-02-17] MEDS: HYDROmorphone 2 MG Tab PO PRN (23:32)
[2019-02-18] MEDS: HYDROmorphone 2 MG Tab PO PRN ×4 (04:01→21:05)
[2019-02-18] MEDS ORDERED: Potassium Chloride 20 MEQ Tab.ER PO ONE (05:37)
[2019-02-18] MEDS: Insulin Lispro 100 Units/ML 3 ML Vial SUBCUT SCH ×4 (06:01→20:25)
[2019-02-18] MEDS: Diltiazem IR 60 MG Tab PO SCH (06:01)
[2019-02-18] MEDS: Citalopram 20 MG Tab PO SCH (08:08)
[2019-02-18] MEDS: ClonazePAM 0.5 MG Tab PO SCH ×3 (08:08→20:16)
[2019-02-18] MEDS: Labetalol 100 MG Tab PO SCH ×3 (08:08→20:16)
[2019-02-18] MEDS: Lisinopril 20 MG Tab PO SCH (08:10)
[2019-02-18] MEDS: Insulin Glarg,Human.Rec.Analog 100 UNIT/ML ML SUBCUT SCH (09:28)
--- NOTE | 2019-02-18 10:48 | PCM.PN ---
- General Info Date of Service: 02/18/19 Admission Dx/Problem (Free Text): 28 yo male with h/o DM, Etoh abuse, pancreatitis, cholelithiasis admitted through ED with acute onset of severe abdominal pain, elevated lipase, N/V. Previously underwent cholecystectomy with subsequent ERCP. Admitted for further treatment. Daily progress: 02/15/19, lipase improving, pain persists, developed metabolic acidosis/DKA, started insulin IV gtt. CT showed pancreatitis, fatty liver, no gallstones. 02/16/19, acidosis improving, AG at 20, still requires insulin IV gtt, added glargine, started po intake, lipase normalizing, added citalopram, continue clonazepam, added ondansetron.Persistently tachycardic, will benefit from CCB instead of BBL. , acidosis resolved, converting to SC insulin, improving PO intake, added labetalol for BP. 02/18/19, tolerating SSI well, BP improved, will switch to XR diltiazem. - Review of Systems Systems Review Comment:: General: Denies: Fever, Chills, Weight Loss HEENT: Denies: Dysphasia, Hearing Changes, Vertigo Pulmonary: Denies: Shortness of Breath, Wheezing, Hemoptysis Cardiovascular: Reports: Blood Pressure Problem. Denies: Chest Pain, Palpitations Gastrointestinal: Reports: les Abdominal Pain, Anorexia, less Nausea, no Vomiting Genitourinary: Reports: No Symptoms Musculoskeletal: Reports: No Symptoms Skin: Reports: No Symptoms Psychiatric: Reports: Anxiety. Denies: Suicidal Ideation, Homicidal Ideation Neurological: Denies: Confusion, Seizure, Syncope Hematologic/Lymphatic: Denies: Easy Bleeding, Easy Bruising - Patient Data Vitals - Most Recent: Last Vital Signs Temp 97.3 F 02/18/19 08:00 Pulse 74 02/18/19 09:40 Resp 16 02/18/19 09:40 BP 108/74 02/18/19 09:40 Pulse Ox 100 02/18/19 09:40 Weight - Most Recent: 205 lb 6.4 oz I&O - Last 24 Hours: Intake & Output 02/17/19 02/18/19 02/18/19 19:59 03:59 11:59 Intake Total 2922 900 Output Total 1375 900 Balance 1547 0 Lab Results Last 24 Hours: Laboratory Results - last 24 hr 02/17/19 02/17/19 02/17/19 Range/Units 11:14 13:24 17:08 WBC (4.23-9.07) K/mm3 RBC (4.63-6.08) M/mm3 Hgb (13.7-17.5) gm/L Hct (40.1-51.0) % MCV (79.0-92.2) fl MCH (25.7-32.2) pg MCHC (32.2-35.5) g/dl RDW Std Deviation (35.1-43.9) fL Plt Count (163-337) K/mm3 MPV (9.4-12.3) fl Neut % (Auto) (34.0-67.9) % Lymph % (Auto) (21.8-53.1) % [place] % (Auto) (5.3-12.2) % Eos % (Auto) (0.8-7.0) Baso % (Auto) (0.1-1.2) % Neut # (Auto) (1.78-5.38) K/mm3 Lymph # (Auto) (1.32-3.57) K/mm3 [place] # (Auto) (0.30-0.82) K/mm3 Eos # (Auto) (0.04-0.54) K/mm3 Baso # (Auto) (0.01-0.08) K/mm3 Puncture Site ABG pH (7.35-7.45) ABG pCO2 (35.0-45.0) mmHg ABG pO2 (80.0-100.0) mmHg ABG HCO3 (22.0-26.0) meq/L ABG O2 Saturation (96.0-97.0) % ABG Base Excess (-2-2.0) Faisal Test A-a Gradient mmHg FiO2 (21.00-100.00) % Sodium (136-145) mEq/L Potassium (3.5-5.1) mEq/L Chloride (98-107) mEq/L Carbon Dioxide (21-32) mEq/L Anion Gap (5-15) BUN (7-18) mg/dL Creatinine (0.7-1.3) mg/dL Est Cr Clr Drug Dosing mL/min Estimated GFR (MDRD) (>60) mL/min BUN/Creatinine Ratio (14-18) Glucose (74-106) mg/dL POC Glucose 208 H 112 H 145 H (70-105) mg/dL Calcium (8.5-10.1) mg/dL Phosphorus (2.6-4.7) mg/dL Magnesium (1.8-2.4) mg/dl Total Bilirubin (0.2-1.0) mg/dL AST (15-37) U/L ALT (16-63) U/L Alkaline Phosphatase (46-116) U/L Total Protein (6.4-8.2) g/dl Albumin (3.4-5.0) g/dl Globulin gm/dL Albumin/Globulin Ratio (1-2) Lipase (73-393) U/L 02/17/19 02/18/19 02/18/19 Range/Units 20:03 04:23 04:23 WBC 3.97 L (4.23-9.07) K/mm3 RBC 5.25 (4.63-6.08) M/mm3 Hgb 16.2 (13.7-17.5) gm/L Hct 45.8 (40.1-51.0) % MCV 87.2 (79.0-92.2) fl MCH 30.9 (25.7-32.2) pg MCHC 35.4 (32.2-35.5) g/dl RDW Std Deviation 43.0 (35.1-43.9) fL Plt Count 203 (163-337) K/mm3 MPV 9.5 (9.4-12.3) fl Neut % (Auto) 47.4 (34.0-67.9) % Lymph % (Auto) 35.5 (21.8-53.1) % [place] % (Auto) 12.8 H (5.3-12.2) % Eos % (Auto) 2.5 (0.8-7.0) Baso % (Auto) 1.3 H (0.1-1.2) % Neut # (Auto) 1.88 (1.78-5.38) K/mm3 Lymph # (Auto) 1.41 (1.32-3.57) K/mm3 [place] # (Auto) 0.51 (0.30-0.82) K/mm3 Eos # (Auto) 0.10 (0.04-0.54) K/mm3 Baso # (Auto) 0.05 (0.01-0.08) K/mm3 Puncture Site ABG pH (7.35-7.45) ABG pCO2 (35.0-45.0) mmHg ABG pO2 (80.0-100.0) mmHg ABG HCO3 (22.0-26.0) meq/L ABG O2 Saturation (96.0-97.0) % ABG Base Excess (-2-2.0) Faisal Test A-a Gradient mmHg FiO2 (21.00-100.00) % Sodium (136-145) mEq/L Potassium (3.5-5.1) mEq/L Chloride (98-107) mEq/L Carbon Dioxide (21-32) mEq/L Anion Gap (5-15) BUN (7-18) mg/dL Creatinine (0.7-1.3) mg/dL Est Cr Clr Drug Dosing mL/min Estimated GFR (MDRD) (>60) mL/min BUN/Creatinine Ratio (14-18) Glucose (74-106) mg/dL POC Glucose 215 H (70-105) mg/dL Calcium (8.5-10.1) mg/dL Phosphorus 3.1 (2.6-4.7) mg/dL Magnesium 1.9 (1.8-2.4) mg/dl Total Bilirubin (0.2-1.0) mg/dL AST (15-37) U/L ALT (16-63) U/L Alkaline Phosphatase (46-116) U/L Total Protein (6.4-8.2) g/dl Albumin (3.4-5.0) g/dl Globulin gm/dL Albumin/Globulin Ratio (1-2) Lipase (73-393) U/L 02/18/19 02/18/19 02/18/19 Range/Units 04:23 05:00 05:49 WBC (4.23-9.07) K/mm3 RBC (4.63-6.08) M/mm3 Hgb (13.7-17.5) gm/L Hct (40.1-51.0) % MCV (79.0-92.2) fl MCH (25.7-32.2) pg MCHC (32.2-35.5) g/dl RDW Std Deviation (35.1-43.9) fL Plt Count (163-337) K/mm3 MPV (9.4-12.3) fl Neut % (Auto) (34.0-67.9) % Lymph % (Auto) (21.8-53.1) % [place] % (Auto) (5.3-12.2) % Eos % (Auto) (0.8-7.0) Baso % (Auto) (0.1-1.2) % Neut # (Auto) (1.78-5.38) K/mm3 Lymph # (Auto) (1.32-3.57) K/mm3 [place] # (Auto) (0.30-0.82) K/mm3 Eos # (Auto) (0.04-0.54) K/mm3 Baso # (Auto) (0.01-0.08) K/mm3 Puncture Site Rt radial ABG pH 7.39 (7.35-7.45) ABG pCO2 41.3 (35.0-45.0) mmHg ABG pO2 76.0 L (80.0-100.0) mmHg ABG HCO3 24.6 (22.0-26.0) meq/L ABG O2 Saturation 96.9 (96.0-97.0) % ABG Base Excess 0.2 (-2-2.0) Faisal Test Positive A-a Gradient 7 mmHg FiO2 21.00 (21.00-100.00) % Sodium 138 (136-145) mEq/L Potassium 3.3 L (3.5-5.1) mEq/L Chloride 99 (98-107) mEq/L Carbon Dioxide 25 (21-32) mEq/L Anion Gap 17.3 H (5-15) BUN 4 L (7-18) mg/dL Creatinine 0.8 (0.7-1.3) mg/dL Est Cr Clr Drug Dosing 139.41 mL/min Estimated GFR (MDRD) > 60 (>60) mL/min BUN/Creatinine Ratio 5.0 L (14-18) Glucose 175 H (74-106) mg/dL POC Glucose 169 H (70-105) mg/dL Calcium 9.1 (8.5-10.1) mg/dL Phosphorus (2.6-4.7) mg/dL Magnesium (1.8-2.4) mg/dl Total Bilirubin 2.7 H (0.2-1.0) mg/dL AST 378 H (15-37) U/L ALT 657 H (16-63) U/L Alkaline Phosphatase 180 H (46-116) U/L Total Protein 7.2 (6.4-8.2) g/dl Albumin 3.4 (3.4-5.0) g/dl Globulin 3.8 gm/dL Albumin/Globulin Ratio 0.9 L (1-2) Lipase 67 L (73-393) U/L 02/18/19 Range/Units 09:28 WBC (4.23-9.07) K/mm3 RBC (4.63-6.08) M/mm3 Hgb (13.7-17.5) gm/L Hct (40.1-51.0) % MCV (79.0-92.2) fl MCH (25.7-32.2) pg MCHC (32.2-35.5) g/dl RDW Std Deviation (35.1-43.9) fL Plt Count (163-337) K/mm3 MPV (9.4-12.3) fl Neut % (Auto) (34.0-67.9) % Lymph % (Auto) (21.8-53.1) % [place] % (Auto) (5.3-12.2) % Eos % (Auto) (0.8-7.0) Baso % (Auto) (0.1-1.2) % Neut # (Auto) (1.78-5.38) K/mm3 Lymph # (Auto) (1.32-3.57) K/mm3 [place] # (Auto) (0.30-0.82) K/mm3 Eos # (Auto) (0.04-0.54) K/mm3 Baso # (Auto) (0.01-0.08) K/mm3 Puncture Site ABG pH (7.35-7.45) ABG pCO2 (35.0-45.0) mmHg ABG pO2 (80.0-100.0) mmHg ABG HCO3 (22.0-26.0) meq/L ABG O2 Saturation (96.0-97.0) % ABG Base Excess (-2-2.0) Faisal Test A-a Gradient mmHg FiO2 (21.00-100.00) % Sodium (136-145) mEq/L Potassium (3.5-5.1) mEq/L Chloride (98-107) mEq/L Carbon Dioxide (21-32) mEq/L Anion Gap (5-15) BUN (7-18) mg/dL Creatinine (0.7-1.3) mg/dL Est Cr Clr Drug Dosing mL/min Estimated GFR (MDRD) (>60) mL/min BUN/Creatinine Ratio (14-18) Glucose (74-106) mg/dL POC Glucose 279 H (70-105) mg/dL Calcium (8.5-10.1) mg/dL Phosphorus (2.6-4.7) mg/dL Magnesium (1.8-2.4) mg/dl Total Bilirubin (0.2-1.0) mg/dL AST (15-37) U/L ALT (16-63) U/L Alkaline Phosphatase (46-116) U/L Total Protein (6.4-8.2) g/dl Albumin (3.4-5.0) g/dl Globulin gm/dL Albumin/Globulin Ratio (1-2) Lipase (73-393) U/L Med Orders - Current: Current Medications Citalopram Hydrobromide (Celexa) 20 mg PO DAILY [facility] Last Admin: 02/18/19 08:08 Dose: 20 mg Clonazepam (Klonopin) 0.5 mg PO TID [facility] Last Admin: 02/18/19 08:08 Dose: 0.5 mg Diltiazem HCl (Dilacor Xr) 240 mg PO DAILY [facility] Enoxaparin Sodium (Lovenox) 40 mg SUBCUT BEDTIME [facility] Last Admin: 02/17/19 20:54 Dose: 40 mg Hydromorphone HCl (Dilaudid) 2 mg PO Q4H PRN PRN Reason: Pain (severe 7-10) Last Admin: 02/18/19 08:10 Dose: 2 mg Dextrose/Sodium Chloride (Dextrose 5%-Normal Saline) 1,000 mls @ 175 mls/hr IV ASDIRECTED [facility] Last Admin: 02/17/19 09:53 Dose: 175 mls/hr Insulin Glargine (Lantus) 35 unit SUBCUT Q24H [facility] Last Admin: 02/18/19 09:28 Dose: 35 unit Insulin Human Lispro (Humalog) 0 unit SUBCUT TIDAC [facility]; Protocol Last Admin: 02/18/19 06:01 Dose: 1 unit Insulin Human Lispro (Humalog) 0 unit SUBCUT BEDTIME [facility]; Protocol Last Admin: 02/17/19 20:54 Dose: 2 units Labetalol HCl (Normodyne) 100 mg PO TID [facility] Last Admin: 02/18/19 08:08 Dose: 100 mg Lisinopril (Prinivil) 40 mg PO DAILY [facility] Last Admin: 02/18/19 08:10 Dose: 40 mg Discontinued Medications Diltiazem HCl (Cardizem) 60 mg PO Q6HR [facility] Last Admin: 02/18/19 06:01 Dose: 60 mg Enoxaparin Sodium (Lovenox) 40 mg SUBCUT DAILY [facility] Last Admin: 02/15/19 08:02 Dose: 40 mg Hydralazine HCl (Apresoline) 10 mg IVPUSH ONETIME ONE Stop: 02/17/19 05:39 Last Admin: 02/17/19 05:45 Dose: 10 mg Hydromorphone HCl (Dilaudid) 1 mg IVPUSH ONETIME ONE Stop: 02/14/19 14:36 Last Admin: 02/14/19 15:00 Dose: 1 mg Hydromorphone HCl (Dilaudid) 1 mg IVPUSH ONETIME ONE Stop: 02/14/19 15:49 Last Admin: 02/14/19 15:57 Dose: 1 mg Hydromorphone HCl (Dilaudid) 0.5 mg IVPUSH Q2H PRN PRN Reason: Pain (severe 7-10) Last Admin: 02/14/19 18:46 Dose: 0.5 mg Hydromorphone HCl (Dilaudid) 1 mg IVPUSH Q2H PRN PRN Reason: Pain (severe 7-10) Last Admin: 02/15/19 01:04 Dose: 1 mg Hydromorphone HCl (Dilaudid) 1 mg IVPUSH Q2H PRN PRN Reason: Pain (severe 7-10) Last Admin: 02/15/19 08:02 Dose: 1 mg Hydromorphone HCl (Dilaudid) 1 mg IVPUSH Q2H PRN PRN Reason: Pain (severe 7-10) Last Admin: 02/15/19 12:30 Dose: 1 mg Hydromorphone HCl (Dilaudid) 2 mg IVPUSH Q2H PRN PRN Reason: Abdominal Pain Last Admin: 02/17/19 18:39 Dose: 2 mg Sodium Chloride (Normal Saline) 150 mls @ 999 mls/hr IV ASDIRECTED ONE Stop: 02/14/19 14:43 Last Admin: 02/14/19 14:54 Dose: Not Given Sodium Chloride (Normal Saline) 1,000 mls @ 999 mls/hr IV ASDIRECTED [facility] Last Admin: 02/14/19 14:58 Dose: 999 mls/hr Sodium Chloride (Normal Saline) 1,000 mls @ 999 mls/hr IV ONETIME ONE Stop: 02/14/19 18:09 Last Admin: 02/14/19 17:15 Dose: 999 mls/hr Lactated Ringer's (Ringers, Lactated) 1,000 mls @ 125 mls/hr IV ASDIRECTED [facility] Last Admin: 02/15/19 10:26 Dose: 125 mls/hr Dextrose/Sodium Chloride (Dextrose 5%-Normal Saline) 1,000 mls @ 125 mls/hr IV CONTINUOUS ALBERTO Last Admin: 02/16/19 04:57 Dose: 175 mls/hr Insulin Human Regular 100 unit (/ Sodium Chloride) 100 mls @ 5 mls/hr IV CONTINUOUS ALBERTO Stop: 02/17/19 18:00 Last Infusion: 02/17/19 02:05 Dose: 2 mls/hr Magnesium Sulfate 2 gm/ Premix 50 mls @ 25 mls/hr IV ONETIME ONE Stop: 02/16/19 08:35 Last Admin: 02/16/19 07:09 Dose: 25 mls/hr Potassium Phosphate 30 mmole/ (Sodium Chloride) 260 mls @ 50 mls/hr IV ONETIME ONE Stop: 02/16/19 14:56 Last Admin: 02/16/19 10:11 Dose: 50 mls/hr Potassium Phosphate 30 mmole/ (Sodium Chloride) 260 mls @ 50 mls/hr IV ONETIME ONE Stop: 02/17/19 14:56 Last Admin: 02/17/19 09:48 Dose: 50 mls/hr Potassium Chloride 10 meq/ (Premix) 100 mls @ 100 mls/hr IV Q1H [facility] Stop: 02/17/19 19:29 Last Admin: 02/17/19 19:41 Dose: 100 mls/hr Insulin Glargine (Lantus) 25 unit SUBCUT Q24H [facility] Last Admin: 02/17/19 09:55 Dose: 25 units Insulin Human Lispro (Humalog) 0 unit SUBCUT Q6HR [facility]; Protocol Insulin Human Lispro (Humalog) 0 unit SUBCUT Q6HR [facility]; Protocol Last Admin: 02/15/19 13:24 Dose: Not Given Insulin Human Lispro (Humalog) 0 unit SUBCUT QIDACANDBED [facility]; Protocol Last Admin: 02/17/19 17:10 Dose: Not Given Insulin Human Lispro (Humalog) 0 unit SUBCUT TIDMEALS [facility]; Protocol Insulin Human Regular (Humulin R) 5 unit IV ONETIME ONE Stop: 02/16/19 00:45 Last Admin: 02/16/19 01:07 Dose: 5 units Insulin Human Regular (Humulin R) 3 unit IV ONETIME ONE Stop: 02/16/19 17:23 Last Admin: 02/16/19 17:45 Dose: 3 units Insulin Human Regular (Humulin R) 6 unit IV ONETIME ONE Stop: 02/17/19 11:24 Last Admin: 02/17/19 11:38 Dose: 6 units Labetalol HCl (Normodyne) 15 mg IVPUSH ONETIME ONE; Protocol Stop: 02/15/19 21:08 Last Admin: 02/15/19 21:20 Dose: 15 mg Labetalol HCl (Normodyne) 10 mg IVPUSH ONETIME ONE; Protocol Stop: 02/16/19 19:49 Last Admin: 02/16/19 20:10 Dose: 10 mg Labetalol HCl (Normodyne) 10 mg IVPUSH ONETIME ONE; Protocol Stop: 02/16/19 21:07 Last Admin: 02/16/19 21:10 Dose: 10 mg Lorazepam (Ativan) 1 mg IVPUSH ONETIME ONE Stop: 02/14/19 15:50 Last Admin: 02/14/19 15:58 Dose: 1 mg Metoclopramide HCl (Reglan) 7.5 mg IVPUSH ONETIME ONE Stop: 02/14/19 14:36 Last Admin: 02/14/19 14:58 Dose: 7.5 mg Metoclopramide HCl (Reglan) 10 mg IVPUSH Q6H [facility] Stop: 02/17/19 04:01 Last Admin: 02/17/19 04:00 Dose: 10 mg Ondansetron HCl (Zofran) 4 mg IV Q4H PRN PRN Reason: Nausea/Vomiting Last Admin: 02/15/19 08:07 Dose: 4 mg Ondansetron HCl (Zofran) 4 mg IVPUSH Q8H [facility] Stop: 02/17/19 10:01 Last Admin: 02/17/19 09:54 Dose: 4 mg Potassium Chloride (Klor-Con M20) 40 meq PO ONETIME ONE Stop: 02/18/19 05:38 Last Admin: 02/18/19 06:01 Dose: 40 meq - Exam Physical Findings Comments:: General: Alert, Oriented, Moderate Distress HEENT: Conjunctiva Clear, EOMI. No: Mucosa Moist & [place] Neck: Supple, Trachea Midline. No: Lymphadenopathy Lungs: Clear to Auscultation, Normal Respiratory Effort. No: Wheezing Cardiovascular: Regular Rate, Regular Rhythm, Normal S1, Normal S2 GI/Abdominal Exam: No Distention, Tender, Abnormal Bowel Sounds. No: Distended , Hepatomegaly, Splenomegaly Extremities: Normal Range of Motion, Normal Capillary Refill. No: Pedal Edema Peripheral Pulses: 2+: Posterior Tibial (L), Posterior Tibial (R) Skin: Warm, Dry, Intact Neuro Extensive - Mental Status: Alert, Oriented x3, Memory Intact Neuro Extensive - Motor, Sensory, Reflexes: CN II-XII Intact, Normal Gait, Normal Reflexes. No: Motor/Sensory Deficits Psychiatric: Normal Affect, Anxious - Problem List & Annotations (1) Relapsing pancreatitis SNOMED Code(s): 272785503 Code(s): K86.1 - OTHER CHRONIC PANCREATITIS Status: Acute Priority: High Current Visit: Yes (2) Uncontrolled type 2 diabetes mellitus SNOMED Code(s): 971077817, 806084851 Code(s): E11.65 - TYPE 2 DIABETES MELLITUS WITH HYPERGLYCEMIA Status: Acute Current Visit: Yes Qualifiers: Glycemic state: with hyperglycemia Qualified Code(s): E11.65 - Type 2 diabetes mellitus with hyperglycemia (3) Anxiety SNOMED Code(s): 95482452 Code(s): F41.9 - ANXIETY DISORDER, UNSPECIFIED Status: Acute Priority: High Current Visit: Yes (4) Tachycardia SNOMED Code(s): 3010675 Code(s): R00.0 - TACHYCARDIA, UNSPECIFIED Status: Acute Priority: High Current Visit: Yes - Problem List Review Problem List Initiated/Reviewed/Updated: Yes - My Orders Last 24 Hours: My Active Orders 02/17/19 15:00 Labetalol [Normodyne] 100 mg PO TID 02/17/19 20:13 HYDROmorphone [Dilaudid] 2 mg PO Q4H PRN 02/17/19 21:00 Enoxaparin [Lovenox] 40 mg SUBCUT BEDTIME Insulin Lispro [HumaLOG] 0 unit SUBCUT BEDTIME 02/18/19 05:00 RT Arterial Blood Gases, ABG [RC] AMPROC RT Arterial Blood Gases, ABG [RC] ASDIRECTED 02/18/19 07:00 Insulin Lispro [HumaLOG] 0 unit SUBCUT TIDAC 02/18/19 10:00 Insulin Glarg,Human.Rec.Analog [LantUS] 35 unit SUBCUT Q24H 02/18/19 10:45 Diltiazem [Dilacor XR] 240 mg PO DAILY - Plan Plan:: 1. Started PO, IVF, pain control, CT abdomen, no stones, serial lipase.improving.Lipaze normalized. 2. Started SSI, stopping IV insulin ,on glargine, tolerates SSI well 3. continue clonazepam, SSRI added. 4. switch to XR diltiazem for persistent sinus tachycardia and HTN, added labetalol.Also on ACEi for BP.
[2019-02-18] MEDS: Diltiazem 240 MG Cap.ER PO SCH (11:00)
[2019-02-18] MEDS: Enoxaparin 40 MG/0.4 ML Syringe SUBCUT SCH (20:17)
[2019-02-18] MEDS ORDERED: Enoxaparin 40 MG/0.4 ML Syringe SUBCUT SCH (21:00)
[2019-02-19] MEDS: HYDROmorphone 2 MG Tab PO PRN (02:05)
[2019-02-19] MEDS: Insulin Lispro 100 Units/ML 3 ML Vial SUBCUT SCH (06:28)
[2019-02-19] MEDS: Lisinopril 20 MG Tab PO SCH (08:21)
[2019-02-19] MEDS: Citalopram 20 MG Tab PO SCH (08:21)
[2019-02-19] MEDS: Labetalol 100 MG Tab PO SCH (08:21)
[2019-02-19] MEDS: Diltiazem 240 MG Cap.ER PO SCH (08:21)
[2019-02-19] MEDS: ClonazePAM 0.5 MG Tab PO SCH (08:21)
--- NOTE | 2019-02-19 09:11 | PCM.DCSUM1 ---
Discharge Summary - Hospital Course Free Text/Narrative:: 28 yo male with h/o DM, Etoh abuse, pancreatitis, cholelithiasis admitted through ED with acute onset of severe abdominal pain, elevated lipase, N/V. Previously underwent cholecystectomy with subsequent ERCP. Admitted for further treatment. Daily progress: 02/15/19, lipase improving, pain persists, developed metabolic acidosis/DKA, started insulin IV gtt. CT showed pancreatitis, fatty liver, no gallstones. 02/16/19, acidosis improving, AG at 20, still requires insulin IV gtt, added glargine, started po intake, lipase normalizing, added citalopram, continue clonazepam, added ondansetron.Persistently tachycardic, will benefit from CCB instead of BBL. , acidosis resolved, converting to SC insulin, improving PO intake, added labetalol for BP. 02/18/19, tolerating SSI well, BP improved, will switch to XR diltiazem. 02/19/19, nausea, anxiety controlled, being d/c home with recommendations and follow up. Diagnosis: Stroke: No - Discharge Data Discharge Date: 02/19/19 Discharge Disposition: Home, Self-Care 01 Condition: Good - Discharge Diagnosis/Problem(s) (1) Relapsing pancreatitis SNOMED Code(s): 901510046 ICD Code: K86.1 - OTHER CHRONIC PANCREATITIS Status: Acute Priority: High Current Visit: Yes (2) Uncontrolled type 2 diabetes mellitus SNOMED Code(s): 616462974, 177589347 ICD Code: E11.65 - TYPE 2 DIABETES MELLITUS WITH HYPERGLYCEMIA Status: Acute Current Visit: Yes Qualifiers: Glycemic state: with hyperglycemia Qualified Code(s): E11.65 - Type 2 diabetes mellitus with hyperglycemia (3) Anxiety SNOMED Code(s): 87809015 ICD Code: F41.9 - ANXIETY DISORDER, UNSPECIFIED Status: Acute Priority: High Current Visit: Yes (4) Tachycardia SNOMED Code(s): 7223566 ICD Code: R00.0 - TACHYCARDIA, UNSPECIFIED Status: Acute Priority: High Current Visit: Yes - Patient Summary/Data Consults: Consultations 02/15/19 10:46 Consult to [employer] Be[employer] Machine Operator [Consult to Diabetic Nurse Specialist] [CONS] Routine - Patient Instructions Diet: Heart Healthy Diet, Diabetic Diet Activity: As Tolerated Driving: May Drive Today Showering/Bathing: May Shower - Discharge Plan *PRESCRIPTION DRUG MONITORING PROGRAM REVIEWED*: Not Applicable *COPY OF PRESCRIPTION DRUG MONITORING REPORT IN PATIENT KENJI: Not Applicable Prescriptions/Med Rec: Citalopram [Citalopram HBr] 20 mg PO DAILY 30 Days #30 tablet ClonazePAM [KlonoPIN] 0.5 mg PO BID 5 Days #10 tablet Diltiazem [Dilacor XR] 240 mg PO DAILY 30 Days #30 cap.er Insulin Aspart [NovoLOG] See Protocol SQ WITHMEALSANDBED 30 Days #3 pen Insulin Detemir [Levemir Flextouch] 20 unit SQ BID 30 Days #1 vial Labetalol [Normodyne] 100 mg PO TID 30 Days #90 tablet Lisinopril [Prinivil] 40 mg PO DAILY 30 Days #30 tablet Home Medications: Home Meds Citalopram [Citalopram HBr] 20 mg PO DAILY 30 Days #30 tablet 02/19/19 [Rx] ClonazePAM [KlonoPIN] 0.5 mg PO BID 5 Days #10 tablet 02/19/19 [Rx] Diltiazem [Dilacor XR] 240 mg PO DAILY 30 Days #30 cap.er 02/19/19 [Rx] Insulin Aspart [NovoLOG] See Protocol SQ WITHMEALSANDBED 30 Days #3 pen [Rx] Insulin Detemir [Levemir Flextouch] 20 unit SQ BID 30 Days #1 vial 02/19/19 [Rx] Labetalol [Normodyne] 100 mg PO TID 30 Days #90 tablet 02/19/19 [Rx] Lisinopril [Prinivil] 40 mg PO DAILY 30 Days #30 tablet 02/19/19 [Rx] Patient Handouts: Acute Pancreatitis, [id number] Forms: ED Department Discharge Referrals: Sylvester Price MD [Primary Care Provider] - - Discharge Summary/Plan Comment DC Time >30 min.: Yes - Patient Data Vitals - Most Recent: Last Vital Signs Temp 97.5 F 02/19/19 08:00 Pulse 88 02/19/19 08:21 Resp 16 02/19/19 08:00 BP 155/107 H 02/19/19 08:21 Pulse Ox 97 02/19/19 04:00 Weight - Most Recent: 199 lb 12.8 oz I&O - Last 24 hours: Intake & Output 02/18/19 02/19/19 02/19/19 19:59 03:59 11:59 Intake Total 1260 900 Output Total 1150 Balance 1260 -1150 900 Lab Results - Last 24 hrs: Laboratory Results - last 24 hr 02/18/19 02/18/19 02/18/19 Range/Units 05:49 09:28 12:03 WBC (4.23-9.07) K/mm3 RBC (4.63-6.08) M/mm3 Hgb (13.7-17.5) gm/L Hct (40.1-51.0) % MCV (79.0-92.2) fl MCH (25.7-32.2) pg MCHC (32.2-35.5) g/dl RDW Std Deviation (35.1-43.9) fL Plt Count (163-337) K/mm3 MPV (9.4-12.3) fl Neut % (Auto) (34.0-67.9) % Lymph % (Auto) (21.8-53.1) % [place] % (Auto) (5.3-12.2) % Eos % (Auto) (0.8-7.0) Baso % (Auto) (0.1-1.2) % Neut # (Auto) (1.78-5.38) K/mm3 Lymph # (Auto) (1.32-3.57) K/mm3 [place] # (Auto) (0.30-0.82) K/mm3 Eos # (Auto) (0.04-0.54) K/mm3 Baso # (Auto) (0.01-0.08) K/mm3 Sodium (136-145) mEq/L Potassium (3.5-5.1) mEq/L Chloride (98-107) mEq/L Carbon Dioxide (21-32) mEq/L Anion Gap (5-15) BUN (7-18) mg/dL Creatinine (0.7-1.3) mg/dL Est Cr Clr Drug Dosing mL/min Estimated GFR (MDRD) (>60) mL/min BUN/Creatinine Ratio (14-18) Glucose (74-106) mg/dL POC Glucose 169 H 279 H 239 H (70-105) mg/dL Calcium (8.5-10.1) mg/dL Phosphorus (2.6-4.7) mg/dL Magnesium (1.8-2.4) mg/dl Total Bilirubin (0.2-1.0) mg/dL AST (15-37) U/L ALT (16-63) U/L Alkaline Phosphatase (46-116) U/L Total Protein (6.4-8.2) g/dl Albumin (3.4-5.0) g/dl Globulin gm/dL Albumin/Globulin Ratio (1-2) Lipase (73-393) U/L 02/18/19 02/18/19 02/19/19 Range/Units 17:39 20:25 05:00 WBC (4.23-9.07) K/mm3 RBC (4.63-6.08) M/mm3 Hgb (13.7-17.5) gm/L Hct (40.1-51.0) % MCV (79.0-92.2) fl MCH (25.7-32.2) pg MCHC (32.2-35.5) g/dl RDW Std Deviation (35.1-43.9) fL Plt Count (163-337) K/mm3 MPV (9.4-12.3) fl Neut % (Auto) (34.0-67.9) % Lymph % (Auto) (21.8-53.1) % [place] % (Auto) (5.3-12.2) % Eos % (Auto) (0.8-7.0) Baso % (Auto) (0.1-1.2) % Neut # (Auto) (1.78-5.38) K/mm3 Lymph # (Auto) (1.32-3.57) K/mm3 [place] # (Auto) (0.30-0.82) K/mm3 Eos # (Auto) (0.04-0.54) K/mm3 Baso # (Auto) (0.01-0.08) K/mm3 Sodium (136-145) mEq/L Potassium (3.5-5.1) mEq/L Chloride (98-107) mEq/L Carbon Dioxide (21-32) mEq/L Anion Gap (5-15) BUN (7-18) mg/dL Creatinine (0.7-1.3) mg/dL Est Cr Clr Drug Dosing mL/min Estimated GFR (MDRD) (>60) mL/min BUN/Creatinine Ratio (14-18) Glucose (74-106) mg/dL POC Glucose 204 H 256 H (70-105) mg/dL Calcium (8.5-10.1) mg/dL Phosphorus 3.8 (2.6-4.7) mg/dL Magnesium 1.9 (1.8-2.4) mg/dl Total Bilirubin (0.2-1.0) mg/dL AST (15-37) U/L ALT (16-63) U/L Alkaline Phosphatase (46-116) U/L Total Protein (6.4-8.2) g/dl Albumin (3.4-5.0) g/dl Globulin gm/dL Albumin/Globulin Ratio (1-2) Lipase (73-393) U/L 02/19/19 02/19/19 02/19/19 Range/Units 05:00 05:00 06:28 WBC 4.38 (4.23-9.07) K/mm3 RBC 5.06 (4.63-6.08) M/mm3 Hgb 16.0 (13.7-17.5) gm/L Hct 44.4 (40.1-51.0) % MCV 87.7 (79.0-92.2) fl MCH 31.6 (25.7-32.2) pg MCHC 36.0 H (32.2-35.5) g/dl RDW Std Deviation 41.7 (35.1-43.9) fL Plt Count 237 (163-337) K/mm3 MPV 9.4 (9.4-12.3) fl Neut % (Auto) 39.5 (34.0-67.9) % Lymph % (Auto) 41.8 (21.8-53.1) % [place] % (Auto) 14.2 H (5.3-12.2) % Eos % (Auto) 3.2 (0.8-7.0) Baso % (Auto) 1.1 (0.1-1.2) % Neut # (Auto) 1.73 L (1.78-5.38) K/mm3 Lymph # (Auto) 1.83 (1.32-3.57) K/mm3 [place] # (Auto) 0.62 (0.30-0.82) K/mm3 Eos # (Auto) 0.14 (0.04-0.54) K/mm3 Baso # (Auto) 0.05 (0.01-0.08) K/mm3 Sodium 136 (136-145) mEq/L Potassium 3.5 (3.5-5.1) mEq/L Chloride 99 (98-107) mEq/L Carbon Dioxide 29 (21-32) mEq/L Anion Gap 11.5 (5-15) BUN 9 (7-18) mg/dL Creatinine 0.7 (0.7-1.3) mg/dL Est Cr Clr Drug Dosing 159.33 mL/min Estimated GFR (MDRD) > 60 (>60) mL/min BUN/Creatinine Ratio 12.9 L (14-18) Glucose 194 H (74-106) mg/dL POC Glucose 167 H (70-105) mg/dL Calcium 9.2 (8.5-10.1) mg/dL Phosphorus (2.6-4.7) mg/dL Magnesium (1.8-2.4) mg/dl Total Bilirubin 1.9 H (0.2-1.0) mg/dL AST 130 H (15-37) U/L ALT 444 H (16-63) U/L Alkaline Phosphatase 159 H (46-116) U/L Total Protein 7.2 (6.4-8.2) g/dl Albumin 3.4 (3.4-5.0) g/dl Globulin 3.8 gm/dL Albumin/Globulin Ratio 0.9 L (1-2) Lipase 49 L (73-393) U/L Med Orders - Current: Current Medications Citalopram Hydrobromide (Celexa) 20 mg PO DAILY [facility] Last Admin: 02/19/19 08:21 Dose: 20 mg Clonazepam (Klonopin) 0.5 mg PO TID [facility] Last Admin: 02/19/19 08:21 Dose: 0.5 mg Diltiazem HCl (Dilacor Xr) 240 mg PO DAILY [facility] Last Admin: 02/19/19 08:21 Dose: 240 mg Enoxaparin Sodium (Lovenox) 40 mg SUBCUT BEDTIME [facility] Last Admin: 02/18/19 20:17 Dose: 40 mg Hydromorphone HCl (Dilaudid) 2 mg PO Q4H PRN PRN Reason: Pain (severe 7-10) Last Admin: 02/19/19 02:05 Dose: 2 mg Dextrose/Sodium Chloride (Dextrose 5%-Normal Saline) 1,000 mls @ 175 mls/hr IV ASDIRECTED [facility] Last Admin: 02/17/19 09:53 Dose: 175 mls/hr Insulin Glargine (Lantus) 35 unit SUBCUT Q24H [facility] Last Admin: 02/18/19 09:28 Dose: 35 unit Insulin Human Lispro (Humalog) 0 unit SUBCUT TIDAC [facility]; Protocol Last Admin: 02/19/19 06:28 Dose: 1 unit Insulin Human Lispro (Humalog) 0 unit SUBCUT BEDTIME [facility]; Protocol Last Admin: 02/18/19 20:25 Dose: 3 units Labetalol HCl (Normodyne) 100 mg PO TID [facility] Last Admin: 02/19/19 08:21 Dose: 100 mg Lisinopril (Prinivil) 40 mg PO DAILY [facility] Last Admin: 02/19/19 08:21 Dose: 40 mg Discontinued Medications Diltiazem HCl (Cardizem) 60 mg PO Q6HR [facility] Last Admin: 02/18/19 06:01 Dose: 60 mg Enoxaparin Sodium (Lovenox) 40 mg SUBCUT DAILY [facility] Last Admin: 02/15/19 08:02 Dose: 40 mg Hydralazine HCl (Apresoline) 10 mg IVPUSH ONETIME ONE Stop: 02/17/19 05:39 Last Admin: 02/17/19 05:45 Dose: 10 mg Hydromorphone HCl (Dilaudid) 1 mg IVPUSH ONETIME ONE Stop: 02/14/19 14:36 Last Admin: 02/14/19 15:00 Dose: 1 mg Hydromorphone HCl (Dilaudid) 1 mg IVPUSH ONETIME ONE Stop: 02/14/19 15:49 Last Admin: 02/14/19 15:57 Dose: 1 mg Hydromorphone HCl (Dilaudid) 0.5 mg IVPUSH Q2H PRN PRN Reason: Pain (severe 7-10) Last Admin: 02/14/19 18:46 Dose: 0.5 mg Hydromorphone HCl (Dilaudid) 1 mg IVPUSH Q2H PRN PRN Reason: Pain (severe 7-10) Last Admin: 02/15/19 01:04 Dose: 1 mg Hydromorphone HCl (Dilaudid) 1 mg IVPUSH Q2H PRN PRN Reason: Pain (severe 7-10) Last Admin: 02/15/19 08:02 Dose: 1 mg Hydromorphone HCl (Dilaudid) 1 mg IVPUSH Q2H PRN PRN Reason: Pain (severe 7-10) Last Admin: 02/15/19 12:30 Dose: 1 mg Hydromorphone HCl (Dilaudid) 2 mg IVPUSH Q2H PRN PRN Reason: Abdominal Pain Last Admin: 02/17/19 18:39 Dose: 2 mg Sodium Chloride (Normal Saline) 150 mls @ 999 mls/hr IV ASDIRECTED ONE Stop: 02/14/19 14:43 Last Admin: 02/14/19 14:54 Dose: Not Given Sodium Chloride (Normal Saline) 1,000 mls @ 999 mls/hr IV ASDIRECTED [facility] Last Admin: 02/14/19 14:58 Dose: 999 mls/hr Sodium Chloride (Normal Saline) 1,000 mls @ 999 mls/hr IV ONETIME ONE Stop: 02/14/19 18:09 Last Admin: 02/14/19 17:15 Dose: 999 mls/hr Lactated Ringer's (Ringers, Lactated) 1,000 mls @ 125 mls/hr IV ASDIRECTED [facility] Last Admin: 02/15/19 10:26 Dose: 125 mls/hr Dextrose/Sodium Chloride (Dextrose 5%-Normal Saline) 1,000 mls @ 125 mls/hr IV CONTINUOUS [facility] Last Admin: 02/16/19 04:57 Dose: 175 mls/hr Insulin Human Regular 100 unit (/ Sodium Chloride) 100 mls @ 5 mls/hr IV CONTINUOUS [facility] Stop: 02/17/19 18:00 Last Infusion: 02/17/19 02:05 Dose: 2 mls/hr Magnesium Sulfate 2 gm/ Premix 50 mls @ 25 mls/hr IV ONETIME ONE Stop: 02/16/19 08:35 Last Admin: 02/16/19 07:09 Dose: 25 mls/hr Potassium Phosphate 30 mmole/ (Sodium Chloride) 260 mls @ 50 mls/hr IV ONETIME ONE Stop: 02/16/19 14:56 Last Admin: 02/16/19 10:11 Dose: 50 mls/hr Potassium Phosphate 30 mmole/ (Sodium Chloride) 260 mls @ 50 mls/hr IV ONETIME ONE Stop: 02/17/19 14:56 Last Admin: 02/17/19 09:48 Dose: 50 mls/hr Potassium Chloride 10 meq/ (Premix) 100 mls @ 100 mls/hr IV Q1H [facility] Stop: 02/17/19 19:29 Last Admin: 02/17/19 19:41 Dose: 100 mls/hr Insulin Glargine (Lantus) 25 unit SUBCUT Q24H [facility] Last Admin: 02/17/19 09:55 Dose: 25 units Insulin Human Lispro (Humalog) 0 unit SUBCUT Q6HR [facility]; Protocol Insulin Human Lispro (Humalog) 0 unit SUBCUT Q6HR [facility]; Protocol Last Admin: 02/15/19 13:24 Dose: Not Given Insulin Human Lispro (Humalog) 0 unit SUBCUT QIDACANDBED [facility]; Protocol Last Admin: 02/17/19 17:10 Dose: Not Given Insulin Human Lispro (Humalog) 0 unit SUBCUT TIDMEALS [facility]; Protocol Insulin Human Regular (Humulin R) 5 unit IV ONETIME ONE Stop: 02/16/19 00:45 Last Admin: 02/16/19 01:07 Dose: 5 units Insulin Human Regular (Humulin R) 3 unit IV ONETIME ONE Stop: 02/16/19 17:23 Last Admin: 02/16/19 17:45 Dose: 3 units Insulin Human Regular (Humulin R) 6 unit IV ONETIME ONE Stop: 02/17/19 11:24 Last Admin: 02/17/19 11:38 Dose: 6 units Labetalol HCl (Normodyne) 15 mg IVPUSH ONETIME ONE; Protocol Stop: 02/15/19 21:08 Last Admin: 02/15/19 21:20 Dose: 15 mg Labetalol HCl (Normodyne) 10 mg IVPUSH ONETIME ONE; Protocol Stop: 02/16/19 19:49 Last Admin: 02/16/19 20:10 Dose: 10 mg Labetalol HCl (Normodyne) 10 mg IVPUSH ONETIME ONE; Protocol Stop: 02/16/19 21:07 Last Admin: 02/16/19 21:10 Dose: 10 mg Lorazepam (Ativan) 1 mg IVPUSH ONETIME ONE Stop: 02/14/19 15:50 Last Admin: 02/14/19 15:58 Dose: 1 mg Metoclopramide HCl (Reglan) 7.5 mg IVPUSH ONETIME ONE Stop: 02/14/19 14:36 Last Admin: 02/14/19 14:58 Dose: 7.5 mg Metoclopramide HCl (Reglan) 10 mg IVPUSH Q6H [facility] Stop: 02/17/19 04:01 Last Admin: 02/17/19 04:00 Dose: 10 mg Ondansetron HCl (Zofran) 4 mg IV Q4H PRN PRN Reason: Nausea/Vomiting Last Admin: 02/15/19 08:07 Dose: 4 mg Ondansetron HCl (Zofran) 4 mg IVPUSH Q8H [facility] Stop: 02/17/19 10:01 Last Admin: 02/17/19 09:54 Dose: 4 mg Potassium Chloride (Klor-Con M20) 40 meq PO ONETIME ONE Stop: 02/18/19 05:38 Last Admin: 02/18/19 06:01 Dose: 40 meq - Exam Physical Findings Comments:: General: Alert, Oriented, Moderate Distress HEENT: Conjunctiva Clear, EOMI. No: Mucosa Moist & [place] Neck: Supple, Trachea Midline. No: Lymphadenopathy Lungs: Clear to Auscultation, Normal Respiratory Effort. No: Wheezing Cardiovascular: Regular Rate, Regular Rhythm, Normal S1, Normal S2 GI/Abdominal Exam: No Distention, Tender, Abnormal Bowel Sounds. No: Distended , Hepatomegaly, Splenomegaly Extremities: Normal Range of Motion, Normal Capillary Refill. No: Pedal Edema Peripheral Pulses: 2+: Posterior Tibial (L), Posterior Tibial (R) Skin: Warm, Dry, Intact Neuro Extensive - Mental Status: Alert, Oriented x3, Memory Intact Neuro Extensive - Motor, Sensory, Reflexes: CN II-XII Intact, Normal Gait, Normal Reflexes. No: Motor/Sensory Deficits Psychiatric: Normal Affect, Anxious
[2019-02-19] MEDS: Insulin Glarg,Human.Rec.Analog 100 UNIT/ML ML SUBCUT SCH (10:11)
== END 2019-02-19 11:50 | disposition home or self-care (01) | DRG 438 ==
LOC: JD.ED 14:07 → JD.MS 16:37 → JD.ICU 02-15 13:26
PROVIDERS: ADMIT Emergency Medicine; ATTEND Internal Medicine
DX: K86.0 Alcohol-induced chronic pancreatitis (principal); E11.10 Type 2 diabetes mellitus with ketoacidosis without coma; F10.10 Alcohol abuse, uncomplicated; E86.9 Volume depletion, unspecified; E11.65 Type 2 diabetes mellitus with hyperglycemia; F41.9 Anxiety disorder, unspecified; K76.0 Fatty (change of) liver, not elsewhere classified; R00.0 Tachycardia, unspecified; H54.7 Unspecified visual loss; I10 Essential (primary) hypertension; Z79.4 Long term (current) use of insulin; Z79.899 Other long term (current) drug therapy; Z90.49 Acquired absence of other specified parts of digestive tract
CPT/HCPCS: 36415; 36600; 74018; 74018-26; 74176; 74176-26; 80048; 80053; 80061; 80306; 82150; 82803; 82962; 82977; 83036; 83605; 83690; 83735; 84100; 85007; 85025; 85027; 85610; 86140; 96361; 96374; 96375; 96376; 99285; 99285-25; A9270-GY; G0480; J0360; J1170; J1650; J1815-GY; J2060; J2405; J2765; J3475; J3480; J3490; J7040; J7042; J7050; J7120

== ENCOUNTER 2019-03-20 17:48 | Emergency (ER) | payer MEDICAID ==
[2019-03-20] MEDS ORDERED: Lactated Ringers 1,000 ML IV ONE ×2 (18:53→19:57)
[2019-03-20] MEDS ORDERED: Ondansetron 4 MG/2 ML SDV IVPUSH ONE ×2 (18:53→21:25)
[2019-03-20] MEDS ORDERED: Sodium Chloride 0.9% 10 ML Syringe FLUSH PRN (18:53)
--- NOTE | 2019-03-20 20:44 | EDM.PDOC ---
ED HPI GENERAL MEDICAL PROBLEM - General Chief Complaint: Gastrointestinal Problem Stated Complaint: HIGH BLOOD PRESSURE FEELS DEHYDRATED Time Seen by Provider: 03/20/19 18:30 Source of Information: Reports: Patient History Limitations: Reports: Intoxication - History of Present Illness INITIAL COMMENTS - FREE TEXT/NARRATIVE: 28 year old male presents for evaluation and treatment of vomiting and diarrhea. Reports symptoms started this morning. Patient is a type II diabetic. He states that he does not check his blood sugars regularly. States his blood sugars usually run 300-400. He is reporting symptoms of nausea, vomiting, diarrhea, body aches, chills, diaphoresis and anxiety. He reports having 9 to 10 episodes of diarrhea today. Having trouble sleeping due to his anxiety and symptoms. He has not appreciated any blood in his stool. He denies any cough, ear pain, sore throat or abdominal pain. Patient also reports his blood pressures elevated. He feels this is likely due to anxiety. Previously on anxiety medications but has been off these for quite some time. No headaches, chest pain or shortness of breath. Primary care provider is Dr. Sloan. Patient has been seen in the ER on several occasions for pancreatitis. He states that he feels that his pancreas is "throbbing ". He does not feel the pain that he is felt in the past with pancreatitis. Patient denies any recent antibiotic usage. He denies any recent travel. 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 - Related Data Allergies Allergy/AdvReac Type Severity Reaction Status Date / Time No Known Allergies Allergy Verified 03/20/19 18:00 Home Meds: Home Meds Diltiazem [Dilacor XR] 240 mg PO DAILY 30 Days #30 cap.er 02/19/19 [Rx] Insulin Aspart [NovoLOG] See Protocol SQ WITHMEALSANDBED 30 Days #3 pen [Rx] Labetalol [Normodyne] 100 mg PO TID 30 Days #90 tablet 02/19/19 [Rx] Lisinopril [Prinivil] 40 mg PO DAILY 30 Days #30 tablet 02/19/19 [Rx] Ondansetron [Zofran ODT] 4 mg PO Q6H PRN #20 tab.dis 03/20/19 [Rx] Past Medical History HEENT History: Reports: Impaired Vision Other HEENT History: Wears glasss Cardiovascular History: Reports: Hypertension Gastrointestinal History: Reports: Pancreatitis, Other (See Below) Other Gastrointestinal History: Fatty liver, acute pancreatitis--recurrent bouts of pancreatitis due to alcohol use Psychiatric History: Reports: Addiction, Anxiety, Other (See Below) Other Psychiatric History: alcohol abuse Endocrine/Metabolic History: Reports: Diabetes, Type II - Infectious Disease History Infectious Disease History: Reports: Chicken Pox - Past Surgical History Head Surgeries/Procedures: Reports: None Social & Family History - Family History Family Medical History: Noncontributory - Tobacco Use Smoking Status *Q: Former Smoker Used Tobacco, but Quit: Yes Month/Year Tobacco Last Used: 2 weeks ago - Caffeine Use Caffeine Use: Reports: Soda Caffeine Use Comment: doesnt drink soda often, "takes me 3 hours to finish one soda" - Recreational Drug Use Recreational Drug Use: Yes Drug Use in Last 12 Months: Yes Recreational Drug Type: Reports: Marijuana/Hashish Recreational Drug Use Frequency: Rarely - Living Situation & Occupation Living situation: Reports: Single, Other (Has a 2-year daughter with ex- girlfriend) 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 Denies: Abdominal Pain, Bloody Stool Psychiatric: Reports: Anxiety ED EXAM, GI/ABD - Physical Exam Exam: See Below Exam Limited By: No Limitations General Appearance: Alert, WD/WN, No Apparent Distress, Anxious Eyes: Bilateral: Normal Appearance Ears: Normal External Exam Nose: Normal Inspection Throat/Mouth: Normal Inspection, Normal Lips, Normal Voice, No Airway Compromise Respiratory/Chest: No Respiratory Distress, Lungs Clear, Normal Breath Sounds Cardiovascular: Normal Peripheral Pulses, Regular Rate, Rhythm, No Murmur GI/Abdominal Exam: Normal Bowel Sounds, Soft, Non-Tender Neurological: Alert, Oriented, Normal Cognition Psychiatric: Normal Affect, Normal Mood Skin Exam: Warm, Dry, Normal Color Course - Vital Signs Last Recorded V/S: Last Vital Signs Temp 97.9 F 03/20/19 17:57 Pulse 89 03/20/19 17:57 Resp 16 03/20/19 17:57 BP 172/116 H 03/20/19 17:57 Pulse Ox 97 03/20/19 17:57 - Orders/Labs/Meds Labs: Laboratory Tests 03/20/19 03/20/19 03/20/19 Range/Units 19:00 19:00 19:00 WBC (4.23-9.07) K/mm3 RBC (4.63-6.08) M/mm3 Hgb (13.7-17.5) gm/L Hct (40.1-51.0) % MCV (79.0-92.2) fl MCH (25.7-32.2) pg MCHC (32.2-35.5) g/dl RDW Std Deviation (35.1-43.9) fL Plt Count (163-337) K/mm3 MPV (9.4-12.3) fl Neut % (Auto) (34.0-67.9) % Lymph % (Auto) (21.8-53.1) % [place] % (Auto) (5.3-12.2) % Eos % (Auto) (0.8-7.0) Baso % (Auto) (0.1-1.2) % Neut # (Auto) (1.78-5.38) K/mm3 Lymph # (Auto) (1.32-3.57) K/mm3 [place] # (Auto) (0.30-0.82) K/mm3 Eos # (Auto) (0.04-0.54) K/mm3 Baso # (Auto) (0.01-0.08) K/mm3 Puncture Site ABG pH (7.35-7.45) ABG pCO2 (35.0-45.0) mmHg ABG pO2 (80.0-100.0) mmHg ABG HCO3 (22.0-26.0) meq/L ABG O2 Saturation (96.0-97.0) % ABG Base Excess (-2-2.0) Faisal Test A-a Gradient mmHg O2 Delivery Device FiO2 (21.00-100.00) % Sodium 134 L (136-145) mEq/L Potassium 4.0 (3.5-5.1) mEq/L Chloride 94 L (98-107) mEq/L Carbon Dioxide 23 (21-32) mEq/L Anion Gap 21.0 H (5-15) BUN 10 (7-18) mg/dL Creatinine 0.8 (0.7-1.3) mg/dL Est Cr Clr Drug Dosing 143.80 mL/min Estimated GFR (MDRD) > 60 (>60) mL/min BUN/Creatinine Ratio 12.5 L (14-18) Glucose 317 H (74-106) mg/dL POC Glucose (70-105) mg/dL Calcium 9.7 (8.5-10.1) mg/dL Magnesium 1.7 L (1.8-2.4) mg/dl Total Bilirubin 3.4 H (0.2-1.0) mg/dL AST 166 H (15-37) U/L ALT 210 H (16-63) U/L Alkaline Phosphatase 139 H (46-116) U/L Total Protein 8.2 (6.4-8.2) g/dl Albumin 4.6 (3.4-5.0) g/dl Globulin 3.6 gm/dL Albumin/Globulin Ratio 1.3 (1-2) Lipase 29 L (73-393) U/L Urine Color Yellow (Yellow) Urine Appearance Clear (Clear) Urine pH 6.0 (5.0-8.0) Ur Specific Hasty 1.020 (1.005-1.030) Urine Protein 2+ H (Negative) Urine Glucose (UA) 2+ H (Negative) Urine Ketones 4+ H (Negative) Urine Occult Blood Trace-intact H (Negative) Urine Nitrite Negative (Negative) Urine Bilirubin 1+ H (Negative) Urine Urobilinogen 0.2 (0.2-1.0) Ur Leukocyte Esterase Negative (Negative) Urine RBC 0-5 (0-5) /hpf Urine WBC Not seen (0-5) /hpf Ur Squamous Epith Cells 0-5 (0-5) /hpf Urine Bacteria Not seen (FEW) /hpf Urine Mucus Not seen (FEW) /hpf Urine Opiates Screen Negative (XEYKOG=842) Ur Buprenorphine Scrn Negative (CUTOFF=10) Ur Oxycodone Screen Negative (LZH3YZ=925) Urine Methadone Screen Negative (PJV3ZD=999) Ur Propoxyphene Screen Negative (TTOTEP=830) Ur Barbiturates Screen Negative (MZAQSB=386) Ur Tricyclics Screen Negative (UNTWYL=760) Ur Phencyclidine Scrn Negative (CUTOFF=25) Ur Amphetamine Screen Negative (CJZXJX=885) U Methamphetamines Scrn Negative (DDXNSU=898) U Benzodiazepines Scrn Negative (JDHNKH=798) U Cocaine Metab Screen Negative (DWGMFQ=888) U Marijuana (THC) Screen Presumptive positive H (CUTOFF=50) Ethyl Alcohol 0.00 (0.00) gm% Ketones (0.0-0.3) mM 03/20/19 03/20/19 03/20/19 Range/Units 19:05 19:05 20:42 WBC 4.19 L (4.23-9.07) K/mm3 RBC 5.30 (4.63-6.08) M/mm3 Hgb 16.8 (13.7-17.5) gm/L Hct 46.9 (40.1-51.0) % MCV 88.5 (79.0-92.2) fl MCH 31.7 (25.7-32.2) pg MCHC 35.8 H (32.2-35.5) g/dl RDW Std Deviation 40.3 (35.1-43.9) fL Plt Count 161 L D (163-337) K/mm3 MPV 10.5 (9.4-12.3) fl Neut % (Auto) 61.2 (34.0-67.9) % Lymph % (Auto) 27.4 (21.8-53.1) % [place] % (Auto) 9.5 (5.3-12.2) % Eos % (Auto) 0.2 L (0.8-7.0) Baso % (Auto) 1.7 H (0.1-1.2) % Neut # (Auto) 2.56 (1.78-5.38) K/mm3 Lymph # (Auto) 1.15 L (1.32-3.57) K/mm3 [place] # (Auto) 0.40 (0.30-0.82) K/mm3 Eos # (Auto) 0.01 L (0.04-0.54) K/mm3 Baso # (Auto) 0.07 (0.01-0.08) K/mm3 Puncture Site Rt radial ABG pH 7.44 (7.35-7.45) ABG pCO2 33.8 L (35.0-45.0) mmHg ABG pO2 77.0 L (80.0-100.0) mmHg ABG HCO3 22.5 (22.0-26.0) meq/L ABG O2 Saturation 96.3 (96.0-97.0) % ABG Base Excess -0.5 (-2-2.0) Faisal Test Positive A-a Gradient 15 mmHg O2 Delivery Device Room air FiO2 21.00 (21.00-100.00) % Sodium (136-145) mEq/L Potassium (3.5-5.1) mEq/L Chloride (98-107) mEq/L Carbon Dioxide (21-32) mEq/L Anion Gap (5-15) BUN (7-18) mg/dL Creatinine (0.7-1.3) mg/dL Est Cr Clr Drug Dosing mL/min Estimated GFR (MDRD) (>60) mL/min BUN/Creatinine Ratio (14-18) Glucose (74-106) mg/dL POC Glucose (70-105) mg/dL Calcium (8.5-10.1) mg/dL Magnesium (1.8-2.4) mg/dl Total Bilirubin (0.2-1.0) mg/dL AST (15-37) U/L ALT (16-63) U/L Alkaline Phosphatase (46-116) U/L Total Protein (6.4-8.2) g/dl Albumin (3.4-5.0) g/dl Globulin gm/dL Albumin/Globulin Ratio (1-2) Lipase (73-393) U/L Urine Color (Yellow) Urine Appearance (Clear) Urine pH (5.0-8.0) Ur Specific [place] (1.005-1.030) Urine Protein (Negative) Urine Glucose (UA) (Negative) Urine Ketones (Negative) Urine Occult Blood (Negative) Urine Nitrite (Negative) Urine Bilirubin (Negative) Urine Urobilinogen (0.2-1.0) Ur Leukocyte Esterase (Negative) Urine RBC (0-5) /hpf Urine WBC (0-5) /hpf Ur Squamous Epith Cells (0-5) /hpf Urine Bacteria (FEW) /hpf Urine Mucus (FEW) /hpf Urine Opiates Screen (SGUUUM=829) Ur Buprenorphine Scrn (CUTOFF=10) Ur Oxycodone Screen (BSH1QM=380) Urine Methadone Screen (HQH0HZ=900) Ur Propoxyphene Screen (QNSUHY=318) Ur Barbiturates Screen (XOAQTP=587) Ur Tricyclics Screen (SMQVTY=139) Ur Phencyclidine Scrn (CUTOFF=25) Ur Amphetamine Screen (TWGGBT=914) U Methamphetamines Scrn (GNNAIE=925) U Benzodiazepines Scrn (UROEDE=571) U Cocaine Metab Screen (VXTGQC=673) U Marijuana (THC) Screen (CUTOFF=50) Ethyl Alcohol (0.00) gm% Ketones 4.81 (0.0-0.3) mM 03/20/19 Range/Units 20:56 WBC (4.23-9.07) K/mm3 RBC (4.63-6.08) M/mm3 Hgb (13.7-17.5) gm/L Hct (40.1-51.0) % MCV (79.0-92.2) fl MCH (25.7-32.2) pg MCHC (32.2-35.5) g/dl RDW Std Deviation (35.1-43.9) fL Plt Count (163-337) K/mm3 MPV (9.4-12.3) fl Neut % (Auto) (34.0-67.9) % Lymph % (Auto) (21.8-53.1) % [place] % (Auto) (5.3-12.2) % Eos % (Auto) (0.8-7.0) Baso % (Auto) (0.1-1.2) % Neut # (Auto) (1.78-5.38) K/mm3 Lymph # (Auto) (1.32-3.57) K/mm3 [place] # (Auto) (0.30-0.82) K/mm3 Eos # (Auto) (0.04-0.54) K/mm3 Baso # (Auto) (0.01-0.08) K/mm3 Puncture Site ABG pH (7.35-7.45) ABG pCO2 (35.0-45.0) mmHg ABG pO2 (80.0-100.0) mmHg ABG HCO3 (22.0-26.0) meq/L ABG O2 Saturation (96.0-97.0) % ABG Base Excess (-2-2.0) Faisal Test A-a Gradient mmHg O2 Delivery Device FiO2 (21.00-100.00) % Sodium (136-145) mEq/L Potassium (3.5-5.1) mEq/L Chloride (98-107) mEq/L Carbon Dioxide (21-32) mEq/L Anion Gap (5-15) BUN (7-18) mg/dL Creatinine (0.7-1.3) mg/dL Est Cr Clr Drug Dosing mL/min Estimated GFR (MDRD) (>60) mL/min BUN/Creatinine Ratio (14-18) Glucose (74-106) mg/dL POC Glucose 238 H (70-105) mg/dL Calcium (8.5-10.1) mg/dL Magnesium (1.8-2.4) mg/dl Total Bilirubin (0.2-1.0) mg/dL AST (15-37) U/L ALT (16-63) U/L Alkaline Phosphatase (46-116) U/L Total Protein (6.4-8.2) g/dl Albumin (3.4-5.0) g/dl Globulin gm/dL Albumin/Globulin Ratio (1-2) Lipase (73-393) U/L Urine Color (Yellow) Urine Appearance (Clear) Urine pH (5.0-8.0) Ur Specific [place] (1.005-1.030) Urine Protein (Negative) Urine Glucose (UA) (Negative) Urine Ketones (Negative) Urine Occult Blood (Negative) Urine Nitrite (Negative) Urine Bilirubin (Negative) Urine Urobilinogen (0.2-1.0) Ur Leukocyte Esterase (Negative) Urine RBC (0-5) /hpf Urine WBC (0-5) /hpf Ur Squamous Epith Cells (0-5) /hpf Urine Bacteria (FEW) /hpf Urine Mucus (FEW) /hpf Urine Opiates Screen (OFUVNH=263) Ur Buprenorphine Scrn (CUTOFF=10) Ur Oxycodone Screen (FEC0IC=119) Urine Methadone Screen (AXP7HO=428) Ur Propoxyphene Screen (RDWFZV=519) Ur Barbiturates Screen (USEUUD=612) Ur Tricyclics Screen (BTDMQC=450) Ur Phencyclidine Scrn (CUTOFF=25) Ur Amphetamine Screen (UWGBYS=238) U Methamphetamines Scrn (FFOHZW=092) U Benzodiazepines Scrn (WWCYGK=513) U Cocaine Metab Screen (DLUGIS=446) U Marijuana (THC) Screen (CUTOFF=50) Ethyl Alcohol (0.00) gm% Ketones (0.0-0.3) mM Meds: Medications Discontinued Medications Generic Name Dose Route Start Last Admin Trade Name Freq PRN Reason Stop Dose Admin Lactated Ringer's 1,000 mls @ 999 mls/hr 03/20/19 18:53 03/20/19 19:13 Ringers, Lactated IV 03/20/19 19:53 999 mls/hr .BOLUS ONE Administration Lactated Ringer's 1,000 mls @ 999 mls/hr 03/20/19 19:57 03/20/19 20:55 Ringers, Lactated IV 03/20/19 20:57 999 mls/hr .BOLUS ONE Administration Magnesium Sulfate/Dextrose 1 100 mls @ 100 mls/hr 03/20/19 19:57 03/20/19 21: 06 gm/ Premix IV 03/20/19 20:56 100 mls/hr ONETIME ONE Administration Lorazepam 1 mg 03/20/19 21:47 03/20/19 21:59 Ativan IVPUSH 03/20/19 21:48 1 mg ONETIME ONE Administration Ondansetron HCl 4 mg 03/20/19 18:53 03/20/19 19:05 Zofran IVPUSH 03/20/19 18:54 4 mg ONETIME ONE Administration Ondansetron HCl 4 mg 03/20/19 21:25 03/20/19 21:58 Zofran IVPUSH 03/20/19 21:26 4 mg ONETIME ONE Administration Ondansetron HCl Confirm 03/20/19 21:55 03/20/19 22:01 Zofran Administered 03/20/19 21:56 Not Given Dose 4 mg .ROUTE .STK-MED ONE Sodium Chloride 10 ml 03/20/19 18:53 03/20/19 19:05 Saline Flush FLUSH 10 ml ASDIRECTED PRN Administration Keep Vein Open - Re-Assessments/Exams Free Text/Narrative Re-Assessment/Exam: 06/05/19 21:50 Patient reports symptoms have improved since receiving the fluids. No diarrhea since entering the ER. Blood pressure has come down with Ativan. Blood pressure has been 140s to 160s systolic. Will discharge her home. Discharge instructions as documented. Departure - Departure Time of Disposition: 21:51 Disposition: Home, Self-Care 01 Condition: Fair Clinical Impression: Viral gastroenteritis, Dehydration - Discharge Information *PRESCRIPTION DRUG MONITORING PROGRAM REVIEWED*: No *COPY OF PRESCRIPTION DRUG MONITORING REPORT IN PATIENT KENJI: No Prescriptions: Ondansetron [Zofran ODT] 4 mg PO Q6H PRN #20 tab.dis PRN Reason: Nausea Instructions: Viral Gastroenteritis, Adult, [id number] Referrals: Sylvester Price MD [Primary Care Provider] - Forms: ED Department Discharge Additional Instructions: Clear fluids today. Recommend water, Gatorade or Powerade. [place] foods such as bread, crackers, Soup broth as tolerated. Zofran 1 tab sublingual every 6 to 8 hours as needed for nausea. Follow-up the clinic Monday or Monday with your primary care provider. Please return to the ER should your symptoms change or worsen.
[2019-03-20] MEDS ORDERED: LORazepam 2 MG/ML SDV IVPUSH ONE (21:47)
[2019-03-20] MEDS ORDERED: Ondansetron 4 MG/2 ML SDV ONE (21:55)
--- NOTE | 2019-03-21 08:57 | CR ---
Abdomen: Supine and upright views of the abdomen were obtained. Comparison: Prior abdominal x-ray of 02/14/19. Bowel gas pattern is normal. No abnormal calcifications or soft tissue abnormality is seen. Bony structures are unremarkable. Incidental surgical clips are seen from prior cholecystectomy. Impression: 1. Nothing acute is appreciated on two-view abdominal x-ray. Diagnostic code #2
== END 2019-03-20 22:50 | disposition home or self-care (01) ==
LOC: JD.ED 17:48
DX: A08.4 Viral intestinal infection, unspecified (principal); E86.0 Dehydration; I10 Essential (primary) hypertension; E11.9 Type 2 diabetes mellitus without complications; F41.9 Anxiety disorder, unspecified; Z87.891 Personal history of nicotine dependence; Z79.4 Long term (current) use of insulin; Z79.899 Other long term (current) drug therapy
CPT/HCPCS: 36415; 36600; 74019; 80053; 80306; 81001; 82009; 82803; 82962; 83690; 83735; 85025; 96361; 96365; 96375; 96376; 99284; G0480; J2060; J2405; J3475; J7120; 99283

== ENCOUNTER 2019-06-25 10:39 | Emergency (ER) | payer MEDICAID, OTHER ==
[2019-06-25] MEDS ORDERED: Famotidine 20 MG Tab PO ONE (11:33)
[2019-06-25] MEDS ORDERED: Cyclobenzaprine 10 MG Tab PO ONE (11:42)
--- NOTE | 2019-06-25 11:43 | EDM.PDOC ---
<Jefry Segovia - Last Filed: 06/25/19 11:53> ED HPI GENERAL MEDICAL PROBLEM - General Chief Complaint: General Stated Complaint: STOMACH PAIN Time Seen by Provider: 06/25/19 11:08 Source of Information: Reports: Patient History Limitations: Reports: No Limitations - History of Present Illness INITIAL COMMENTS - FREE TEXT/NARRATIVE: Patient states that last week he began having abdominal pain in the LUQ and RUQ that he feels was consistent with worsening of his gastritis. Patient states he felt 'gassy' and 'swollen.' On Monday06/23/19 pt began feeling back pain in his right subscapular area that felt as if his back was 'seizing up.' Pt feels this is musculoskeletal in nature. Pt has had one episode of vomiting last night, and states that he has had 8 loose bowel movements between last night and this morning. He has had no fever or chills. No dysuria. No increased frequency or urgency. Pt carries hx of chronic pancreatitis for which he has been seen several times in the ED. Pt states that his current symptoms do not feel like previous episodes of pancreatitis. Pt is also a recovering alcoholic and states his last drink was Monday night. Pt is a Type II diabetic and has not checked his blood glucose since sometime last week. Pt is currently experiencing financial difficulty and has been rationing his insulin. He is unsure whether his insulin has . Pt has not seen his PCP for several months. Pt also notes some painful nodules on his forearms. 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 Left Back Pain Score (Numeric/FACES): 10 - Related Data Allergies Allergy/AdvReac Type Severity Reaction Status Date / Time No Known Allergies Allergy Verified 06/25/19 10:56 Home Meds: Home Meds Diltiazem [Dilacor XR] 240 mg PO DAILY 30 Days #30 cap.er 02/19/19 [Rx] Labetalol [Normodyne] 100 mg PO TID 30 Days #90 tablet 02/19/19 [Rx] Lisinopril [Prinivil] 40 mg PO DAILY 30 Days #30 tablet 02/19/19 [Rx] Insulin Lispro [Humalog] See Protocol SQ QIDACANDBED 04/22/19 [History] Insulin Glarg,Human.Rec.Analog [Lantus] 15 unit SUBCUT BIDAC #1 ml 04/25/19 [Rx] oxyCODONE HCl/Acetaminophen [Percocet 5-325 mg Tablet] 1 - 2 each PO Q6HR PRN # 20 tablet 04/26/19 [Rx] Hydrocodone/Acetaminophen [Hydrocodon-Acetaminophen 5-325] 1 - 2 each PO Q6HR PRN #6 tablet 06/25/19 [Rx] Past Medical History HEENT History: Reports: Impaired Vision Other HEENT History: Wears glasss Cardiovascular History: Reports: Hypertension Gastrointestinal History: Reports: Gastritis, Pancreatitis, Other (See Below) Other Gastrointestinal History: Fatty liver, acute pancreatitis--recurrent bouts of pancreatitis due to alcohol use Psychiatric History: Reports: Addiction, Anxiety, Other (See Below) Other Psychiatric History: alcohol abuse Endocrine/Metabolic History: Reports: Diabetes, Type II - Infectious Disease History Infectious Disease History: Reports: Chicken Pox - Past Surgical History Head Surgeries/Procedures: Reports: None Social & Family History - Family History Family Medical History: Noncontributory - Tobacco Use Smoking Status *Q: Never Smoker - Caffeine Use Caffeine Use: Reports: Tea Caffeine Use Comment: doesnt drink soda often, "takes me 3 hours to finish one soda" - Alcohol Use Days Per Week of Alcohol Use: 3 Number of Drinks Per Day: 5 Total Drinks Per Week: 15 Date of Last Drink: 06/17/19 - Recreational Drug Use Recreational Drug Use: Yes Recreational Drug Type: Reports: Marijuana/Hashish - Living Situation & Occupation Living situation: Reports: Single, Other (Has a 2-year daughter with ex- girlfriend) 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.) [facility] GENERAL - Review of Systems Review Of Systems: See Below Constitutional: Denies: Fever, Chills HEENT: Reports: No Symptoms Respiratory: Reports: No Symptoms Cardiovascular: Reports: No Symptoms Endocrine: Reports: Polydypsia, Polyuria GI/Abdominal: Reports: Abdominal Pain, Diarrhea, Flatus, Nausea, Vomiting : Reports: No Symptoms Musculoskeletal: Reports: Back Pain, Muscle Pain Skin: Reports: No Symptoms, Lumps (Nodules on bilateral forearms) Neurological: Reports: Headache Psychiatric: Reports: Anxiety ED EXAM, GENERAL - Physical Exam Exam: See Below Exam Limited By: No Limitations General Appearance: Alert, No Apparent Distress Eye Exam: Bilateral Eye: Normal Inspection Ears: Normal External Exam Nose: Normal Inspection Throat/Mouth: Normal Inspection Head: Atraumatic, Normocephalic Neck: Supple, Non-Tender, Full Range of Motion. No: Lymphadenopathy (L), Lymphadenopathy (R) Respiratory/Chest: No Respiratory Distress, Lungs Clear, Normal Breath Sounds, No Accessory Muscle Use. No: Crackles, Rales, Rhonchi, Wheezing Cardiovascular: Normal Peripheral Pulses, Regular Rate, Rhythm, No Edema, No Gallop, No JVD, No Murmur GI/Abdominal: Normal Bowel Sounds, Soft, No Organomegaly, No Distention, No Mass , Tender Extremities: Non-Tender, No Pedal Edema, Other (Nodules on bilateral dorsal forearms; possible blood clot) Neurological: Alert, Oriented, CN II-XII Intact, Normal Cognition, No Motor/ Sensory Deficits Psychiatric: Normal Affect, Normal Mood Skin Exam: Warm, Dry, Intact Course - Vital Signs Last Recorded V/S: Last Vital Signs Temp 97.7 F 06/25/19 10:53 Pulse 102 H 06/25/19 10:53 Resp 18 06/25/19 10:53 BP 156/119 H 06/25/19 10:53 Pulse Ox 95 06/25/19 10:53 - Orders/Labs/Meds Orders: Active Orders 24 hr Category Date Time Status Cardiac Monitoring [RC] . DIRECTED Care 06/25/19 11:32 Active Insulin Regular, Human [HumuLIN R] Med 06/25/19 16:00 Ordered 10 unit SUBCUT BIDAC Medication Orders Insulin Human Regular (Humulin R) 10 unit SUBCUT BIDAC [facility] Labs: Laboratory Tests 06/25/19 06/25/19 06/25/19 Range/Units 11:59 11:59 11:59 WBC 6.08 (4.23-9.07) K/mm3 RBC 5.63 (4.63-6.08) M/mm3 Hgb 17.7 H D (13.7-17.5) gm/L Hct 49.9 (40.1-51.0) % MCV 88.6 (79.0-92.2) fl MCH 31.4 (25.7-32.2) pg MCHC 35.5 (32.2-35.5) g/dl RDW Std Deviation 39.6 (35.1-43.9) fL Plt Count 253 (163-337) K/mm3 MPV 10.5 (9.4-12.3) fl Neut % (Auto) 65.7 (34.0-67.9) % Lymph % (Auto) 22.4 (21.8-53.1) % [place] % (Auto) 10.0 (5.3-12.2) % Eos % (Auto) 0.3 L (0.8-7.0) Baso % (Auto) 1.3 H (0.1-1.2) % Neut # (Auto) 3.99 (1.78-5.38) K/mm3 Lymph # (Auto) 1.36 (1.32-3.57) K/mm3 [place] # (Auto) 0.61 (0.30-0.82) K/mm3 Eos # (Auto) 0.02 L (0.04-0.54) K/mm3 Baso # (Auto) 0.08 (0.01-0.08) K/mm3 Sodium 133 L (136-145) mEq/L Potassium 4.4 (3.5-5.1) mEq/L Chloride 93 L (98-107) mEq/L Carbon Dioxide 19 L (21-32) mEq/L Anion Gap 25.4 H (5-15) BUN 13 (7-18) mg/dL Creatinine 0.9 (0.7-1.3) mg/dL Est Cr Clr Drug Dosing 123.92 mL/min Estimated GFR (MDRD) > 60 (>60) mL/min BUN/Creatinine Ratio 14.4 (14-18) Glucose 401 H (74-106) mg/dL Serum Osmolality 306 H (280-300) mosm/kg Calcium 9.7 (8.5-10.1) mg/dL Magnesium 2.1 (1.8-2.4) mg/dl Total Bilirubin 1.8 H (0.2-1.0) mg/dL AST 87 H (15-37) U/L ALT 128 H (16-63) U/L Alkaline Phosphatase 155 H (46-116) U/L Total Protein 8.5 H (6.4-8.2) g/dl Albumin 4.4 (3.4-5.0) g/dl Globulin 4.1 gm/dL Albumin/Globulin Ratio 1.1 (1-2) Lipase 794 H (73-393) U/L Urine Color (Yellow) Urine Appearance (Clear) Urine pH (5.0-8.0) Ur Specific [place] (1.005-1.030) Urine Protein (Negative) Urine Glucose (UA) (Negative) Urine Ketones (Negative) Urine Occult Blood (Negative) Urine Nitrite (Negative) Urine Bilirubin (Negative) Urine Urobilinogen (0.2-1.0) Ur Leukocyte Esterase (Negative) Urine RBC (0-5) /hpf Urine WBC (0-5) /hpf Ur Epithelial Cells (0-5) /hpf Urine Bacteria (FEW) /hpf Urine Mucus (FEW) /hpf Urine Opiates Screen (IAEOVC=492) Ur Buprenorphine Scrn (CUTOFF=10) Ur Oxycodone Screen (PEF4UU=952) Urine Methadone Screen (IYD3MK=292) Ur Propoxyphene Screen (BMQOBV=352) Ur Barbiturates Screen (ODAPHT=358) Ur Tricyclics Screen (NCEDEB=225) Ur Phencyclidine Scrn (CUTOFF=25) Ur Amphetamine Screen (NQWEPL=063) U Methamphetamines Scrn (ZGPDMS=498) U Benzodiazepines Scrn (RSOWOZ=877) U Cocaine Metab Screen (MEFGJE=100) U Marijuana (THC) Screen (CUTOFF=50) Ethyl Alcohol 0.00 (0.00) gm% Ketones 8.9 (0.0-0.3) mM 06/25/19 06/25/19 Range/Units 12:36 12:36 WBC (4.23-9.07) K/mm3 RBC (4.63-6.08) M/mm3 Hgb (13.7-17.5) gm/L Hct (40.1-51.0) % MCV (79.0-92.2) fl MCH (25.7-32.2) pg MCHC (32.2-35.5) g/dl RDW Std Deviation (35.1-43.9) fL Plt Count (163-337) K/mm3 MPV (9.4-12.3) fl Neut % (Auto) (34.0-67.9) % Lymph % (Auto) (21.8-53.1) % [place] % (Auto) (5.3-12.2) % Eos % (Auto) (0.8-7.0) Baso % (Auto) (0.1-1.2) % Neut # (Auto) (1.78-5.38) K/mm3 Lymph # (Auto) (1.32-3.57) K/mm3 [place] # (Auto) (0.30-0.82) K/mm3 Eos # (Auto) (0.04-0.54) K/mm3 Baso # (Auto) (0.01-0.08) K/mm3 Sodium (136-145) mEq/L Potassium (3.5-5.1) mEq/L Chloride (98-107) mEq/L Carbon Dioxide (21-32) mEq/L Anion Gap (5-15) BUN (7-18) mg/dL Creatinine (0.7-1.3) mg/dL Est Cr Clr Drug Dosing mL/min Estimated GFR (MDRD) (>60) mL/min BUN/Creatinine Ratio (14-18) Glucose (74-106) mg/dL Serum Osmolality (280-300) mosm/kg Calcium (8.5-10.1) mg/dL Magnesium (1.8-2.4) mg/dl Total Bilirubin (0.2-1.0) mg/dL AST (15-37) U/L ALT (16-63) U/L Alkaline Phosphatase (46-116) U/L Total Protein (6.4-8.2) g/dl Albumin (3.4-5.0) g/dl Globulin gm/dL Albumin/Globulin Ratio (1-2) Lipase (73-393) U/L Urine Color Yellow (Yellow) Urine Appearance Clear (Clear) Urine pH 5.0 (5.0-8.0) Ur Specific [place] 1.020 (1.005-1.030) Urine Protein 2+ H (Negative) Urine Glucose (UA) 2+ H (Negative) Urine Ketones 4+ H (Negative) Urine Occult Blood Negative (Negative) Urine Nitrite Negative (Negative) Urine Bilirubin Negative (Negative) Urine Urobilinogen 0.2 (0.2-1.0) Ur Leukocyte Esterase Negative (Negative) Urine RBC Not seen (0-5) /hpf Urine WBC 0-5 (0-5) /hpf Ur Epithelial Cells 0-5 (0-5) /hpf Urine Bacteria Not seen (FEW) /hpf Urine Mucus Not seen (FEW) /hpf Urine Opiates Screen Negative (WILDPH=883) Ur Buprenorphine Scrn Negative (CUTOFF=10) Ur Oxycodone Screen Negative (XQJ4XM=508) Urine Methadone Screen Negative (TPK9TB=913) Ur Propoxyphene Screen Negative (ULTPHU=790) Ur Barbiturates Screen Negative (OQTHMH=512) Ur Tricyclics Screen Negative (YQJQSF=407) Ur Phencyclidine Scrn Negative (CUTOFF=25) Ur Amphetamine Screen Negative (ZKHWAK=522) U Methamphetamines Scrn Negative (URAUCU=218) U Benzodiazepines Scrn Negative (VAMMTS=533) U Cocaine Metab Screen Negative (BNEVIW=428) U Marijuana (THC) Screen Presumptive positive H (CUTOFF=50) Ethyl Alcohol (0.00) gm% Ketones (0.0-0.3) mM Meds: Medications Generic Name Dose Route Start Last Admin Trade Name Freq PRN Reason Stop Dose Admin Insulin Human Regular 10 unit 06/25/19 16:00 Humulin R SUBCUT BIDAC ALBERTO Discontinued Medications Generic Name Dose Route Start Last Admin Trade Name Freq PRN Reason Stop Dose Admin Cyclobenzaprine HCl 10 mg 06/25/19 11:42 06/25/19 11:46 Flexeril PO 06/25/19 11:43 10 mg ONETIME ONE Administration Famotidine 20 mg 06/25/19 11:33 06/25/19 11:47 Pepcid PO 06/25/19 11:34 20 mg ONETIME ONE Administration - Re-Assessments/Exams Free Text/Narrative Re-Assessment/Exam: 06/25/19 11:53 Will check labs. CBC, CMP, lipase, magnesium. Urine drug screen. Ketones 06/25/19 11:54 Departure - Departure Disposition: Home, Self-Care 01 Clinical Impression: Type 2 diabetes mellitus Qualifiers: Diabetes mellitus retirement insulin use: without retirement use Diabetes mellitus complication status: with ketoacidosis Diabetes mellitus complication detail: without coma Qualified Code(s): E11.10 - Type 2 diabetes mellitus with ketoacidosis without coma Back pain Qualifiers: Back pain location: low back pain Chronicity: acute Back pain laterality: bilateral Sciatica presence: without sciatica Qualified Code(s): M54.5 - Low back pain Pancreatitis Qualifiers: Chronicity: acute Pancreatitis type: alcohol induced Acute pancreatitis complication: unspecified Qualified Code(s): K85.20 - Alcohol induced acute pancreatitis without necrosis or infection - Discharge Information Prescriptions: Hydrocodone/Acetaminophen [Hydrocodon-Acetaminophen 5-325] 1 - 2 each PO Q6HR PRN #6 tablet PRN Reason: Pain Forms: ED Department Discharge Additional Instructions: Take your insulin as prescribed. Take the hydrocodone as needed for pain. Drink plenty of fluids. Please return if you are worse. - My Orders Last 24 Hours: My Active Orders 06/25/19 11:32 Cardiac Monitoring [RC] . DIRECTED 06/25/19 16:00 Insulin Regular, Human [HumuLIN R] 10 unit SUBCUT BIDAC - Assessment/Plan Last 24 Hours: My Active Orders 06/25/19 11:32 Cardiac Monitoring [RC] . DIRECTED 06/25/19 16:00 Insulin Regular, Human [HumuLIN R] 10 unit SUBCUT BIDAC <Herminio Watson - Last Filed: 06/25/19 14:31> Course - Re-Assessments/Exams Free Text/Narrative Re-Assessment/Exam: 06/25/19 14:23 I examined the patient myself and I agree with roxanne's assessment and plan. I ordered labs and some flexeril. His CBC looks good. His Na is low at 133. His anion gap is elevated at 25.4. His glucose is 401. His serum osmolality is elevated at 306. His total bili was elevated at 1.8. His AST is elevated at 87. His ALT is elevated at 128. His lipase is elevated at 794. His UA shows no UTI. His drug screen is presumptive positive for marijuana. His ETOH is 0. I have ordered insulin R 10 units subcutaneous. He has pancreatitis. He is able to keep down water. I feel like I can sent him home. Departure - Departure Time of Disposition: 14:30 Condition: Good - Discharge Information *PRESCRIPTION DRUG MONITORING PROGRAM REVIEWED*: No *COPY OF PRESCRIPTION DRUG MONITORING REPORT IN PATIENT KENJI: No
[2019-06-25] MEDS ORDERED: Insulin Regular, Human 100 Units/ML 3 ML Vial SUBCUT SCH (16:00)
== END 2019-06-25 14:39 | disposition home or self-care (01) ==
LOC: JD.ED 10:39
DX: K85.20 Alcohol induced acute pancreatitis without necrosis or infection (principal); E11.10 Type 2 diabetes mellitus with ketoacidosis without coma; M54.5 Low back pain; I10 Essential (primary) hypertension; F41.9 Anxiety disorder, unspecified; Z79.899 Other long term (current) drug therapy; Z79.4 Long term (current) use of insulin
CPT/HCPCS: 36415; 80053; 80306; 80320; 81001; 82009; 83690; 83735; 83930; 85025; 99284; A9270; G0480

== ENCOUNTER 2019-06-27 00:34 | Inpatient (IN) | payer MEDICAID ==
--- NOTE | 2019-06-27 01:27 | EDM.PDOC ---
ED HPI GENERAL MEDICAL PROBLEM - General Chief Complaint: Abdominal Pain Stated Complaint: abdominal pain Time Seen by Provider: 06/27/19 01:27 Source of Information: Reports: Patient History Limitations: Reports: No Limitations - History of Present Illness INITIAL COMMENTS - FREE TEXT/NARRATIVE: 28-year-old male presents to the ED with severe epigastric right upper quadrant left upper quadrant abdominal pain radiating through to his mid back and across both sides of his back inferior to the scapula. Was seen through the ED [address] Watson and was diagnosed with a pancreatitis with a lipase of 794. He also had a metabolic acidosis with an anion gap of 25.4. His serum ketones were elevated at 8.9. She received a liter of IV fluids. He was given Flexeril 10 mg in the ED and Pepcid 20 mg by mouth. He has a history of of alcohol- induced gastritis. He denies any recent alcohol use. He was sent home with 6 tablets of Percocet which she did take sparingly over the last 36 hours. States he is trying to eat again. He takes insulin usually 2-4 units with each meal. Depends on carb units to be taken. . Due to financial constraints he can't afford the long-acting basal insulin. Patient has nausea and has vomited. Ileus in color. No blood. He always has loose diarrhea stools. Since his gallbladder was removed he usually has 45 loose stools every morning. Doesn't eat until way later in the day like 1400 hrs. 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 This will contribute to malnutrition and vitamin deficiency due to inability to absorb vitamins, particularly B12 through the terminal ileum. She states the pain has gotten much worse over the last 6 hours. Rates it as a 9 out of 10. Onset: Unknown/Unsure (Has been having abdominal pain for the last 4 days.With pink otitis 2 days ago when seen in the ED with a lipase of 794.) Onset Date: 06/23/19 Duration: Day(s):, Getting Worse, Waxing/Waning Location: Reports: Abdomen (Upper abdominal pain epigastrium right upper quadrant and left upper quadrant readings through to the back.) Quality: Reports: Ache, Other (Scribe is a deep aching boring pain) Severity: Severe (which is constant) Improves with: Reports: None ( 8-9 out of 10. ) Worsens with: Reports: Eating Context: Reports: Other (Recurrent pancreatitis). Denies: Activity, Exercise ( Eating makes it worse), Lifting, Sick Contact, Trauma Associated Symptoms: Reports: Loss of Appetite, Malaise, Nausea/Vomiting, Weakness. Denies: Confusion, Chest Pain, Cough, cough w sputum, Diaphoresis, Fever/Chills, Headaches, Rash, Seizure, Shortness of Breath, Syncope Treatments CRANE OILER: Reports: Other (see below) (None.) Back Pain Score (Numeric/FACES): 9 Right Abdomen Pain Score (Numeric/FACES): 7 - Related Data Allergies Allergy/AdvReac Type Severity Reaction Status Date / Time No Known Allergies Allergy Verified 06/27/19 00:47 Home Meds: Home Meds Diltiazem [Dilacor XR] 240 mg PO DAILY 30 Days #30 cap.er 02/19/19 [Rx] Labetalol [Normodyne] 100 mg PO TID 30 Days #90 tablet 02/19/19 [Rx] Lisinopril [Prinivil] 40 mg PO DAILY 30 Days #30 tablet 02/19/19 [Rx] Insulin Lispro [Humalog] See Protocol SQ QIDACANDBED 04/22/19 [History] Insulin Glarg,Human.Rec.Analog [Lantus] 15 unit SUBCUT BIDAC #1 ml 04/25/19 [Rx] oxyCODONE HCl/Acetaminophen [Percocet 5-325 mg Tablet] 1 - 2 each PO Q6HR PRN # 20 tablet 04/26/19 [Rx] Hydrocodone/Acetaminophen [Hydrocodon-Acetaminophen 5-325] 1 - 2 each PO Q6HR PRN #6 tablet 06/25/19 [Rx] Past Medical History HEENT History: Reports: Impaired Vision Other HEENT History: Wears glasss Cardiovascular History: Reports: Hypertension ([place] to likely be uncontrolled.) Gastrointestinal History: Reports: Gastritis, Pancreatitis, Other (See Below) Other Gastrointestinal History: Fatty liver, acute pancreatitis--recurrent bouts of pancreatitis due to alcohol use Musculoskeletal History: Reports: Back Pain, Chronic Psychiatric History: Reports: Addiction, Anxiety, Other (See Below) Other Psychiatric History: alcohol abuse & withdrawl Endocrine/Metabolic History: Reports: Diabetes, Type II Do You Give Correction Boluses or Sliding Scale: Yes Patient/Family Able to Supply Written Copy of Sliding Scale: No - Infectious Disease History Infectious Disease History: Reports: Chicken Pox - Past Surgical History Head Surgeries/Procedures: Reports: None GI Surgical History: Reports: Cholecystectomy Social & Family History - Family History Family Medical History: Noncontributory - Tobacco Use Smoking Status *Q: Never Smoker - Caffeine Use Caffeine Use: Reports: Tea Caffeine Use Comment: doesnt drink soda often, "takes me 3 hours to finish one soda" - Alcohol Use Days Per Week of Alcohol Use: 3 Number of Drinks Per Day: 3 Total Drinks Per Week: 9 - Recreational Drug Use Recreational Drug Use: Yes Recreational Drug Type: Reports: Marijuana/Hashish Recreational Drug Use Frequency: Weekly Recreational Drug Last Use: 06/24/19 - Living Situation & Occupation Living situation: Reports: Single, Other (Has a 2-year daughter with ex- girlfriend) 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 ED ROS GENERAL - Review of Systems Review Of Systems: See Below Constitutional: Reports: Malaise, Weakness, Fatigue, Decreased Appetite, Other ( Feels he is keeping his weight neutral. He would like to gain some weight but is unable to do so.). Denies: Fever, Chills, Weight Loss HEENT: Reports: Glasses Respiratory: Reports: No Symptoms Cardiovascular: Reports: Blood Pressure Problem Endocrine: Reports: Fatigue, High Glucose (Usually runs from 200-400.) GI/Abdominal: Reports: Abdominal Pain, Diarrhea (Chronic diarrhea since having his gallbladder removed i.e. bile salt induced catharsis.), Decreased Appetite ( See history present illness), Nausea, Vomiting : Reports: Frequency (He feels this is from drinking an excessive amount of water. It is likely from uncontrolled diabetes.) Musculoskeletal: Reports: Back Pain, Joint Pain (Knees hips neck at times) Skin: Reports: No Symptoms Neurological: Reports: Paresthesia Psychiatric: Reports: No Symptoms Hematologic/Lymphatic: Reports: No Symptoms Immunologic: Reports: No Symptoms ED EXAM, GI/ABD - Physical Exam Exam: See Below Exam Limited By: No Limitations General Appearance: Alert, WD/WN, Moderate Distress, Other (Vital signs show temperature 36.4 tachycardia at bedside 1 12/m respiratory rate is 12-14/m BP 155/132 which is likely inaccurate due to the pulse pressure being too close together. Pulse ox 98%) Eyes: Bilateral: Normal Appearance (No scleral jaundice.) Throat/Mouth: Other (Tongue is mildly dry and coated) Head: Atraumatic, Normocephalic Neck: Normal Inspection, Supple, Non-Tender, Full Range of Motion. No: Lymphadenopathy (L), Lymphadenopathy (R), Thyromegaly Respiratory/Chest: No Respiratory Distress, Lungs Clear, Normal Breath Sounds, No Accessory Muscle Use Cardiovascular: Normal Peripheral Pulses, No Edema, No Gallop, No Murmur, No Rub , Tachycardia (Tachycardia at rest 1 12/m) GI/Abdominal Exam: Soft ( throughout the abdomen.), Tender (Tender epigastrium right upper quadrant and left upper quadrant under the costal margins.), Abnormal Bowel Sounds (Bowel sounds are fairly quiet sent), Other (Laparoscopic wounds from lap cholecystectomy.) (Male) Exam: No Hernia Back Exam: Full Range of Motion, CVA Tenderness (L), CVA Tenderness (R) (Mild mild) Extremities: Normal Inspection, Normal Range of Motion, Non-Tender Neurological: Alert, Oriented, CN II-XII Intact, Normal Cognition Psychiatric: Normal Affect, Normal Mood Skin Exam: Warm, Dry, Intact, Normal Color, No Rash Course - Vital Signs Last Recorded V/S: Last Vital Signs Temp 36.4 C 06/27/19 00:42 Pulse 106 H 06/27/19 00:42 Resp 12 06/27/19 00:42 BP 155/132 H 06/27/19 00:42 Pulse Ox 98 06/27/19 00:42 - Orders/Labs/Meds Orders: Active Orders 24 hr Category Date Time Status Admission Status [Patient Status] [ADT] Routine ADT 06/27/19 06:36 Ordered Blood Glucose Check, Bedside [RC] Q1H Care 06/27/19 03:16 Active Dextrose 5%-0.9% NaCl [Dextrose 5%-Normal Saline] 1,000 Med 06/27/19 04:45 Active ml IV ASDIRECTED Insulin Glarg,Human.Rec.Analog [LantUS] Med 06/27/19 16:00 Ordered 12 unit SUBCUT BIDAC Sodium Chloride 0.9% [Normal Saline] 1,000 ml Med 06/27/19 01:30 Active IV ASDIRECTED Sodium Chloride 0.9% [Normal Saline] 1,000 ml Med 06/27/19 03:15 Active IV ASDIRECTED Medication Orders Sodium Chloride (Normal Saline) 1,000 mls @ 999 mls/hr IV ASDIRECTED ALBERTO Last Admin: 06/27/19 01:40 Dose: 999 mls/hr Sodium Chloride (Normal Saline) 1,000 mls @ 999 mls/hr IV ASDIRECTED ALBERTO Last Admin: 06/27/19 03:36 Dose: 999 mls/hr Dextrose/Sodium Chloride (Dextrose 5%-Normal Saline) 1,000 mls @ 250 mls/hr IV ASDIRECTED ALBERTO Last Admin: 06/27/19 04:45 Dose: 250 mls/hr Labs: Laboratory Tests 06/27/19 06/27/19 06/27/19 Range/Units 01:35 01:35 01:35 WBC 7.31 (4.23-9.07) K/mm3 RBC 5.32 (4.63-6.08) M/mm3 Hgb 17.00 (13.7-17.5) gm/L Hct 45.7 (40.1-51.0) % MCV 85.9 (79.0-92.2) fl MCH 31.9 (25.7-32.2) pg MCHC 37.2 H (32.2-35.5) g/dl RDW Std Deviation 37.4 (35.1-43.9) fL Plt Count 286 (163-337) K/mm3 MPV 10.2 (9.4-12.3) fl Neutrophils % (Manual) 61 H (40-60) % Band Neutrophils % 0 (0-10) % Lymphocytes % (Manual) 25 (20-40) % Atypical Lymphs % 0 % Monocytes % (Manual) 9 (2-10) % Eosinophils % (Manual) 3 (0.8-7.0) % Basophils % (Manual) 2 H (0.2-1.2) Platelet Estimate Adequate Plt Morphology Comment Normal RBC Morph Comment Normal PT 10.9 (9.7-12.0) SECONDS INR 1.00 APTT (22-31) SECONDS Sodium 129 L (136-145) mEq/L Potassium 4.1 (3.5-5.1) mEq/L Chloride 91 L (98-107) mEq/L Carbon Dioxide 21 (21-32) mEq/L Anion Gap 21.1 H (5-15) BUN 15 (7-18) mg/dL Creatinine 1.0 (0.7-1.3) mg/dL Est Cr Clr Drug Dosing 111.53 mL/min Estimated GFR (MDRD) > 60 (>60) mL/min BUN/Creatinine Ratio 15.0 (14-18) Glucose 459 H (74-106) mg/dL POC Glucose (70-105) mg/dL Hemoglobin A1c (4.50-6.20) % Serum Osmolality 299 (280-300) mosm/kg Lactic Acid (0.4-2.0) mmol/L Calcium 9.4 (8.5-10.1) mg/dL Magnesium 1.9 (1.8-2.4) mg/dl Total Bilirubin 1.7 H (0.2-1.0) mg/dL AST 36 (15-37) U/L ALT 86 H (16-63) U/L Alkaline Phosphatase 178 H (46-116) U/L C-Reactive Protein 0.3 (<1.0) mg/dL Total Protein 8.1 (6.4-8.2) g/dl Albumin 4.3 (3.4-5.0) g/dl Globulin 3.8 gm/dL Albumin/Globulin Ratio 1.1 (1-2) Lipase 1298 H (73-393) U/L Urine Color (Yellow) Urine Appearance (Clear) Urine pH (5.0-8.0) Ur Specific [place] (1.005-1.030) Urine Protein (Negative) Urine Glucose (UA) (Negative) Urine Ketones (Negative) Urine Occult Blood (Negative) Urine Nitrite (Negative) Urine Bilirubin (Negative) Urine Urobilinogen (0.2-1.0) Ur Leukocyte Esterase (Negative) Urine RBC (0-5) /hpf Urine WBC (0-5) /hpf Ur Epithelial Cells (0-5) /hpf Urine Bacteria (FEW) /hpf Urine Mucus (FEW) /hpf Ethyl Alcohol (0.00) gm% Ketones (0.0-0.3) mM 06/27/19 06/27/19 06/27/19 Range/Units 01:35 01:35 01:35 WBC (4.23-9.07) K/mm3 RBC (4.63-6.08) M/mm3 Hgb (13.7-17.5) gm/L Hct (40.1-51.0) % MCV (79.0-92.2) fl MCH (25.7-32.2) pg MCHC (32.2-35.5) g/dl RDW Std Deviation (35.1-43.9) fL Plt Count (163-337) K/mm3 MPV (9.4-12.3) fl Neutrophils % (Manual) (40-60) % Band Neutrophils % (0-10) % Lymphocytes % (Manual) (20-40) % Atypical Lymphs % % Monocytes % (Manual) (2-10) % Eosinophils % (Manual) (0.8-7.0) % Basophils % (Manual) (0.2-1.2) Platelet Estimate Plt Morphology Comment RBC Morph Comment PT (9.7-12.0) SECONDS INR APTT 25 (22-31) SECONDS Sodium (136-145) mEq/L Potassium (3.5-5.1) mEq/L Chloride (98-107) mEq/L Carbon Dioxide (21-32) mEq/L Anion Gap (5-15) BUN (7-18) mg/dL Creatinine (0.7-1.3) mg/dL Est Cr Clr Drug Dosing mL/min Estimated GFR (MDRD) (>60) mL/min BUN/Creatinine Ratio (14-18) Glucose (74-106) mg/dL POC Glucose (70-105) mg/dL Hemoglobin A1c (4.50-6.20) % Serum Osmolality (280-300) mosm/kg Lactic Acid 1.0 (0.4-2.0) mmol/L Calcium (8.5-10.1) mg/dL Magnesium (1.8-2.4) mg/dl Total Bilirubin (0.2-1.0) mg/dL AST (15-37) U/L ALT (16-63) U/L Alkaline Phosphatase (46-116) U/L C-Reactive Protein (<1.0) mg/dL Total Protein (6.4-8.2) g/dl Albumin (3.4-5.0) g/dl Globulin gm/dL Albumin/Globulin Ratio (1-2) Lipase (73-393) U/L Urine Color (Yellow) Urine Appearance (Clear) Urine pH (5.0-8.0) Ur Specific [place] (1.005-1.030) Urine Protein (Negative) Urine Glucose (UA) (Negative) Urine Ketones (Negative) Urine Occult Blood (Negative) Urine Nitrite (Negative) Urine Bilirubin (Negative) Urine Urobilinogen (0.2-1.0) Ur Leukocyte Esterase (Negative) Urine RBC (0-5) /hpf Urine WBC (0-5) /hpf Ur Epithelial Cells (0-5) /hpf Urine Bacteria (FEW) /hpf Urine Mucus (FEW) /hpf Ethyl Alcohol (0.00) gm% Ketones 1.55 (0.0-0.3) mM 06/27/19 06/27/19 06/27/19 Range/Units 01:35 01:35 01:40 WBC (4.23-9.07) K/mm3 RBC (4.63-6.08) M/mm3 Hgb (13.7-17.5) gm/L Hct (40.1-51.0) % MCV (79.0-92.2) fl MCH (25.7-32.2) pg MCHC (32.2-35.5) g/dl RDW Std Deviation (35.1-43.9) fL Plt Count (163-337) K/mm3 MPV (9.4-12.3) fl Neutrophils % (Manual) (40-60) % Band Neutrophils % (0-10) % Lymphocytes % (Manual) (20-40) % Atypical Lymphs % % Monocytes % (Manual) (2-10) % Eosinophils % (Manual) (0.8-7.0) % Basophils % (Manual) (0.2-1.2) Platelet Estimate Plt Morphology Comment RBC Morph Comment PT (9.7-12.0) SECONDS INR APTT (22-31) SECONDS Sodium (136-145) mEq/L Potassium (3.5-5.1) mEq/L Chloride (98-107) mEq/L Carbon Dioxide (21-32) mEq/L Anion Gap (5-15) BUN (7-18) mg/dL Creatinine (0.7-1.3) mg/dL Est Cr Clr Drug Dosing mL/min Estimated GFR (MDRD) (>60) mL/min BUN/Creatinine Ratio (14-18) Glucose (74-106) mg/dL POC Glucose (70-105) mg/dL Hemoglobin A1c 9.80 H (4.50-6.20) % Serum Osmolality (280-300) mosm/kg Lactic Acid (0.4-2.0) mmol/L Calcium (8.5-10.1) mg/dL Magnesium (1.8-2.4) mg/dl Total Bilirubin (0.2-1.0) mg/dL AST (15-37) U/L ALT (16-63) U/L Alkaline Phosphatase (46-116) U/L C-Reactive Protein (<1.0) mg/dL Total Protein (6.4-8.2) g/dl Albumin (3.4-5.0) g/dl Globulin gm/dL Albumin/Globulin Ratio (1-2) Lipase (73-393) U/L Urine Color Yellow (Yellow) Urine Appearance Clear (Clear) Urine pH 5.5 (5.0-8.0) Ur Specific [place] 1.015 (1.005-1.030) Urine Protein 1+ H (Negative) Urine Glucose (UA) 2+ H (Negative) Urine Ketones 2+ H (Negative) Urine Occult Blood Trace-intact H (Negative) Urine Nitrite Negative (Negative) Urine Bilirubin Negative (Negative) Urine Urobilinogen 0.2 (0.2-1.0) Ur Leukocyte Esterase Negative (Negative) Urine RBC Not seen (0-5) /hpf Urine WBC Not seen (0-5) /hpf Ur Epithelial Cells Not seen (0-5) /hpf Urine Bacteria Rare (FEW) /hpf Urine Mucus Not seen (FEW) /hpf Ethyl Alcohol 0.00 (0.00) gm% Ketones (0.0-0.3) mM 06/27/19 06/27/19 Range/Units 04:14 05:25 WBC (4.23-9.07) K/mm3 RBC (4.63-6.08) M/mm3 Hgb (13.7-17.5) gm/L Hct (40.1-51.0) % MCV (79.0-92.2) fl MCH (25.7-32.2) pg MCHC (32.2-35.5) g/dl RDW Std Deviation (35.1-43.9) fL Plt Count (163-337) K/mm3 MPV (9.4-12.3) fl Neutrophils % (Manual) (40-60) % Band Neutrophils % (0-10) % Lymphocytes % (Manual) (20-40) % Atypical Lymphs % % Monocytes % (Manual) (2-10) % Eosinophils % (Manual) (0.8-7.0) % Basophils % (Manual) (0.2-1.2) Platelet Estimate Plt Morphology Comment RBC Morph Comment PT (9.7-12.0) SECONDS INR APTT (22-31) SECONDS Sodium (136-145) mEq/L Potassium (3.5-5.1) mEq/L Chloride (98-107) mEq/L Carbon Dioxide (21-32) mEq/L Anion Gap (5-15) BUN (7-18) mg/dL Creatinine (0.7-1.3) mg/dL Est Cr Clr Drug Dosing mL/min Estimated GFR (MDRD) (>60) mL/min BUN/Creatinine Ratio (14-18) Glucose (74-106) mg/dL POC Glucose 280 H 296 H (70-105) mg/dL Hemoglobin A1c (4.50-6.20) % Serum Osmolality (280-300) mosm/kg Lactic Acid (0.4-2.0) mmol/L Calcium (8.5-10.1) mg/dL Magnesium (1.8-2.4) mg/dl Total Bilirubin (0.2-1.0) mg/dL AST (15-37) U/L ALT (16-63) U/L Alkaline Phosphatase (46-116) U/L C-Reactive Protein (<1.0) mg/dL Total Protein (6.4-8.2) g/dl Albumin (3.4-5.0) g/dl Globulin gm/dL Albumin/Globulin Ratio (1-2) Lipase (73-393) U/L Urine Color (Yellow) Urine Appearance (Clear) Urine pH (5.0-8.0) Ur Specific [place] (1.005-1.030) Urine Protein (Negative) Urine Glucose (UA) (Negative) Urine Ketones (Negative) Urine Occult Blood (Negative) Urine Nitrite (Negative) Urine Bilirubin (Negative) Urine Urobilinogen (0.2-1.0) Ur Leukocyte Esterase (Negative) Urine RBC (0-5) /hpf Urine WBC (0-5) /hpf Ur Epithelial Cells (0-5) /hpf Urine Bacteria (FEW) /hpf Urine Mucus (FEW) /hpf Ethyl Alcohol (0.00) gm% Ketones (0.0-0.3) mM Meds: Medications Generic Name Dose Route Start Last Admin Trade Name Chase PRN Reason Stop Dose Admin Sodium Chloride 1,000 mls @ 999 mls/hr 06/27/19 01:30 06/27/19 01:40 Normal Saline IV 999 mls/hr ASDIRECTED ALBERTO Administration Sodium Chloride 1,000 mls @ 999 mls/hr 06/27/19 03:15 06/27/19 03:36 Normal Saline IV 999 mls/hr ASDIRECTED ALBERTO Administration Dextrose/Sodium Chloride 1,000 mls @ 250 mls/hr 06/27/19 04:45 06/27/19 04:45 Dextrose 5%-Normal Saline IV 250 mls/hr ASDIRECTED ALBERTO Administration Discontinued Medications Generic Name Dose Route Start Last Admin Trade Name Chase PRN Reason Stop Dose Admin Hydromorphone HCl 1 mg 06/27/19 02:15 06/27/19 02:31 Dilaudid IVPUSH 06/27/19 02:16 1 mg ONETIME ONE Administration Hydromorphone HCl 1 mg 06/27/19 03:17 06/27/19 03:38 Dilaudid IVPUSH 06/27/19 03:18 1 mg ONETIME ONE Administration Insulin Human Regular 100 unit 100 mls @ 2 mls/hr 06/27/19 03:00 06/27/19 05: 30 / Sodium Chloride IV 2 unit/hr ASDIRECTED ALBERTO 2 mls/hr Titration Protocol 2 UNIT/HR Insulin Human Regular 100 unit 100 mls @ 86.63 mls/hr 06/27/19 04:30 / Sodium Chloride IV ASDIRECTED ALBERTO Protocol 1 UNITS/KG/HR Ondansetron HCl 4 mg 06/27/19 02:15 06/27/19 02:30 Zofran IVPUSH 06/27/19 02:16 4 mg ONETIME ONE Administration - Radiology Interpretation Free Text/Narrative:: 28-year-old male presents to the ED with severe epigastric right upper quadrant abdominal pain rating to to his back mostly central back but both sides hurt. Patient was seen in the ED 2 days ago was diagnosed with low-grade pancreatitis with a lipase of 794. He also had a metabolic acidosis with an anion gap of 25.4 secondary to ketoacidosis with ketones measured at 8.9. He was discharged to home with a few Percocet tablets which he is taken. In spite of getting better the pain has worsened. He is continue to try and eat a normal diet. Patient is a poorly controlled type II diabetic due to lack of finances to use long-acting insulin. He is taking 2-4 units of Humalog insulin with each meal. Depends on his carb units. Therefore he is fairly sensitive to insulin. She denies a history of recurrent pancreatitis secondary to alcoholism. He'll tries to drink socially. Last drink was a beer in one hard alcohol drink on June 17. - Re-Assessments/Exams Free Text/Narrative Re-Assessment/Exam: 06/27/19 02:52 Labs reveal a normal white count at 7.31. Social 61% neutrophils and no band cells reported. Hemoglobin is 17.0 with hematocrit of 45.7. Possible mild hemoconcentration. Platelet count is 286,000. PT is 10.9 with an INR 1.00. PTT is 25. Sodium is low at 129 indicating his been drinking a lot of water and caused a dilutional hyponatremia. Potassium is normal at 4.1 chloride is slightly low due to dilution as well as 91. Bicarbonate is 21 and a gap is 21.1. 15 with a creatinine of 1.0. GFR remains greater than 60. Glucose currently is 459. Hemoglobin A1c is 9.80 indicating very poor control of diabetic state. Serum osmolality is normal at 299. Lactic acid is 1.0. Calcium is 9.4. Magnesium 1.9. Total bilirubin is mildly elevated at 1.7. AST is 36 ALT is 86. Alkaline phosphatase is mildly elevated 178. C-reactive protein is 0.3. Total protein is 8.1 albumin fraction 4.3. Lipase elevated at 1298. Urinalysis shows 1+ proteinuria 2+ glucosuria 2+ ketones a's of a cold blood. No signs of infection 06/27/19 03:15 patient has completed his first liter of normal saline. Second liter will be hung and run at open. But sugars were checked every hour. By history he only takes 2-4 units of Humalog insulin per each meal. He does not take any long-acting insulin as he can't afford it. Tentatively the patient will be an admit to med surgery floor we can correct his sugars over the next 3- 4 hours. His blood alcohol is 0. His serum ketones were elevated at 1.55. 06/27/19 04:24 Blood sugar is currently down to 280. Insulin drip will be decreased from 2 units an hour to one in an hour. Blood sugars in one hour. Likely will be off insulin drip at that time. His IV normal saline is just about done and then will be changed to D5 normal saline at 250 mils per hour. 06/27/19 06:42 last blood sugar was 309. Going to discontinue his insulin drip and decrease his IV to 150 mils per hour. Given 12 units of Lantus subcutaneous for blood sugar control. He'll have repeat labs to include a lipase and a CMP so that we can see how his anion gap is doing. Serum ketones will also be tested. His pain is returning from pancreatitis. We have will have repeat Dilaudid 1 mg IV and Zofran 4 mg IV. I spoken with Dr. Rodriguez alteration hand hospitalist and he has agreed to admission to the intensive care unit as he will need close blood sugar monitoring almost every hour. Departure - Departure Time of Disposition: 06:44 Disposition: Admitted As Inpatient 64 Condition: Fair Clinical Impression: Hypoglycemia, Metabolic acidosis due to diabetes mellitus, Hyponatremia, Recurrent pancreatitis, Proteinuria due to type 2 diabetes mellitus - Discharge Information *PRESCRIPTION DRUG MONITORING PROGRAM REVIEWED*: No *COPY OF PRESCRIPTION DRUG MONITORING REPORT IN PATIENT KENJI: No Referrals: Sylvester Price MD [Primary Care Provider] - Forms: ED Department Discharge - My Orders Last 24 Hours: My Active Orders 06/27/19 01:30 Sodium Chloride 0.9% [Normal Saline] 1,000 ml IV ASDIRECTED 06/27/19 03:15 Sodium Chloride 0.9% [Normal Saline] 1,000 ml IV ASDIRECTED 06/27/19 03:16 Blood Glucose Check, Bedside [RC] Q1H 06/27/19 04:45 Dextrose 5%-0.9% NaCl [Dextrose 5%-Normal Saline] 1,000 ml IV ASDIRECTED 06/27/19 06:36 Admission Status [Patient Status] [ADT] Routine 06/27/19 16:00 Insulin Glarg,Human.Rec.Analog [LantUS] 12 unit SUBCUT BIDAC - Assessment/Plan Last 24 Hours: My Active Orders 06/27/19 01:30 Sodium Chloride 0.9% [Normal Saline] 1,000 ml IV ASDIRECTED 06/27/19 03:15 Sodium Chloride 0.9% [Normal Saline] 1,000 ml IV ASDIRECTED 06/27/19 03:16 Blood Glucose Check, Bedside [RC] Q1H 06/27/19 04:45 Dextrose 5%-0.9% NaCl [Dextrose 5%-Normal Saline] 1,000 ml IV ASDIRECTED 06/27/19 06:36 Admission Status [Patient Status] [ADT] Routine 06/27/19 16:00 Insulin Glarg,Human.Rec.Analog [LantUS] 12 unit SUBCUT BIDAC
[2019-06-27] MEDS ORDERED: Sodium Chloride 0.9% 1,000 ML IV SCH ×2 (01:30→03:15)
[2019-06-27] MEDS ORDERED: HYDROmorphone 1 MG/ML Syringe IVPUSH ONE ×3 (02:15→06:41)
[2019-06-27] MEDS ORDERED: Ondansetron 4 MG/2 ML SDV IVPUSH ONE ×2 (02:15→06:42)
[2019-06-27 02:28] LABS: HEMOGLOBIN A1C 9.8 % (4.50-6.20)
[2019-06-27] MEDS ORDERED: Dextrose 5%-0.9% NaCl 1,000 ML IV SCH ×2 (04:45→06:45)
[2019-06-27] MEDS ORDERED: Insulin Glarg,Human.Rec.Analog 100 UNIT/ML ML SUBCUT ONE (07:09)
[2019-06-27] MEDS: Dextrose 5%-0.9% NaCl with KCl 1,000 ML IV SCH ×3 (08:28→21:56)
[2019-06-27] MEDS ORDERED: Insulin Lispro 100 Units/ML 3 ML Vial SUBCUT ONE (08:33)
[2019-06-27] MEDS ORDERED: Ondansetron 4 MG/2 ML SDV IV PRN (08:47)
--- NOTE | 2019-06-27 08:51 | PCM.HP.2 ---
H&P History of Present Illness - General Date of Service: 06/27/19 Admit Problem/Dx: Admission Diagnosis/Problem Admission Diagnosis/Problem Pancreatitis - History of Present Illness Initial Comments - Free Text/Narative: 28-year-old male with history of multiple episodes of pancreatitis presented to the emergency room early this morning with complaints of severe epigastric and right upper quadrant pain. Patient states the pain started on Monday night feeling more like gastritis and then developed into an epigastric right upper quadrant pain that radiated to the back. Patient was seen in the emergency room on Monday and was sent home. The symptoms worsened overnight and he returned this morning. Last night after supper of mixed vegetables and potatoes he develops severe pain. Patient has a history of alcoholism but his last drink was on June 17 and it was a beer and one mixed drink. He has a history of insulin dependent diabetes, diagnosed 3 or 4 years ago, and his blood sugars this week up in the 400s. He only uses short-acting Humalog because of inability to pay for long-acting insulin. Patient usually takes 2-3 units of insulin with each meal. In the emergency room patient was bolused with IV fluids and start insulin drip. Blood sugars did decrease and he was switched over to D5 normal saline. He was kept nothing by mouth. He was transferred to the ICU for close monitoring. Initial lab work in the emergency room showed a white count of 7.3, hemoglobin of 17, sodium of 129 uncorrected, potassium 4.1, anion gap of 21.1, glucose of 459. BUN 15, creatinine of 1.0, negative ketones, lipase 1298, AST 36, ALT 86, alkaline phosphatase 178, total bilirubin 1.7, lactic acid of 1.0. Back Pain Score (Numeric/FACES): 9 Right Abdomen Pain Score (Numeric/FACES): 7 - Related Data Allergies/Adverse Reactions: Allergies Allergy/AdvReac Type Severity Reaction Status Date / Time No Known Allergies Allergy Verified 06/27/19 08:24 Home Medications: Home Meds Diltiazem [Dilacor XR] 240 mg PO DAILY 30 Days #30 cap.er 02/19/19 [Rx] Labetalol [Normodyne] 100 mg PO TID 30 Days #90 tablet 02/19/19 [Rx] Lisinopril [Prinivil] 40 mg PO DAILY 30 Days #30 tablet 02/19/19 [Rx] Insulin Lispro [Humalog] See Protocol SQ QIDACANDBED 04/22/19 [History] Insulin Glarg,Human.Rec.Analog [Lantus] 15 unit SUBCUT BIDAC #1 ml 04/25/19 [Rx] oxyCODONE HCl/Acetaminophen [Percocet 5-325 mg Tablet] 1 - 2 each PO Q6HR PRN # 20 tablet 04/26/19 [Rx] Hydrocodone/Acetaminophen [Hydrocodon-Acetaminophen 5-325] 1 - 2 each PO Q6HR PRN #6 tablet 06/25/19 [Rx] Past Medical History HEENT History: Reports: Impaired Vision Other HEENT History: Wears glasss Cardiovascular History: Reports: Hypertension Gastrointestinal History: Reports: Gastritis, Pancreatitis, Other (See Below) Other Gastrointestinal History: Fatty liver, acute pancreatitis--recurrent bouts of pancreatitis due to alcohol use Musculoskeletal History: Reports: Back Pain, Chronic Psychiatric History: Reports: Addiction, Anxiety, Other (See Below) Other Psychiatric History: alcohol abuse & withdrawl Endocrine/Metabolic History: Reports: Diabetes, Type II Do You Give Correction Boluses or Sliding Scale: Yes Patient/Family Able to Supply Written Copy of Sliding Scale: No - Infectious Disease History Infectious Disease History: Reports: Chicken Pox - Past Surgical History Head Surgeries/Procedures: Reports: None GI Surgical History: Reports: Cholecystectomy Social & Family History - Family History Family Medical History: Noncontributory - Tobacco Use Smoking Status *Q: Former Smoker Used Tobacco, but Quit: Yes Month/Year Tobacco Last Used: 05/03 - Caffeine Use Caffeine Use: Reports: None Caffeine Use Comment: doesnt drink soda often, "takes me 3 hours to finish one soda" - Alcohol Use Days Per Week of Alcohol Use: 3 Number of Drinks Per Day: 3 Total Drinks Per Week: 9 - Recreational Drug Use Recreational Drug Use: No Recreational Drug Type: Reports: Marijuana/Hashish Recreational Drug Use Frequency: Weekly Recreational Drug Last Use: 06/24/19 - Living Situation & Occupation Living situation: Reports: Single, Other (Has a 2-year daughter with ex- girlfriend) 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 Exam - Exam Exam: See Below - Vital Signs Vital Signs: Last Vital Signs Temp 97.5 F 06/27/19 07:27 Pulse 106 H 06/27/19 00:42 Resp 18 06/27/19 07:27 BP 147/109 H 06/27/19 07:27 Pulse Ox 98 06/27/19 07:27 Weight: 192 lb 8 oz - Exam Quality Assessment: No: Supplemental Oxygen General: Alert, Oriented, 4 HEENT: Conjunctiva Clear, Mucosa Moist & [place] Neck: Supple, Trachea Midline, 2 Lungs: Clear to Auscultation, Normal Respiratory Effort Cardiovascular: Regular Rate, Regular Rhythm GI/Abdominal Exam: Normal Bowel Sounds, Soft, Tender (mild epigastric to right upper quadrant tenderness without guarding or rebound.) Back Exam: Normal Inspection, Full Range of Motion, NT Extremities: Normal Inspection, Normal Range of Motion, Non-Tender, No Pedal Edema, Normal Capillary Refill Skin: Warm, Dry, Intact Neurological: Cranial Nerves Intact Neuro Extensive - Mental Status: Alert, Oriented x3, Normal Mood/Affect, Normal Cognition Neuro Extensive - Motor, Sensory, Reflexes: CN II-XII Intact Psychiatric: Alert, Normal Affect, Normal Mood - Patient Data Lab Results Last 24 hrs: Laboratory Results - last 24 hr 06/27/19 06/27/19 06/27/19 Range/Units 01:35 01:35 01:35 WBC 7.31 (4.23-9.07) K/mm3 RBC 5.32 (4.63-6.08) M/mm3 Hgb 17.00 (13.7-17.5) gm/L Hct 45.7 (40.1-51.0) % MCV 85.9 (79.0-92.2) fl MCH 31.9 (25.7-32.2) pg MCHC 37.2 H (32.2-35.5) g/dl RDW Std Deviation 37.4 (35.1-43.9) fL Plt Count 286 (163-337) K/mm3 MPV 10.2 (9.4-12.3) fl Neutrophils % (Manual) 61 H (40-60) % Band Neutrophils % 0 (0-10) % Lymphocytes % (Manual) 25 (20-40) % Atypical Lymphs % 0 % Monocytes % (Manual) 9 (2-10) % Eosinophils % (Manual) 3 (0.8-7.0) % Basophils % (Manual) 2 H (0.2-1.2) Platelet Estimate Adequate Plt Morphology Comment Normal RBC Morph Comment Normal PT 10.9 (9.7-12.0) SECONDS INR 1.00 APTT (22-31) SECONDS Sodium 129 L (136-145) mEq/L Potassium 4.1 (3.5-5.1) mEq/L Chloride 91 L (98-107) mEq/L Carbon Dioxide 21 (21-32) mEq/L Anion Gap 21.1 H (5-15) BUN 15 (7-18) mg/dL Creatinine 1.0 (0.7-1.3) mg/dL Est Cr Clr Drug Dosing 111.53 mL/min Estimated GFR (MDRD) > 60 (>60) mL/min BUN/Creatinine Ratio 15.0 (14-18) Glucose 459 H (74-106) mg/dL POC Glucose (70-105) mg/dL Hemoglobin A1c (4.50-6.20) % Serum Osmolality 299 (280-300) mosm/kg Lactic Acid (0.4-2.0) mmol/L Calcium 9.4 (8.5-10.1) mg/dL Magnesium 1.9 (1.8-2.4) mg/dl Total Bilirubin 1.7 H (0.2-1.0) mg/dL AST 36 (15-37) U/L ALT 86 H (16-63) U/L Alkaline Phosphatase 178 H (46-116) U/L C-Reactive Protein 0.3 (<1.0) mg/dL Total Protein 8.1 (6.4-8.2) g/dl Albumin 4.3 (3.4-5.0) g/dl Globulin 3.8 gm/dL Albumin/Globulin Ratio 1.1 (1-2) Lipase 1298 H (73-393) U/L Urine Color (Yellow) Urine Appearance (Clear) Urine pH (5.0-8.0) Ur Specific [place] (1.005-1.030) Urine Protein (Negative) Urine Glucose (UA) (Negative) Urine Ketones (Negative) Urine Occult Blood (Negative) Urine Nitrite (Negative) Urine Bilirubin (Negative) Urine Urobilinogen (0.2-1.0) Ur Leukocyte Esterase (Negative) Urine RBC (0-5) /hpf Urine WBC (0-5) /hpf Ur Epithelial Cells (0-5) /hpf Urine Bacteria (FEW) /hpf Urine Mucus (FEW) /hpf Ethyl Alcohol (0.00) gm% Ketones (0.0-0.3) mM 06/27/19 06/27/19 06/27/19 Range/Units 01:35 01:35 01:35 WBC (4.23-9.07) K/mm3 RBC (4.63-6.08) M/mm3 Hgb (13.7-17.5) gm/L Hct (40.1-51.0) % MCV (79.0-92.2) fl MCH (25.7-32.2) pg MCHC (32.2-35.5) g/dl RDW Std Deviation (35.1-43.9) fL Plt Count (163-337) K/mm3 MPV (9.4-12.3) fl Neutrophils % (Manual) (40-60) % Band Neutrophils % (0-10) % Lymphocytes % (Manual) (20-40) % Atypical Lymphs % % Monocytes % (Manual) (2-10) % Eosinophils % (Manual) (0.8-7.0) % Basophils % (Manual) (0.2-1.2) Platelet Estimate Plt Morphology Comment RBC Morph Comment PT (9.7-12.0) SECONDS INR APTT 25 (22-31) SECONDS Sodium (136-145) mEq/L Potassium (3.5-5.1) mEq/L Chloride (98-107) mEq/L Carbon Dioxide (21-32) mEq/L Anion Gap (5-15) BUN (7-18) mg/dL Creatinine (0.7-1.3) mg/dL Est Cr Clr Drug Dosing mL/min Estimated GFR (MDRD) (>60) mL/min BUN/Creatinine Ratio (14-18) Glucose (74-106) mg/dL POC Glucose (70-105) mg/dL Hemoglobin A1c (4.50-6.20) % Serum Osmolality (280-300) mosm/kg Lactic Acid 1.0 (0.4-2.0) mmol/L Calcium (8.5-10.1) mg/dL Magnesium (1.8-2.4) mg/dl Total Bilirubin (0.2-1.0) mg/dL AST (15-37) U/L ALT (16-63) U/L Alkaline Phosphatase (46-116) U/L C-Reactive Protein (<1.0) mg/dL Total Protein (6.4-8.2) g/dl Albumin (3.4-5.0) g/dl Globulin gm/dL Albumin/Globulin Ratio (1-2) Lipase (73-393) U/L Urine Color (Yellow) Urine Appearance (Clear) Urine pH (5.0-8.0) Ur Specific [place] (1.005-1.030) Urine Protein (Negative) Urine Glucose (UA) (Negative) Urine Ketones (Negative) Urine Occult Blood (Negative) Urine Nitrite (Negative) Urine Bilirubin (Negative) Urine Urobilinogen (0.2-1.0) Ur Leukocyte Esterase (Negative) Urine RBC (0-5) /hpf Urine WBC (0-5) /hpf Ur Epithelial Cells (0-5) /hpf Urine Bacteria (FEW) /hpf Urine Mucus (FEW) /hpf Ethyl Alcohol (0.00) gm% Ketones 1.55 (0.0-0.3) mM 06/27/19 06/27/19 06/27/19 Range/Units 01:35 01:35 01:40 WBC (4.23-9.07) K/mm3 RBC (4.63-6.08) M/mm3 Hgb (13.7-17.5) gm/L Hct (40.1-51.0) % MCV (79.0-92.2) fl MCH (25.7-32.2) pg MCHC (32.2-35.5) g/dl RDW Std Deviation (35.1-43.9) fL Plt Count (163-337) K/mm3 MPV (9.4-12.3) fl Neutrophils % (Manual) (40-60) % Band Neutrophils % (0-10) % Lymphocytes % (Manual) (20-40) % Atypical Lymphs % % Monocytes % (Manual) (2-10) % Eosinophils % (Manual) (0.8-7.0) % Basophils % (Manual) (0.2-1.2) Platelet Estimate Plt Morphology Comment RBC Morph Comment PT (9.7-12.0) SECONDS INR APTT (22-31) SECONDS Sodium (136-145) mEq/L Potassium (3.5-5.1) mEq/L Chloride (98-107) mEq/L Carbon Dioxide (21-32) mEq/L Anion Gap (5-15) BUN (7-18) mg/dL Creatinine (0.7-1.3) mg/dL Est Cr Clr Drug Dosing mL/min Estimated GFR (MDRD) (>60) mL/min BUN/Creatinine Ratio (14-18) Glucose (74-106) mg/dL POC Glucose (70-105) mg/dL Hemoglobin A1c 9.80 H (4.50-6.20) % Serum Osmolality (280-300) mosm/kg Lactic Acid (0.4-2.0) mmol/L Calcium (8.5-10.1) mg/dL Magnesium (1.8-2.4) mg/dl Total Bilirubin (0.2-1.0) mg/dL AST (15-37) U/L ALT (16-63) U/L Alkaline Phosphatase (46-116) U/L C-Reactive Protein (<1.0) mg/dL Total Protein (6.4-8.2) g/dl Albumin (3.4-5.0) g/dl Globulin gm/dL Albumin/Globulin Ratio (1-2) Lipase (73-393) U/L Urine Color Yellow (Yellow) Urine Appearance Clear (Clear) Urine pH 5.5 (5.0-8.0) Ur Specific [place] 1.015 (1.005-1.030) Urine Protein 1+ H (Negative) Urine Glucose (UA) 2+ H (Negative) Urine Ketones 2+ H (Negative) Urine Occult Blood Trace-intact H (Negative) Urine Nitrite Negative (Negative) Urine Bilirubin Negative (Negative) Urine Urobilinogen 0.2 (0.2-1.0) Ur Leukocyte Esterase Negative (Negative) Urine RBC Not seen (0-5) /hpf Urine WBC Not seen (0-5) /hpf Ur Epithelial Cells Not seen (0-5) /hpf Urine Bacteria Rare (FEW) /hpf Urine Mucus Not seen (FEW) /hpf Ethyl Alcohol 0.00 (0.00) gm% Ketones (0.0-0.3) mM 06/27/19 06/27/19 06/27/19 Range/Units 04:14 05:25 07:01 WBC (4.23-9.07) K/mm3 RBC (4.63-6.08) M/mm3 Hgb (13.7-17.5) gm/L Hct (40.1-51.0) % MCV (79.0-92.2) fl MCH (25.7-32.2) pg MCHC (32.2-35.5) g/dl RDW Std Deviation (35.1-43.9) fL Plt Count (163-337) K/mm3 MPV (9.4-12.3) fl Neutrophils % (Manual) (40-60) % Band Neutrophils % (0-10) % Lymphocytes % (Manual) (20-40) % Atypical Lymphs % % Monocytes % (Manual) (2-10) % Eosinophils % (Manual) (0.8-7.0) % Basophils % (Manual) (0.2-1.2) Platelet Estimate Plt Morphology Comment RBC Morph Comment PT (9.7-12.0) SECONDS INR APTT (22-31) SECONDS Sodium 135 L (136-145) mEq/L Potassium 3.5 (3.5-5.1) mEq/L Chloride 98 (98-107) mEq/L Carbon Dioxide 22 (21-32) mEq/L Anion Gap 18.5 H (5-15) BUN 10 (7-18) mg/dL Creatinine 0.8 (0.7-1.3) mg/dL Est Cr Clr Drug Dosing 143.80 mL/min Estimated GFR (MDRD) > 60 (>60) mL/min BUN/Creatinine Ratio 12.5 L (14-18) Glucose 298 H (74-106) mg/dL POC Glucose 280 H 296 H (70-105) mg/dL Hemoglobin A1c (4.50-6.20) % Serum Osmolality (280-300) mosm/kg Lactic Acid (0.4-2.0) mmol/L Calcium 8.4 L (8.5-10.1) mg/dL Magnesium (1.8-2.4) mg/dl Total Bilirubin 1.4 H (0.2-1.0) mg/dL AST 46 H (15-37) U/L ALT 78 H (16-63) U/L Alkaline Phosphatase 139 H (46-116) U/L C-Reactive Protein (<1.0) mg/dL Total Protein 7.2 (6.4-8.2) g/dl Albumin 3.7 (3.4-5.0) g/dl Globulin 3.5 gm/dL Albumin/Globulin Ratio 1.1 (1-2) Lipase 520 H (73-393) U/L Urine Color (Yellow) Urine Appearance (Clear) Urine pH (5.0-8.0) Ur Specific [place] (1.005-1.030) Urine Protein (Negative) Urine Glucose (UA) (Negative) Urine Ketones (Negative) Urine Occult Blood (Negative) Urine Nitrite (Negative) Urine Bilirubin (Negative) Urine Urobilinogen (0.2-1.0) Ur Leukocyte Esterase (Negative) Urine RBC (0-5) /hpf Urine WBC (0-5) /hpf Ur Epithelial Cells (0-5) /hpf Urine Bacteria (FEW) /hpf Urine Mucus (FEW) /hpf Ethyl Alcohol (0.00) gm% Ketones (0.0-0.3) mM 06/27/19 06/27/19 06/27/19 Range/Units 07:01 07:22 08:31 WBC (4.23-9.07) K/mm3 RBC (4.63-6.08) M/mm3 Hgb (13.7-17.5) gm/L Hct (40.1-51.0) % MCV (79.0-92.2) fl MCH (25.7-32.2) pg MCHC (32.2-35.5) g/dl RDW Std Deviation (35.1-43.9) fL Plt Count (163-337) K/mm3 MPV (9.4-12.3) fl Neutrophils % (Manual) (40-60) % Band Neutrophils % (0-10) % Lymphocytes % (Manual) (20-40) % Atypical Lymphs % % Monocytes % (Manual) (2-10) % Eosinophils % (Manual) (0.8-7.0) % Basophils % (Manual) (0.2-1.2) Platelet Estimate Plt Morphology Comment RBC Morph Comment PT (9.7-12.0) SECONDS INR APTT (22-31) SECONDS Sodium (136-145) mEq/L Potassium (3.5-5.1) mEq/L Chloride (98-107) mEq/L Carbon Dioxide (21-32) mEq/L Anion Gap (5-15) BUN (7-18) mg/dL Creatinine (0.7-1.3) mg/dL Est Cr Clr Drug Dosing mL/min Estimated GFR (MDRD) (>60) mL/min BUN/Creatinine Ratio (14-18) Glucose (74-106) mg/dL POC Glucose 279 H 300 H (70-105) mg/dL Hemoglobin A1c (4.50-6.20) % Serum Osmolality (280-300) mosm/kg Lactic Acid (0.4-2.0) mmol/L Calcium (8.5-10.1) mg/dL Magnesium (1.8-2.4) mg/dl Total Bilirubin (0.2-1.0) mg/dL AST (15-37) U/L ALT (16-63) U/L Alkaline Phosphatase (46-116) U/L C-Reactive Protein (<1.0) mg/dL Total Protein (6.4-8.2) g/dl Albumin (3.4-5.0) g/dl Globulin gm/dL Albumin/Globulin Ratio (1-2) Lipase (73-393) U/L Urine Color (Yellow) Urine Appearance (Clear) Urine pH (5.0-8.0) Ur Specific [place] (1.005-1.030) Urine Protein (Negative) Urine Glucose (UA) (Negative) Urine Ketones (Negative) Urine Occult Blood (Negative) Urine Nitrite (Negative) Urine Bilirubin (Negative) Urine Urobilinogen (0.2-1.0) Ur Leukocyte Esterase (Negative) Urine RBC (0-5) /hpf Urine WBC (0-5) /hpf Ur Epithelial Cells (0-5) /hpf Urine Bacteria (FEW) /hpf Urine Mucus (FEW) /hpf Ethyl Alcohol (0.00) gm% Ketones 0.3 (0.0-0.3) mM Result Diagrams: 06/27/19 01:35 06/27/19 10:58 Problem List Initiated/Reviewed/Updated: Yes Orders Last 24hrs: Active Orders 24 hr Category Date Time Status Admission Status [Patient Status] [ADT] Routine ADT 06/27/19 06:36 Active Blood Glucose Check, Bedside [RC] Q1H Care 06/27/19 03:16 Active Oxygen Therapy [RC] PRN Care 06/27/19 08:47 Ordered Up ad Krista [RC] ASDIRECTED Care 06/27/19 08:47 Ordered VTE/DVT Education [RC] PER UNIT ROUTINE Care 06/27/19 08:47 Ordered Vital Signs [RC] Q4H Care 06/27/19 08:47 Ordered Consult to Diabetic Nurse Specialist [CONS] Routine Cons 06/27/19 08:48 Ordered Nothing per Oral Now Diet [DIET] Diet 06/27/19 Breakfast Ordered BASIC METABOLIC PANEL,BMP [CHEM] Timed Lab 06/27/19 11:00 Ordered CBC WITH AUTO DIFF [HEME] AM Lab 06/28/19 05:11 Ordered CBC WITH AUTO DIFF [HEME] AM Lab 06/29/19 05:11 Ordered CBC WITH AUTO DIFF [HEME] AM Lab 06/30/19 05:11 Ordered CBC WITH AUTO DIFF [HEME] AM Lab 07/01/19 05:11 Ordered CBC WITH AUTO DIFF [HEME] AM Lab 07/02/19 05:11 Ordered COMPREHENSIVE METABOLIC PN,CMP [CHEM] AM Lab 06/28/19 05:11 Ordered COMPREHENSIVE METABOLIC PN,CMP [CHEM] AM Lab 06/29/19 05:11 Ordered COMPREHENSIVE METABOLIC PN,CMP [CHEM] AM Lab 06/30/19 05:11 Ordered COMPREHENSIVE METABOLIC PN,CMP [CHEM] AM Lab 07/01/19 05:11 Ordered COMPREHENSIVE METABOLIC PN,CMP [CHEM] AM Lab 07/02/19 05:11 Ordered MAGNESIUM [CHEM] AM Lab 06/28/19 05:11 Ordered MAGNESIUM [CHEM] AM Lab 06/29/19 05:11 Ordered MAGNESIUM [CHEM] AM Lab 06/30/19 05:11 Ordered MAGNESIUM [CHEM] AM Lab 07/01/19 05:11 Ordered MAGNESIUM [CHEM] AM Lab 07/02/19 05:11 Ordered MAGNESIUM [CHEM] Timed Lab 06/27/19 11:00 Ordered Dextrose 5%-0.9% NaCl with KCl [D5 NS with 20 mEq KCl] Med 06/27/19 08:30 Active 1,000 ml IV ASDIRECTED Diltiazem [Dilacor XR] Med 06/27/19 09:00 Ordered 240 mg PO DAILY Enoxaparin [Lovenox] Med 06/27/19 09:00 Ordered 40 mg SUBCUT DAILY HYDROmorphone [Dilaudid] Med 06/27/19 08:47 Active 1 mg IVPUSH Q2H PRN Insulin Glarg,Human.Rec.Analog [LantUS] Med 06/27/19 18:00 Active 12 unit SUBCUT Q12H Insulin Lispro [HumaLOG] Med 06/27/19 11:00 Active See Protocol SUBCUT QIDACANDBED Labetalol [Normodyne] Med 06/27/19 09:00 Ordered 100 mg PO TID Lisinopril [Prinivil] Med 06/27/19 21:00 Ordered 40 mg PO BEDTIME Ondansetron [Zofran] Med 06/27/19 08:47 Ordered 4 mg IV Q4H PRN Resuscitation Status Routine Resus Stat 06/27/19 08:47 Ordered Medication Orders Diltiazem HCl (Dilacor Xr) 240 mg PO DAILY ALBERTO Enoxaparin Sodium (Lovenox) 40 mg SUBCUT DAILY [facility] Hydromorphone HCl (Dilaudid) 1 mg IVPUSH Q2H PRN PRN Reason: Pain Potassium Chloride/Dextrose/Sod Cl (D5 Ns With 20 Meq Kcl) 1,000 mls @ 150 mls/ hr IV ASDIRECTED [facility] Last Admin: 06/27/19 08:28 Dose: 150 mls/hr Insulin Glargine (Lantus) 12 unit SUBCUT Q12H [facility] Insulin Human Lispro (Humalog) 0 unit SUBCUT QIDACANDBED [facility]; Protocol Labetalol HCl (Normodyne) 100 mg PO TID ALBERTO Lisinopril (Prinivil) 40 mg PO BEDTIME ALBERTO Ondansetron HCl (Zofran) 4 mg IV Q4H PRN PRN Reason: Nausea/Vomiting Assessment/Plan Comment:: Assessment * 28-year-old male with recurrent acute pancreatitis * hyperglycemia with metabolic acidosis * Poorly controlled diabetes mellitus with hemoglobin A1c of 9.8 Plan * Admit to ICU for close monitoring of blood sugars * nothing by mouth and bowel rest except to water * D5 normal saline at 150 mL an hour * initial fears to blood sugars every hour 4 then every 2 hours. * Lantus 12 units every 12 hours * sliding scale insulin low dose protocol * advance diet when tolerated secondary to fall pain * Pain control with Dilaudid and oral medication * CODE STATUS: Full code * VTE prophylaxis with Lovenox * Length of stay 2 days likely - Mortality Measure Prognosis:: Poor
[2019-06-27] MEDS: HYDROmorphone 1 MG/ML Syringe IVPUSH PRN ×6 (08:58→23:09)
[2019-06-27] MEDS: Labetalol 100 MG Tab PO SCH ×3 (09:00→20:11)
[2019-06-27] MEDS: Diltiazem 240 MG Cap.ER PO SCH (09:02)
[2019-06-27] MEDS: Enoxaparin 40 MG/0.4 ML Syringe SUBCUT SCH (09:02)
[2019-06-27] MEDS ORDERED: Insulin Lispro 100 Units/ML 3 ML Vial SUBCUT SCH (11:00)
[2019-06-27] MEDS: Insulin Lispro 100 Units/ML 3 ML Vial SUBCUT SCH ×4 (11:34→23:11)
[2019-06-27] MEDS: Potassium Chloride 10 MEQ in Premix Bag 1 BAG IV SCH ×4 (15:28→18:29)
[2019-06-27] MEDS ORDERED: Insulin Glarg,Human.Rec.Analog 100 UNIT/ML ML SUBCUT SCH (16:00)
[2019-06-27] MEDS: Insulin Glarg,Human.Rec.Analog 100 UNIT/ML ML SUBCUT SCH (17:27)
[2019-06-27] MEDS: Lisinopril 20 MG Tab PO SCH (20:08)
[2019-06-28] MEDS: Insulin Lispro 100 Units/ML 3 ML Vial SUBCUT SCH ×6 (03:09→21:03)
[2019-06-28] MEDS: HYDROmorphone 1 MG/ML Syringe IVPUSH PRN ×3 (03:16→10:32)
[2019-06-28] MEDS: Dextrose 5%-0.9% NaCl with KCl 1,000 ML IV SCH (04:23)
[2019-06-28] MEDS: Insulin Glarg,Human.Rec.Analog 100 UNIT/ML ML SUBCUT SCH ×2 (06:25→18:50)
[2019-06-28] MEDS: Labetalol 100 MG Tab PO SCH ×3 (09:12→19:59)
[2019-06-28] MEDS: Diltiazem 240 MG Cap.ER PO SCH (09:12)
[2019-06-28] MEDS: Enoxaparin 40 MG/0.4 ML Syringe SUBCUT SCH (09:13)
[2019-06-28] MEDS ORDERED: Dextrose 5%-0.9% NaCl with KCl 1,000 ML IV SCH (09:30)
[2019-06-28] MEDS: Potassium Chloride 10 MEQ in Premix Bag 1 BAG IV SCH ×2 (10:13→12:00)
[2019-06-28] MEDS ORDERED: Potassium Chloride 10 MEQ in Premix Bag 1 BAG IV SCH (11:30)
[2019-06-28] MEDS ORDERED: Magnesium Sulfate (4.06 MEQ/ML) 1 GM/2 ML SDV IV ONE (12:43)
[2019-06-28] MEDS ORDERED: Magnesium Sulfate/Water 2 GM in Premix Bag 1 BAG IV ONE (13:00)
--- NOTE | 2019-06-28 17:52 | PCM.DCSUM1 ---
Discharge Summary - Hospital Course HPI Initial Comments: 28-year-old male with history of multiple episodes of pancreatitis presented to the emergency room early this morning with complaints of severe epigastric and right upper quadrant pain. Patient states the pain started on Monday night feeling more like gastritis and then developed into an epigastric right upper quadrant pain that radiated to the back. Patient was seen in the emergency room on Monday and was sent home. The symptoms worsened overnight and he returned this morning. Last night after supper of mixed vegetables and potatoes he develops severe pain. Patient has a history of alcoholism but his last drink was on June 17 and it was a beer and one mixed drink. He has a history of insulin dependent diabetes, diagnosed 3 or 4 years ago, and his blood sugars this week up in the 400s. He only uses short-acting Humalog because of inability to pay for long-acting insulin. Patient usually takes 2-3 units of insulin with each meal. In the emergency room patient was bolused with IV fluids and start insulin drip. Blood sugars did decrease and he was switched over to D5 normal saline. He was kept nothing by mouth. He was transferred to the ICU for close monitoring. Initial lab work in the emergency room showed a white count of 7.3, hemoglobin of 17, sodium of 129 uncorrected, potassium 4.1, anion gap of 21.1, glucose of 459. BUN 15, creatinine of 1.0, negative ketones, lipase 1298, AST 36, ALT 86, alkaline phosphatase 178, total bilirubin 1.7, lactic acid of 1.0. Diagnosis: Stroke: No - Discharge Data Discharge Date: 06/29/19 Discharge Disposition: Home, Self-Care 01 Condition: Good - Referral to Home Health Primary Care Physician: Sylvester Price MD - Patient Summary/Data Consults: Consultations 06/27/19 08:48 Consult to Diabetic Nurse Specialist [CONS] Routine Hospital Course: patient was made nothing by mouth and we slowly increase his diet. Patient did have some increase in his liver function tests that should be followed up as an outpatient. They stabilize but did not decrease. Discharge AST was 92 ALT 154, alkaline phosphatase of 133. total bilirubin decreased from 1.7-1.1. - Patient Instructions Diet: Diabetic Diet Activity: As Tolerated Driving: May Drive Today Showering/Bathing: May Shower - Discharge Plan *PRESCRIPTION DRUG MONITORING PROGRAM REVIEWED*: No *COPY OF PRESCRIPTION DRUG MONITORING REPORT IN PATIENT KENJI: No Prescriptions/Med Rec: traMADol [Ultram] 50 mg PO Q4H PRN #8 tablet PRN Reason: Pain Home Medications: Home Meds Diltiazem [Dilacor XR] 240 mg PO DAILY 30 Days #30 cap.er 02/19/19 [Rx] Labetalol [Normodyne] 100 mg PO TID 30 Days #90 tablet 02/19/19 [Rx] Lisinopril [Prinivil] 40 mg PO DAILY 30 Days #30 tablet 02/19/19 [Rx] oxyCODONE HCl/Acetaminophen [Percocet 5-325 mg Tablet] 1 - 2 each PO Q6HR PRN # 20 tablet 04/26/19 [Rx] Hydrocodone/Acetaminophen [Hydrocodon-Acetaminophen 5-325] 1 - 2 each PO Q6HR PRN #6 tablet 06/25/19 [Rx] Insulin Glarg,Human.Rec.Analog [Lantus] 12 unit SUBCUT Q12H ml 06/28/19 [Rx] Insulin Lispro [HumaLOG] 0 unit SUBCUT Q4H vial 06/28/19 [Rx] Insulin Lispro [HumaLOG] 0 unit SUBCUT QIDACANDBED vial 06/29/19 [Rx] traMADol [Ultram] 50 mg PO Q4H PRN #8 tablet 06/29/19 [Rx] Oxygen Therapy Mode: Room Air Patient Handouts: Insulin Storage and Care, Diabetes Mellitus and Sick Day Management, Insulin Injection Instructions, Using Insulin Pens, Adult, Type 2 Diabetes Mellitus, Self Care, Adult, Preventing Diabetes Mellitus Complications Forms: ED Department Discharge Referrals: Sylvester Price MD [Primary Care Provider] - - Discharge Summary/Plan Comment DC Time >30 min.: Yes Discharge Summary/Plan Comment: patient is being discharged to home. He is counseled to stop drinking completely. He is to watch his blood sugars more closely. He was given long- acting and basal insulin to go home on. He will follow up with primary care provider. - General Info Date of Service: 06/29/19 Admission Dx/Problem (Free Text: Admission Diagnosis/Problem Admission Diagnosis/Problem Pancreatitis - Review of Systems General: Reports: No Symptoms HEENT: Reports: No Symptoms Pulmonary: Reports: No Symptoms Cardiovascular: Reports: No Symptoms Gastrointestinal: Reports: No Symptoms. Denies: Abdominal Pain, Difficulty Swallowing, Nausea, Vomiting - Patient Data Vitals - Most Recent: Last Vital Signs Temp 97.4 F 06/28/19 15:25 Pulse 66 06/28/19 15:27 Resp 16 06/28/19 15:25 BP 118/81 06/28/19 15:27 Pulse Ox 98 06/28/19 15:25 Weight - Most Recent: 194 lb 6.458 oz I&O - Last 24 hours: Intake & Output 06/28/19 06/28/19 06/28/19 06:59 14:59 22:59 Intake Total 2424 2257 Balance 2425 2257 Lab Results - Last 24 hrs: Laboratory Results - last 24 hr 06/27/19 06/27/19 06/28/19 Range/Units 18:27 22:55 03:07 WBC (4.23-9.07) K/mm3 RBC (4.63-6.08) M/mm3 Hgb (13.7-17.5) gm/L Hct (40.1-51.0) % MCV (79.0-92.2) fl MCH (25.7-32.2) pg MCHC (32.2-35.5) g/dl RDW Std Deviation (35.1-43.9) fL Plt Count (163-337) K/mm3 MPV (9.4-12.3) fl Neut % (Auto) (34.0-67.9) % Lymph % (Auto) (21.8-53.1) % Newton % (Auto) (5.3-12.2) % Eos % (Auto) (0.8-7.0) Baso % (Auto) (0.1-1.2) % Neut # (Auto) (1.78-5.38) K/mm3 Lymph # (Auto) (1.32-3.57) K/mm3 Newton # (Auto) (0.30-0.82) K/mm3 Eos # (Auto) (0.04-0.54) K/mm3 Baso # (Auto) (0.01-0.08) K/mm3 Sodium (136-145) mEq/L Potassium (3.5-5.1) mEq/L Chloride (98-107) mEq/L Carbon Dioxide (21-32) mEq/L Anion Gap (5-15) BUN (7-18) mg/dL Creatinine (0.7-1.3) mg/dL Est Cr Clr Drug Dosing mL/min Estimated GFR (MDRD) (>60) mL/min BUN/Creatinine Ratio (14-18) Glucose (74-106) mg/dL POC Glucose 237 H 240 H 202 H (70-105) mg/dL Calcium (8.5-10.1) mg/dL Magnesium (1.8-2.4) mg/dl Total Bilirubin (0.2-1.0) mg/dL AST (15-37) U/L ALT (16-63) U/L Alkaline Phosphatase (46-116) U/L Total Protein (6.4-8.2) g/dl Albumin (3.4-5.0) g/dl Globulin gm/dL Albumin/Globulin Ratio (1-2) 06/28/19 06/28/19 06/28/19 Range/Units 04:45 04:45 05:31 WBC 6.05 (4.23-9.07) K/mm3 RBC 4.81 (4.63-6.08) M/mm3 Hgb 14.7 D (13.7-17.5) gm/L Hct 42.6 (40.1-51.0) % MCV 88.6 (79.0-92.2) fl MCH 30.6 (25.7-32.2) pg MCHC 34.5 (32.2-35.5) g/dl RDW Std Deviation 38.3 (35.1-43.9) fL Plt Count 222 (163-337) K/mm3 MPV 10.3 (9.4-12.3) fl Neut % (Auto) 55.2 (34.0-67.9) % Lymph % (Auto) 31.9 (21.8-53.1) % Newton % (Auto) 8.4 (5.3-12.2) % Eos % (Auto) 3.0 (0.8-7.0) Baso % (Auto) 1.3 H (0.1-1.2) % Neut # (Auto) 3.34 (1.78-5.38) K/mm3 Lymph # (Auto) 1.93 (1.32-3.57) K/mm3 Newton # (Auto) 0.51 (0.30-0.82) K/mm3 Eos # (Auto) 0.18 (0.04-0.54) K/mm3 Baso # (Auto) 0.08 (0.01-0.08) K/mm3 Sodium 138 (136-145) mEq/L Potassium 3.4 L (3.5-5.1) mEq/L Chloride 102 (98-107) mEq/L Carbon Dioxide 23 (21-32) mEq/L Anion Gap 16.4 H (5-15) BUN 4 L (7-18) mg/dL Creatinine 0.6 L (0.7-1.3) mg/dL Est Cr Clr Drug Dosing 191.74 mL/min Estimated GFR (MDRD) > 60 (>60) mL/min BUN/Creatinine Ratio 6.7 L (14-18) Glucose 209 H (74-106) mg/dL POC Glucose 205 H (70-105) mg/dL Calcium 8.3 L (8.5-10.1) mg/dL Magnesium 1.6 L (1.8-2.4) mg/dl Total Bilirubin 1.2 H (0.2-1.0) mg/dL AST 141 H (15-37) U/L ALT 109 H (16-63) U/L Alkaline Phosphatase 113 (46-116) U/L Total Protein 6.3 L (6.4-8.2) g/dl Albumin 3.3 L (3.4-5.0) g/dl Globulin 3.0 gm/dL Albumin/Globulin Ratio 1.1 (1-2) 06/28/19 06/28/19 06/28/19 Range/Units 07:43 11:13 15:16 WBC (4.23-9.07) K/mm3 RBC (4.63-6.08) M/mm3 Hgb (13.7-17.5) gm/L Hct (40.1-51.0) % MCV (79.0-92.2) fl MCH (25.7-32.2) pg MCHC (32.2-35.5) g/dl RDW Std Deviation (35.1-43.9) fL Plt Count (163-337) K/mm3 MPV (9.4-12.3) fl Neut % (Auto) (34.0-67.9) % Lymph % (Auto) (21.8-53.1) % Newton % (Auto) (5.3-12.2) % Eos % (Auto) (0.8-7.0) Baso % (Auto) (0.1-1.2) % Neut # (Auto) (1.78-5.38) K/mm3 Lymph # (Auto) (1.32-3.57) K/mm3 Newton # (Auto) (0.30-0.82) K/mm3 Eos # (Auto) (0.04-0.54) K/mm3 Baso # (Auto) (0.01-0.08) K/mm3 Sodium (136-145) mEq/L Potassium (3.5-5.1) mEq/L Chloride (98-107) mEq/L Carbon Dioxide (21-32) mEq/L Anion Gap (5-15) BUN (7-18) mg/dL Creatinine (0.7-1.3) mg/dL Est Cr Clr Drug Dosing mL/min Estimated GFR (MDRD) (>60) mL/min BUN/Creatinine Ratio (14-18) Glucose (74-106) mg/dL POC Glucose 198 H 233 H 260 H (70-105) mg/dL Calcium (8.5-10.1) mg/dL Magnesium (1.8-2.4) mg/dl Total Bilirubin (0.2-1.0) mg/dL AST (15-37) U/L ALT (16-63) U/L Alkaline Phosphatase (46-116) U/L Total Protein (6.4-8.2) g/dl Albumin (3.4-5.0) g/dl Globulin gm/dL Albumin/Globulin Ratio (1-2) Med Orders - Current: Current Medications Diltiazem HCl (Dilacor Xr) 240 mg PO DAILY [facility] Last Admin: 06/28/19 09:12 Dose: 240 mg Enoxaparin Sodium (Lovenox) 40 mg SUBCUT DAILY [facility] Last Admin: 06/28/19 09:13 Dose: 40 mg Hydromorphone HCl (Dilaudid) 1 mg IVPUSH Q2H PRN PRN Reason: Pain Last Admin: 06/28/19 10:32 Dose: 1 mg Potassium Chloride/Dextrose/Sod Cl (D5 Ns With 20 Meq Kcl) 1,000 mls @ 100 mls/ hr IV ASDIRECTED [facility] Last Admin: 06/28/19 10:43 Dose: 100 mls/hr Insulin Glargine (Lantus) 12 unit SUBCUT Q12H [facility] Last Admin: 06/28/19 06:25 Dose: 12 units Insulin Human Lispro (Humalog) 0 unit SUBCUT Q4H [facility]; Protocol Last Admin: 06/28/19 15:19 Dose: 3 units Labetalol HCl (Normodyne) 100 mg PO TID [facility] Last Admin: 06/28/19 15:27 Dose: 100 mg Lisinopril (Prinivil) 40 mg PO BEDTIME [facility] Last Admin: 06/27/19 20:08 Dose: 40 mg Ondansetron HCl (Zofran) 4 mg IV Q4H PRN PRN Reason: Nausea/Vomiting Last Admin: 06/27/19 21:58 Dose: 4 mg Discontinued Medications Hydromorphone HCl (Dilaudid) 1 mg IVPUSH ONETIME ONE Stop: 06/27/19 02:16 Last Admin: 06/27/19 02:31 Dose: 1 mg Hydromorphone HCl (Dilaudid) 1 mg IVPUSH ONETIME ONE Stop: 06/27/19 03:18 Last Admin: 06/27/19 03:38 Dose: 1 mg Hydromorphone HCl (Dilaudid) 1 mg IVPUSH ONETIME ONE Stop: 06/27/19 06:42 Last Admin: 06/27/19 06:48 Dose: 1 mg Sodium Chloride (Normal Saline) 1,000 mls @ 999 mls/hr IV ASDIRECTED [facility] Last Admin: 06/27/19 01:40 Dose: 999 mls/hr Insulin Human Regular 100 unit (/ Sodium Chloride) 100 mls @ 2 mls/hr IV ASDIRECTED [facility]; Protocol Last Titration: 06/27/19 05:30 Dose: 2 unit/hr, 2 mls/hr Sodium Chloride (Normal Saline) 1,000 mls @ 999 mls/hr IV ASDIRECTED [facility] Last Admin: 06/27/19 03:36 Dose: 999 mls/hr Insulin Human Regular 100 unit (/ Sodium Chloride) 100 mls @ 86.63 mls/hr IV ASDIRECTED [facility]; Protocol Dextrose/Sodium Chloride (Dextrose 5%-Normal Saline) 1,000 mls @ 250 mls/hr IV ASDIRECTED [facility] Last Admin: 06/27/19 04:45 Dose: 250 mls/hr Dextrose/Sodium Chloride (Dextrose 5%-Normal Saline) 1,000 mls @ 150 mls/hr IV ASDIRECTED [facility] Last Admin: 06/27/19 07:25 Dose: 150 mls/hr Potassium Chloride/Dextrose/Sod Cl (D5 Ns With 20 Meq Kcl) 1,000 mls @ 150 mls/ hr IV ASDIRECTED [facility] Last Admin: 06/28/19 04:23 Dose: 150 mls/hr Potassium Chloride 10 meq/ (Premix) 100 mls @ 100 mls/hr IV Q1H [facility] Stop: 06/27/19 19:29 Last Admin: 06/27/19 18:29 Dose: 100 mls/hr Potassium Chloride 10 meq/ (Premix) 100 mls @ 100 mls/hr IV Q1H [facility] Stop: 06/28/19 11:14 Last Admin: 06/28/19 12:00 Dose: Not Given Potassium Chloride 10 meq/ (Premix) 100 mls @ 100 mls/hr IV Q1H [facility] Stop: 06/28/19 12:29 Last Admin: 06/28/19 11:16 Dose: 100 mls/hr Magnesium Sulfate 2 gm/ Premix 50 mls @ 25 mls/hr IV ONETIME ONE Stop: 06/28/19 14:59 Last Admin: 06/28/19 13:52 Dose: 25 mls/hr Insulin Glargine (Lantus) 12 unit SUBCUT BIDAC [facility] Insulin Glargine (Lantus) 12 unit SUBCUT ONETIME ONE Stop: 06/27/19 07:10 Last Admin: 06/27/19 07:23 Dose: 12 units Insulin Human Lispro (Humalog) 2 unit SUBCUT ONETIME ONE Stop: 06/27/19 08:34 Last Admin: 06/27/19 08:36 Dose: 2 units Insulin Human Lispro (Humalog) 0 unit SUBCUT QIDACANDBED [facility]; Protocol Last Admin: 06/27/19 11:28 Dose: Not Given Ondansetron HCl (Zofran) 4 mg IVPUSH ONETIME ONE Stop: 06/27/19 02:16 Last Admin: 06/27/19 02:30 Dose: 4 mg Ondansetron HCl (Zofran) 4 mg IVPUSH ONETIME ONE Stop: 06/27/19 06:43 Last Admin: 06/27/19 06:48 Dose: 4 mg - Exam Quality Assessment: Denies: Supplemental Oxygen General: Reports: Alert, Oriented HEENT: Reports: Pupils Equal, Mucous Membr. Moist/[place] Neck: Reports: Supple Lungs: Reports: Clear to Auscultation, Normal Respiratory Effort Cardiovascular: Reports: Regular Rate, Regular Rhythm GI/Abdominal Exam: Normal Bowel Sounds, Soft, Non-Tender, No Organomegaly, No Distention Extremities: Normal Inspection, Normal Range of Motion, Non-Tender, No Pedal Edema Skin: Reports: Warm, Dry, Intact Psy/Mental Status: Reports: Alert, Normal Affect, Normal Mood
[2019-06-28] MEDS ORDERED: traMADol 50 MG Tab PO PRN (19:32)
[2019-06-28] MEDS ORDERED: Ibuprofen 800 MG Tab PO PRN (19:33)
[2019-06-28] MEDS ORDERED: Acetaminophen 325 MG Tab PO PRN (19:33)
[2019-06-28] MEDS: Lisinopril 20 MG Tab PO SCH (20:01)
--- NOTE | 2019-06-28 21:26 | PCM.PN ---
- General Info Date of Service: 06/28/19 Admission Dx/Problem (Free Text): Admission Diagnosis/Problem Admission Diagnosis/Problem Pancreatitis Subjective Update: Patient is doing much better. He tolerated a liquid diet and even a full meal at dinner. He still concerned about going home because of pain in the epigastrium radiating to his back that is similar to how it felt right before this all began. - Review of Systems General: Reports: No Symptoms HEENT: Reports: No Symptoms Pulmonary: Reports: No Symptoms Cardiovascular: Reports: No Symptoms Gastrointestinal: Reports: Abdominal Pain - Patient Data Vitals - Most Recent: Last Vital Signs Temp 97.5 F 06/28/19 18:00 Pulse 78 06/28/19 19:59 Resp 16 06/28/19 18:00 BP 153/111 H 06/28/19 20:01 Pulse Ox 100 06/28/19 18:00 Weight - Most Recent: 194 lb 6.458 oz I&O - Last 24 Hours: Intake & Output 06/28/19 06/28/19 06/28/19 06:59 14:59 22:59 Intake Total 2424 3077 Balance 2424 3077 Lab Results Last 24 Hours: Laboratory Results - last 24 hr 06/27/19 06/28/19 06/28/19 Range/Units 22:55 03:07 04:45 WBC 6.05 (4.23-9.07) K/mm3 RBC 4.81 (4.63-6.08) M/mm3 Hgb 14.7 D (13.7-17.5) gm/L Hct 42.6 (40.1-51.0) % MCV 88.6 (79.0-92.2) fl MCH 30.6 (25.7-32.2) pg MCHC 34.5 (32.2-35.5) g/dl RDW Std Deviation 38.3 (35.1-43.9) fL Plt Count 222 (163-337) K/mm3 MPV 10.3 (9.4-12.3) fl Neut % (Auto) 55.2 (34.0-67.9) % Lymph % (Auto) 31.9 (21.8-53.1) % [place] % (Auto) 8.4 (5.3-12.2) % Eos % (Auto) 3.0 (0.8-7.0) Baso % (Auto) 1.3 H (0.1-1.2) % Neut # (Auto) 3.34 (1.78-5.38) K/mm3 Lymph # (Auto) 1.93 (1.32-3.57) K/mm3 [place] # (Auto) 0.51 (0.30-0.82) K/mm3 Eos # (Auto) 0.18 (0.04-0.54) K/mm3 Baso # (Auto) 0.08 (0.01-0.08) K/mm3 Sodium (136-145) mEq/L Potassium (3.5-5.1) mEq/L Chloride (98-107) mEq/L Carbon Dioxide (21-32) mEq/L Anion Gap (5-15) BUN (7-18) mg/dL Creatinine (0.7-1.3) mg/dL Est Cr Clr Drug Dosing mL/min Estimated GFR (MDRD) (>60) mL/min BUN/Creatinine Ratio (14-18) Glucose (74-106) mg/dL POC Glucose 240 H 202 H (70-105) mg/dL Calcium (8.5-10.1) mg/dL Magnesium (1.8-2.4) mg/dl Total Bilirubin (0.2-1.0) mg/dL AST (15-37) U/L ALT (16-63) U/L Alkaline Phosphatase (46-116) U/L Total Protein (6.4-8.2) g/dl Albumin (3.4-5.0) g/dl Globulin gm/dL Albumin/Globulin Ratio (1-2) 06/28/19 06/28/19 06/28/19 Range/Units 04:45 05:31 07:43 WBC (4.23-9.07) K/mm3 RBC (4.63-6.08) M/mm3 Hgb (13.7-17.5) gm/L Hct (40.1-51.0) % MCV (79.0-92.2) fl MCH (25.7-32.2) pg MCHC (32.2-35.5) g/dl RDW Std Deviation (35.1-43.9) fL Plt Count (163-337) K/mm3 MPV (9.4-12.3) fl Neut % (Auto) (34.0-67.9) % Lymph % (Auto) (21.8-53.1) % [place] % (Auto) (5.3-12.2) % Eos % (Auto) (0.8-7.0) Baso % (Auto) (0.1-1.2) % Neut # (Auto) (1.78-5.38) K/mm3 Lymph # (Auto) (1.32-3.57) K/mm3 [place] # (Auto) (0.30-0.82) K/mm3 Eos # (Auto) (0.04-0.54) K/mm3 Baso # (Auto) (0.01-0.08) K/mm3 Sodium 138 (136-145) mEq/L Potassium 3.4 L (3.5-5.1) mEq/L Chloride 102 (98-107) mEq/L Carbon Dioxide 23 (21-32) mEq/L Anion Gap 16.4 H (5-15) BUN 4 L (7-18) mg/dL Creatinine 0.6 L (0.7-1.3) mg/dL Est Cr Clr Drug Dosing 191.74 mL/min Estimated GFR (MDRD) > 60 (>60) mL/min BUN/Creatinine Ratio 6.7 L (14-18) Glucose 209 H (74-106) mg/dL POC Glucose 205 H 198 H (70-105) mg/dL Calcium 8.3 L (8.5-10.1) mg/dL Magnesium 1.6 L (1.8-2.4) mg/dl Total Bilirubin 1.2 H (0.2-1.0) mg/dL AST 141 H (15-37) U/L ALT 109 H (16-63) U/L Alkaline Phosphatase 113 (46-116) U/L Total Protein 6.3 L (6.4-8.2) g/dl Albumin 3.3 L (3.4-5.0) g/dl Globulin 3.0 gm/dL Albumin/Globulin Ratio 1.1 (1-2) 06/28/19 06/28/19 06/28/19 Range/Units 11:13 15:16 19:01 WBC (4.23-9.07) K/mm3 RBC (4.63-6.08) M/mm3 Hgb (13.7-17.5) gm/L Hct (40.1-51.0) % MCV (79.0-92.2) fl MCH (25.7-32.2) pg MCHC (32.2-35.5) g/dl RDW Std Deviation (35.1-43.9) fL Plt Count (163-337) K/mm3 MPV (9.4-12.3) fl Neut % (Auto) (34.0-67.9) % Lymph % (Auto) (21.8-53.1) % [place] % (Auto) (5.3-12.2) % Eos % (Auto) (0.8-7.0) Baso % (Auto) (0.1-1.2) % Neut # (Auto) (1.78-5.38) K/mm3 Lymph # (Auto) (1.32-3.57) K/mm3 [place] # (Auto) (0.30-0.82) K/mm3 Eos # (Auto) (0.04-0.54) K/mm3 Baso # (Auto) (0.01-0.08) K/mm3 Sodium (136-145) mEq/L Potassium (3.5-5.1) mEq/L Chloride (98-107) mEq/L Carbon Dioxide (21-32) mEq/L Anion Gap (5-15) BUN (7-18) mg/dL Creatinine (0.7-1.3) mg/dL Est Cr Clr Drug Dosing mL/min Estimated GFR (MDRD) (>60) mL/min BUN/Creatinine Ratio (14-18) Glucose (74-106) mg/dL POC Glucose 233 H 260 H 291 H (70-105) mg/dL Calcium (8.5-10.1) mg/dL Magnesium (1.8-2.4) mg/dl Total Bilirubin (0.2-1.0) mg/dL AST (15-37) U/L ALT (16-63) U/L Alkaline Phosphatase (46-116) U/L Total Protein (6.4-8.2) g/dl Albumin (3.4-5.0) g/dl Globulin gm/dL Albumin/Globulin Ratio (1-2) 06/28/ Range/Units 21:02 WBC (4.23-9.07) K/mm3 RBC (4.63-6.08) M/mm3 Hgb (13.7-17.5) gm/L Hct (40.1-51.0) % MCV (79.0-92.2) fl MCH (25.7-32.2) pg MCHC (32.2-35.5) g/dl RDW Std Deviation (35.1-43.9) fL Plt Count (163-337) K/mm3 MPV (9.4-12.3) fl Neut % (Auto) (34.0-67.9) % Lymph % (Auto) (21.8-53.1) % [place] % (Auto) (5.3-12.2) % Eos % (Auto) (0.8-7.0) Baso % (Auto) (0.1-1.2) % Neut # (Auto) (1.78-5.38) K/mm3 Lymph # (Auto) (1.32-3.57) K/mm3 [place] # (Auto) (0.30-0.82) K/mm3 Eos # (Auto) (0.04-0.54) K/mm3 Baso # (Auto) (0.01-0.08) K/mm3 Sodium (136-145) mEq/L Potassium (3.5-5.1) mEq/L Chloride (98-107) mEq/L Carbon Dioxide (21-32) mEq/L Anion Gap (5-15) BUN (7-18) mg/dL Creatinine (0.7-1.3) mg/dL Est Cr Clr Drug Dosing mL/min Estimated GFR (MDRD) (>60) mL/min BUN/Creatinine Ratio (14-18) Glucose (74-106) mg/dL POC Glucose 237 H (70-105) mg/dL Calcium (8.5-10.1) mg/dL Magnesium (1.8-2.4) mg/dl Total Bilirubin (0.2-1.0) mg/dL AST (15-37) U/L ALT (16-63) U/L Alkaline Phosphatase (46-116) U/L Total Protein (6.4-8.2) g/dl Albumin (3.4-5.0) g/dl Globulin gm/dL Albumin/Globulin Ratio (1-2) Med Orders - Current: Current Medications Acetaminophen (Tylenol) 650 mg PO Q4H PRN PRN Reason: Pain Last Admin: 06/28/19 21:05 Dose: 650 mg Diltiazem HCl (Dilacor Xr) 240 mg PO DAILY [facility] Last Admin: 06/28/19 09:12 Dose: 240 mg Enoxaparin Sodium (Lovenox) 40 mg SUBCUT DAILY [facility] Last Admin: 06/28/19 09:13 Dose: 40 mg Ibuprofen (Motrin) 800 mg PO Q6H PRN PRN Reason: Pain Insulin Glargine (Lantus) 12 unit SUBCUT Q12H [facility] Last Admin: 06/28/19 18:50 Dose: 12 units Insulin Human Lispro (Humalog) 0 unit SUBCUT QIDACANDBED [facility]; Protocol Last Admin: 06/28/19 21:03 Dose: 2 unit Labetalol HCl (Normodyne) 100 mg PO TID [facility] Last Admin: 06/28/19 19:59 Dose: 100 mg Lisinopril (Prinivil) 40 mg PO BEDTIME [facility] Last Admin: 06/28/19 20:01 Dose: 40 mg Ondansetron HCl (Zofran) 4 mg IV Q4H PRN PRN Reason: Nausea/Vomiting Last Admin: 06/27/19 21:58 Dose: 4 mg Tramadol HCl (Ultram) 50 mg PO Q4H PRN PRN Reason: Pain Last Admin: 06/28/19 20:01 Dose: 50 mg Discontinued Medications Hydromorphone HCl (Dilaudid) 1 mg IVPUSH ONETIME ONE Stop: 06/27/19 02:16 Last Admin: 06/27/19 02:31 Dose: 1 mg Hydromorphone HCl (Dilaudid) 1 mg IVPUSH ONETIME ONE Stop: 06/27/19 03:18 Last Admin: 06/27/19 03:38 Dose: 1 mg Hydromorphone HCl (Dilaudid) 1 mg IVPUSH ONETIME ONE Stop: 06/27/19 06:42 Last Admin: 06/27/19 06:48 Dose: 1 mg Hydromorphone HCl (Dilaudid) 1 mg IVPUSH Q2H PRN PRN Reason: Pain Last Admin: 06/28/19 10:32 Dose: 1 mg Sodium Chloride (Normal Saline) 1,000 mls @ 999 mls/hr IV ASDIRECTED ALBERTO Last Admin: 06/27/19 01:40 Dose: 999 mls/hr Insulin Human Regular 100 unit (/ Sodium Chloride) 100 mls @ 2 mls/hr IV ASDIRECTED ALBERTO; Protocol Last Titration: 06/27/19 05:30 Dose: 2 unit/hr, 2 mls/hr Sodium Chloride (Normal Saline) 1,000 mls @ 999 mls/hr IV ASDIRECTED ALBERTO Last Admin: 06/27/19 03:36 Dose: 999 mls/hr Insulin Human Regular 100 unit (/ Sodium Chloride) 100 mls @ 86.63 mls/hr IV ASDIRECTED ALBERTO; Protocol Dextrose/Sodium Chloride (Dextrose 5%-Normal Saline) 1,000 mls @ 250 mls/hr IV ASDIRECTED ALBERTO Last Admin: 06/27/19 04:45 Dose: 250 mls/hr Dextrose/Sodium Chloride (Dextrose 5%-Normal Saline) 1,000 mls @ 150 mls/hr IV ASDIRECTED ALBERTO Last Admin: 06/27/19 07:25 Dose: 150 mls/hr Potassium Chloride/Dextrose/Sod Cl (D5 Ns With 20 Meq Kcl) 1,000 mls @ 150 mls/ hr IV ASDIRECTED ALBERTO Last Admin: 06/28/19 04:23 Dose: 150 mls/hr Potassium Chloride 10 meq/ (Premix) 100 mls @ 100 mls/hr IV Q1H [facility] Stop: 06/27/19 19:29 Last Admin: 06/27/19 18:29 Dose: 100 mls/hr Potassium Chloride 10 meq/ (Premix) 100 mls @ 100 mls/hr IV Q1H ALBERTO Stop: 06/28/19 11:14 Last Admin: 06/28/19 12:00 Dose: Not Given Potassium Chloride/Dextrose/Sod Cl (D5 Ns With 20 Meq Kcl) 1,000 mls @ 100 mls/ hr IV ASDIRECTED ALBERTO Last Admin: 06/28/19 10:43 Dose: 100 mls/hr Potassium Chloride 10 meq/ (Premix) 100 mls @ 100 mls/hr IV Q1H LABERTO Stop: 06/28/19 12:29 Last Admin: 06/28/19 11:16 Dose: 100 mls/hr Magnesium Sulfate 2 gm/ Premix 50 mls @ 25 mls/hr IV ONETIME ONE Stop: 06/28/19 14:59 Last Admin: 06/28/19 13:52 Dose: 25 mls/hr Insulin Glargine (Lantus) 12 unit SUBCUT BIDAC ALBERTO Insulin Glargine (Lantus) 12 unit SUBCUT ONETIME ONE Stop: 06/27/19 07:10 Last Admin: 06/27/19 07:23 Dose: 12 units Insulin Human Lispro (Humalog) 2 unit SUBCUT ONETIME ONE Stop: 06/27/19 08:34 Last Admin: 06/27/19 08:36 Dose: 2 units Insulin Human Lispro (Humalog) 0 unit SUBCUT QIDACANDBED [facility]; Protocol Last Admin: 06/27/19 11:28 Dose: Not Given Insulin Human Lispro (Humalog) 0 unit SUBCUT Q4H [facility]; Protocol Last Admin: 06/28/19 19:03 Dose: 3 units Ondansetron HCl (Zofran) 4 mg IVPUSH ONETIME ONE Stop: 06/27/19 02:16 Last Admin: 06/27/19 02:30 Dose: 4 mg Ondansetron HCl (Zofran) 4 mg IVPUSH ONETIME ONE Stop: 06/27/19 06:43 Last Admin: 06/27/19 06:48 Dose: 4 mg - Exam Quality Assessment: No: Supplemental Oxygen General: Alert, Oriented HEENT: Pupils Equal, Pupils Reactive, EOMI, Mucous Membr. Moist/[place] Neck: Supple Lungs: Clear to Auscultation, Normal Respiratory Effort Cardiovascular: Regular Rate, Regular Rhythm GI/Abdominal Exam: Normal Bowel Sounds, Soft, No Distention, Tender (Mild to moderate epigastric and right upper quadrant tenderness without guarding or rebound.) Extremities: Normal Inspection, Normal Range of Motion, Non-Tender, No Pedal Edema Skin: Warm, Dry, Intact Neurological: No New Focal Deficit Psy/Mental Status: Alert, Normal Affect, Normal Mood - Problem List Review Problem List Initiated/Reviewed/Updated: Yes - My Orders Last 24 Hours: My Active Orders 06/27/19 21:00 Lisinopril [Prinivil] 40 mg PO BEDTIME 06/28/19 09:24 Patient Status [ADT] Routine 06/28/19 17:52 Ready for Discharge [RC] PER UNIT ROUTINE 06/28/19 19:32 traMADol [Ultram] 50 mg PO Q4H PRN 06/28/19 19:33 Acetaminophen [Tylenol] 650 mg PO Q4H PRN Ibuprofen [Motrin] 800 mg PO Q6H PRN 06/28/19 22:00 Insulin Lispro [HumaLOG] See Protocol SUBCUT QIDACANDBED 06/28/19 Dinner Regular Diet [DIET] 06/29/19 05:11 CBC WITH AUTO DIFF [HEME] AM COMPREHENSIVE METABOLIC PN,CMP [CHEM] AM MAGNESIUM [CHEM] AM 06/30/19 05:11 CBC WITH AUTO DIFF [HEME] AM COMPREHENSIVE METABOLIC PN,CMP [CHEM] AM MAGNESIUM [CHEM] AM 07/01/19 05:11 CBC WITH AUTO DIFF [HEME] AM COMPREHENSIVE METABOLIC PN,CMP [CHEM] AM MAGNESIUM [CHEM] AM 07/02/19 05:11 CBC WITH AUTO DIFF [HEME] AM COMPREHENSIVE METABOLIC PN,CMP [CHEM] AM MAGNESIUM [CHEM] AM - Plan Plan:: Assessment * 28-year-old male with recurrent acute pancreatitis * hyperglycemia with metabolic acidosis - resolved * Poorly controlled diabetes mellitus with hemoglobin A1c of 9.8 Plan * Transfer to [facility] * Continue advancing diet as tolerated * D5 normal saline at 100 mL an hour * Fingerstick blood sugars before every meals, daily at bedtime, and 3 AM * Lantus 12 units every 12 hours * sliding scale insulin low dose protocol * Pain control with oral medication * CODE STATUS: Full code * VTE prophylaxis with Lovenox * Length of stay 2 days likely
[2019-06-29] MEDS ORDERED: Insulin Lispro 100 UNIT/ML 10 ML VIAL SUBCUT SCH
[2019-06-29] MEDS: Insulin Lispro 100 Units/ML 3 ML Vial SUBCUT SCH ×2 (05:59→11:27)
[2019-06-29] MEDS: Insulin Glarg,Human.Rec.Analog 100 UNIT/ML ML SUBCUT SCH (05:59)
[2019-06-29] MEDS: Enoxaparin 40 MG/0.4 ML Syringe SUBCUT SCH (09:34)
[2019-06-29] MEDS: Labetalol 100 MG Tab PO SCH (09:34)
[2019-06-29] MEDS: Diltiazem 240 MG Cap.ER PO SCH (09:34)
[2019-06-29] MEDS ORDERED: Insulin Glarg,Human.Rec.Analog 100 UNIT/ML ML SUBCUT SCH ×2 (16:00)
== END 2019-06-29 11:25 | disposition home or self-care (01) | DRG 439 ==
LOC: JD.ED 00:34 → JD.ICU 06:42
PROVIDERS: ADMIT Family Medicine; ATTEND Family Medicine
DX: K85.90 Acute pancreatitis without necrosis or infection, unspecified (principal); E87.2 Acidosis; H54.7 Unspecified visual loss; I10 Essential (primary) hypertension; G89.29 Other chronic pain; M54.9 Dorsalgia, unspecified; F41.9 Anxiety disorder, unspecified; E11.65 Type 2 diabetes mellitus with hyperglycemia; Z90.49 Acquired absence of other specified parts of digestive tract; Z87.891 Personal history of nicotine dependence; Z79.4 Long term (current) use of insulin; Z79.899 Other long term (current) drug therapy; Z91.120 Patient's intentional underdosing of medication regimen due to financial hardship
CPT/HCPCS: 36415; 80048; 80053; 81001; 82009; 82962; 83036; 83605; 83690; 83735; 83930; 85007; 85025; 85027; 85610; 85730; 86140; 96361; 96365; 96366; 96375; 96376; 99284; 99285-25; A9270-GY; G0480; J1170; J1650; J1815-GY; J2405; J3475; J3480; J7030; J7040; J7042

== ENCOUNTER 2019-12-10 09:43 | Inpatient (IN) | payer OTHER, SELFPAY ==
--- NOTE | 2019-12-10 09:57 | EDM.PDOC ---
ED HPI GENERAL MEDICAL PROBLEM - General Chief Complaint: Gastrointestinal Problem Stated Complaint: VOMITING [id number] Time Seen by Provider: 12/10/19 09:56 - History of Present Illness INITIAL COMMENTS - FREE TEXT/NARRATIVE: 29-year-old male presents the emergency room with nausea and vomiting. Patient has a 4-year history of insulin-dependent diabetes however he was started on metformin initially. The patient has been having severe nausea and vomiting for the last 5 days he has been unable to keep anything down. He denies fevers or chills he is developing some abdominal discomfort. With reviewing his insulin usage on a normal day it sounds like he might be a late onset type I diabetic. And he does smell ketotic. Patient denies any breathing difficulty shortness of breath no significant chest pain. Bilateral Abdomen Pain Score (Numeric/FACES): 9 - Related Data Allergies Allergy/AdvReac Type Severity Reaction Status Date / Time No Known Allergies Allergy Verified 12/10/19 09:56 Home Meds: Home Meds Labetalol [Normodyne] 100 mg PO TID 30 Days #90 tablet 02/19/19 [Rx] Insulin Glarg,Human.Rec.Analog [Lantus] 12 unit SUBCUT Q12H ml 06/28/19 [Rx] Insulin Lispro [HumaLOG] 0 unit SUBCUT Q4H vial 06/28/19 [Rx] Insulin Lispro [HumaLOG] 0 unit SUBCUT QIDACANDBED vial 06/29/19 [Rx] Past Medical History HEENT History: Reports: Impaired Vision Other HEENT History: Wears glasss Cardiovascular History: Reports: Hypertension Gastrointestinal History: Reports: Gastritis, Pancreatitis, Other (See Below) Other Gastrointestinal History: Fatty liver, acute pancreatitis--recurrent bouts of pancreatitis due to alcohol use Musculoskeletal History: Reports: Back Pain, Chronic Psychiatric History: Reports: Addiction, Anxiety, Other (See Below) Other Psychiatric History: alcohol abuse & withdrawl Endocrine/Metabolic History: Reports: Diabetes, Type II - Infectious Disease History Infectious Disease History: Reports: Chicken Pox - Past Surgical History Head Surgeries/Procedures: Reports: None GI Surgical History: Reports: Cholecystectomy Social & Family History - Family History Family Medical History: Noncontributory - Caffeine Use Caffeine Use: Reports: None Caffeine Use Comment: doesnt drink soda often, "takes me 3 hours to finish one soda" - Living Situation & Occupation Living situation: Reports: Single, Other (Has a 2-year daughter with ex- girlfriend) 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.) ED ROS GENERAL - Review of Systems Review Of Systems: See Below Constitutional: Denies: Fever, Chills HEENT: Reports: No Symptoms Respiratory: Reports: No Symptoms Cardiovascular: Reports: No Symptoms GI/Abdominal: Reports: Abdominal Pain, Nausea, Vomiting : Reports: No Symptoms Musculoskeletal: Reports: No Symptoms Skin: Reports: No Symptoms Neurological: Reports: No Symptoms Psychiatric: Reports: No Symptoms Hematologic/Lymphatic: Reports: No Symptoms ED EXAM, GI/ABD - Physical Exam Exam: See Below Exam Limited By: No Limitations General Appearance: Alert, Moderate Distress (From the vomiting), Active Emesis , Other (He smells ketotic) Head: Atraumatic, Normocephalic Neck: Normal Inspection, Supple, Non-Tender, Full Range of Motion Respiratory/Chest: No Respiratory Distress, Lungs Clear, Normal Breath Sounds Cardiovascular: No Edema, No Murmur, Tachycardia. No: Irregularly Irregular GI/Abdominal Exam: Normal Bowel Sounds, Soft, Tender (He has diffuse tenderness no rigidity rebound or guarding noted) Back Exam: Normal Inspection. No: CVA Tenderness (L), CVA Tenderness (R) Extremities: Normal Inspection, No Pedal Edema Neurological: Alert, Oriented, Normal Cognition Course - Vital Signs Last Recorded V/S: Last Vital Signs Temp 36.3 C 12/10/19 09:51 Pulse 138 H 12/10/19 09:51 Resp 20 12/10/19 09:51 BP 179/132 H 12/10/19 09:51 Pulse Ox 100 12/10/19 09:51 - Orders/Labs/Meds Orders: Active Orders 24 hr Category Date Time Status Insulin Regular, Human [HumuLIN R] 100 unit Med 12/10/19 11:30 Active Sodium Chloride 0.9% [Normal Saline] 99 ml IV TITRATE Sodium Chloride 0.9% [Normal Saline] 2,000 ml Med 12/10/19 10:30 Active IV ONETIME Medication Orders Sodium Chloride (Normal Saline) 2,000 mls @ 999 mls/hr IV ONETIME ONE Stop: 12/10/19 12:30 Last Admin: 12/10/19 10:38 Dose: 999 mls/hr Insulin Human Regular 100 unit (/ Sodium Chloride) 100 mls @ 8.23 mls/hr IV TITRATE ALBERTO; Protocol Last Admin: 12/10/19 11:51 Dose: 0.1 units/kg/hr, 8.23 mls/hr Labs: Laboratory Tests 12/10/19 12/10/19 12/10/19 Range/Units 10:00 10:00 10:00 WBC 9.72 H (4.23-9.07) K/mm3 RBC 6.66 H (4.63-6.08) M/mm3 Hgb 20.8 H D (13.7-17.5) gm/dl Hct 57.5 H (40.1-51.0) % MCV 86.3 (79.0-92.2) fl MCH 31.2 (25.7-32.2) pg MCHC 36.2 H (32.2-35.5) g/dl RDW Std Deviation 39.8 (35.1-43.9) fL Plt Count 213 (163-337) K/mm3 MPV 11.1 (9.4-12.3) fl Neut % (Auto) Cancelled Lymph % (Auto) Cancelled [place] % (Auto) Cancelled Eos % (Auto) Cancelled Baso % (Auto) Cancelled Neut # (Auto) Cancelled Lymph # (Auto) Cancelled [place] # (Auto) Cancelled Eos # (Auto) Cancelled Baso # (Auto) Cancelled Neutrophils % (Manual) 82 H (40-60) % Band Neutrophils % 0 (0-10) % Lymphocytes % (Manual) 12 L (20-40) % Atypical Lymphs % 0 % Monocytes % (Manual) 5 (2-10) % Eosinophils % (Manual) 1 (0.8-7.0) % Basophils % (Manual) 0 L (0.2-1.2) Manual Slide Review Cancelled Platelet Estimate Adequate Poikilocytosis 1+ slight Anisocytosis 1+ slight RBC Morph Comment Not Reportable Puncture Site ABG pH (7.35-7.45) ABG pCO2 (35.0-45.0) mmHg ABG pO2 (80.0-100.0) mmHg ABG HCO3 (22.0-26.0) meq/L ABG O2 Saturation (96.0-97.0) % ABG Base Excess (-2-2.0) Faisal Test A-a Gradient mmHg O2 Delivery Device FiO2 (21.00-100.00) % Sodium 135 L (136-145) mEq/L Potassium 4.5 (3.5-5.1) mEq/L Chloride 90 L D (98-107) mEq/L Carbon Dioxide 12 L D (21-32) mEq/L Anion Gap 37.5 H (5-15) BUN 15 (7-18) mg/dL Creatinine 1.5 H (0.7-1.3) mg/dL Est Cr Clr Drug Dosing 73.68 mL/min Estimated GFR (MDRD) 55 (>60) mL/min BUN/Creatinine Ratio 10.0 L (14-18) Glucose 417 H (74-106) mg/dL Lactic Acid (0.4-2.0) mmol/L Calcium 10.1 D (8.5-10.1) mg/dL Total Bilirubin 1.8 H (0.2-1.0) mg/dL AST 71 H (15-37) U/L ALT 130 H (16-63) U/L Alkaline Phosphatase 203 H (46-116) U/L Total Protein 10.3 H (6.4-8.2) g/dl Albumin 5.2 H (3.4-5.0) g/dl Globulin 5.1 gm/dL Albumin/Globulin Ratio 1.0 (1-2) Urine Color (Yellow) Urine Appearance (Clear) Urine pH (5.0-8.0) Ur Specific [place] (1.005-1.030) Urine Protein (Negative) Urine Glucose (UA) (Negative) Urine Ketones (Negative) Urine Occult Blood (Negative) Urine Nitrite (Negative) Urine Bilirubin (Negative) Urine Urobilinogen (0.2-1.0) Ur Leukocyte Esterase (Negative) Urine RBC (0-5) /hpf Urine WBC (0-5) /hpf Ur Squamous Epith Cells (0-5) /hpf Urine Bacteria (FEW) /hpf Urine Mucus (FEW) /hpf Ketones 14.69 (0.0-0.3) mM 12/10/19 12/10/19 12/10/19 Range/Units 10:46 10:53 11:38 WBC (4.23-9.07) K/mm3 RBC (4.63-6.08) M/mm3 Hgb (13.7-17.5) gm/dl Hct (40.1-51.0) % MCV (79.0-92.2) fl MCH (25.7-32.2) pg MCHC (32.2-35.5) g/dl RDW Std Deviation (35.1-43.9) fL Plt Count (163-337) K/mm3 MPV (9.4-12.3) fl Neut % (Auto) Lymph % (Auto) [place] % (Auto) Eos % (Auto) Baso % (Auto) Neut # (Auto) Lymph # (Auto) [place] # (Auto) Eos # (Auto) Baso # (Auto) Neutrophils % (Manual) (40-60) % Band Neutrophils % (0-10) % Lymphocytes % (Manual) (20-40) % Atypical Lymphs % % Monocytes % (Manual) (2-10) % Eosinophils % (Manual) (0.8-7.0) % Basophils % (Manual) (0.2-1.2) Manual Slide Review Platelet Estimate Poikilocytosis Anisocytosis RBC Morph Comment Puncture Site Lt radial ABG pH 7.14 L* (7.35-7.45) ABG pCO2 14.3 L* (35.0-45.0) mmHg ABG pO2 112.0 H (80.0-100.0) mmHg ABG HCO3 4.7 L (22.0-26.0) meq/L ABG O2 Saturation 97.5 H (96.0-97.0) % ABG Base Excess -24.8 L (-2-2.0) Faisal Test Positive A-a Gradient 20 mmHg O2 Delivery Device Room air FiO2 21.00 (21.00-100.00) % Sodium (136-145) mEq/L Potassium (3.5-5.1) mEq/L Chloride (98-107) mEq/L Carbon Dioxide (21-32) mEq/L Anion Gap (5-15) BUN (7-18) mg/dL Creatinine (0.7-1.3) mg/dL Est Cr Clr Drug Dosing mL/min Estimated GFR (MDRD) (>60) mL/min BUN/Creatinine Ratio (14-18) Glucose (74-106) mg/dL Lactic Acid 1.8 (0.4-2.0) mmol/L Calcium (8.5-10.1) mg/dL Total Bilirubin (0.2-1.0) mg/dL AST (15-37) U/L ALT (16-63) U/L Alkaline Phosphatase (46-116) U/L Total Protein (6.4-8.2) g/dl Albumin (3.4-5.0) g/dl Globulin gm/dL Albumin/Globulin Ratio (1-2) Urine Color Yellow (Yellow) Urine Appearance Clear (Clear) Urine pH 5.0 (5.0-8.0) Ur Specific [place] > or = 1.030 (1.005-1.030) Urine Protein 3+ H (Negative) Urine Glucose (UA) 2+ H (Negative) Urine Ketones 3+ H (Negative) Urine Occult Blood 2+ H (Negative) Urine Nitrite Negative (Negative) Urine Bilirubin 1+ H (Negative) Urine Urobilinogen 0.2 (0.2-1.0) Ur Leukocyte Esterase Negative (Negative) Urine RBC 5-10 H (0-5) /hpf Urine WBC 0-5 (0-5) /hpf Ur Squamous Epith Cells 0-5 (0-5) /hpf Urine Bacteria Few (FEW) /hpf Urine Mucus Few (FEW) /hpf Ketones (0.0-0.3) mM Meds: Medications Generic Name Dose Route Start Last Admin Trade Name Freq PRN Reason Stop Dose Admin Sodium Chloride 2,000 mls @ 999 mls/hr 12/10/19 10:30 12/10/19 10:38 Normal Saline IV 12/10/19 12:30 999 mls/hr ONETIME ONE Administration Insulin Human Regular 100 unit 100 mls @ 8.23 mls/hr 12/10/19 11:30 12/10/19 11:51 / Sodium Chloride IV 0.1 units/kg/hr TITRATE ALBERTO 8.23 mls/hr Administration Protocol 0.1 UNITS/KG/HR Discontinued Medications Generic Name Dose Route Start Last Admin Trade Name Freq PRN Reason Stop Dose Admin Ondansetron HCl 4 mg/ Sodium 52 mls @ 100 mls/hr 12/10/19 11:30 12/10/19 11: 33 Chloride IV 12/10/19 12:02 Not Given ONETIME ONE Insulin Human Regular 8 unit 12/10/19 10:36 12/10/19 10:41 Humulin R IV 12/10/19 10:37 8 unit ONETIME ONE Administration Ondansetron HCl 4 mg 12/10/19 10:30 12/10/19 10:38 Zofran IVPUSH 12/10/19 10:31 4 mg ONETIME ONE Administration Ondansetron HCl Confirm 12/10/19 11:28 12/10/19 11:33 Zofran Administered 12/10/19 11:29 4 mg Dose Administration 4 mg .ROUTE .STK-MED ONE - Re-Assessments/Exams Free Text/Narrative Re-Assessment/Exam: 12/10/19 12:05 Lab checked he is indeed ketotic. 7.14 ketones 16.69 lactic acid 1.8 blood sugar at the time of the Accu-Chek was slightly greater than 400. Potassium 4.51 the patient received an insulin bolus of 8 units and started on 8 units/h and insulin drip. Dr. Vu here to assume care. Departure - Departure Time of Disposition: 11:35 Disposition: Admitted As Inpatient 64 Clinical Impression: Diabetic ketoacidosis Qualifiers: Diabetes mellitus type: type 2 - Discharge Information Referrals: Sylvester Price MD [Primary Care Provider] - Forms: ED Department Discharge Sepsis Event Note - Evaluation Sepsis Screening Result: No Definite Risk - Focused Exam Vital Signs: Vital Signs Temp Pulse Resp BP Pulse Ox 12/10/19 09:51 36.3 C 138 H 20 179/132 H 100 Date Exam was Performed: 12/10/19 Time Exam was Performed: 12:05 - My Orders Last 24 Hours: My Active Orders 12/10/19 10:30 Sodium Chloride 0.9% [Normal Saline] 2,000 ml IV ONETIME 12/10/19 11:30 Insulin Regular, Human [HumuLIN R] 100 unit Sodium Chloride 0.9% [Normal Saline] 99 ml IV TITRATE - Assessment/Plan Last 24 Hours: My Active Orders 12/10/19 10:30 Sodium Chloride 0.9% [Normal Saline] 2,000 ml IV ONETIME 12/10/19 11:30 Insulin Regular, Human [HumuLIN R] 100 unit Sodium Chloride 0.9% [Normal Saline] 99 ml IV TITRATE
[2019-12-10] MEDS ORDERED: Sodium Chloride 0.9% 2,000 ML IV ONE (10:30)
[2019-12-10] MEDS ORDERED: Ondansetron 4 MG/2 ML SDV IVPUSH ONE (10:30)
[2019-12-10] MEDS ORDERED: Insulin Regular, Human 100 Units/ML 3 ML Vial IV ONE (10:36)
[2019-12-10] MEDS ORDERED: Ondansetron 4 MG/2 ML SDV ONE (11:28)
[2019-12-10] MEDS ORDERED: Ondansetron 4 MG in Sodium Chloride 0.9% 50 ML IV ONE (11:30)
[2019-12-10] MEDS ORDERED: Dextrose 10% in Water 1,000 ML IV SCH (12:30)
--- NOTE | 2019-12-10 12:31 | PCM.HP.2 ---
H&P History of Present Illness - General Date of Service: 12/10/19 - History of Present Illness Initial Comments - Free Text/Narative: This is a 29 year old male with past medical history of medical non-compliance and insulin dependent diabetes who comes to the ED for intractable nausea and vomiting. As per patient he started feeling ill about 4-5 days ago, to the point that he has been unable to keep anything down. Patient states he ran out of Humalog about 2 weeks ago and has been compliant with long acting insulin, last dose was yesterday. Has been unable to keep anything down since 2 days ago Bilateral Abdomen Pain Score (Numeric/FACES): 9 - Related Data Allergies/Adverse Reactions: Allergies Allergy/AdvReac Type Severity Reaction Status Date / Time No Known Allergies Allergy Verified 12/10/19 09:56 Home Medications: Home Meds Labetalol [Normodyne] 100 mg PO TID 30 Days #90 tablet 02/19/19 [Rx] Insulin Glarg,Human.Rec.Analog [Lantus] 12 unit SUBCUT Q12H ml 06/28/19 [Rx] Insulin Lispro [HumaLOG] 0 unit SUBCUT Q4H vial 06/28/19 [Rx] Insulin Lispro [HumaLOG] 0 unit SUBCUT QIDACANDBED vial 06/29/19 [Rx] Past Medical History HEENT History: Reports: Impaired Vision Other HEENT History: Wears glasss Cardiovascular History: Reports: Hypertension Gastrointestinal History: Reports: Gastritis, Pancreatitis, Other (See Below) Other Gastrointestinal History: Fatty liver, acute pancreatitis--recurrent bouts of pancreatitis due to alcohol use Musculoskeletal History: Reports: Back Pain, Chronic Psychiatric History: Reports: Addiction, Anxiety, Other (See Below) Other Psychiatric History: alcohol abuse & withdrawl Endocrine/Metabolic History: Reports: Diabetes, Type II - Infectious Disease History Infectious Disease History: Reports: Chicken Pox - Past Surgical History Head Surgeries/Procedures: Reports: None GI Surgical History: Reports: Cholecystectomy Social & Family History - Family History Family Medical History: Noncontributory - Tobacco Use Smoking Status *Q: Never Smoker - Caffeine Use Caffeine Use: Reports: None Caffeine Use Comment: doesnt drink soda often, "takes me 3 hours to finish one soda" - Recreational Drug Use Recreational Drug Use: Yes Drug Use in Last 12 Months: Yes Recreational Drug Type: Reports: Marijuana/Hashish Recreational Drug Use Frequency: Socially - Living Situation & Occupation Living situation: Reports: Single, Other (Has a 2-year daughter with ex- girlfriend) 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 No: Mucosa Moist & Cylinder Neck: Supple, Trachea Midline, +2 Carotid Pulse wo Bruit, Full Range of Motion. No: Lymphadenopathy Lungs: Clear to Auscultation, Normal Respiratory Effort. No: Crackles, Rales, Rhonchi, Wheezing Cardiovascular: Regular Rate, Regular Rhythm. No: Systolic Murmur, Diastolic Murmur, Rubs, Gallop/S3, Gallop/S4 GI/Abdominal Exam: Normal Bowel Sounds, Soft, No Organomegaly, No Distention, Tender. No: Distended, Guarding, Rigid, Rebound Back Exam: Normal Inspection, Full Range of Motion. No: CVA Tenderness (L), CVA Tenderness (R) Extremities: Normal Inspection, Normal Range of Motion, Pedal Edema, Slow Capillary Refill Skin: Warm, Dry - Patient Data Result Diagrams: 12/10/19 10:00 12/10/19 10:00 Sepsis Event Note - Evaluation Sepsis Screening Result: No Definite Risk - Focused Exam Vital Signs: Vital Signs Temp Pulse Resp BP Pulse Ox 12/10/19 09:51 97.3 F 138 H 20 179/132 H 100 Date Exam was Performed: 12/10/19 Time Exam was Performed: 12:50 - Problem List (1) DKA (diabetic ketoacidoses) SNOMED Code(s): 889261768, 379771167 ICD Code: E11.10 - TYPE 2 DIABETES MELLITUS WITH KETOACIDOSIS WITHOUT COMA Status: Acute Current Visit: Yes Qualifiers: Diabetes mellitus type: type 2 (2) High anion gap metabolic acidosis SNOMED Code(s): 29764028 ICD Code: E87.2 - ACIDOSIS Status: Acute Current Visit: Yes (3) Abnormal liver function tests SNOMED Code(s): 082879359 ICD Code: R94.5 - ABNORMAL RESULTS OF LIVER FUNCTION STUDIES Status: Acute Current Visit: Yes (4) Ketonemia SNOMED Code(s): 237526904 ICD Code: R79.89 - OTHER SPECIFIED ABNORMAL FINDINGS OF BLOOD CHEMISTRY Status: Acute Current Visit: Yes (5) Uncontrolled hypertension SNOMED Code(s): 52432344, 06638297 ICD Code: I10 - ESSENTIAL (PRIMARY) HYPERTENSION Status: Acute Current Visit: Yes (6) Alcoholic SNOMED Code(s): 0829700 ICD Code: F10.20 - ALCOHOL DEPENDENCE, UNCOMPLICATED Status: Acute Current Visit: Yes (7) Marijuana abuse SNOMED Code(s): 64062032 ICD Code: F12.10 - CANNABIS ABUSE, UNCOMPLICATED Status: Acute Current Visit: Yes (8) Abdominal pain SNOMED Code(s): 15669213 ICD Code: R10.9 - UNSPECIFIED ABDOMINAL PAIN Status: Acute Current Visit : No Qualifiers: Abdominal location: left upper quadrant Qualified Code(s): R10.12 - Left upper quadrant pain (9) Medical non-compliance SNOMED Code(s): 122905972 ICD Code: Z91.19 - PATIENT'S NONCOMPLIANCE W OTH MEDICAL TREATMENT AND REGIMEN Status: Chronic Priority: High Current Visit: No (10) Nausea & vomiting SNOMED Code(s): 01397120 ICD Code: R11.2 - NAUSEA WITH VOMITING, UNSPECIFIED Status: Acute Priority: High Current Visit: No Qualifiers: Vomiting type: unspecified (11) Uncontrolled type 2 diabetes mellitus SNOMED Code(s): 448715571, 235681796 ICD Code: E11.65 - TYPE 2 DIABETES MELLITUS WITH HYPERGLYCEMIA Status: Acute Current Visit: No Qualifiers: Glycemic state: with hyperglycemia Qualified Code(s): E11.65 - Type 2 diabetes mellitus with hyperglycemia Problem List Initiated/Reviewed/Updated: Yes Assessment/Plan Comment:: DKA (diabetic ketoacidoses) Uncontrolled type 2 diabetes mellitus High anion gap metabolic acidosis, AG 37 Ketonemia Volume depletion 2/2 nausea and vomiting Medical non-compliance PLAN - Accu-checks q1h - BMP + Mg + Pi every 4 hours - Ketones every 8 hours - Daily ABGs - Insulin drip - LR infusion - Start D10 once glucose below 200 Uncontrolled hypertension BP on admission 179/132 Home management with labetalol PLAN - Proteinuria documented on previous admissions - Start lisinopril today - PRN hydralazine Alcoholic Marijuana abuse Last drink Monday PLAN - Ethanol level - UDS Medical non-compliance PLAN - clinical staff educator - Dietary consult PROPHYLAXIS DVT- Lovenox GI- not indicated CODE STATUS: FULL CODE DISPOSITION: Patient will be admitted to the ICU for insulin drip and DKA protocol. - Mortality Measure Prognosis:: Good
[2019-12-10] MEDS ORDERED: Lactated Ringers 1,000 ML ONE (12:51)
[2019-12-10] MEDS: Lactated Ringers 1,000 ML IV SCH ×4 (12:53→21:46)
[2019-12-10] MEDS ORDERED: Ketorolac 30 MG/ML SDV IVPUSH PRN (13:59)
[2019-12-10] MEDS ORDERED: Ketorolac 30 MG/ML SDV ONE (14:00)
[2019-12-10] MEDS ORDERED: Acetaminophen 325 MG Tab PO PRN (14:21)
[2019-12-10] MEDS ORDERED: Morphine 2 MG/ML SYRINGE IVPUSH PRN (14:44)
[2019-12-10] MEDS: Ondansetron 4 MG/2 ML SDV IVPUSH PRN ×2 (14:49→20:00)
[2019-12-10] MEDS ORDERED: hydrALAZINE 20 MG/ML SDV IVPUSH ONE (16:15)
[2019-12-10 16:17] LABS: HEMOGLOBIN A1C 9.1 % (4.50-6.20)
[2019-12-10] MEDS: Morphine 2 MG/ML SYRINGE IVPUSH PRN ×2 (16:20→20:02)
[2019-12-10] MEDS ORDERED: LORazepam 2 MG/ML SDV IVPUSH ONE (20:33)
[2019-12-10] MEDS ORDERED: Magnesium Sulfate/Water 4 GM in Premix Bag 1 BAG IV ONE (21:42)
[2019-12-10] MEDS ORDERED: Potassium Phosphates 3 mMole/ML 15 ML SDV IV ONE (21:44)
[2019-12-10] MEDS ORDERED: Sodium Phosphate 30 MMOLE in Sodium Chloride 0.9% 250 ML IV ONE (22:15)
[2019-12-11] MEDS: Ondansetron 4 MG/2 ML SDV IVPUSH PRN ×2 (00:05→20:00)
[2019-12-11] MEDS: Morphine 2 MG/ML SYRINGE IVPUSH PRN ×3 (00:08→08:23)
[2019-12-11] MEDS: hydrALAZINE 20 MG/ML SDV IVPUSH PRN ×2 (00:34→02:59)
[2019-12-11] MEDS: Lactated Ringers 1,000 ML IV SCH (04:11)
[2019-12-11] MEDS ORDERED: Labetalol 100 MG/20 ML MDV IVPUSH SCH (06:00)
[2019-12-11] MEDS: Potassium Chloride 10 MEQ in Premix Bag 1 BAG IV SCH ×8 (06:46→23:32)
[2019-12-11] MEDS ORDERED: Potassium Phosphates 15 MMOLE in Sodium Chloride 0.9% 250 ML IV SCH (07:00)
[2019-12-11] MEDS: Enoxaparin 40 MG/0.4 ML Syringe SUBCUT SCH (08:12)
--- NOTE | 2019-12-11 08:17 | PCM.PN ---
- General Info Date of Service: 12/11/19 Admission Dx/Problem (Free Text): DKA Subjective Update: Patient states that his pain has improved. He has no nausea and has not vomited overnight. Abdominal pain is mild. He is tolerating ice chips. Functional Status: Reports: Pain Controlled - Review of Systems General: Reports: Fatigue HEENT: Reports: No Symptoms Pulmonary: Reports: No Symptoms Cardiovascular: Reports: No Symptoms Gastrointestinal: Reports: Abdominal Pain - Patient Data Vitals - Most Recent: Last Vital Signs Temp 98.7 F 12/11/19 08:00 Pulse 70 12/10/19 21:15 Resp 16 12/11/19 08:00 BP 157/104 H 12/11/19 08:00 Pulse Ox 98 12/11/19 08:00 Weight - Most Recent: 184 lb 3.2 oz I&O - Last 24 Hours: Intake & Output 12/10/19 12/11/19 12/11/19 22:59 06:59 14:59 Intake Total 2516 2547 Output Total 500 650 Balance 2016 1896 Lab Results Last 24 Hours: Laboratory Results - last 24 hr 12/10/19 12/10/19 12/10/19 Range/Units 10:00 10:00 10:00 WBC 9.72 H (4.23-9.07) K/mm3 RBC 6.66 H (4.63-6.08) M/mm3 Hgb 20.8 H D (13.7-17.5) gm/dl Hct 57.5 H (40.1-51.0) % MCV 86.3 (79.0-92.2) fl MCH 31.2 (25.7-32.2) pg MCHC 36.2 H (32.2-35.5) g/dl RDW Std Deviation 39.8 (35.1-43.9) fL Plt Count 213 (163-337) K/mm3 MPV 11.1 (9.4-12.3) fl Neut % (Auto) Cancelled Lymph % (Auto) Cancelled Pierce % (Auto) Cancelled Eos % (Auto) Cancelled Baso % (Auto) Cancelled Neut # (Auto) Cancelled Lymph # (Auto) Cancelled Pierce # (Auto) Cancelled Eos # (Auto) Cancelled Baso # (Auto) Cancelled Neutrophils % (Manual) 82 H (40-60) % Band Neutrophils % 0 (0-10) % Lymphocytes % (Manual) 12 L (20-40) % Atypical Lymphs % 0 % Monocytes % (Manual) 5 (2-10) % Eosinophils % (Manual) 1 (0.8-7.0) % Basophils % (Manual) 0 L (0.2-1.2) Manual Slide Review Cancelled Platelet Estimate Adequate Poikilocytosis 1+ slight Anisocytosis 1+ slight RBC Morph Comment Not Reportable Puncture Site ABG pH (7.35-7.45) ABG pCO2 (35.0-45.0) mmHg ABG pO2 (80.0-100.0) mmHg ABG HCO3 (22.0-26.0) meq/L ABG O2 Saturation (96.0-97.0) % ABG Base Excess (-2-2.0) Faisal Test A-a Gradient mmHg O2 Delivery Device FiO2 (21.00-100.00) % Sodium 135 L (136-145) mEq/L Potassium 4.5 (3.5-5.1) mEq/L Chloride 90 L D (98-107) mEq/L Carbon Dioxide 12 L D (21-32) mEq/L Anion Gap 37.5 H (5-15) BUN 15 (7-18) mg/dL Creatinine 1.5 H (0.7-1.3) mg/dL Est Cr Clr Drug Dosing 73.68 mL/min Estimated GFR (MDRD) 55 (>60) mL/min BUN/Creatinine Ratio 10.0 L (14-18) Glucose 417 H (74-106) mg/dL POC Glucose (70-105) mg/dL Hemoglobin A1c (4.50-6.20) % Lactic Acid (0.4-2.0) mmol/L Calcium 10.1 D (8.5-10.1) mg/dL Phosphorus (2.6-4.7) mg/dL Magnesium (1.8-2.4) mg/dl Total Bilirubin 1.8 H (0.2-1.0) mg/dL AST 71 H (15-37) U/L ALT 130 H (16-63) U/L Alkaline Phosphatase 203 H (46-116) U/L Total Protein 10.3 H (6.4-8.2) g/dl Albumin 5.2 H (3.4-5.0) g/dl Globulin 5.1 gm/dL Albumin/Globulin Ratio 1.0 (1-2) Triglycerides (<150) mg/dL Cholesterol (<200) mg/dL LDL Cholesterol Direct (<100) mg/dL HDL Cholesterol (40-59) mg/dL Urine Color (Yellow) Urine Appearance (Clear) Urine pH (5.0-8.0) Ur Specific [place] (1.005-1.030) Urine Protein (Negative) Urine Glucose (UA) (Negative) Urine Ketones (Negative) Urine Occult Blood (Negative) Urine Nitrite (Negative) Urine Bilirubin (Negative) Urine Urobilinogen (0.2-1.0) Ur Leukocyte Esterase (Negative) Urine RBC (0-5) /hpf Urine WBC (0-5) /hpf Ur Squamous Epith Cells (0-5) /hpf Urine Bacteria (FEW) /hpf Urine Mucus (FEW) /hpf Urine Opiates Screen (SKCKHZ=310) Ur Buprenorphine Scrn (CUTOFF=10) Ur Oxycodone Screen (CYQ8TD=972) Urine Methadone Screen (MRY9AV=204) Ur Propoxyphene Screen (XYXSDO=577) Ur Barbiturates Screen (DSQFTC=576) Ur Tricyclics Screen (NJWGLY=497) Ur Phencyclidine Scrn (CUTOFF=25) Ur Amphetamine Screen (PJQKFC=730) U Methamphetamines Scrn (BUOCFL=735) U Benzodiazepines Scrn (ZBPEXX=962) U Cocaine Metab Screen (XIRRVT=071) U Marijuana (THC) Screen (CUTOFF=50) Ethyl Alcohol (0.00) gm% Ketones 14.69 (0.0-0.3) mM 12/10/19 12/10/19 12/10/19 Range/Units 10:00 10:46 10:53 WBC (4.23-9.07) K/mm3 RBC (4.63-6.08) M/mm3 Hgb (13.7-17.5) gm/dl Hct (40.1-51.0) % MCV (79.0-92.2) fl MCH (25.7-32.2) pg MCHC (32.2-35.5) g/dl RDW Std Deviation (35.1-43.9) fL Plt Count (163-337) K/mm3 MPV (9.4-12.3) fl Neut % (Auto) Lymph % (Auto) Pierce % (Auto) Eos % (Auto) Baso % (Auto) Neut # (Auto) Lymph # (Auto) Pierce # (Auto) Eos # (Auto) Baso # (Auto) Neutrophils % (Manual) (40-60) % Band Neutrophils % (0-10) % Lymphocytes % (Manual) (20-40) % Atypical Lymphs % % Monocytes % (Manual) (2-10) % Eosinophils % (Manual) (0.8-7.0) % Basophils % (Manual) (0.2-1.2) Manual Slide Review Platelet Estimate Poikilocytosis Anisocytosis RBC Morph Comment Puncture Site Lt radial ABG pH 7.14 L* (7.35-7.45) ABG pCO2 14.3 L* (35.0-45.0) mmHg ABG pO2 112.0 H (80.0-100.0) mmHg ABG HCO3 4.7 L (22.0-26.0) meq/L ABG O2 Saturation 97.5 H (96.0-97.0) % ABG Base Excess -24.8 L (-2-2.0) Faisal Test Positive A-a Gradient 20 mmHg O2 Delivery Device Room air FiO2 21.00 (21.00-100.00) % Sodium (136-145) mEq/L Potassium (3.5-5.1) mEq/L Chloride (98-107) mEq/L Carbon Dioxide (21-32) mEq/L Anion Gap (5-15) BUN (7-18) mg/dL Creatinine (0.7-1.3) mg/dL Est Cr Clr Drug Dosing mL/min Estimated GFR (MDRD) (>60) mL/min BUN/Creatinine Ratio (14-18) Glucose (74-106) mg/dL POC Glucose (70-105) mg/dL Hemoglobin A1c (4.50-6.20) % Lactic Acid 1.8 (0.4-2.0) mmol/L Calcium (8.5-10.1) mg/dL Phosphorus 7.1 H (2.6-4.7) mg/dL Magnesium 2.2 (1.8-2.4) mg/dl Total Bilirubin (0.2-1.0) mg/dL AST (15-37) U/L ALT (16-63) U/L Alkaline Phosphatase (46-116) U/L Total Protein (6.4-8.2) g/dl Albumin (3.4-5.0) g/dl Globulin gm/dL Albumin/Globulin Ratio (1-2) Triglycerides (<150) mg/dL Cholesterol (<200) mg/dL LDL Cholesterol Direct (<100) mg/dL HDL Cholesterol (40-59) mg/dL Urine Color (Yellow) Urine Appearance (Clear) Urine pH (5.0-8.0) Ur Specific [place] (1.005-1.030) Urine Protein (Negative) Urine Glucose (UA) (Negative) Urine Ketones (Negative) Urine Occult Blood (Negative) Urine Nitrite (Negative) Urine Bilirubin (Negative) Urine Urobilinogen (0.2-1.0) Ur Leukocyte Esterase (Negative) Urine RBC (0-5) /hpf Urine WBC (0-5) /hpf Ur Squamous Epith Cells (0-5) /hpf Urine Bacteria (FEW) /hpf Urine Mucus (FEW) /hpf Urine Opiates Screen (OUSVEO=654) Ur Buprenorphine Scrn (CUTOFF=10) Ur Oxycodone Screen (MBK3JA=650) Urine Methadone Screen (JVP6KX=564) Ur Propoxyphene Screen (JTBAXA=314) Ur Barbiturates Screen (LNBNWS=101) Ur Tricyclics Screen (TYIYJO=975) Ur Phencyclidine Scrn (CUTOFF=25) Ur Amphetamine Screen (CVKZQY=851) U Methamphetamines Scrn (MXPPPN=401) U Benzodiazepines Scrn (IXDOTW=147) U Cocaine Metab Screen (SHSBRD=399) U Marijuana (THC) Screen (CUTOFF=50) Ethyl Alcohol (0.00) gm% Ketones (0.0-0.3) mM 12/10/19 12/10/19 12/10/19 Range/Units 11:38 11:40 12:53 WBC (4.23-9.07) K/mm3 RBC (4.63-6.08) M/mm3 Hgb (13.7-17.5) gm/dl Hct (40.1-51.0) % MCV (79.0-92.2) fl MCH (25.7-32.2) pg MCHC (32.2-35.5) g/dl RDW Std Deviation (35.1-43.9) fL Plt Count (163-337) K/mm3 MPV (9.4-12.3) fl Neut % (Auto) Lymph % (Auto) Pierce % (Auto) Eos % (Auto) Baso % (Auto) Neut # (Auto) Lymph # (Auto) Pierce # (Auto) Eos # (Auto) Baso # (Auto) Neutrophils % (Manual) (40-60) % Band Neutrophils % (0-10) % Lymphocytes % (Manual) (20-40) % Atypical Lymphs % % Monocytes % (Manual) (2-10) % Eosinophils % (Manual) (0.8-7.0) % Basophils % (Manual) (0.2-1.2) Manual Slide Review Platelet Estimate Poikilocytosis Anisocytosis RBC Morph Comment Puncture Site Lt radial ABG pH 7.17 L* (7.35-7.45) ABG pCO2 18.2 L* (35.0-45.0) mmHg ABG pO2 112.0 H (80.0-100.0) mmHg ABG HCO3 6.5 L (22.0-26.0) meq/L ABG O2 Saturation 97.7 H (96.0-97.0) % ABG Base Excess -21.4 L (-2-2.0) Faisal Test Positive A-a Gradient 15 mmHg O2 Delivery Device Room air FiO2 21.00 (21.00-100.00) % Sodium (136-145) mEq/L Potassium (3.5-5.1) mEq/L Chloride (98-107) mEq/L Carbon Dioxide (21-32) mEq/L Anion Gap (5-15) BUN (7-18) mg/dL Creatinine (0.7-1.3) mg/dL Est Cr Clr Drug Dosing mL/min Estimated GFR (MDRD) (>60) mL/min BUN/Creatinine Ratio (14-18) Glucose (74-106) mg/dL POC Glucose (70-105) mg/dL Hemoglobin A1c (4.50-6.20) % Lactic Acid (0.4-2.0) mmol/L Calcium (8.5-10.1) mg/dL Phosphorus (2.6-4.7) mg/dL Magnesium (1.8-2.4) mg/dl Total Bilirubin (0.2-1.0) mg/dL AST (15-37) U/L ALT (16-63) U/L Alkaline Phosphatase (46-116) U/L Total Protein (6.4-8.2) g/dl Albumin (3.4-5.0) g/dl Globulin gm/dL Albumin/Globulin Ratio (1-2) Triglycerides (<150) mg/dL Cholesterol (<200) mg/dL LDL Cholesterol Direct (<100) mg/dL HDL Cholesterol (40-59) mg/dL Urine Color Yellow (Yellow) Urine Appearance Clear (Clear) Urine pH 5.0 (5.0-8.0) Ur Specific [place] > or = 1.030 (1.005-1.030) Urine Protein 3+ H (Negative) Urine Glucose (UA) 2+ H (Negative) Urine Ketones 3+ H (Negative) Urine Occult Blood 2+ H (Negative) Urine Nitrite Negative (Negative) Urine Bilirubin 1+ H (Negative) Urine Urobilinogen 0.2 (0.2-1.0) Ur Leukocyte Esterase Negative (Negative) Urine RBC 5-10 H (0-5) /hpf Urine WBC 0-5 (0-5) /hpf Ur Squamous Epith Cells 0-5 (0-5) /hpf Urine Bacteria Few (FEW) /hpf Urine Mucus Few (FEW) /hpf Urine Opiates Screen Negative (PNGEIX=073) Ur Buprenorphine Scrn Negative (CUTOFF=10) Ur Oxycodone Screen Negative (UXV1SP=650) Urine Methadone Screen Negative (KXY3WX=645) Ur Propoxyphene Screen Negative (OHSWYZ=555) Ur Barbiturates Screen Negative (CJDZXF=303) Ur Tricyclics Screen Negative (KIZSXC=311) Ur Phencyclidine Scrn Negative (CUTOFF=25) Ur Amphetamine Screen Negative (YQQNWA=740) U Methamphetamines Scrn Negative (NBFCEP=906) U Benzodiazepines Scrn Negative (WDQTXM=604) U Cocaine Metab Screen Negative (LNJNAG=038) U Marijuana (THC) Screen Presumptive positive H (CUTOFF=50) Ethyl Alcohol (0.00) gm% Ketones (0.0-0.3) mM 12/10/19 12/10/19 12/10/19 Range/Units 13:18 13:48 13:48 WBC (4.23-9.07) K/mm3 RBC (4.63-6.08) M/mm3 Hgb (13.7-17.5) gm/dl Hct (40.1-51.0) % MCV (79.0-92.2) fl MCH (25.7-32.2) pg MCHC (32.2-35.5) g/dl RDW Std Deviation (35.1-43.9) fL Plt Count (163-337) K/mm3 MPV (9.4-12.3) fl Neut % (Auto) Lymph % (Auto) Pierce % (Auto) Eos % (Auto) Baso % (Auto) Neut # (Auto) Lymph # (Auto) Pierce # (Auto) Eos # (Auto) Baso # (Auto) Neutrophils % (Manual) (40-60) % Band Neutrophils % (0-10) % Lymphocytes % (Manual) (20-40) % Atypical Lymphs % % Monocytes % (Manual) (2-10) % Eosinophils % (Manual) (0.8-7.0) % Basophils % (Manual) (0.2-1.2) Manual Slide Review Platelet Estimate Poikilocytosis Anisocytosis RBC Morph Comment Puncture Site ABG pH (7.35-7.45) ABG pCO2 (35.0-45.0) mmHg ABG pO2 (80.0-100.0) mmHg ABG HCO3 (22.0-26.0) meq/L ABG O2 Saturation (96.0-97.0) % ABG Base Excess (-2-2.0) Faisal Test A-a Gradient mmHg O2 Delivery Device FiO2 (21.00-100.00) % Sodium 140 (136-145) mEq/L Potassium 4.0 (3.5-5.1) mEq/L Chloride 101 (98-107) mEq/L Carbon Dioxide 11 L (21-32) mEq/L Anion Gap 32.0 H (5-15) BUN 14 (7-18) mg/dL Creatinine 1.2 (0.7-1.3) mg/dL Est Cr Clr Drug Dosing 92.09 mL/min Estimated GFR (MDRD) > 60 (>60) mL/min BUN/Creatinine Ratio 11.7 L (14-18) Glucose 155 H (74-106) mg/dL POC Glucose 169 H (70-105) mg/dL Hemoglobin A1c 9.10 H (4.50-6.20) % Lactic Acid (0.4-2.0) mmol/L Calcium 9.2 (8.5-10.1) mg/dL Phosphorus 3.2 (2.6-4.7) mg/dL Magnesium 2.0 (1.8-2.4) mg/dl Total Bilirubin (0.2-1.0) mg/dL AST (15-37) U/L ALT (16-63) U/L Alkaline Phosphatase (46-116) U/L Total Protein (6.4-8.2) g/dl Albumin (3.4-5.0) g/dl Globulin gm/dL Albumin/Globulin Ratio (1-2) Triglycerides 141 (<150) mg/dL Cholesterol 229 H (<200) mg/dL LDL Cholesterol Direct 161 H* (<100) mg/dL HDL Cholesterol 40.0 (40-59) mg/dL Urine Color (Yellow) Urine Appearance (Clear) Urine pH (5.0-8.0) Ur Specific [place] (1.005-1.030) Urine Protein (Negative) Urine Glucose (UA) (Negative) Urine Ketones (Negative) Urine Occult Blood (Negative) Urine Nitrite (Negative) Urine Bilirubin (Negative) Urine Urobilinogen (0.2-1.0) Ur Leukocyte Esterase (Negative) Urine RBC (0-5) /hpf Urine WBC (0-5) /hpf Ur Squamous Epith Cells (0-5) /hpf Urine Bacteria (FEW) /hpf Urine Mucus (FEW) /hpf Urine Opiates Screen (YACAAG=576) Ur Buprenorphine Scrn (CUTOFF=10) Ur Oxycodone Screen (IQL7RZ=540) Urine Methadone Screen (NJV8ET=838) Ur Propoxyphene Screen (SMWLVT=755) Ur Barbiturates Screen (TUQDMM=646) Ur Tricyclics Screen (WQGRYP=426) Ur Phencyclidine Scrn (CUTOFF=25) Ur Amphetamine Screen (BCYZPI=336) U Methamphetamines Scrn (TXMMFL=092) U Benzodiazepines Scrn (NKEXFY=843) U Cocaine Metab Screen (WBRKYI=904) U Marijuana (THC) Screen (CUTOFF=50) Ethyl Alcohol 0.00 (0.00) gm% Ketones (0.0-0.3) mM 12/10/19 12/10/19 12/10/19 Range/Units 13:48 14:06 14:55 WBC (4.23-9.07) K/mm3 RBC (4.63-6.08) M/mm3 Hgb (13.7-17.5) gm/dl Hct (40.1-51.0) % MCV (79.0-92.2) fl MCH (25.7-32.2) pg MCHC (32.2-35.5) g/dl RDW Std Deviation (35.1-43.9) fL Plt Count (163-337) K/mm3 MPV (9.4-12.3) fl Neut % (Auto) Lymph % (Auto) Pierce % (Auto) Eos % (Auto) Baso % (Auto) Neut # (Auto) Lymph # (Auto) Pierce # (Auto) Eos # (Auto) Baso # (Auto) Neutrophils % (Manual) (40-60) % Band Neutrophils % (0-10) % Lymphocytes % (Manual) (20-40) % Atypical Lymphs % % Monocytes % (Manual) (2-10) % Eosinophils % (Manual) (0.8-7.0) % Basophils % (Manual) (0.2-1.2) Manual Slide Review Platelet Estimate Poikilocytosis Anisocytosis RBC Morph Comment Puncture Site ABG pH (7.35-7.45) ABG pCO2 (35.0-45.0) mmHg ABG pO2 (80.0-100.0) mmHg ABG HCO3 (22.0-26.0) meq/L ABG O2 Saturation (96.0-97.0) % ABG Base Excess (-2-2.0) Faisal Test A-a Gradient mmHg O2 Delivery Device FiO2 (21.00-100.00) % Sodium (136-145) mEq/L Potassium (3.5-5.1) mEq/L Chloride (98-107) mEq/L Carbon Dioxide (21-32) mEq/L Anion Gap (5-15) BUN (7-18) mg/dL Creatinine (0.7-1.3) mg/dL Est Cr Clr Drug Dosing mL/min Estimated GFR (MDRD) (>60) mL/min BUN/Creatinine Ratio (14-18) Glucose (74-106) mg/dL POC Glucose 162 H 169 H (70-105) mg/dL Hemoglobin A1c (4.50-6.20) % Lactic Acid (0.4-2.0) mmol/L Calcium (8.5-10.1) mg/dL Phosphorus (2.6-4.7) mg/dL Magnesium (1.8-2.4) mg/dl Total Bilirubin (0.2-1.0) mg/dL AST (15-37) U/L ALT (16-63) U/L Alkaline Phosphatase (46-116) U/L Total Protein (6.4-8.2) g/dl Albumin (3.4-5.0) g/dl Globulin gm/dL Albumin/Globulin Ratio (1-2) Triglycerides (<150) mg/dL Cholesterol (<200) mg/dL LDL Cholesterol Direct (<100) mg/dL HDL Cholesterol (40-59) mg/dL Urine Color (Yellow) Urine Appearance (Clear) Urine pH (5.0-8.0) Ur Specific [place] (1.005-1.030) Urine Protein (Negative) Urine Glucose (UA) (Negative) Urine Ketones (Negative) Urine Occult Blood (Negative) Urine Nitrite (Negative) Urine Bilirubin (Negative) Urine Urobilinogen (0.2-1.0) Ur Leukocyte Esterase (Negative) Urine RBC (0-5) /hpf Urine WBC (0-5) /hpf Ur Squamous Epith Cells (0-5) /hpf Urine Bacteria (FEW) /hpf Urine Mucus (FEW) /hpf Urine Opiates Screen (ADBMME=460) Ur Buprenorphine Scrn (CUTOFF=10) Ur Oxycodone Screen (SMX6HJ=423) Urine Methadone Screen (LLQ0CO=736) Ur Propoxyphene Screen (ANQYAH=351) Ur Barbiturates Screen (VLQFBU=671) Ur Tricyclics Screen (MUOVGD=359) Ur Phencyclidine Scrn (CUTOFF=25) Ur Amphetamine Screen (XLRUQO=268) U Methamphetamines Scrn (NGOJBP=706) U Benzodiazepines Scrn (SYXVVL=369) U Cocaine Metab Screen (TUXSUX=926) U Marijuana (THC) Screen (CUTOFF=50) Ethyl Alcohol (0.00) gm% Ketones 9.64 (0.0-0.3) mM 12/10/19 12/10/19 12/10/19 Range/Units 16:03 16:33 17:02 WBC (4.23-9.07) K/mm3 RBC (4.63-6.08) M/mm3 Hgb (13.7-17.5) gm/dl Hct (40.1-51.0) % MCV (79.0-92.2) fl MCH (25.7-32.2) pg MCHC (32.2-35.5) g/dl RDW Std Deviation (35.1-43.9) fL Plt Count (163-337) K/mm3 MPV (9.4-12.3) fl Neut % (Auto) Lymph % (Auto) Pierce % (Auto) Eos % (Auto) Baso % (Auto) Neut # (Auto) Lymph # (Auto) Pierce # (Auto) Eos # (Auto) Baso # (Auto) Neutrophils % (Manual) (40-60) % Band Neutrophils % (0-10) % Lymphocytes % (Manual) (20-40) % Atypical Lymphs % % Monocytes % (Manual) (2-10) % Eosinophils % (Manual) (0.8-7.0) % Basophils % (Manual) (0.2-1.2) Manual Slide Review Platelet Estimate Poikilocytosis Anisocytosis RBC Morph Comment Puncture Site ABG pH (7.35-7.45) ABG pCO2 (35.0-45.0) mmHg ABG pO2 (80.0-100.0) mmHg ABG HCO3 (22.0-26.0) meq/L ABG O2 Saturation (96.0-97.0) % ABG Base Excess (-2-2.0) Faisal Test A-a Gradient mmHg O2 Delivery Device FiO2 (21.00-100.00) % Sodium 139 (136-145) mEq/L Potassium 3.9 (3.5-5.1) mEq/L Chloride 99 (98-107) mEq/L Carbon Dioxide 13 L (21-32) mEq/L Anion Gap 30.9 H (5-15) BUN 13 (7-18) mg/dL Creatinine 1.2 (0.7-1.3) mg/dL Est Cr Clr Drug Dosing 92.09 mL/min Estimated GFR (MDRD) > 60 (>60) mL/min BUN/Creatinine Ratio 10.8 L (14-18) Glucose 201 H (74-106) mg/dL POC Glucose 198 H 194 H (70-105) mg/dL Hemoglobin A1c (4.50-6.20) % Lactic Acid (0.4-2.0) mmol/L Calcium 8.9 (8.5-10.1) mg/dL Phosphorus 2.9 (2.6-4.7) mg/dL Magnesium 1.8 (1.8-2.4) mg/dl Total Bilirubin (0.2-1.0) mg/dL AST (15-37) U/L ALT (16-63) U/L Alkaline Phosphatase (46-116) U/L Total Protein (6.4-8.2) g/dl Albumin (3.4-5.0) g/dl Globulin gm/dL Albumin/Globulin Ratio (1-2) Triglycerides (<150) mg/dL Cholesterol (<200) mg/dL LDL Cholesterol Direct (<100) mg/dL HDL Cholesterol (40-59) mg/dL Urine Color (Yellow) Urine Appearance (Clear) Urine pH (5.0-8.0) Ur Specific [place] (1.005-1.030) Urine Protein (Negative) Urine Glucose (UA) (Negative) Urine Ketones (Negative) Urine Occult Blood (Negative) Urine Nitrite (Negative) Urine Bilirubin (Negative) Urine Urobilinogen (0.2-1.0) Ur Leukocyte Esterase (Negative) Urine RBC (0-5) /hpf Urine WBC (0-5) /hpf Ur Squamous Epith Cells (0-5) /hpf Urine Bacteria (FEW) /hpf Urine Mucus (FEW) /hpf Urine Opiates Screen (HGVQOJ=416) Ur Buprenorphine Scrn (CUTOFF=10) Ur Oxycodone Screen (SXN4OU=867) Urine Methadone Screen (ADX3YU=126) Ur Propoxyphene Screen (CVCCNS=476) Ur Barbiturates Screen (LRYZMI=465) Ur Tricyclics Screen (HOLWHE=990) Ur Phencyclidine Scrn (CUTOFF=25) Ur Amphetamine Screen (EGGJVH=108) U Methamphetamines Scrn (VZKRVG=587) U Benzodiazepines Scrn (QTGJZM=079) U Cocaine Metab Screen (WAXZUD=092) U Marijuana (THC) Screen (CUTOFF=50) Ethyl Alcohol (0.00) gm% Ketones (0.0-0.3) mM 12/10/19 12/10/1920 Range/Units 17:59 18:55 19:58 WBC (4.23-9.07) K/mm3 RBC (4.63-6.08) M/mm3 Hgb (13.7-17.5) gm/dl Hct (40.1-51.0) % MCV (79.0-92.2) fl MCH (25.7-32.2) pg MCHC (32.2-35.5) g/dl RDW Std Deviation (35.1-43.9) fL Plt Count (163-337) K/mm3 MPV (9.4-12.3) fl Neut % (Auto) Lymph % (Auto) [place] % (Auto) Eos % (Auto) Baso % (Auto) Neut # (Auto) Lymph # (Auto) Pierce # (Auto) Eos # (Auto) Baso # (Auto) Neutrophils % (Manual) (40-60) % Band Neutrophils % (0-10) % Lymphocytes % (Manual) (20-40) % Atypical Lymphs % % Monocytes % (Manual) (2-10) % Eosinophils % (Manual) (0.8-7.0) % Basophils % (Manual) (0.2-1.2) Manual Slide Review Platelet Estimate Poikilocytosis Anisocytosis RBC Morph Comment Puncture Site ABG pH (7.35-7.45) ABG pCO2 (35.0-45.0) mmHg ABG pO2 (80.0-100.0) mmHg ABG HCO3 (22.0-26.0) meq/L ABG O2 Saturation (96.0-97.0) % ABG Base Excess (-2-2.0) Faisal Test A-a Gradient mmHg O2 Delivery Device FiO2 (21.00-100.00) % Sodium (136-145) mEq/L Potassium (3.5-5.1) mEq/L Chloride (98-107) mEq/L Carbon Dioxide (21-32) mEq/L Anion Gap (5-15) BUN (7-18) mg/dL Creatinine (0.7-1.3) mg/dL Est Cr Clr Drug Dosing mL/min Estimated GFR (MDRD) (>60) mL/min BUN/Creatinine Ratio (14-18) Glucose (74-106) mg/dL POC Glucose 194 H 179 H 178 H (70-105) mg/dL Hemoglobin A1c (4.50-6.20) % Lactic Acid (0.4-2.0) mmol/L Calcium (8.5-10.1) mg/dL Phosphorus (2.6-4.7) mg/dL Magnesium (1.8-2.4) mg/dl Total Bilirubin (0.2-1.0) mg/dL AST (15-37) U/L ALT (16-63) U/L Alkaline Phosphatase (46-116) U/L Total Protein (6.4-8.2) g/dl Albumin (3.4-5.0) g/dl Globulin gm/dL Albumin/Globulin Ratio (1-2) Triglycerides (<150) mg/dL Cholesterol (<200) mg/dL LDL Cholesterol Direct (<100) mg/dL HDL Cholesterol (40-59) mg/dL Urine Color (Yellow) Urine Appearance (Clear) Urine pH (5.0-8.0) Ur Specific [place] (1.005-1.030) Urine Protein (Negative) Urine Glucose (UA) (Negative) Urine Ketones (Negative) Urine Occult Blood (Negative) Urine Nitrite (Negative) Urine Bilirubin (Negative) Urine Urobilinogen (0.2-1.0) Ur Leukocyte Esterase (Negative) Urine RBC (0-5) /hpf Urine WBC (0-5) /hpf Ur Squamous Epith Cells (0-5) /hpf Urine Bacteria (FEW) /hpf Urine Mucus (FEW) /hpf Urine Opiates Screen (GRZMNW=207) Ur Buprenorphine Scrn (CUTOFF=10) Ur Oxycodone Screen (WAA9YV=052) Urine Methadone Screen (GHD3AT=361) Ur Propoxyphene Screen (GFREOH=845) Ur Barbiturates Screen (FPRUBZ=831) Ur Tricyclics Screen (XUMZOP=739) Ur Phencyclidine Scrn (CUTOFF=25) Ur Amphetamine Screen (CLTKTS=257) U Methamphetamines Scrn (PIRJEX=109) U Benzodiazepines Scrn (BCWKYJ=938) U Cocaine Metab Screen (HZKJNU=594) U Marijuana (THC) Screen (CUTOFF=50) Ethyl Alcohol (0.00) gm% Ketones (0.0-0.3) mM 12/10/19 12/10/19 12/10/19 Range/Units 20:35 20:52 21:05 WBC (4.23-9.07) K/mm3 RBC (4.63-6.08) M/mm3 Hgb (13.7-17.5) gm/dl Hct (40.1-51.0) % MCV (79.0-92.2) fl MCH (25.7-32.2) pg MCHC (32.2-35.5) g/dl RDW Std Deviation (35.1-43.9) fL Plt Count (163-337) K/mm3 MPV (9.4-12.3) fl Neut % (Auto) Lymph % (Auto) Pierce % (Auto) Eos % (Auto) Baso % (Auto) Neut # (Auto) Lymph # (Auto) Pierce # (Auto) Eos # (Auto) Baso # (Auto) Neutrophils % (Manual) (40-60) % Band Neutrophils % (0-10) % Lymphocytes % (Manual) (20-40) % Atypical Lymphs % % Monocytes % (Manual) (2-10) % Eosinophils % (Manual) (0.8-7.0) % Basophils % (Manual) (0.2-1.2) Manual Slide Review Platelet Estimate Poikilocytosis Anisocytosis RBC Morph Comment Puncture Site ABG pH (7.35-7.45) ABG pCO2 (35.0-45.0) mmHg ABG pO2 (80.0-100.0) mmHg ABG HCO3 (22.0-26.0) meq/L ABG O2 Saturation (96.0-97.0) % ABG Base Excess (-2-2.0) Faisal Test A-a Gradient mmHg O2 Delivery Device FiO2 (21.00-100.00) % Sodium 136 (136-145) mEq/L Potassium 3.8 (3.5-5.1) mEq/L Chloride 100 (98-107) mEq/L Carbon Dioxide 13 L (21-32) mEq/L Anion Gap 26.8 H (5-15) BUN 11 (7-18) mg/dL Creatinine 1.1 (0.7-1.3) mg/dL Est Cr Clr Drug Dosing 100.47 mL/min Estimated GFR (MDRD) > 60 (>60) mL/min BUN/Creatinine Ratio 10.0 L (14-18) Glucose 197 H (74-106) mg/dL POC Glucose 193 H (70-105) mg/dL Hemoglobin A1c (4.50-6.20) % Lactic Acid (0.4-2.0) mmol/L Calcium 8.5 (8.5-10.1) mg/dL Phosphorus 1.6 L (2.6-4.7) mg/dL Magnesium 1.6 L (1.8-2.4) mg/dl Total Bilirubin (0.2-1.0) mg/dL AST (15-37) U/L ALT (16-63) U/L Alkaline Phosphatase (46-116) U/L Total Protein (6.4-8.2) g/dl Albumin (3.4-5.0) g/dl Globulin gm/dL Albumin/Globulin Ratio (1-2) Triglycerides (<150) mg/dL Cholesterol (<200) mg/dL LDL Cholesterol Direct (<100) mg/dL HDL Cholesterol (40-59) mg/dL Urine Color (Yellow) Urine Appearance (Clear) Urine pH (5.0-8.0) Ur Specific [place] (1.005-1.030) Urine Protein (Negative) Urine Glucose (UA) (Negative) Urine Ketones (Negative) Urine Occult Blood (Negative) Urine Nitrite (Negative) Urine Bilirubin (Negative) Urine Urobilinogen (0.2-1.0) Ur Leukocyte Esterase (Negative) Urine RBC (0-5) /hpf Urine WBC (0-5) /hpf Ur Squamous Epith Cells (0-5) /hpf Urine Bacteria (FEW) /hpf Urine Mucus (FEW) /hpf Urine Opiates Screen (GZUBKB=630) Ur Buprenorphine Scrn (CUTOFF=10) Ur Oxycodone Screen (UMX0SC=308) Urine Methadone Screen (EMK0YB=698) Ur Propoxyphene Screen (QTZGDU=253) Ur Barbiturates Screen (BCBDEX=262) Ur Tricyclics Screen (QVFZNK=505) Ur Phencyclidine Scrn (CUTOFF=25) Ur Amphetamine Screen (GHNYOD=084) U Methamphetamines Scrn (IAQQLI=040) U Benzodiazepines Scrn (ASMVZA=584) U Cocaine Metab Screen (MTBNOM=972) U Marijuana (THC) Screen (CUTOFF=50) Ethyl Alcohol (0.00) gm% Ketones 6.21 (0.0-0.3) mM 12/10/19 12/10/19 12/11/19 Range/Units 22:01 22:59 00:03 WBC (4.23-9.07) K/mm3 RBC (4.63-6.08) M/mm3 Hgb (13.7-17.5) gm/dl Hct (40.1-51.0) % MCV (79.0-92.2) fl MCH (25.7-32.2) pg MCHC (32.2-35.5) g/dl RDW Std Deviation (35.1-43.9) fL Plt Count (163-337) K/mm3 MPV (9.4-12.3) fl Neut % (Auto) Lymph % (Auto) [place] % (Auto) Eos % (Auto) Baso % (Auto) Neut # (Auto) Lymph # (Auto) [place] # (Auto) Eos # (Auto) Baso # (Auto) Neutrophils % (Manual) (40-60) % Band Neutrophils % (0-10) % Lymphocytes % (Manual) (20-40) % Atypical Lymphs % % Monocytes % (Manual) (2-10) % Eosinophils % (Manual) (0.8-7.0) % Basophils % (Manual) (0.2-1.2) Manual Slide Review Platelet Estimate Poikilocytosis Anisocytosis RBC Morph Comment Puncture Site ABG pH (7.35-7.45) ABG pCO2 (35.0-45.0) mmHg ABG pO2 (80.0-100.0) mmHg ABG HCO3 (22.0-26.0) meq/L ABG O2 Saturation (96.0-97.0) % ABG Base Excess (-2-2.0) Faisal Test A-a Gradient mmHg O2 Delivery Device FiO2 (21.00-100.00) % Sodium (136-145) mEq/L Potassium (3.5-5.1) mEq/L Chloride (98-107) mEq/L Carbon Dioxide (21-32) mEq/L Anion Gap (5-15) BUN (7-18) mg/dL Creatinine (0.7-1.3) mg/dL Est Cr Clr Drug Dosing mL/min Estimated GFR (MDRD) (>60) mL/min BUN/Creatinine Ratio (14-18) Glucose (74-106) mg/dL POC Glucose 191 H 174 H 170 H (70-105) mg/dL Hemoglobin A1c (4.50-6.20) % Lactic Acid (0.4-2.0) mmol/L Calcium (8.5-10.1) mg/dL Phosphorus (2.6-4.7) mg/dL Magnesium (1.8-2.4) mg/dl Total Bilirubin (0.2-1.0) mg/dL AST (15-37) U/L ALT (16-63) U/L Alkaline Phosphatase (46-116) U/L Total Protein (6.4-8.2) g/dl Albumin (3.4-5.0) g/dl Globulin gm/dL Albumin/Globulin Ratio (1-2) Triglycerides (<150) mg/dL Cholesterol (<200) mg/dL LDL Cholesterol Direct (<100) mg/dL HDL Cholesterol (40-59) mg/dL Urine Color (Yellow) Urine Appearance (Clear) Urine pH (5.0-8.0) Ur Specific [place] (1.005-1.030) Urine Protein (Negative) Urine Glucose (UA) (Negative) Urine Ketones (Negative) Urine Occult Blood (Negative) Urine Nitrite (Negative) Urine Bilirubin (Negative) Urine Urobilinogen (0.2-1.0) Ur Leukocyte Esterase (Negative) Urine RBC (0-5) /hpf Urine WBC (0-5) /hpf Ur Squamous Epith Cells (0-5) /hpf Urine Bacteria (FEW) /hpf Urine Mucus (FEW) /hpf Urine Opiates Screen (AKTGXM=647) Ur Buprenorphine Scrn (CUTOFF=10) Ur Oxycodone Screen (JBH9NI=878) Urine Methadone Screen (TSS6JN=834) Ur Propoxyphene Screen (TBURKW=655) Ur Barbiturates Screen (EGPVUB=209) Ur Tricyclics Screen (JVMIGY=896) Ur Phencyclidine Scrn (CUTOFF=25) Ur Amphetamine Screen (XQTTIB=108) U Methamphetamines Scrn (OYBBSO=624) U Benzodiazepines Scrn (DDLBZS=281) U Cocaine Metab Screen (MNHJKE=708) U Marijuana (THC) Screen (CUTOFF=50) Ethyl Alcohol (0.00) gm% Ketones (0.0-0.3) mM 12/11/19 12/11/19 12/11/19 Range/Units 00:44 01:00 02:01 WBC (4.23-9.07) K/mm3 RBC (4.63-6.08) M/mm3 Hgb (13.7-17.5) gm/dl Hct (40.1-51.0) % MCV (79.0-92.2) fl MCH (25.7-32.2) pg MCHC (32.2-35.5) g/dl RDW Std Deviation (35.1-43.9) fL Plt Count (163-337) K/mm3 MPV (9.4-12.3) fl Neut % (Auto) Lymph % (Auto) Pierce % (Auto) Eos % (Auto) Baso % (Auto) Neut # (Auto) Lymph # (Auto) Pierce # (Auto) Eos # (Auto) Baso # (Auto) Neutrophils % (Manual) (40-60) % Band Neutrophils % (0-10) % Lymphocytes % (Manual) (20-40) % Atypical Lymphs % % Monocytes % (Manual) (2-10) % Eosinophils % (Manual) (0.8-7.0) % Basophils % (Manual) (0.2-1.2) Manual Slide Review Platelet Estimate Poikilocytosis Anisocytosis RBC Morph Comment Puncture Site ABG pH (7.35-7.45) ABG pCO2 (35.0-45.0) mmHg ABG pO2 (80.0-100.0) mmHg ABG HCO3 (22.0-26.0) meq/L ABG O2 Saturation (96.0-97.0) % ABG Base Excess (-2-2.0) Faisal Test A-a Gradient mmHg O2 Delivery Device FiO2 (21.00-100.00) % Sodium 136 (136-145) mEq/L Potassium 3.4 L (3.5-5.1) mEq/L Chloride 99 (98-107) mEq/L Carbon Dioxide 14 L (21-32) mEq/L Anion Gap 26.4 H (5-15) BUN 9 (7-18) mg/dL Creatinine 1.0 (0.7-1.3) mg/dL Est Cr Clr Drug Dosing 110.51 mL/min Estimated GFR (MDRD) > 60 (>60) mL/min BUN/Creatinine Ratio 9.0 L (14-18) Glucose 180 H (74-106) mg/dL POC Glucose 168 H 165 H (70-105) mg/dL Hemoglobin A1c (4.50-6.20) % Lactic Acid (0.4-2.0) mmol/L Calcium 8.2 L (8.5-10.1) mg/dL Phosphorus 2.5 L (2.6-4.7) mg/dL Magnesium 2.3 (1.8-2.4) mg/dl Total Bilirubin (0.2-1.0) mg/dL AST (15-37) U/L ALT (16-63) U/L Alkaline Phosphatase (46-116) U/L Total Protein (6.4-8.2) g/dl Albumin (3.4-5.0) g/dl Globulin gm/dL Albumin/Globulin Ratio (1-2) Triglycerides (<150) mg/dL Cholesterol (<200) mg/dL LDL Cholesterol Direct (<100) mg/dL HDL Cholesterol (40-59) mg/dL Urine Color (Yellow) Urine Appearance (Clear) Urine pH (5.0-8.0) Ur Specific [place] (1.005-1.030) Urine Protein (Negative) Urine Glucose (UA) (Negative) Urine Ketones (Negative) Urine Occult Blood (Negative) Urine Nitrite (Negative) Urine Bilirubin (Negative) Urine Urobilinogen (0.2-1.0) Ur Leukocyte Esterase (Negative) Urine RBC (0-5) /hpf Urine WBC (0-5) /hpf Ur Squamous Epith Cells (0-5) /hpf Urine Bacteria (FEW) /hpf Urine Mucus (FEW) /hpf Urine Opiates Screen (FSDKQJ=017) Ur Buprenorphine Scrn (CUTOFF=10) Ur Oxycodone Screen (UDD8WI=553) Urine Methadone Screen (TJC0VX=372) Ur Propoxyphene Screen (ACHEIJ=149) Ur Barbiturates Screen (URSTNC=834) Ur Tricyclics Screen (MLQRIW=050) Ur Phencyclidine Scrn (CUTOFF=25) Ur Amphetamine Screen (SHWGJH=416) U Methamphetamines Scrn (YJQVEQ=113) U Benzodiazepines Scrn (PIXLPK=208) U Cocaine Metab Screen (OQEBEZ=972) U Marijuana (THC) Screen (CUTOFF=50) Ethyl Alcohol (0.00) gm% Ketones (0.0-0.3) mM 12/11/19 12/11/19 12/11/19 Range/Units 02:58 04:00 04:31 WBC (4.23-9.07) K/mm3 RBC (4.63-6.08) M/mm3 Hgb (13.7-17.5) gm/dl Hct (40.1-51.0) % MCV (79.0-92.2) fl MCH (25.7-32.2) pg MCHC (32.2-35.5) g/dl RDW Std Deviation (35.1-43.9) fL Plt Count (163-337) K/mm3 MPV (9.4-12.3) fl Neut % (Auto) Lymph % (Auto) Pierce % (Auto) Eos % (Auto) Baso % (Auto) Neut # (Auto) Lymph # (Auto) Pierce # (Auto) Eos # (Auto) Baso # (Auto) Neutrophils % (Manual) (40-60) % Band Neutrophils % (0-10) % Lymphocytes % (Manual) (20-40) % Atypical Lymphs % % Monocytes % (Manual) (2-10) % Eosinophils % (Manual) (0.8-7.0) % Basophils % (Manual) (0.2-1.2) Manual Slide Review Platelet Estimate Poikilocytosis Anisocytosis RBC Morph Comment Puncture Site ABG pH (7.35-7.45) ABG pCO2 (35.0-45.0) mmHg ABG pO2 (80.0-100.0) mmHg ABG HCO3 (22.0-26.0) meq/L ABG O2 Saturation (96.0-97.0) % ABG Base Excess (-2-2.0) Faisal Test A-a Gradient mmHg O2 Delivery Device FiO2 (21.00-100.00) % Sodium 136 (136-145) mEq/L Potassium 3.1 L (3.5-5.1) mEq/L Chloride 99 (98-107) mEq/L Carbon Dioxide 13 L (21-32) mEq/L Anion Gap 27.1 H (5-15) BUN 7 (7-18) mg/dL Creatinine 0.8 (0.7-1.3) mg/dL Est Cr Clr Drug Dosing 138.14 mL/min Estimated GFR (MDRD) > 60 (>60) mL/min BUN/Creatinine Ratio 8.8 L (14-18) Glucose 175 H (74-106) mg/dL POC Glucose 163 H 167 H (70-105) mg/dL Hemoglobin A1c (4.50-6.20) % Lactic Acid (0.4-2.0) mmol/L Calcium 8.4 L (8.5-10.1) mg/dL Phosphorus 2.1 L (2.6-4.7) mg/dL Magnesium 2.3 (1.8-2.4) mg/dl Total Bilirubin (0.2-1.0) mg/dL AST (15-37) U/L ALT (16-63) U/L Alkaline Phosphatase (46-116) U/L Total Protein (6.4-8.2) g/dl Albumin (3.4-5.0) g/dl Globulin gm/dL Albumin/Globulin Ratio (1-2) Triglycerides (<150) mg/dL Cholesterol (<200) mg/dL LDL Cholesterol Direct (<100) mg/dL HDL Cholesterol (40-59) mg/dL Urine Color (Yellow) Urine Appearance (Clear) Urine pH (5.0-8.0) Ur Specific [place] (1.005-1.030) Urine Protein (Negative) Urine Glucose (UA) (Negative) Urine Ketones (Negative) Urine Occult Blood (Negative) Urine Nitrite (Negative) Urine Bilirubin (Negative) Urine Urobilinogen (0.2-1.0) Ur Leukocyte Esterase (Negative) Urine RBC (0-5) /hpf Urine WBC (0-5) /hpf Ur Squamous Epith Cells (0-5) /hpf Urine Bacteria (FEW) /hpf Urine Mucus (FEW) /hpf Urine Opiates Screen (QCTWKH=793) Ur Buprenorphine Scrn (CUTOFF=10) Ur Oxycodone Screen (TUA8GR=480) Urine Methadone Screen (SDK9GU=988) Ur Propoxyphene Screen (FQINCS=195) Ur Barbiturates Screen (BNEVQZ=200) Ur Tricyclics Screen (NWZZTH=358) Ur Phencyclidine Scrn (CUTOFF=25) Ur Amphetamine Screen (IQDZWH=833) U Methamphetamines Scrn (ACWHPM=799) U Benzodiazepines Scrn (WECRUM=248) U Cocaine Metab Screen (IIWUZD=035) U Marijuana (THC) Screen (CUTOFF=50) Ethyl Alcohol (0.00) gm% Ketones (0.0-0.3) mM 12/11/19 12/11/19 12/11/19 Range/Units 04:31 04:31 04:31 WBC 12.12 H (4.23-9.07) K/mm3 RBC 5.54 (4.63-6.08) M/mm3 Hgb 17.5 D (13.7-17.5) gm/dl Hct 47.1 (40.1-51.0) % MCV 85.0 (79.0-92.2) fl MCH 31.6 (25.7-32.2) pg MCHC 37.2 H (32.2-35.5) g/dl RDW Std Deviation 37.8 (35.1-43.9) fL Plt Count 205 (163-337) K/mm3 MPV 10.5 (9.4-12.3) fl Neut % (Auto) 77.8 H Lymph % (Auto) 11.1 L Pierce % (Auto) 10.1 Eos % (Auto) 0.2 L Baso % (Auto) 0.3 Neut # (Auto) 9.43 H Lymph # (Auto) 1.34 Pierce # (Auto) 1.22 H Eos # (Auto) 0.03 L Baso # (Auto) 0.04 Neutrophils % (Manual) (40-60) % Band Neutrophils % (0-10) % Lymphocytes % (Manual) (20-40) % Atypical Lymphs % % Monocytes % (Manual) (2-10) % Eosinophils % (Manual) (0.8-7.0) % Basophils % (Manual) (0.2-1.2) Manual Slide Review Normal smear Platelet Estimate Poikilocytosis Anisocytosis RBC Morph Comment Puncture Site ABG pH (7.35-7.45) ABG pCO2 (35.0-45.0) mmHg ABG pO2 (80.0-100.0) mmHg ABG HCO3 (22.0-26.0) meq/L ABG O2 Saturation (96.0-97.0) % ABG Base Excess (-2-2.0) Faisal Test A-a Gradient mmHg O2 Delivery Device FiO2 (21.00-100.00) % Sodium (136-145) mEq/L Potassium (3.5-5.1) mEq/L Chloride (98-107) mEq/L Carbon Dioxide (21-32) mEq/L Anion Gap (5-15) BUN (7-18) mg/dL Creatinine (0.7-1.3) mg/dL Est Cr Clr Drug Dosing mL/min Estimated GFR (MDRD) (>60) mL/min BUN/Creatinine Ratio (14-18) Glucose (74-106) mg/dL POC Glucose (70-105) mg/dL Hemoglobin A1c (4.50-6.20) % Lactic Acid (0.4-2.0) mmol/L Calcium (8.5-10.1) mg/dL Phosphorus (2.6-4.7) mg/dL Magnesium (1.8-2.4) mg/dl Total Bilirubin (0.2-1.0) mg/dL AST (15-37) U/L ALT (16-63) U/L Alkaline Phosphatase (46-116) U/L Total Protein (6.4-8.2) g/dl Albumin (3.4-5.0) g/dl Globulin gm/dL Albumin/Globulin Ratio (1-2) Triglycerides 61 (<150) mg/dL Cholesterol (<200) mg/dL LDL Cholesterol Direct (<100) mg/dL HDL Cholesterol (40-59) mg/dL Urine Color (Yellow) Urine Appearance (Clear) Urine pH (5.0-8.0) Ur Specific [place] (1.005-1.030) Urine Protein (Negative) Urine Glucose (UA) (Negative) Urine Ketones (Negative) Urine Occult Blood (Negative) Urine Nitrite (Negative) Urine Bilirubin (Negative) Urine Urobilinogen (0.2-1.0) Ur Leukocyte Esterase (Negative) Urine RBC (0-5) /hpf Urine WBC (0-5) /hpf Ur Squamous Epith Cells (0-5) /hpf Urine Bacteria (FEW) /hpf Urine Mucus (FEW) /hpf Urine Opiates Screen (DPBFKC=940) Ur Buprenorphine Scrn (CUTOFF=10) Ur Oxycodone Screen (SQG8KO=641) Urine Methadone Screen (TQQ6RS=816) Ur Propoxyphene Screen (PAJBEK=813) Ur Barbiturates Screen (MBKDFK=070) Ur Tricyclics Screen (QIVYEO=391) Ur Phencyclidine Scrn (CUTOFF=25) Ur Amphetamine Screen (OXITRA=546) U Methamphetamines Scrn (QHNOZV=229) U Benzodiazepines Scrn (MMFUXM=877) U Cocaine Metab Screen (BTXVHK=943) U Marijuana (THC) Screen (CUTOFF=50) Ethyl Alcohol (0.00) gm% Ketones 5.95 (0.0-0.3) mM 12/11/19 12/11/19 12/11/19 Range/Units 05:03 06:01 06:52 WBC (4.23-9.07) K/mm3 RBC (4.63-6.08) M/mm3 Hgb (13.7-17.5) gm/dl Hct (40.1-51.0) % MCV (79.0-92.2) fl MCH (25.7-32.2) pg MCHC (32.2-35.5) g/dl RDW Std Deviation (35.1-43.9) fL Plt Count (163-337) K/mm3 MPV (9.4-12.3) fl Neut % (Auto) Lymph % (Auto) [place] % (Auto) Eos % (Auto) Baso % (Auto) Neut # (Auto) Lymph # (Auto) [place] # (Auto) Eos # (Auto) Baso # (Auto) Neutrophils % (Manual) (40-60) % Band Neutrophils % (0-10) % Lymphocytes % (Manual) (20-40) % Atypical Lymphs % % Monocytes % (Manual) (2-10) % Eosinophils % (Manual) (0.8-7.0) % Basophils % (Manual) (0.2-1.2) Manual Slide Review Platelet Estimate Poikilocytosis Anisocytosis RBC Morph Comment Puncture Site ABG pH (7.35-7.45) ABG pCO2 (35.0-45.0) mmHg ABG pO2 (80.0-100.0) mmHg ABG HCO3 (22.0-26.0) meq/L ABG O2 Saturation (96.0-97.0) % ABG Base Excess (-2-2.0) Faisal Test A-a Gradient mmHg O2 Delivery Device FiO2 (21.00-100.00) % Sodium (136-145) mEq/L Potassium (3.5-5.1) mEq/L Chloride (98-107) mEq/L Carbon Dioxide (21-32) mEq/L Anion Gap (5-15) BUN (7-18) mg/dL Creatinine (0.7-1.3) mg/dL Est Cr Clr Drug Dosing mL/min Estimated GFR (MDRD) (>60) mL/min BUN/Creatinine Ratio (14-18) Glucose (74-106) mg/dL POC Glucose 164 H 167 H 154 H (70-105) mg/dL Hemoglobin A1c (4.50-6.20) % Lactic Acid (0.4-2.0) mmol/L Calcium (8.5-10.1) mg/dL Phosphorus (2.6-4.7) mg/dL Magnesium (1.8-2.4) mg/dl Total Bilirubin (0.2-1.0) mg/dL AST (15-37) U/L ALT (16-63) U/L Alkaline Phosphatase (46-116) U/L Total Protein (6.4-8.2) g/dl Albumin (3.4-5.0) g/dl Globulin gm/dL Albumin/Globulin Ratio (1-2) Triglycerides (<150) mg/dL Cholesterol (<200) mg/dL LDL Cholesterol Direct (<100) mg/dL HDL Cholesterol (40-59) mg/dL Urine Color (Yellow) Urine Appearance (Clear) Urine pH (5.0-8.0) Ur Specific [place] (1.005-1.030) Urine Protein (Negative) Urine Glucose (UA) (Negative) Urine Ketones (Negative) Urine Occult Blood (Negative) Urine Nitrite (Negative) Urine Bilirubin (Negative) Urine Urobilinogen (0.2-1.0) Ur Leukocyte Esterase (Negative) Urine RBC (0-5) /hpf Urine WBC (0-5) /hpf Ur Squamous Epith Cells (0-5) /hpf Urine Bacteria (FEW) /hpf Urine Mucus (FEW) /hpf Urine Opiates Screen (RKRBNB=108) Ur Buprenorphine Scrn (CUTOFF=10) Ur Oxycodone Screen (SWQ9HZ=041) Urine Methadone Screen (OAV5IC=771) Ur Propoxyphene Screen (IGQYBF=425) Ur Barbiturates Screen (XVHKLN=723) Ur Tricyclics Screen (VSVCRZ=816) Ur Phencyclidine Scrn (CUTOFF=25) Ur Amphetamine Screen (XXPBOV=839) U Methamphetamines Scrn (ATXUJP=823) U Benzodiazepines Scrn (OUTELW=377) U Cocaine Metab Screen (QYDDQK=744) U Marijuana (THC) Screen (CUTOFF=50) Ethyl Alcohol (0.00) gm% Ketones (0.0-0.3) mM 12/11/19 Range/Units 08:05 WBC (4.23-9.07) K/mm3 RBC (4.63-6.08) M/mm3 Hgb (13.7-17.5) gm/dl Hct (40.1-51.0) % MCV (79.0-92.2) fl MCH (25.7-32.2) pg MCHC (32.2-35.5) g/dl RDW Std Deviation (35.1-43.9) fL Plt Count (163-337) K/mm3 MPV (9.4-12.3) fl Neut % (Auto) Lymph % (Auto) Pierce % (Auto) Eos % (Auto) Baso % (Auto) Neut # (Auto) Lymph # (Auto) Pierce # (Auto) Eos # (Auto) Baso # (Auto) Neutrophils % (Manual) (40-60) % Band Neutrophils % (0-10) % Lymphocytes % (Manual) (20-40) % Atypical Lymphs % % Monocytes % (Manual) (2-10) % Eosinophils % (Manual) (0.8-7.0) % Basophils % (Manual) (0.2-1.2) Manual Slide Review Platelet Estimate Poikilocytosis Anisocytosis RBC Morph Comment Puncture Site ABG pH (7.35-7.45) ABG pCO2 (35.0-45.0) mmHg ABG pO2 (80.0-100.0) mmHg ABG HCO3 (22.0-26.0) meq/L ABG O2 Saturation (96.0-97.0) % ABG Base Excess (-2-2.0) Faisal Test A-a Gradient mmHg O2 Delivery Device FiO2 (21.00-100.00) % Sodium (136-145) mEq/L Potassium (3.5-5.1) mEq/L Chloride (98-107) mEq/L Carbon Dioxide (21-32) mEq/L Anion Gap (5-15) BUN (7-18) mg/dL Creatinine (0.7-1.3) mg/dL Est Cr Clr Drug Dosing mL/min Estimated GFR (MDRD) (>60) mL/min BUN/Creatinine Ratio (14-18) Glucose (74-106) mg/dL POC Glucose 61 L (70-105) mg/dL Hemoglobin A1c (4.50-6.20) % Lactic Acid (0.4-2.0) mmol/L Calcium (8.5-10.1) mg/dL Phosphorus (2.6-4.7) mg/dL Magnesium (1.8-2.4) mg/dl Total Bilirubin (0.2-1.0) mg/dL AST (15-37) U/L ALT (16-63) U/L Alkaline Phosphatase (46-116) U/L Total Protein (6.4-8.2) g/dl Albumin (3.4-5.0) g/dl Globulin gm/dL Albumin/Globulin Ratio (1-2) Triglycerides (<150) mg/dL Cholesterol (<200) mg/dL LDL Cholesterol Direct (<100) mg/dL HDL Cholesterol (40-59) mg/dL Urine Color (Yellow) Urine Appearance (Clear) Urine pH (5.0-8.0) Ur Specific [place] (1.005-1.030) Urine Protein (Negative) Urine Glucose (UA) (Negative) Urine Ketones (Negative) Urine Occult Blood (Negative) Urine Nitrite (Negative) Urine Bilirubin (Negative) Urine Urobilinogen (0.2-1.0) Ur Leukocyte Esterase (Negative) Urine RBC (0-5) /hpf Urine WBC (0-5) /hpf Ur Squamous Epith Cells (0-5) /hpf Urine Bacteria (FEW) /hpf Urine Mucus (FEW) /hpf Urine Opiates Screen (FTFWIN=883) Ur Buprenorphine Scrn (CUTOFF=10) Ur Oxycodone Screen (QMK7NX=388) Urine Methadone Screen (KJF4SX=090) Ur Propoxyphene Screen (CZWRJD=611) Ur Barbiturates Screen (IQNKNT=296) Ur Tricyclics Screen (HOTDEV=780) Ur Phencyclidine Scrn (CUTOFF=25) Ur Amphetamine Screen (QTPIYT=500) U Methamphetamines Scrn (DMIMKE=630) U Benzodiazepines Scrn (HBDZRC=936) U Cocaine Metab Screen (RJLQEM=427) U Marijuana (THC) Screen (CUTOFF=50) Ethyl Alcohol (0.00) gm% Ketones (0.0-0.3) mM Med Orders - Current: Current Medications Acetaminophen (Tylenol) 650 mg PO Q4H PRN PRN Reason: Pain Last Admin: 12/10/19 14:41 Dose: 650 mg Enoxaparin Sodium (Lovenox) 40 mg SUBCUT DAILY ALBERTO Dextrose/Water (Dextrose 10% In Water) 1,000 mls @ 40 mls/hr IV ASDIRECTED ALBERTO Stop: 12/11/19 13:31 Last Admin: 12/10/19 13:41 Dose: 40 mls/hr Lactated Ringer's (Ringers, Lactated) 1,000 mls @ 150 mls/hr IV ASDIRECTED ALBERTO Last Admin: 12/11/19 04:11 Dose: 150 mls/hr Lactated Ringer's (Ringers, Lactated) 1,000 mls @ 999 mls/hr IV ASDIRECTED ALBERTO Stop: 12/11/19 13:31 Last Admin: 12/10/19 14:01 Dose: 999 mls/hr Insulin Human Regular 100 unit (/ Sodium Chloride) 100 mls @ 2 mls/hr IV TITRATE ALBERTO; Protocol Last Admin: 12/10/19 23:06 Dose: 2 unit/hr, 2 mls/hr Potassium Chloride 10 meq/ (Premix) 100 mls @ 100 mls/hr IV Q1H ALBERTO Stop: 12/11/19 10:59 Last Admin: 12/11/19 07:40 Dose: 100 mls/hr Potassium Phosphate 15 mmole/ (Sodium Chloride) 255 mls @ 85 mls/hr IV ASDIRECTED ALBERTO Stop: 12/11/19 09:59 Last Admin: 12/11/19 08:11 Dose: 85 mls/hr Potassium Chloride/Dextrose/Sod Cl (D5 1/2 Ns W/ 20 Meq/L Kcl) 1,000 mls @ 150 mls/hr IV ASDIRECTED ALBERTO Labetalol HCl (Normodyne) 10 mg IVPUSH Q8HR ALBERTO; Protocol Last Admin: 12/11/19 05:30 Dose: 10 mg Labetalol HCl (Normodyne) 100 mg PO TID ALBERTO Morphine Sulfate (Morphine) 2 mg IVPUSH Q4H PRN PRN Reason: Pain Last Admin: 12/11/19 04:05 Dose: 2 mg Ondansetron HCl (Zofran) 4 mg IVPUSH Q4H PRN PRN Reason: Nausea Last Admin: 12/11/19 00:05 Dose: 4 mg Discontinued Medications Hydralazine HCl (Apresoline) 10 mg IVPUSH ONETIME ONE Stop: 12/10/19 16:16 Last Admin: 12/10/19 16:19 Dose: 10 mg Hydralazine HCl (Apresoline) 5 mg IVPUSH Q2H PRN PRN Reason: Hypertension Last Admin: 12/11/19 02:59 Dose: 5 mg Sodium Chloride (Normal Saline) 2,000 mls @ 999 mls/hr IV ONETIME ONE Stop: 12/10/19 12:30 Last Admin: 12/10/19 10:38 Dose: 999 mls/hr Insulin Human Regular 100 unit (/ Sodium Chloride) 100 mls @ 8.23 mls/hr IV TITRATE ALBERTO; Protocol Last Titration: 12/10/19 23:02 Dose: Infused Ondansetron HCl 4 mg/ Sodium (Chloride) 52 mls @ 100 mls/hr IV ONETIME ONE Stop: 12/10/19 12:02 Last Admin: 12/10/19 11:33 Dose: Not Given Insulin Human Regular 100 unit (/ Sodium Chloride) 100 mls @ 8.23 mls/hr IV TITRATE ALBERTO; Protocol Lactated Ringer's (Ringers, Lactated) Confirm Administered Dose 1,000 mls @ as directed .ROUTE .STK-MED ONE Stop: 12/10/19 12:52 Last Admin: 12/10/19 13:44 Dose: Not Given Magnesium Sulfate 4 gm/ Premix 50 mls @ 12.5 mls/hr IV ONETIME ONE Stop: 12/11/19 01:41 Last Admin: 12/10/19 21:55 Dose: 12.5 mls/hr Sodium Phosphate 30 mmole/ (Sodium Chloride) 260 mls @ 65 mls/hr IV ONETIME ONE Stop: 12/11/19 02:14 Last Admin: 12/10/19 22:28 Dose: 65 mls/hr Insulin Human Regular (Humulin R) 8 unit IV ONETIME ONE Stop: 12/10/19 10:37 Last Admin: 12/10/19 10:41 Dose: 8 unit Ketorolac Tromethamine (Toradol) 30 mg IVPUSH Q8H PRN PRN Reason: Pain Ketorolac Tromethamine (Toradol) Confirm Administered Dose 30 mg .ROUTE .STK- MED ONE Stop: 12/10/19 14:01 Last Admin: 12/10/19 14:39 Dose: Not Given Lorazepam (Ativan) 0.5 mg IVPUSH ONETIME ONE Stop: 12/10/19 20:34 Last Admin: 12/10/19 21:00 Dose: 0.5 mg Morphine Sulfate (Morphine) 2 mg IVPUSH Q6H PRN PRN Reason: Pain Last Admin: 12/10/19 14:49 Dose: 2 mg Ondansetron HCl (Zofran) 4 mg IVPUSH ONETIME ONE Stop: 12/10/19 10:31 Last Admin: 12/10/19 10:38 Dose: 4 mg Ondansetron HCl (Zofran) Confirm Administered Dose 4 mg .ROUTE .STK-MED ONE Stop: 12/10/19 11:29 Last Admin: 12/10/19 11:33 Dose: 4 mg - Exam Quality Assessment: No: Supplemental Oxygen General: Alert, Oriented HEENT: Pupils Equal, Mucous Membr. Moist/[place] Neck: Supple Lungs: Clear to Auscultation, Normal Respiratory Effort Cardiovascular: Regular Rhythm, Tachycardia GI/Abdominal Exam: Normal Bowel Sounds, Soft, Non-Tender, No Distention Extremities: Normal Inspection, Normal Range of Motion, Non-Tender, No Pedal Edema, Normal Capillary Refill Skin: Warm, Dry, Intact Psy/Mental Status: Alert, Normal Affect, Normal Mood Sepsis Event Note - Evaluation Sepsis Screening Result: No Definite Risk - Focused Exam Vital Signs: Vital Signs Temp Pulse Resp BP BP Pulse Ox 12/11/19 08:00 98.7 F 16 157/104 H 98 12/11/19 05:05 171/94 H 12/11/19 04:24 99 12/11/19 04:03 100 12/11/19 04:00 99.2 F 18 169/100 H 100 12/11/19 02:57 167/89 H 12/11/19 02:37 169/87 H 12/11/19 02:04 166/96 H 12/11/19 01:02 167/95 H 12/11/19 00:35 165/103 H 12/11/19 00:00 98.7 F 18 165/100 H 100 12/10/19 23:00 97 12/10/19 22:03 100 12/10/19 21:15 70 155/79 H 100 Date Exam was Performed: 12/11/19 Time Exam was Performed: 14:37 - Problem List Review Problem List Initiated/Reviewed/Updated: Yes - My Orders Last 24 Hours: My Active Orders 12/11/19 08:00 D5 1/2 NS w/ 20 mEq/L KCl 1,000 ml IV ASDIRECTED 12/11/19 11:00 Labetalol [Normodyne] 100 mg PO TID - Plan Plan:: DKA (diabetic ketoacidoses) Uncontrolled type 2 diabetes mellitus High anion gap metabolic acidosis, AG 37 Ketonemia Volume depletion 2/2 nausea and vomiting Medical non-compliance PLAN - Accu-checks q1h - BMP + Mg + Pi every 4 hours - Ketones every 8 hours - venous pH with BMP until corrected - Insulin drip -Switch IV fluids to D5 half-normal saline with 20 KCl per liter at 150 mL/h and titrate to keep blood sugars over 150 and below 200. Uncontrolled hypertension BP on admission 179/132 Home management with labetalol PLAN - Proteinuria documented on previous admissions -Start lisinopril tonight -Switch to oral labetalol Alcoholic Marijuana abuse Last drink Monday - Ethanol level - 0 - UDS -positive for THC; counseled on stopping marijuana use. 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
[2019-12-11] MEDS: D5 1/2 NS w/ 20 mEq/L KCl 1,000 ML IV SCH ×2 (08:28→15:07)
[2019-12-11] MEDS: 50% Dextrose in Water 50 ML Syringe IVPUSH PRN (08:36)
[2019-12-11] MEDS: Labetalol 100 MG Tab PO SCH ×3 (11:02→20:15)
[2019-12-11] MEDS ORDERED: D5 1/2 NS w/ 20 mEq/L KCl 1,000 ML IV SCH ×2 (19:00→23:30)
[2019-12-11] MEDS ORDERED: LORazepam 2 MG/ML SDV IVPUSH ONE (21:00)
[2019-12-12] MEDS: Potassium Chloride 10 MEQ in Premix Bag 1 BAG IV SCH ×6 (00:42→12:18)
[2019-12-12] MEDS ORDERED: Magnesium Sulfate/Water 4 GM in Premix Bag 1 BAG IV ONE (06:32)
[2019-12-12] MEDS: Labetalol 100 MG Tab PO SCH ×2 (08:17→15:01)
[2019-12-12] MEDS: Enoxaparin 40 MG/0.4 ML Syringe SUBCUT SCH (08:18)
[2019-12-12] MEDS ORDERED: Insulin Glarg,Human.Rec.Analog 100 Unit/ML SUBCUT SCH ×2 (08:30)
[2019-12-12] MEDS ORDERED: Lisinopril 5 MG Tab PO SCH (09:00)
[2019-12-12] MEDS: 50% Dextrose in Water 50 ML Syringe IVPUSH PRN (09:49)
[2019-12-12] MEDS ORDERED: Insulin Lispro 100 Units/ML 3 ML Vial SUBCUT SCH (12:15)
[2019-12-12] MEDS ORDERED: Aluminum Hydroxide/Magnesium Hydroxide/Simethicone Susp 30 ML Cup PO ONE (13:12)
[2019-12-12] MEDS ORDERED: Famotidine 20 MG Tab PO ONE (13:30)
--- NOTE | 2019-12-12 14:36 | PCM.DCSUM1 ---
Discharge Summary - Hospital Course HPI Initial Comments: This is a 29 year old male with past medical history of medical non-compliance and insulin dependent diabetes who comes to the ED for intractable nausea and vomiting. As per patient he started feeling ill about 4-5 days ago, to the point that he has been unable to keep anything down. Patient states he ran out of Humalog about 2 weeks ago and has been compliant with long acting insulin, last dose was yesterday. Has been unable to keep anything down since 2 days ago Diagnosis: Stroke: No - Discharge Data Discharge Date: 12/12/19 Discharge Disposition: Home, Self-Care 01 Condition: Good - Referral to Home Health Primary Care Physician: Sylvester Price MD - Patient Summary/Data Consults: Consultations 12/10/19 12:26 Respiratory Care Assess and Treatment [CONS] Routine 12/12/19 08:28 Consult to Diabetic Nurse Specialist [CONS] Routine Hospital Course: Patient was admitted and started on DKA protocol in the ICU. Time to close anion gap took longer than anticipated, but on day 2 patient was transitioned to subcu insulin. During the transition from insulin drip to subcu he did have one low blood sugar of 43 that was corrected with a half amp of D50. Patient did visit with diabetic education and she started him on Humalog 4 units with each meal and a sliding scale. He will continue on his Lantus 12 units daily. No other complications during hospitalization. - Patient Instructions Diet: Diabetic Diet Driving: May Drive Today Showering/Bathing: May Shower Notify Provider of: Nausea and/or Vomiting Other/Special Instructions: Lantus 12 units a day. Humalog 4 units with each meal. Humalog 1 unit extra for blood sugars 150-200. 2 units for blood sugars between 201-250. 3 units for blood sugars between 251-300. 4 units for blood sugars between 301-350. 5 units for blood sugars between 351-400. 6 units for blood sugars >400 and call your PCP. - Discharge Plan *PRESCRIPTION DRUG MONITORING PROGRAM REVIEWED*: No *COPY OF PRESCRIPTION DRUG MONITORING REPORT IN PATIENT KENJI: No Prescriptions/Med Rec: Insulin Glarg,Human.Rec.Analog [Lantus] 12 unit SUBCUT DAILY #1 vial Insulin Lispro [HumaLOG] 0 unit SUBCUT QIDACANDBED #1 vial lisinopriL [Prinivil] 10 mg PO DAILY #30 tablet Home Medications: Home Meds Labetalol [Normodyne] 100 mg PO TID 30 Days #90 tablet 02/19/19 [Rx] Insulin Glarg,Human.Rec.Analog [Lantus] 12 unit SUBCUT DAILY #1 vial 12/12/19 [ Rx] Insulin Lispro [HumaLOG] 0 unit SUBCUT QIDACANDBED #1 vial 12/12/19 [Rx] Insulin Lispro [HumaLOG] 4 unit SUBCUT TIDAC #0 vial 12/12/19 [Rx] lisinopriL [Prinivil] 10 mg PO DAILY #30 tablet 12/12/19 [Rx] Patient Handouts: Cannabis Use Disorder, Diabetic Ketoacidosis, What You Need to Know About Marijuana Use, Preventing Diabetic Ketoacidosis Forms: ED Department Discharge Referrals: Sylvester Price MD [Primary Care Provider] - - Discharge Summary/Plan Comment DC Time >30 min.: Yes Discharge Summary/Plan Comment: Follow-up with primary care provider next week. - General Info Date of Service: 12/12/19 Admission Dx/Problem (Free Text: DKA Subjective Update: Patient tolerated a regular diet. He did have loose stools prior to discharge. Functional Status: Reports: Pain Controlled - Review of Systems General: Reports: No Symptoms HEENT: Reports: No Symptoms Pulmonary: Reports: No Symptoms Cardiovascular: Reports: No Symptoms Gastrointestinal: Reports: Diarrhea - Patient Data Vitals - Most Recent: Last Vital Signs Temp 98.4 F 12/12/19 12:00 Pulse 99 12/12/19 08:17 Resp 16 12/12/19 12:00 BP 157/109 H 12/12/19 12:00 Pulse Ox 98 12/12/19 12:00 Weight - Most Recent: 183 lb 8 oz I&O - Last 24 hours: Intake & Output 12/11/19 12/12/19 12/12/19 22:59 06:59 14:59 Intake Total 2103 2324 1280 Balance 2103 2324 1280 Lab Results - Last 24 hrs: Laboratory Results - last 24 hr 12/11/19 12/11/19 12/11/19 Range/Units 13:35 15:04 16:02 WBC (4.23-9.07) K/mm3 RBC (4.63-6.08) M/mm3 Hgb (13.7-17.5) gm/dl Hct (40.1-51.0) % MCV (79.0-92.2) fl MCH (25.7-32.2) pg MCHC (32.2-35.5) g/dl RDW Std Deviation (35.1-43.9) fL Plt Count (163-337) K/mm3 MPV (9.4-12.3) fl Neut % (Auto) (34.0-67.9) % Lymph % (Auto) (21.8-53.1) % Hancock % (Auto) (5.3-12.2) % Eos % (Auto) (0.8-7.0) Baso % (Auto) (0.1-1.2) % Neut # (Auto) (1.78-5.38) K/mm3 Lymph # (Auto) (1.32-3.57) K/mm3 Hancock # (Auto) (0.30-0.82) K/mm3 Eos # (Auto) (0.04-0.54) K/mm3 Baso # (Auto) (0.01-0.08) K/mm3 Manual Slide Review VBG pH 7.34 (7.30-7.40) Sodium (136-145) mEq/L Potassium (3.5-5.1) mEq/L Chloride (98-107) mEq/L Carbon Dioxide (21-32) mEq/L Anion Gap (5-15) BUN (7-18) mg/dL Creatinine (0.7-1.3) mg/dL Est Cr Clr Drug Dosing mL/min Estimated GFR (MDRD) (>60) mL/min BUN/Creatinine Ratio (14-18) Glucose (74-106) mg/dL POC Glucose 238 H 209 H (70-105) mg/dL Calcium (8.5-10.1) mg/dL Phosphorus (2.6-4.7) mg/dL Magnesium (1.8-2.4) mg/dl Total Bilirubin (0.2-1.0) mg/dL AST (15-37) U/L ALT (16-63) U/L Alkaline Phosphatase (46-116) U/L Total Protein (6.4-8.2) g/dl Albumin (3.4-5.0) g/dl Globulin gm/dL Albumin/Globulin Ratio (1-2) 12/11/19 12/11/19 12/11/19 Range/Units 17:06 17:27 18:13 WBC (4.23-9.07) K/mm3 RBC (4.63-6.08) M/mm3 Hgb (13.7-17.5) gm/dl Hct (40.1-51.0) % MCV (79.0-92.2) fl MCH (25.7-32.2) pg MCHC (32.2-35.5) g/dl RDW Std Deviation (35.1-43.9) fL Plt Count (163-337) K/mm3 MPV (9.4-12.3) fl Neut % (Auto) (34.0-67.9) % Lymph % (Auto) (21.8-53.1) % Hancock % (Auto) (5.3-12.2) % Eos % (Auto) (0.8-7.0) Baso % (Auto) (0.1-1.2) % Neut # (Auto) (1.78-5.38) K/mm3 Lymph # (Auto) (1.32-3.57) K/mm3 Hancock # (Auto) (0.30-0.82) K/mm3 Eos # (Auto) (0.04-0.54) K/mm3 Baso # (Auto) (0.01-0.08) K/mm3 Manual Slide Review VBG pH (7.30-7.40) Sodium 135 L (136-145) mEq/L Potassium 3.5 (3.5-5.1) mEq/L Chloride 100 (98-107) mEq/L Carbon Dioxide 18 L (21-32) mEq/L Anion Gap 20.5 H (5-15) BUN 5 L (7-18) mg/dL Creatinine 0.8 (0.7-1.3) mg/dL Est Cr Clr Drug Dosing 138.14 mL/min Estimated GFR (MDRD) > 60 (>60) mL/min BUN/Creatinine Ratio 6.3 L (14-18) Glucose 203 H (74-106) mg/dL POC Glucose 184 H 174 H (70-105) mg/dL Calcium 8.8 (8.5-10.1) mg/dL Phosphorus 1.6 L (2.6-4.7) mg/dL Magnesium 1.9 (1.8-2.4) mg/dl Total Bilirubin (0.2-1.0) mg/dL AST (15-37) U/L ALT (16-63) U/L Alkaline Phosphatase (46-116) U/L Total Protein (6.4-8.2) g/dl Albumin (3.4-5.0) g/dl Globulin gm/dL Albumin/Globulin Ratio (1-2) 12/11/19 12/11/19 12/11/19 Range/Units 18:55 20:04 20:59 WBC (4.23-9.07) K/mm3 RBC (4.63-6.08) M/mm3 Hgb (13.7-17.5) gm/dl Hct (40.1-51.0) % MCV (79.0-92.2) fl MCH (25.7-32.2) pg MCHC (32.2-35.5) g/dl RDW Std Deviation (35.1-43.9) fL Plt Count (163-337) K/mm3 MPV (9.4-12.3) fl Neut % (Auto) (34.0-67.9) % Lymph % (Auto) (21.8-53.1) % Hancock % (Auto) (5.3-12.2) % Eos % (Auto) (0.8-7.0) Baso % (Auto) (0.1-1.2) % Neut # (Auto) (1.78-5.38) K/mm3 Lymph # (Auto) (1.32-3.57) K/mm3 Hancock # (Auto) (0.30-0.82) K/mm3 Eos # (Auto) (0.04-0.54) K/mm3 Baso # (Auto) (0.01-0.08) K/mm3 Manual Slide Review VBG pH (7.30-7.40) Sodium (136-145) mEq/L Potassium (3.5-5.1) mEq/L Chloride (98-107) mEq/L Carbon Dioxide (21-32) mEq/L Anion Gap (5-15) BUN (7-18) mg/dL Creatinine (0.7-1.3) mg/dL Est Cr Clr Drug Dosing mL/min Estimated GFR (MDRD) (>60) mL/min BUN/Creatinine Ratio (14-18) Glucose (74-106) mg/dL POC Glucose 148 H 150 H 147 H (70-105) mg/dL Calcium (8.5-10.1) mg/dL Phosphorus (2.6-4.7) mg/dL Magnesium (1.8-2.4) mg/dl Total Bilirubin (0.2-1.0) mg/dL AST (15-37) U/L ALT (16-63) U/L Alkaline Phosphatase (46-116) U/L Total Protein (6.4-8.2) g/dl Albumin (3.4-5.0) g/dl Globulin gm/dL Albumin/Globulin Ratio (1-2) 12/11/19 12/11/19 12/11/19 Range/Units 21:22 22:00 23:10 WBC (4.23-9.07) K/mm3 RBC (4.63-6.08) M/mm3 Hgb (13.7-17.5) gm/dl Hct (40.1-51.0) % MCV (79.0-92.2) fl MCH (25.7-32.2) pg MCHC (32.2-35.5) g/dl RDW Std Deviation (35.1-43.9) fL Plt Count (163-337) K/mm3 MPV (9.4-12.3) fl Neut % (Auto) (34.0-67.9) % Lymph % (Auto) (21.8-53.1) % Hancock % (Auto) (5.3-12.2) % Eos % (Auto) (0.8-7.0) Baso % (Auto) (0.1-1.2) % Neut # (Auto) (1.78-5.38) K/mm3 Lymph # (Auto) (1.32-3.57) K/mm3 Hancock # (Auto) (0.30-0.82) K/mm3 Eos # (Auto) (0.04-0.54) K/mm3 Baso # (Auto) (0.01-0.08) K/mm3 Manual Slide Review VBG pH (7.30-7.40) Sodium 136 (136-145) mEq/L Potassium 3.3 L (3.5-5.1) mEq/L Chloride 100 (98-107) mEq/L Carbon Dioxide 24 (21-32) mEq/L Anion Gap 15.3 H (5-15) BUN 5 L (7-18) mg/dL Creatinine 0.9 (0.7-1.3) mg/dL Est Cr Clr Drug Dosing 122.79 mL/min Estimated GFR (MDRD) > 60 (>60) mL/min BUN/Creatinine Ratio 5.6 L (14-18) Glucose 141 H (74-106) mg/dL POC Glucose 132 H 143 H (70-105) mg/dL Calcium 9.1 (8.5-10.1) mg/dL Phosphorus (2.6-4.7) mg/dL Magnesium 1.9 (1.8-2.4) mg/dl Total Bilirubin (0.2-1.0) mg/dL AST (15-37) U/L ALT (16-63) U/L Alkaline Phosphatase (46-116) U/L Total Protein (6.4-8.2) g/dl Albumin (3.4-5.0) g/dl Globulin gm/dL Albumin/Globulin Ratio (1-2) 12/12/19 12/12/19 12/12/19 Range/Units 00:02 01:37 03:03 WBC (4.23-9.07) K/mm3 RBC (4.63-6.08) M/mm3 Hgb (13.7-17.5) gm/dl Hct (40.1-51.0) % MCV (79.0-92.2) fl MCH (25.7-32.2) pg MCHC (32.2-35.5) g/dl RDW Std Deviation (35.1-43.9) fL Plt Count (163-337) K/mm3 MPV (9.4-12.3) fl Neut % (Auto) (34.0-67.9) % Lymph % (Auto) (21.8-53.1) % Hancock % (Auto) (5.3-12.2) % Eos % (Auto) (0.8-7.0) Baso % (Auto) (0.1-1.2) % Neut # (Auto) (1.78-5.38) K/mm3 Lymph # (Auto) (1.32-3.57) K/mm3 Hancock # (Auto) (0.30-0.82) K/mm3 Eos # (Auto) (0.04-0.54) K/mm3 Baso # (Auto) (0.01-0.08) K/mm3 Manual Slide Review VBG pH (7.30-7.40) Sodium (136-145) mEq/L Potassium (3.5-5.1) mEq/L Chloride (98-107) mEq/L Carbon Dioxide (21-32) mEq/L Anion Gap (5-15) BUN (7-18) mg/dL Creatinine (0.7-1.3) mg/dL Est Cr Clr Drug Dosing mL/min Estimated GFR (MDRD) (>60) mL/min BUN/Creatinine Ratio (14-18) Glucose (74-106) mg/dL POC Glucose 138 H 137 H 149 H (70-105) mg/dL Calcium (8.5-10.1) mg/dL Phosphorus (2.6-4.7) mg/dL Magnesium (1.8-2.4) mg/dl Total Bilirubin (0.2-1.0) mg/dL AST (15-37) U/L ALT (16-63) U/L Alkaline Phosphatase (46-116) U/L Total Protein (6.4-8.2) g/dl Albumin (3.4-5.0) g/dl Globulin gm/dL Albumin/Globulin Ratio (1-2) 12/12/19 12/12/19 12/12/19 Range/Units 04:24 04:24 04:38 WBC 6.09 (4.23-9.07) K/mm3 RBC 5.37 (4.63-6.08) M/mm3 Hgb 16.8 (13.7-17.5) gm/dl Hct 46.3 (40.1-51.0) % MCV 86.2 (79.0-92.2) fl MCH 31.3 (25.7-32.2) pg MCHC 36.3 H (32.2-35.5) g/dl RDW Std Deviation 38.7 (35.1-43.9) fL Plt Count 190 (163-337) K/mm3 MPV 10.5 (9.4-12.3) fl Neut % (Auto) 53.8 (34.0-67.9) % Lymph % (Auto) 25.5 (21.8-53.1) % Hancock % (Auto) 17.2 H (5.3-12.2) % Eos % (Auto) 2.5 (0.8-7.0) Baso % (Auto) 0.7 (0.1-1.2) % Neut # (Auto) 3.28 (1.78-5.38) K/mm3 Lymph # (Auto) 1.55 (1.32-3.57) K/mm3 Hancock # (Auto) 1.05 H (0.30-0.82) K/mm3 Eos # (Auto) 0.15 (0.04-0.54) K/mm3 Baso # (Auto) 0.04 (0.01-0.08) K/mm3 Manual Slide Review Normal smear VBG pH (7.30-7.40) Sodium 137 (136-145) mEq/L Potassium 3.1 L (3.5-5.1) mEq/L Chloride 100 (98-107) mEq/L Carbon Dioxide 24 (21-32) mEq/L Anion Gap 16.1 H (5-15) BUN 6 L (7-18) mg/dL Creatinine 0.7 (0.7-1.3) mg/dL Est Cr Clr Drug Dosing 157.88 mL/min Estimated GFR (MDRD) > 60 (>60) mL/min BUN/Creatinine Ratio 8.6 L (14-18) Glucose 143 H (74-106) mg/dL POC Glucose 128 H (70-105) mg/dL Calcium 8.7 (8.5-10.1) mg/dL Phosphorus (2.6-4.7) mg/dL Magnesium 1.6 L (1.8-2.4) mg/dl Total Bilirubin 2.0 H (0.2-1.0) mg/dL AST 33 (15-37) U/L ALT 61 (16-63) U/L Alkaline Phosphatase 124 H (46-116) U/L Total Protein 6.7 (6.4-8.2) g/dl Albumin 3.3 L (3.4-5.0) g/dl Globulin 3.4 gm/dL Albumin/Globulin Ratio 1.0 (1-2) 12/12/19 12/12/19 12/12/19 Range/Units 06:04 07:05 07:59 WBC (4.23-9.07) K/mm3 RBC (4.63-6.08) M/mm3 Hgb (13.7-17.5) gm/dl Hct (40.1-51.0) % MCV (79.0-92.2) fl MCH (25.7-32.2) pg MCHC (32.2-35.5) g/dl RDW Std Deviation (35.1-43.9) fL Plt Count (163-337) K/mm3 MPV (9.4-12.3) fl Neut % (Auto) (34.0-67.9) % Lymph % (Auto) (21.8-53.1) % Hancock % (Auto) (5.3-12.2) % Eos % (Auto) (0.8-7.0) Baso % (Auto) (0.1-1.2) % Neut # (Auto) (1.78-5.38) K/mm3 Lymph # (Auto) (1.32-3.57) K/mm3 Hancock # (Auto) (0.30-0.82) K/mm3 Eos # (Auto) (0.04-0.54) K/mm3 Baso # (Auto) (0.01-0.08) K/mm3 Manual Slide Review VBG pH (7.30-7.40) Sodium (136-145) mEq/L Potassium (3.5-5.1) mEq/L Chloride (98-107) mEq/L Carbon Dioxide (21-32) mEq/L Anion Gap (5-15) BUN (7-18) mg/dL Creatinine (0.7-1.3) mg/dL Est Cr Clr Drug Dosing mL/min Estimated GFR (MDRD) (>60) mL/min BUN/Creatinine Ratio (14-18) Glucose (74-106) mg/dL POC Glucose 160 H 138 H 148 H (70-105) mg/dL Calcium (8.5-10.1) mg/dL Phosphorus (2.6-4.7) mg/dL Magnesium (1.8-2.4) mg/dl Total Bilirubin (0.2-1.0) mg/dL AST (15-37) U/L ALT (16-63) U/L Alkaline Phosphatase (46-116) U/L Total Protein (6.4-8.2) g/dl Albumin (3.4-5.0) g/dl Globulin gm/dL Albumin/Globulin Ratio (1-2) 12/12/19 12/12/19 12/12/19 Range/Units 09:34 09:47 10:36 WBC (4.23-9.07) K/mm3 RBC (4.63-6.08) M/mm3 Hgb (13.7-17.5) gm/dl Hct (40.1-51.0) % MCV (79.0-92.2) fl MCH (25.7-32.2) pg MCHC (32.2-35.5) g/dl RDW Std Deviation (35.1-43.9) fL Plt Count (163-337) K/mm3 MPV (9.4-12.3) fl Neut % (Auto) (34.0-67.9) % Lymph % (Auto) (21.8-53.1) % Hancock % (Auto) (5.3-12.2) % Eos % (Auto) (0.8-7.0) Baso % (Auto) (0.1-1.2) % Neut # (Auto) (1.78-5.38) K/mm3 Lymph # (Auto) (1.32-3.57) K/mm3 Hancock # (Auto) (0.30-0.82) K/mm3 Eos # (Auto) (0.04-0.54) K/mm3 Baso # (Auto) (0.01-0.08) K/mm3 Manual Slide Review VBG pH (7.30-7.40) Sodium (136-145) mEq/L Potassium (3.5-5.1) mEq/L Chloride (98-107) mEq/L Carbon Dioxide (21-32) mEq/L Anion Gap (5-15) BUN (7-18) mg/dL Creatinine (0.7-1.3) mg/dL Est Cr Clr Drug Dosing mL/min Estimated GFR (MDRD) (>60) mL/min BUN/Creatinine Ratio (14-18) Glucose (74-106) mg/dL POC Glucose 43 L 119 H 135 H (70-105) mg/dL Calcium (8.5-10.1) mg/dL Phosphorus (2.6-4.7) mg/dL Magnesium (1.8-2.4) mg/dl Total Bilirubin (0.2-1.0) mg/dL AST (15-37) U/L ALT (16-63) U/L Alkaline Phosphatase (46-116) U/L Total Protein (6.4-8.2) g/dl Albumin (3.4-5.0) g/dl Globulin gm/dL Albumin/Globulin Ratio (1-2) 12/12/19 12/12/19 12/12/19 Range/Units 11:23 12:17 13:13 WBC (4.23-9.07) K/mm3 RBC (4.63-6.08) M/mm3 Hgb (13.7-17.5) gm/dl Hct (40.1-51.0) % MCV (79.0-92.2) fl MCH (25.7-32.2) pg MCHC (32.2-35.5) g/dl RDW Std Deviation (35.1-43.9) fL Plt Count (163-337) K/mm3 MPV (9.4-12.3) fl Neut % (Auto) (34.0-67.9) % Lymph % (Auto) (21.8-53.1) % Hancock % (Auto) (5.3-12.2) % Eos % (Auto) (0.8-7.0) Baso % (Auto) (0.1-1.2) % Neut # (Auto) (1.78-5.38) K/mm3 Lymph # (Auto) (1.32-3.57) K/mm3 Hancock # (Auto) (0.30-0.82) K/mm3 Eos # (Auto) (0.04-0.54) K/mm3 Baso # (Auto) (0.01-0.08) K/mm3 Manual Slide Review VBG pH (7.30-7.40) Sodium (136-145) mEq/L Potassium (3.5-5.1) mEq/L Chloride (98-107) mEq/L Carbon Dioxide (21-32) mEq/L Anion Gap (5-15) BUN (7-18) mg/dL Creatinine (0.7-1.3) mg/dL Est Cr Clr Drug Dosing mL/min Estimated GFR (MDRD) (>60) mL/min BUN/Creatinine Ratio (14-18) Glucose (74-106) mg/dL POC Glucose 205 H 168 H 191 H (70-105) mg/dL Calcium (8.5-10.1) mg/dL Phosphorus (2.6-4.7) mg/dL Magnesium (1.8-2.4) mg/dl Total Bilirubin (0.2-1.0) mg/dL AST (15-37) U/L ALT (16-63) U/L Alkaline Phosphatase (46-116) U/L Total Protein (6.4-8.2) g/dl Albumin (3.4-5.0) g/dl Globulin gm/dL Albumin/Globulin Ratio (1-2) 12/12/19 Range/Units 13:57 WBC (4.23-9.07) K/mm3 RBC (4.63-6.08) M/mm3 Hgb (13.7-17.5) gm/dl Hct (40.1-51.0) % MCV (79.0-92.2) fl MCH (25.7-32.2) pg MCHC (32.2-35.5) g/dl RDW Std Deviation (35.1-43.9) fL Plt Count (163-337) K/mm3 MPV (9.4-12.3) fl Neut % (Auto) (34.0-67.9) % Lymph % (Auto) (21.8-53.1) % Hancock % (Auto) (5.3-12.2) % Eos % (Auto) (0.8-7.0) Baso % (Auto) (0.1-1.2) % Neut # (Auto) (1.78-5.38) K/mm3 Lymph # (Auto) (1.32-3.57) K/mm3 Hancock # (Auto) (0.30-0.82) K/mm3 Eos # (Auto) (0.04-0.54) K/mm3 Baso # (Auto) (0.01-0.08) K/mm3 Manual Slide Review VBG pH (7.30-7.40) Sodium (136-145) mEq/L Potassium (3.5-5.1) mEq/L Chloride (98-107) mEq/L Carbon Dioxide (21-32) mEq/L Anion Gap (5-15) BUN (7-18) mg/dL Creatinine (0.7-1.3) mg/dL Est Cr Clr Drug Dosing mL/min Estimated GFR (MDRD) (>60) mL/min BUN/Creatinine Ratio (14-18) Glucose (74-106) mg/dL POC Glucose 140 H (70-105) mg/dL Calcium (8.5-10.1) mg/dL Phosphorus (2.6-4.7) mg/dL Magnesium (1.8-2.4) mg/dl Total Bilirubin (0.2-1.0) mg/dL AST (15-37) U/L ALT (16-63) U/L Alkaline Phosphatase (46-116) U/L Total Protein (6.4-8.2) g/dl Albumin (3.4-5.0) g/dl Globulin gm/dL Albumin/Globulin Ratio (1-2) Med Orders - Current: Current Medications Acetaminophen (Tylenol) 650 mg PO Q4H PRN PRN Reason: Pain Last Admin: 12/10/19 14:41 Dose: 650 mg Dextrose/Water (Dextrose 50% In Water) 25 ml IVPUSH ASDIRECTED PRN PRN Reason: Blood Glucose Last Admin: 12/12/19 09:49 Dose: 25 ml Enoxaparin Sodium (Lovenox) 40 mg SUBCUT DAILY ALBERTO Last Admin: 12/12/19 08:18 Dose: 40 mg Insulin Human Regular 100 unit (/ Sodium Chloride) 100 mls @ 2 mls/hr IV TITRATE ALBERTO; Protocol Last Titration: 12/12/19 01:41 Dose: 2.5 unit/hr, 2.5 mls/hr Potassium Chloride/Dextrose/Sod Cl (D5 1/2 Ns W/ 20 Meq/L Kcl) 1,000 mls @ 150 mls/hr IV ASDIRECTED ALBERTO Last Admin: 12/11/19 21:10 Dose: 150 mls/hr Insulin Glargine (Lantus) 12 unit SUBCUT DAILY [facility] Insulin Human Lispro (Humalog) 0 unit SUBCUT QIDACANDBED [facility]; Protocol Last Admin: 12/12/19 13:15 Dose: 4 unit Labetalol HCl (Normodyne) 100 mg PO TID [facility] Last Admin: 12/12/19 08:17 Dose: 100 mg Lisinopril (Prinivil) 5 mg PO DAILY [facility] Last Admin: 12/12/19 09:54 Dose: 5 mg Morphine Sulfate (Morphine) 2 mg IVPUSH Q4H PRN PRN Reason: Pain Last Admin: 12/11/19 08:23 Dose: 2 mg Ondansetron HCl (Zofran) 4 mg IVPUSH Q4H PRN PRN Reason: Nausea Last Admin: 12/11/19 20:00 Dose: 4 mg Discontinued Medications Al Hydroxide/Mg Hydroxide (Mag-Al Plus) 30 ml PO ONETIME ONE Stop: 12/12/19 13:13 Last Admin: 12/12/19 13:55 Dose: 30 ml Famotidine (Pepcid) 20 mg PO ONETIME ONE Stop: 12/12/19 13:31 Last Admin: 12/12/19 13:55 Dose: 20 mg Hydralazine HCl (Apresoline) 10 mg IVPUSH ONETIME ONE Stop: 12/10/19 16:16 Last Admin: 12/10/19 16:19 Dose: 10 mg Hydralazine HCl (Apresoline) 5 mg IVPUSH Q2H PRN PRN Reason: Hypertension Last Admin: 12/11/19 02:59 Dose: 5 mg Sodium Chloride (Normal Saline) 2,000 mls @ 999 mls/hr IV ONETIME ONE Stop: 12/10/19 12:30 Last Admin: 12/10/19 10:38 Dose: 999 mls/hr Insulin Human Regular 100 unit (/ Sodium Chloride) 100 mls @ 8.23 mls/hr IV TITRATE [facility]; Protocol Last Titration: 12/10/19 23:02 Dose: Infused Ondansetron HCl 4 mg/ Sodium (Chloride) 52 mls @ 100 mls/hr IV ONETIME ONE Stop: 12/10/19 12:02 Last Admin: 12/10/19 11:33 Dose: Not Given Dextrose/Water (Dextrose 10% In Water) 1,000 mls @ 40 mls/hr IV ASDIRECTED [facility]BERTO Stop: 12/11/19 13:31 Last Admin: 12/10/19 13:41 Dose: 40 mls/hr Insulin Human Regular 100 unit (/ Sodium Chloride) 100 mls @ 8.23 mls/hr IV TITRATE [facility]; Protocol Lactated Ringer's (Ringers, Lactated) 1,000 mls @ 150 mls/hr IV ASDIRECTED [facility]BERT[facility] Last Admin: 12/11/19 04:11 Dose: 150 mls/hr Lactated Ringer's (Ringers, Lactated) 1,000 mls @ 999 mls/hr IV ASDIRECTED [facility]BERT[facility] Stop: 12/11/19 13:31 Last Admin: 12/10/19 14:01 Dose: 999 mls/hr Lactated Ringer's (Ringers, Lactated) Confirm Administered Dose 1,000 mls @ as directed .ROUTE .STK-MED ONE Stop: 12/10/19 12:52 Last Admin: 12/10/19 13:44 Dose: Not Given Magnesium Sulfate 4 gm/ Premix 50 mls @ 12.5 mls/hr IV ONETIME ONE Stop: 12/11/19 01:41 Last Admin: 12/10/19 21:55 Dose: 12.5 mls/hr Sodium Phosphate 30 mmole/ (Sodium Chloride) 260 mls @ 65 mls/hr IV ONETIME ONE Stop: 12/11/19 02:14 Last Admin: 12/10/19 22:28 Dose: 65 mls/hr Potassium Chloride 10 meq/ (Premix) 100 mls @ 100 mls/hr IV Q1H [facility] Stop: 12/11/19 10:59 Last Admin: 12/11/19 11:02 Dose: 100 mls/hr Potassium Phosphate 15 mmole/ (Sodium Chloride) 255 mls @ 85 mls/hr IV ASDIRECTED ALBERTO Stop: 12/11/19 09:59 Last Admin: 12/11/19 08:11 Dose: 85 mls/hr Potassium Chloride/Dextrose/Sod Cl (D5 1/2 Ns W/ 20 Meq/L Kcl) 1,000 mls @ 150 mls/hr IV ASDIRECTED [facility] Last Infusion: 12/11/19 17:08 Dose: 175 mls/hr Potassium Chloride 10 meq/ (Premix) 100 mls @ 100 mls/hr IV Q1H [facility] Stop: 12/11/19 16:14 Last Admin: 12/11/19 15:26 Dose: 100 mls/hr Potassium Chloride/Dextrose/Sod Cl (D5 1/2 Ns W/ 20 Meq/L Kcl) 1,000 mls @ 175 mls/hr IV ASDIRECTED [facility]; Protocol Last Admin: 12/11/19 18:56 Dose: 175 mls/hr Potassium Chloride 10 meq/ (Premix) 100 mls @ 100 mls/hr IV Q1H [facility] Stop: 12/12/19 02:14 Last Admin: 12/12/19 01:44 Dose: 100 mls/hr Magnesium Sulfate 4 gm/ Premix 50 mls @ 12.5 mls/hr IV ONETIME ONE Stop: 12/12/19 10:31 Last Admin: 12/12/19 08:10 Dose: 12.5 mls/hr Potassium Chloride 10 meq/ (Premix) 100 mls @ 100 mls/hr IV Q1H [facility] Stop: 12/12/19 10:44 Last Admin: 12/12/19 12:18 Dose: 100 mls/hr Insulin Glargine (Lantus) 12 unit SUBCUT Q12H [facility] Last Admin: 12/12/19 09:56 Dose: 12 units Insulin Human Regular (Humulin R) 8 unit IV ONETIME ONE Stop: 12/10/19 10:37 Last Admin: 12/10/19 10:41 Dose: 8 unit Ketorolac Tromethamine (Toradol) 30 mg IVPUSH Q8H PRN PRN Reason: Pain Ketorolac Tromethamine (Toradol) Confirm Administered Dose 30 mg .ROUTE .STK- MED ONE Stop: 12/10/19 14:01 Last Admin: 12/10/19 14:39 Dose: Not Given Labetalol HCl (Normodyne) 10 mg IVPUSH Q8HR [facility]; Protocol Last Admin: 12/11/19 05:30 Dose: 10 mg Lorazepam (Ativan) 0.5 mg IVPUSH ONETIME ONE Stop: 12/10/19 20:34 Last Admin: 12/10/19 21:00 Dose: 0.5 mg Lorazepam (Ativan) 0.5 mg IVPUSH ONETIME ONE Stop: 12/11/19 21:01 Last Admin: 12/11/19 20:53 Dose: 0.5 mg Morphine Sulfate (Morphine) 2 mg IVPUSH Q6H PRN PRN Reason: Pain Last Admin: 12/10/19 14:49 Dose: 2 mg Ondansetron HCl (Zofran) 4 mg IVPUSH ONETIME ONE Stop: 12/10/19 10:31 Last Admin: 12/10/19 10:38 Dose: 4 mg Ondansetron HCl (Zofran) Confirm Administered Dose 4 mg .ROUTE .STK-MED ONE Stop: 12/10/19 11:29 Last Admin: 12/10/19 11:33 Dose: 4 mg - Exam General: Reports: Alert, Oriented HEENT: Reports: Pupils Equal, Mucous Membr. Moist/[place] Neck: Reports: Supple Lungs: Reports: Clear to Auscultation, Normal Respiratory Effort Cardiovascular: Reports: Regular Rate, Regular Rhythm GI/Abdominal Exam: Normal Bowel Sounds, Soft, Non-Tender, No Organomegaly, No Distention, No Abnormal Bruit, No Mass Back Exam: Reports: Normal Inspection, Full Range of Motion Extremities: Normal Inspection, Normal Range of Motion, Non-Tender, No Pedal Edema, Normal Capillary Refill Psy/Mental Status: Reports: Alert, Normal Affect, Normal Mood
[2019-12-13] MEDS ORDERED: Insulin Glarg,Human.Rec.Analog 100 Unit/ML SUBCUT SCH (09:00)
== END 2019-12-12 15:10 | disposition home or self-care (01) | DRG 639 ==
LOC: JD.ED 09:43 → JD.ICU 12:26
PROVIDERS: ADMIT Family Medicine; ATTEND Family Medicine
DX: E11.10 Type 2 diabetes mellitus with ketoacidosis without coma (principal); I10 Essential (primary) hypertension; F41.9 Anxiety disorder, unspecified; G89.29 Other chronic pain; M54.9 Dorsalgia, unspecified; R94.5 Abnormal results of liver function studies; F12.10 Cannabis abuse, uncomplicated; E86.9 Volume depletion, unspecified; F10.20 Alcohol dependence, uncomplicated; Z90.49 Acquired absence of other specified parts of digestive tract; Z79.4 Long term (current) use of insulin
CPT/HCPCS: 36415; 36600; 80048; 80053; 80061; 80306; 80307; 81001; 82009; 82800; 82803; 82962; 83036; 83605; 83735; 84100; 84478; 85007; 85025; 85027; 96361; 96374; 96376; 99222; 99232; 99239; 99284-25; 99285; A9270-GY; J0360; J1650; J1815-GY; J2060; J2270; J2405; J3475; J3480; J3490; J7030; J7042; J7050; J7120

== ENCOUNTER 2020-02-25 20:15 | Inpatient (IN) | payer OTHER ==
--- NOTE | 2020-02-25 20:28 | EDM.PDOC ---
ED HPI GENERAL MEDICAL PROBLEM - General Chief Complaint: Diabetic Complaint Stated Complaint: HIGH BLOOD SUGAR Time Seen by Provider: 02/25/20 20:24 - History of Present Illness INITIAL COMMENTS - FREE TEXT/NARRATIVE: 29-year-old male presents the emergency room with difficulty controlling his blood sugars. Patient ran out of his Lantus 2 weeks ago. And shortly after this he had more more difficulty controlling his blood sugars with a sliding scale. The patient last used alcohol on Monday had 3 mixed drinks. Nothing since that time. He is developed some back discomfort with this. Denies fevers or chills he is breathing fast. And smells ketotic. Denies sick sick exposures. When asked about why to get his Lantus he said he could not afford it. - Related Data Allergies Allergy/AdvReac Type Severity Reaction Status Date / Time No Known Allergies Allergy Verified 02/25/20 20:28 Home Meds: Home Meds Labetalol [Normodyne] 100 mg PO TID 30 Days #90 tablet 02/19/19 [Rx] Insulin Glarg,Human.Rec.Analog [Lantus] 12 unit SUBCUT DAILY #1 vial 12/12/19 [ Rx] Insulin Lispro [HumaLOG] 0 unit SUBCUT QIDACANDBED #1 vial 12/12/19 [Rx] Insulin Lispro [HumaLOG] 4 unit SUBCUT TIDAC #0 vial 12/12/19 [Rx] lisinopriL [Prinivil] 10 mg PO DAILY #30 tablet 12/12/19 [Rx] Past Medical History HEENT History: Reports: Impaired Vision Other HEENT History: Wears glasss Cardiovascular History: Reports: Hypertension Gastrointestinal History: Reports: Gastritis, Pancreatitis, Other (See Below) Other Gastrointestinal History: Fatty liver, acute pancreatitis--recurrent bouts of pancreatitis due to alcohol use Musculoskeletal History: Reports: Back Pain, Chronic Psychiatric History: Reports: Addiction, Anxiety, Other (See Below) Other Psychiatric History: alcohol abuse & withdrawl Endocrine/Metabolic History: Reports: Diabetes, Type II - Infectious Disease History Infectious Disease History: Reports: Chicken Pox - Past Surgical History Head Surgeries/Procedures: Reports: None GI Surgical History: Reports: Cholecystectomy Social & Family History - Family History Family Medical History: Noncontributory - Caffeine Use Caffeine Use: Reports: None Caffeine Use Comment: doesnt drink soda often, "takes me 3 hours to finish one soda" - Living Situation & Occupation Living situation: Reports: Single, Other (Has a 2-year daughter with ex- girlfriend) 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 Denies : Shortness of Breath Cardiovascular: Reports: No Symptoms Endocrine: Reports: High Glucose GI/Abdominal: Reports: Nausea, Vomiting. Denies: Diarrhea Musculoskeletal: Reports: No Symptoms Skin: Reports: No Symptoms Neurological: Reports: No Symptoms Psychiatric: Reports: No Symptoms Hematologic/Lymphatic: Reports: No Symptoms Immunologic: Reports: No Symptoms ED EXAM GENERAL NO PERIP PULSE - Physical Exam Exam: See Below Exam Limited By: Other General Appearance: Mild Distress (Little restless and having some distress from his nausea and vomiting from nausea and vomiting) Eye Exam: Bilateral Eye: Normal Inspection Ears: Normal External Exam, Normal Canal, Hearing Grossly Normal, Normal TMs Nose: Normal Inspection, Normal Mucosa, No Blood Throat/Mouth: Normal Inspection, Normal Lips, No Airway Compromise, Other (My dry mucosa) Head: Atraumatic, Normocephalic Neck: Normal Inspection, Supple, Non-Tender, Full Range of Motion Respiratory/Chest: No Respiratory Distress, Lungs Clear, Normal Breath Sounds Cardiovascular: Regular Rate, Rhythm, No Edema, No Murmur, Tachycardia GI/Abdominal: Normal Bowel Sounds, Soft, Non-Tender Neurological: Alert, Oriented, Normal Cognition Psychiatric: Normal Affect, Normal Mood Course - Vital Signs Last Recorded V/S: Last Vital Signs Temp 35.9 C L 02/25/20 20:25 Pulse 128 H 02/25/20 20:25 Resp 24 H 02/25/20 20:25 BP 189/118 H 02/25/20 20:25 Pulse Ox 99 02/25/20 20:25 - Orders/Labs/Meds Orders: Active Orders 24 hr Category Date Time Status Insulin Regular, Human [HumuLIN R] 100 unit Med 02/25/20 21:30 Active Sodium Chloride 0.9% [Normal Saline] 99 ml IV TITRATE Medication Orders Enoxaparin Sodium (Lovenox) 30 mg SUBCUT DAILY ALBERTO Insulin Human Regular 100 unit (/ Sodium Chloride) 100 mls @ 8.16 mls/hr IV TITRATE ALBERTO; Protocol Last Titration: 02/25/20 22:58 Dose: 0.04 units/kg/hr, 4 mls/hr Admin: 02/25/20 21:33 Dose: 0.1 units/kg/hr, 8.16 mls/hr Labs: Laboratory Tests 02/25/20 02/25/20 02/25/20 Range/Units 20:35 20:35 20:35 WBC 9.44 H (4.23-9.07) K/mm3 RBC 6.18 H (4.63-6.08) M/mm3 Hgb 19.2 H D (13.7-17.5) gm/dl Hct 57.9 H (40.1-51.0) % MCV 93.7 H D (79.0-92.2) fl MCH 31.1 (25.7-32.2) pg MCHC 33.2 (32.2-35.5) g/dl RDW Std Deviation 42.1 (35.1-43.9) fL Plt Count 200 (163-337) K/mm3 MPV 10.8 (9.4-12.3) fl Neut % (Auto) 83.5 H (34.0-67.9) % Lymph % (Auto) 8.3 L (21.8-53.1) % Jewell % (Auto) 7.0 (5.3-12.2) % Eos % (Auto) 0 L (0.8-7.0) Baso % (Auto) 0.6 (0.1-1.2) % Neut # (Auto) 7.88 H (1.78-5.38) K/mm3 Lymph # (Auto) 0.78 L (1.32-3.57) K/mm3 Jewell # (Auto) 0.66 (0.30-0.82) K/mm3 Eos # (Auto) 0.00 L (0.04-0.54) K/mm3 Baso # (Auto) 0.06 (0.01-0.08) K/mm3 Manual Slide Review Abnormal smear Puncture Site ABG pH (7.35-7.45) ABG pCO2 (35.0-45.0) mmHg ABG pO2 (80.0-100.0) mmHg ABG HCO3 (22.0-26.0) meq/L ABG O2 Saturation (96.0-97.0) % ABG Base Excess (-2-2.0) Faisal Test A-a Gradient mmHg O2 Delivery Device Oxygen Flow Rate FiO2 (21.00-100.00) % Sodium 134 L (136-145) mEq/L Potassium 5.1 D (3.5-5.1) mEq/L Chloride 88 L D (98-107) mEq/L Carbon Dioxide 6 L* D (21-32) mEq/L Anion Gap 45.1 H (5-15) BUN 19 H (7-18) mg/dL Creatinine 1.8 H (0.7-1.3) mg/dL Est Cr Clr Drug Dosing 63.33 mL/min Estimated GFR (MDRD) 44 (>60) mL/min BUN/Creatinine Ratio 10.6 L (14-18) Glucose 485 H (74-106) mg/dL POC Glucose (70-105) mg/dL Lactic Acid 2.6 H* (0.4-2.0) mmol/L Calcium 9.8 (8.5-10.1) mg/dL Magnesium (1.8-2.4) mg/dl Total Bilirubin 2.3 H (0.2-1.0) mg/dL AST 153 H (15-37) U/L ALT 217 H (16-63) U/L Alkaline Phosphatase 254 H (46-116) U/L Total Protein 10.3 H (6.4-8.2) g/dl Albumin 5.2 H (3.4-5.0) g/dl Globulin 5.1 gm/dL Albumin/Globulin Ratio 1.0 (1-2) Amylase 63 (25-115) U/L Lipase 475 H (73-393) U/L Ketones (0.0-0.3) mM 02/25/20 02/25/20 02/25/20 Range/Units 20:35 20:35 20:54 WBC (4.23-9.07) K/mm3 RBC (4.63-6.08) M/mm3 Hgb (13.7-17.5) gm/dl Hct (40.1-51.0) % MCV (79.0-92.2) fl MCH (25.7-32.2) pg MCHC (32.2-35.5) g/dl RDW Std Deviation (35.1-43.9) fL Plt Count (163-337) K/mm3 MPV (9.4-12.3) fl Neut % (Auto) (34.0-67.9) % Lymph % (Auto) (21.8-53.1) % Jewell % (Auto) (5.3-12.2) % Eos % (Auto) (0.8-7.0) Baso % (Auto) (0.1-1.2) % Neut # (Auto) (1.78-5.38) K/mm3 Lymph # (Auto) (1.32-3.57) K/mm3 Jewell # (Auto) (0.30-0.82) K/mm3 Eos # (Auto) (0.04-0.54) K/mm3 Baso # (Auto) (0.01-0.08) K/mm3 Manual Slide Review Puncture Site Lt radial ABG pH 7.04 L* (7.35-7.45) ABG pCO2 8.7 L* (35.0-45.0) mmHg ABG pO2 137.0 H (80.0-100.0) mmHg ABG HCO3 2.2 L (22.0-26.0) meq/L ABG O2 Saturation 96.8 (96.0-97.0) % ABG Base Excess -33.1 L (-2-2.0) Faisal Test Positive A-a Gradient 2 mmHg O2 Delivery Device Room air Oxygen Flow Rate 0.0 FiO2 21.00 (21.00-100.00) % Sodium (136-145) mEq/L Potassium (3.5-5.1) mEq/L Chloride (98-107) mEq/L Carbon Dioxide (21-32) mEq/L Anion Gap (5-15) BUN (7-18) mg/dL Creatinine (0.7-1.3) mg/dL Est Cr Clr Drug Dosing mL/min Estimated GFR (MDRD) (>60) mL/min BUN/Creatinine Ratio (14-18) Glucose (74-106) mg/dL POC Glucose (70-105) mg/dL Lactic Acid (0.4-2.0) mmol/L Calcium (8.5-10.1) mg/dL Magnesium 2.5 H (1.8-2.4) mg/dl Total Bilirubin (0.2-1.0) mg/dL AST (15-37) U/L ALT (16-63) U/L Alkaline Phosphatase (46-116) U/L Total Protein (6.4-8.2) g/dl Albumin (3.4-5.0) g/dl Globulin gm/dL Albumin/Globulin Ratio (1-2) Amylase (25-115) U/L Lipase (73-393) U/L Ketones 20.62 (0.0-0.3) mM 02/25/20 02/25/20 Range/Units 21:20 22:29 WBC (4.23-9.07) K/mm3 RBC (4.63-6.08) M/mm3 Hgb (13.7-17.5) gm/dl Hct (40.1-51.0) % MCV (79.0-92.2) fl MCH (25.7-32.2) pg MCHC (32.2-35.5) g/dl RDW Std Deviation (35.1-43.9) fL Plt Count (163-337) K/mm3 MPV (9.4-12.3) fl Neut % (Auto) (34.0-67.9) % Lymph % (Auto) (21.8-53.1) % Jewell % (Auto) (5.3-12.2) % Eos % (Auto) (0.8-7.0) Baso % (Auto) (0.1-1.2) % Neut # (Auto) (1.78-5.38) K/mm3 Lymph # (Auto) (1.32-3.57) K/mm3 Jewell # (Auto) (0.30-0.82) K/mm3 Eos # (Auto) (0.04-0.54) K/mm3 Baso # (Auto) (0.01-0.08) K/mm3 Manual Slide Review Puncture Site ABG pH (7.35-7.45) ABG pCO2 (35.0-45.0) mmHg ABG pO2 (80.0-100.0) mmHg ABG HCO3 (22.0-26.0) meq/L ABG O2 Saturation (96.0-97.0) % ABG Base Excess (-2-2.0) Faisal Test A-a Gradient mmHg O2 Delivery Device Oxygen Flow Rate FiO2 (21.00-100.00) % Sodium (136-145) mEq/L Potassium (3.5-5.1) mEq/L Chloride (98-107) mEq/L Carbon Dioxide (21-32) mEq/L Anion Gap (5-15) BUN (7-18) mg/dL Creatinine (0.7-1.3) mg/dL Est Cr Clr Drug Dosing mL/min Estimated GFR (MDRD) (>60) mL/min BUN/Creatinine Ratio (14-18) Glucose (74-106) mg/dL POC Glucose 385 H 241 H (70-105) mg/dL Lactic Acid (0.4-2.0) mmol/L Calcium (8.5-10.1) mg/dL Magnesium (1.8-2.4) mg/dl Total Bilirubin (0.2-1.0) mg/dL AST (15-37) U/L ALT (16-63) U/L Alkaline Phosphatase (46-116) U/L Total Protein (6.4-8.2) g/dl Albumin (3.4-5.0) g/dl Globulin gm/dL Albumin/Globulin Ratio (1-2) Amylase (25-115) U/L Lipase (73-393) U/L Ketones (0.0-0.3) mM Meds: Medications Generic Name Dose Route Start Last Admin Trade Name Freq PRN Reason Stop Dose Admin Enoxaparin Sodium 30 mg 02/26/20 09:00 Lovenox SUBCUT DAILY ALBERTO Insulin Human Regular 100 unit 100 mls @ 8.16 mls/hr 02/25/20 21:30 02/25/20 22:58 / Sodium Chloride IV 0.04 units/kg/hr TITRATE ALBERTO 4 mls/hr Titration Protocol 0.1 UNITS/KG/HR Discontinued Medications Generic Name Dose Route Start Last Admin Trade Name Freq PRN Reason Stop Dose Admin Sodium Chloride 1,000 mls @ 999 mls/hr 02/25/20 20:31 02/25/20 20:37 Normal Saline IV 02/25/20 21:31 999 mls/hr NOW STA Administration Sodium Chloride 1,000 mls @ 9,999 mls/min 02/25/20 20:34 02/25/20 21:20 Normal Saline IV 02/25/20 20:35 9,999 mls/min ONETIME ONE Administration Insulin Human Regular 8 unit 02/25/20 20:38 02/25/20 20:42 Humulin R IV 02/25/20 20:39 8 unit ONETIME ONE Administration Ondansetron HCl 4 mg 02/25/20 20:31 02/25/20 20:36 Zofran IVPUSH 02/25/20 20:32 4 mg ONETIME ONE Administration Ondansetron HCl 4 mg 02/25/20 20:36 02/25/20 21:20 Zofran IVPUSH 02/25/20 20:37 4 mg ONETIME ONE Administration - Re-Assessments/Exams Free Text/Narrative Re-Assessment/Exam: 02/25/20 21:59 Received a bolus of insulin he is getting a second liter of fluid he is on an insulin drip. Case discussed with Dr. Rodriguez who kindly will assume care. Patient will go to our ICU 02/25/20 23:00 Patient will be going to the floor shortly is blood sugars down to the 240s we will cut his insulin drip in half change fluid to D5 half NS with 20 of K at 200 cc an hour. Case discussed with Dr. Rodriguez. Advised nursing of the change stable decrease the IV insulin and then the fluid change will happen soon as he gets over to the floor. Departure - Departure Time of Disposition: 22:00 Disposition: Admitted As Inpatient 64 Clinical Impression: Diabetic ketoacidosis Qualifiers: Diabetes mellitus type: type 2 - Discharge Information Sepsis Event Note - Focused Exam Vital Signs: Vital Signs Temp Pulse Resp BP Pulse Ox 02/25/20 20:25 35.9 C L 128 H 24 H 189/118 H 99 Date Exam was Performed: 02/25/20 Time Exam was Performed: 23:00 - My Orders Last 24 Hours: My Active Orders 02/25/20 21:30 Insulin Regular, Human [HumuLIN R] 100 unit Sodium Chloride 0.9% [Normal Saline] 99 ml IV TITRATE - Assessment/Plan Last 24 Hours: My Active Orders 02/25/20 21:30 Insulin Regular, Human [HumuLIN R] 100 unit Sodium Chloride 0.9% [Normal Saline] 99 ml IV TITRATE
[2020-02-25] MEDS ORDERED: Ondansetron 4 MG/2 ML SDV IVPUSH ONE (20:31)
[2020-02-25] MEDS ORDERED: Sodium Chloride 0.9% 1,000 ML IV STA (20:31)
[2020-02-25] MEDS ORDERED: Sodium Chloride 0.9% 1,000 ML IV ONE (20:34)
[2020-02-25] MEDS ORDERED: Insulin Regular, Human 100 Units/ML 3 ML Vial IV ONE (20:38)
[2020-02-25] MEDS: Ondansetron 4 MG/2 ML SDV IVPUSH ONE ×2 (20:40→21:20)
--- NOTE | 2020-02-25 22:58 | PCM.HP.2 ---
H&P History of Present Illness - General Date of Service: 02/25/20 Admit Problem/Dx: Admission Diagnosis/Problem Admission Diagnosis/Problem Diabetic ketoacidosis - History of Present Illness Initial Comments - Free Text/Narative: 29-year-old type I diabetic well known to the hospitalist service presents to the emergency department with fatigue, nausea, and vomiting for the last 2 days. Patient states he ran out of Lantus approximately 3 weeks ago. He thought he was doing well, but not checking his blood sugars because he also ran out of strips, until 2 days ago. 3 days ago he did have 3 mixed drinks. He has a long history of DKA and pancreatitis. His last admission was in November. Patient states that he has dry mouth, racing heart, anxiety, and diffuse abdominal pain. Denies any fever or chills. He states he feels like he is breathing fast. Patient's normal insulin regimen is Lantus 12 units daily , Humalog 4 units with each meal, and labetalol 100 mg 3 times daily for hypertension. He is not sure he has been able to keep down his labetalol for last 2 days. When the patient presented to the emergency department he was tachycardic, hypertensive, tachypneic, and smelled ketotic. Initial blood work showed hemoconcentration with a hemoglobin of 19.2. Initial glucose was 485 with serum ketones of 20.6. His anion gap was 45.1 and he had renal insufficiency with BUN of 19 and a creatinine of 1.8. Lactic acid was 2.6. Liver function was abnormal with a total bilirubin of 2.3 and elevated liver enzymes. Lipase was 475. Initial ABG: pH 7.04, PCO2 8.7, PO2 137 on room air, HCO3 2.2. Lower Back Pain Score (Numeric/FACES): 4 - Related Data Allergies/Adverse Reactions: Allergies Allergy/AdvReac Type Severity Reaction Status Date / Time No Known Allergies Allergy Verified 02/25/20 23:43 Home Medications: Home Meds Labetalol [Normodyne] 100 mg PO TID 30 Days #90 tablet 02/19/19 [Rx] Insulin Glarg,Human.Rec.Analog [Lantus] 12 unit SUBCUT DAILY #1 vial 12/12/19 [ Rx] Insulin Lispro [HumaLOG] 0 unit SUBCUT TIDAC 02/25/20 [History] Multivitamin [Multivitamins] 1 cap PO DAILY 02/26/20 [History] Past Medical History HEENT History: Reports: Impaired Vision Other HEENT History: Wears glasss Cardiovascular History: Reports: Hypertension Gastrointestinal History: Reports: Gastritis, Pancreatitis, Other (See Below) Other Gastrointestinal History: Fatty liver, acute pancreatitis--recurrent bouts of pancreatitis due to alcohol use Musculoskeletal History: Reports: Back Pain, Chronic Psychiatric History: Reports: Addiction, Anxiety, Other (See Below) Other Psychiatric History: alcohol abuse & withdrawl Endocrine/Metabolic History: Reports: Diabetes, Type II - Infectious Disease History Infectious Disease History: Reports: Chicken Pox - Past Surgical History Head Surgeries/Procedures: Reports: None GI Surgical History: Reports: Cholecystectomy Social & Family History - Family History Family Medical History: Noncontributory - Tobacco Use Smoking Status *Q: Never Smoker - Caffeine Use Caffeine Use: Reports: None Caffeine Use Comment: doesnt drink soda often, "takes me 3 hours to finish one soda" - Alcohol Use Days Per Week of Alcohol Use: 7 Number of Drinks Per Day: 3 Total Drinks Per Week: 21 - Recreational Drug Use Recreational Drug Use: Yes Drug Use in Last 12 Months: Yes Recreational Drug Type: Reports: Marijuana/Hashish - Living Situation & Occupation Living situation: Reports: Single, Other (Has a 2-year daughter with ex- girlfriend) 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 Exam - Exam Exam: See Below - Vital Signs Vital Signs: Last Vital Signs Temp 96.7 F L 02/25/20 20:25 Pulse 128 H 02/25/20 20:25 Resp 24 H 02/25/20 20:25 BP 189/118 H 02/25/20 20:25 Pulse Ox 99 02/25/20 20:25 Weight: 180 lb - Exam Quality Assessment: No: Supplemental Oxygen General: Alert, Oriented, Mild Distress HEENT: Conjunctiva Clear, EOMI, Hearing Intact. No: Mucosa Moist & [place] ( Mucosa is dry and pink) Neck: Supple, Trachea Midline, 2 Lungs: Clear to Auscultation. No: Normal Respiratory Effort (Increased respiratory rate) Cardiovascular: Regular Rhythm, Tachycardia GI/Abdominal Exam: Normal Bowel Sounds, Soft, No Organomegaly, No Distention, No Mass, Tender (Diffuse tenderness worse in the epigastrium) Extremities: Normal Inspection, Normal Range of Motion, Non-Tender, No Pedal Edema, Normal Capillary Refill Skin: Warm, Dry, Intact Neurological: Cranial Nerves Intact Neuro Extensive - Mental Status: Alert, Oriented x3, Normal Mood/Affect, Normal Cognition Neuro Extensive - Motor, Sensory, Reflexes: CN II-XII Intact DTR: 2+: Patella (L), Patella (R), Achilles (L), Achilles (R) Psychiatric: Alert, Normal Affect, Normal Mood - Patient Data Lab Results Last 24 hrs: Laboratory Results - last 24 hr 02/25/20 02/25/20 02/25/20 Range/Units 20:35 20:35 20:35 WBC 9.44 H (4.23-9.07) K/mm3 RBC 6.18 H (4.63-6.08) M/mm3 Hgb 19.2 H D (13.7-17.5) gm/dl Hct 57.9 H (40.1-51.0) % MCV 93.7 H D (79.0-92.2) fl MCH 31.1 (25.7-32.2) pg MCHC 33.2 (32.2-35.5) g/dl RDW Std Deviation 42.1 (35.1-43.9) fL Plt Count 200 (163-337) K/mm3 MPV 10.8 (9.4-12.3) fl Neut % (Auto) 83.5 H (34.0-67.9) % Lymph % (Auto) 8.3 L (21.8-53.1) % [place] % (Auto) 7.0 (5.3-12.2) % Eos % (Auto) 0 L (0.8-7.0) Baso % (Auto) 0.6 (0.1-1.2) % Neut # (Auto) 7.88 H (1.78-5.38) K/mm3 Lymph # (Auto) 0.78 L (1.32-3.57) K/mm3 [place] # (Auto) 0.66 (0.30-0.82) K/mm3 Eos # (Auto) 0.00 L (0.04-0.54) K/mm3 Baso # (Auto) 0.06 (0.01-0.08) K/mm3 Manual Slide Review Abnormal smear Puncture Site ABG pH (7.35-7.45) ABG pCO2 (35.0-45.0) mmHg ABG pO2 (80.0-100.0) mmHg ABG HCO3 (22.0-26.0) meq/L ABG O2 Saturation (96.0-97.0) % ABG Base Excess (-2-2.0) Faisal Test A-a Gradient mmHg O2 Delivery Device Oxygen Flow Rate FiO2 (21.00-100.00) % Sodium 134 L (136-145) mEq/L Potassium 5.1 D (3.5-5.1) mEq/L Chloride 88 L D (98-107) mEq/L Carbon Dioxide 6 L* D (21-32) mEq/L Anion Gap 45.1 H (5-15) BUN 19 H (7-18) mg/dL Creatinine 1.8 H (0.7-1.3) mg/dL Est Cr Clr Drug Dosing 63.33 mL/min Estimated GFR (MDRD) 44 (>60) mL/min BUN/Creatinine Ratio 10.6 L (14-18) Glucose 485 H (74-106) mg/dL POC Glucose (70-105) mg/dL Lactic Acid 2.6 H* (0.4-2.0) mmol/L Calcium 9.8 (8.5-10.1) mg/dL Magnesium (1.8-2.4) mg/dl Total Bilirubin 2.3 H (0.2-1.0) mg/dL AST 153 H (15-37) U/L ALT 217 H (16-63) U/L Alkaline Phosphatase 254 H (46-116) U/L Total Protein 10.3 H (6.4-8.2) g/dl Albumin 5.2 H (3.4-5.0) g/dl Globulin 5.1 gm/dL Albumin/Globulin Ratio 1.0 (1-2) Amylase 63 (25-115) U/L Lipase 475 H (73-393) U/L Ketones (0.0-0.3) mM 02/25/20 02/25/20 02/25/20 Range/Units 20:35 20:35 20:54 WBC (4.23-9.07) K/mm3 RBC (4.63-6.08) M/mm3 Hgb (13.7-17.5) gm/dl Hct (40.1-51.0) % MCV (79.0-92.2) fl MCH (25.7-32.2) pg MCHC (32.2-35.5) g/dl RDW Std Deviation (35.1-43.9) fL Plt Count (163-337) K/mm3 MPV (9.4-12.3) fl Neut % (Auto) (34.0-67.9) % Lymph % (Auto) (21.8-53.1) % [place] % (Auto) (5.3-12.2) % Eos % (Auto) (0.8-7.0) Baso % (Auto) (0.1-1.2) % Neut # (Auto) (1.78-5.38) K/mm3 Lymph # (Auto) (1.32-3.57) K/mm3 [place] # (Auto) (0.30-0.82) K/mm3 Eos # (Auto) (0.04-0.54) K/mm3 Baso # (Auto) (0.01-0.08) K/mm3 Manual Slide Review Puncture Site Lt radial ABG pH 7.04 L* (7.35-7.45) ABG pCO2 8.7 L* (35.0-45.0) mmHg ABG pO2 137.0 H (80.0-100.0) mmHg ABG HCO3 2.2 L (22.0-26.0) meq/L ABG O2 Saturation 96.8 (96.0-97.0) % ABG Base Excess -33.1 L (-2-2.0) Faisal Test Positive A-a Gradient 2 mmHg O2 Delivery Device Room air Oxygen Flow Rate 0.0 FiO2 21.00 (21.00-100.00) % Sodium (136-145) mEq/L Potassium (3.5-5.1) mEq/L Chloride (98-107) mEq/L Carbon Dioxide (21-32) mEq/L Anion Gap (5-15) BUN (7-18) mg/dL Creatinine (0.7-1.3) mg/dL Est Cr Clr Drug Dosing mL/min Estimated GFR (MDRD) (>60) mL/min BUN/Creatinine Ratio (14-18) Glucose (74-106) mg/dL POC Glucose (70-105) mg/dL Lactic Acid (0.4-2.0) mmol/L Calcium (8.5-10.1) mg/dL Magnesium 2.5 H (1.8-2.4) mg/dl Total Bilirubin (0.2-1.0) mg/dL AST (15-37) U/L ALT (16-63) U/L Alkaline Phosphatase (46-116) U/L Total Protein (6.4-8.2) g/dl Albumin (3.4-5.0) g/dl Globulin gm/dL Albumin/Globulin Ratio (1-2) Amylase (25-115) U/L Lipase (73-393) U/L Ketones 20.62 (0.0-0.3) mM 02/25/20 02/25/20 Range/Units 21:20 22:29 WBC (4.23-9.07) K/mm3 RBC (4.63-6.08) M/mm3 Hgb (13.7-17.5) gm/dl Hct (40.1-51.0) % MCV (79.0-92.2) fl MCH (25.7-32.2) pg MCHC (32.2-35.5) g/dl RDW Std Deviation (35.1-43.9) fL Plt Count (163-337) K/mm3 MPV (9.4-12.3) fl Neut % (Auto) (34.0-67.9) % Lymph % (Auto) (21.8-53.1) % [place] % (Auto) (5.3-12.2) % Eos % (Auto) (0.8-7.0) Baso % (Auto) (0.1-1.2) % Neut # (Auto) (1.78-5.38) K/mm3 Lymph # (Auto) (1.32-3.57) K/mm3 [place] # (Auto) (0.30-0.82) K/mm3 Eos # (Auto) (0.04-0.54) K/mm3 Baso # (Auto) (0.01-0.08) K/mm3 Manual Slide Review Puncture Site ABG pH (7.35-7.45) ABG pCO2 (35.0-45.0) mmHg ABG pO2 (80.0-100.0) mmHg ABG HCO3 (22.0-26.0) meq/L ABG O2 Saturation (96.0-97.0) % ABG Base Excess (-2-2.0) Faisal Test A-a Gradient mmHg O2 Delivery Device Oxygen Flow Rate FiO2 (21.00-100.00) % Sodium (136-145) mEq/L Potassium (3.5-5.1) mEq/L Chloride (98-107) mEq/L Carbon Dioxide (21-32) mEq/L Anion Gap (5-15) BUN (7-18) mg/dL Creatinine (0.7-1.3) mg/dL Est Cr Clr Drug Dosing mL/min Estimated GFR (MDRD) (>60) mL/min BUN/Creatinine Ratio (14-18) Glucose (74-106) mg/dL POC Glucose 385 H 241 H (70-105) mg/dL Lactic Acid (0.4-2.0) mmol/L Calcium (8.5-10.1) mg/dL Magnesium (1.8-2.4) mg/dl Total Bilirubin (0.2-1.0) mg/dL AST (15-37) U/L ALT (16-63) U/L Alkaline Phosphatase (46-116) U/L Total Protein (6.4-8.2) g/dl Albumin (3.4-5.0) g/dl Globulin gm/dL Albumin/Globulin Ratio (1-2) Amylase (25-115) U/L Lipase (73-393) U/L Ketones (0.0-0.3) mM Result Diagrams: 02/26/20 05:05 02/26/20 08:14 Sepsis Event Note - Evaluation Sepsis Screening Result: No Definite Risk - Focused Exam Vital Signs: Vital Signs Temp Pulse Resp BP Pulse Ox 02/25/20 20:25 96.7 F L 128 H 24 H 189/118 H 99 Date Exam was Performed: 02/26/20 Time Exam was Performed: 12:29 Problem List Initiated/Reviewed/Updated: Yes Orders Last 24hrs: Active Orders 24 hr Category Date Time Status Admission Status [Patient Status] [ADT] Routine ADT 02/25/20 22:37 Active Blood Glucose Check, Bedside [RC] Q1H Care 02/25/20 22:57 Ordered Oxygen Therapy [RC] PRN Care 02/25/20 22:53 Ordered Up With Assistance [RC] ASDIRECTED Care 02/25/20 22:53 Ordered VTE/DVT Education [RC] PER UNIT ROUTINE Care 02/25/20 22:53 Ordered Vital Signs [RC] ASDIRECTED Care 02/25/20 22:53 Ordered Nothing per Oral Now Diet [DIET] Diet 02/25/20 Dinner Ordered BLOOD GAS ARTERIAL [BG] Stat Lab 02/25/20 22:53 Ordered COMPREHENSIVE METABOLIC PN,CMP [CHEM] Stat Lab 02/25/20 22:49 Ordered LACTIC ACID [CHEM] Stat Lab 02/25/20 22:50 Ordered MAGNESIUM [CHEM] Stat Lab 02/25/20 22:49 Ordered Enoxaparin [Lovenox] Med 02/26/20 09:00 Ordered 30 mg SUBCUT DAILY Insulin Regular, Human [HumuLIN R] 100 unit Med 02/25/20 21:30 Active Sodium Chloride 0.9% [Normal Saline] 99 ml IV TITRATE Resuscitation Status Routine Resus Stat 02/25/20 22:53 Ordered Medication Orders Insulin Human Regular 100 unit (/ Sodium Chloride) 100 mls @ 8.16 mls/hr IV TITRATE ALBERTO; Protocol Last Admin: 02/25/20 21:33 Dose: 0.1 units/kg/hr, 8.16 mls/hr Assessment/Plan Comment:: DKA * Patient ran out of [email or web address] 3 weeks ago, drank 3 mixed drinks 3 days ago, started developing nausea and vomiting 2 days ago. * Initial glucose 485, bicarb 6, anion gap 45.1, ketones 20.62 * Initial arterial blood gas: pH 7.04, PCO2 8.7, PO2 137.0 on room air, HCO3 2.2. * Patient given 2 L of normal saline in the emergency department and started on insulin drip. Plan * Start DKA protocol which includes IV insulin titrated to effect, half-normal saline with 20 mEq KCl switched to D5 half-normal saline with 20 mEq KCl when fingerstick blood sugar is about 200. * Bedside fingerstick blood sugar every hour * Check electrolytes, renal function, and magnesium every 3-4 hours. * N.p.o. until out of acidosis and anion gap has closed. Acute renal insufficiency * Secondary to hypovolemia. * Estimated GFR 44, creatinine 1.8, BUN 19 Plan * Follow electrolytes and renal function every 4 hours. * Vigorous IV rehydration and correction of metabolic acidosis * Avoid renal toxic medication including NSAIDs Dehydration/hypovolemia/polycythemia * Renal function, elevated hemoglobin, and elevated lactic acid all consistent with severe dehydration and hypovolemia Plan * Vigorous IV hydration Hypertension/tachycardia * Severely elevated blood pressure when admitted to the ICU * Heart rate in the 130s to 140s * Has not been able to keep down his labetalol Plan * Metoprolol tartrate 5 mg IV every 2 hours as needed systolic blood pressure greater than 180 or diastolic blood pressure greater than 110. Also for heart rate greater than 125 * Restart labetalol as soon as he is able to take oral medications Back pain * Patient has chronic low back pain that seems to be worsened by the hospital beds Plan * Tylenol and Flexeril as needed * Avoid NSAIDs VTE prophylaxis with Lovenox CODE STATUS full code Disposition: Admit to ICU and monitor closely. - Mortality Measure Prognosis:: Good
[2020-02-25] MEDS ORDERED: D5 1/2 NS w/ 20 mEq/L KCl 1,000 ML IV SCH (23:00)
[2020-02-25] MEDS ORDERED: Metoprolol Tartrate 5 MG/5 ML SDV IVPUSH ONE (23:19)
[2020-02-25] MEDS ORDERED: Metoprolol Tartrate 5 MG/5 ML SDV ONE (23:21)
[2020-02-25] MEDS: Enoxaparin 40 MG/0.4 ML Syringe SUBCUT SCH (23:38)
[2020-02-25] MEDS ORDERED: Metoprolol Tartrate 5 MG/5 ML SDV IVPUSH PRN (23:47)
[2020-02-26] MEDS: LORazepam 2 MG/ML SDV IVPUSH PRN ×2 (00:09→04:52)
[2020-02-26] MEDS: D5 1/2 NS w/ 20 mEq/L KCl 1,000 ML IV SCH ×4 (03:22→19:13)
[2020-02-26] MEDS: Enoxaparin 40 MG/0.4 ML Syringe SUBCUT SCH (08:17)
[2020-02-26] MEDS: Labetalol 100 MG Tab PO SCH ×3 (08:20→20:29)
[2020-02-26] MEDS ORDERED: Cyclobenzaprine 10 MG Tab PO PRN (09:55)
[2020-02-26] MEDS ORDERED: Magnesium Sulfate/Water 4 GM in Premix Bag 1 BAG IV ONE (10:30)
--- NOTE | 2020-02-26 12:46 | PCM.PN ---
- General Info Date of Service: 02/26/20 Admission Dx/Problem (Free Text): Admission Diagnosis/Problem Admission Diagnosis/Problem Diabetic ketoacidosis Subjective Update: Patient has significantly better abdominal discomfort. He no longer vomiting. Generally feeling better. He does complain of low back pain from the mattress. Functional Status: Denies: Pain Controlled - Review of Systems General: Reports: Fatigue HEENT: Reports: No Symptoms Pulmonary: Reports: No Symptoms Cardiovascular: Reports: No Symptoms Gastrointestinal: Reports: Abdominal Pain, Nausea. Denies: Vomiting Musculoskeletal: Reports: No Symptoms - Patient Data Vitals - Most Recent: Last Vital Signs Temp 98.7 F 02/26/20 12:00 Pulse 87 02/26/20 12:00 Resp 18 02/26/20 12:00 BP 147/101 H 02/26/20 12:00 Pulse Ox 100 02/26/20 12:00 Weight - Most Recent: 180 lb I&O - Last 24 Hours: Intake & Output 02/25/20 02/26/20 02/26/20 22:59 06:59 14:59 Intake Total 1236 Output Total 800 1000 Balance 436 -1000 Lab Results Last 24 Hours: Laboratory Results - last 24 hr 02/25/20 02/25/20 02/25/20 Range/Units 20:35 20:35 20:35 WBC 9.44 H (4.23-9.07) K/mm3 RBC 6.18 H (4.63-6.08) M/mm3 Hgb 19.2 H D (13.7-17.5) gm/dl Hct 57.9 H (40.1-51.0) % MCV 93.7 H D (79.0-92.2) fl MCH 31.1 (25.7-32.2) pg MCHC 33.2 (32.2-35.5) g/dl RDW Std Deviation 42.1 (35.1-43.9) fL Plt Count 200 (163-337) K/mm3 MPV 10.8 (9.4-12.3) fl Neut % (Auto) 83.5 H (34.0-67.9) % Lymph % (Auto) 8.3 L (21.8-53.1) % [place] % (Auto) 7.0 (5.3-12.2) % Eos % (Auto) 0 L (0.8-7.0) Baso % (Auto) 0.6 (0.1-1.2) % Neut # (Auto) 7.88 H (1.78-5.38) K/mm3 Lymph # (Auto) 0.78 L (1.32-3.57) K/mm3 [place] # (Auto) 0.66 (0.30-0.82) K/mm3 Eos # (Auto) 0.00 L (0.04-0.54) K/mm3 Baso # (Auto) 0.06 (0.01-0.08) K/mm3 Manual Slide Review Abnormal smear Puncture Site ABG pH (7.35-7.45) ABG pCO2 (35.0-45.0) mmHg ABG pO2 (80.0-100.0) mmHg ABG HCO3 (22.0-26.0) meq/L ABG O2 Saturation (96.0-97.0) % ABG Base Excess (-2-2.0) Faisal Test VBG pH (7.30-7.40) A-a Gradient mmHg O2 Delivery Device Oxygen Flow Rate FiO2 (21.00-100.00) % Sodium 134 L (136-145) mEq/L Potassium 5.1 D (3.5-5.1) mEq/L Chloride 88 L D (98-107) mEq/L Carbon Dioxide 6 L* D (21-32) mEq/L Anion Gap 45.1 H (5-15) BUN 19 H (7-18) mg/dL Creatinine 1.8 H (0.7-1.3) mg/dL Est Cr Clr Drug Dosing 63.33 mL/min Estimated GFR (MDRD) 44 (>60) mL/min BUN/Creatinine Ratio 10.6 L (14-18) Glucose 485 H (74-106) mg/dL POC Glucose (70-105) mg/dL Lactic Acid 2.6 H* (0.4-2.0) mmol/L Calcium 9.8 (8.5-10.1) mg/dL Phosphorus (2.6-4.7) mg/dL Magnesium (1.8-2.4) mg/dl Total Bilirubin 2.3 H (0.2-1.0) mg/dL AST 153 H (15-37) U/L ALT 217 H (16-63) U/L Alkaline Phosphatase 254 H (46-116) U/L Total Protein 10.3 H (6.4-8.2) g/dl Albumin 5.2 H (3.4-5.0) g/dl Globulin 5.1 gm/dL Albumin/Globulin Ratio 1.0 (1-2) Amylase 63 (25-115) U/L Lipase 475 H (73-393) U/L Urine Color (Yellow) Urine Appearance (Clear) Urine pH (5.0-8.0) Ur Specific [place] (1.005-1.030) Urine Protein (Negative) Urine Glucose (UA) (Negative) Urine Ketones (Negative) Urine Occult Blood (Negative) Urine Nitrite (Negative) Urine Bilirubin (Negative) Urine Urobilinogen (0.2-1.0) Ur Leukocyte Esterase (Negative) U Hyaline Cast (Auto) (0-5) /lpf Urine RBC (0-5) /hpf Urine WBC (0-5) /hpf Ur Squamous Epith Cells (0-5) /hpf Urine Bacteria (FEW) /hpf Urine Mucus (FEW) /hpf Ketones (0.0-0.3) mM 02/25/20 02/25/20 02/25/20 Range/Units 20:35 20:35 20:54 WBC (4.23-9.07) K/mm3 RBC (4.63-6.08) M/mm3 Hgb (13.7-17.5) gm/dl Hct (40.1-51.0) % MCV (79.0-92.2) fl MCH (25.7-32.2) pg MCHC (32.2-35.5) g/dl RDW Std Deviation (35.1-43.9) fL Plt Count (163-337) K/mm3 MPV (9.4-12.3) fl Neut % (Auto) (34.0-67.9) % Lymph % (Auto) (21.8-53.1) % [place] % (Auto) (5.3-12.2) % Eos % (Auto) (0.8-7.0) Baso % (Auto) (0.1-1.2) % Neut # (Auto) (1.78-5.38) K/mm3 Lymph # (Auto) (1.32-3.57) K/mm3 [place] # (Auto) (0.30-0.82) K/mm3 Eos # (Auto) (0.04-0.54) K/mm3 Baso # (Auto) (0.01-0.08) K/mm3 Manual Slide Review Puncture Site Lt radial ABG pH 7.04 L* (7.35-7.45) ABG pCO2 8.7 L* (35.0-45.0) mmHg ABG pO2 137.0 H (80.0-100.0) mmHg ABG HCO3 2.2 L (22.0-26.0) meq/L ABG O2 Saturation 96.8 (96.0-97.0) % ABG Base Excess -33.1 L (-2-2.0) Faisal Test Positive VBG pH (7.30-7.40) A-a Gradient 2 mmHg O2 Delivery Device Room air Oxygen Flow Rate 0.0 FiO2 21.00 (21.00-100.00) % Sodium (136-145) mEq/L Potassium (3.5-5.1) mEq/L Chloride (98-107) mEq/L Carbon Dioxide (21-32) mEq/L Anion Gap (5-15) BUN (7-18) mg/dL Creatinine (0.7-1.3) mg/dL Est Cr Clr Drug Dosing mL/min Estimated GFR (MDRD) (>60) mL/min BUN/Creatinine Ratio (14-18) Glucose (74-106) mg/dL POC Glucose (70-105) mg/dL Lactic Acid (0.4-2.0) mmol/L Calcium (8.5-10.1) mg/dL Phosphorus (2.6-4.7) mg/dL Magnesium 2.5 H (1.8-2.4) mg/dl Total Bilirubin (0.2-1.0) mg/dL AST (15-37) U/L ALT (16-63) U/L Alkaline Phosphatase (46-116) U/L Total Protein (6.4-8.2) g/dl Albumin (3.4-5.0) g/dl Globulin gm/dL Albumin/Globulin Ratio (1-2) Amylase (25-115) U/L Lipase (73-393) U/L Urine Color (Yellow) Urine Appearance (Clear) Urine pH (5.0-8.0) Ur Specific [place] (1.005-1.030) Urine Protein (Negative) Urine Glucose (UA) (Negative) Urine Ketones (Negative) Urine Occult Blood (Negative) Urine Nitrite (Negative) Urine Bilirubin (Negative) Urine Urobilinogen (0.2-1.0) Ur Leukocyte Esterase (Negative) U Hyaline Cast (Auto) (0-5) /lpf Urine RBC (0-5) /hpf Urine WBC (0-5) /hpf Ur Squamous Epith Cells (0-5) /hpf Urine Bacteria (FEW) /hpf Urine Mucus (FEW) /hpf Ketones 20.62 (0.0-0.3) mM 02/25/20 02/25/20 02/25/20 Range/Units 21:20 22:05 22:29 WBC (4.23-9.07) K/mm3 RBC (4.63-6.08) M/mm3 Hgb (13.7-17.5) gm/dl Hct (40.1-51.0) % MCV (79.0-92.2) fl MCH (25.7-32.2) pg MCHC (32.2-35.5) g/dl RDW Std Deviation (35.1-43.9) fL Plt Count (163-337) K/mm3 MPV (9.4-12.3) fl Neut % (Auto) (34.0-67.9) % Lymph % (Auto) (21.8-53.1) % [place] % (Auto) (5.3-12.2) % Eos % (Auto) (0.8-7.0) Baso % (Auto) (0.1-1.2) % Neut # (Auto) (1.78-5.38) K/mm3 Lymph # (Auto) (1.32-3.57) K/mm3 [place] # (Auto) (0.30-0.82) K/mm3 Eos # (Auto) (0.04-0.54) K/mm3 Baso # (Auto) (0.01-0.08) K/mm3 Manual Slide Review Puncture Site ABG pH (7.35-7.45) ABG pCO2 (35.0-45.0) mmHg ABG pO2 (80.0-100.0) mmHg ABG HCO3 (22.0-26.0) meq/L ABG O2 Saturation (96.0-97.0) % ABG Base Excess (-2-2.0) Faisal Test VBG pH (7.30-7.40) A-a Gradient mmHg O2 Delivery Device Oxygen Flow Rate FiO2 (21.00-100.00) % Sodium (136-145) mEq/L Potassium (3.5-5.1) mEq/L Chloride (98-107) mEq/L Carbon Dioxide (21-32) mEq/L Anion Gap (5-15) BUN (7-18) mg/dL Creatinine (0.7-1.3) mg/dL Est Cr Clr Drug Dosing mL/min Estimated GFR (MDRD) (>60) mL/min BUN/Creatinine Ratio (14-18) Glucose (74-106) mg/dL POC Glucose 385 H 241 H (70-105) mg/dL Lactic Acid (0.4-2.0) mmol/L Calcium (8.5-10.1) mg/dL Phosphorus (2.6-4.7) mg/dL Magnesium (1.8-2.4) mg/dl Total Bilirubin (0.2-1.0) mg/dL AST (15-37) U/L ALT (16-63) U/L Alkaline Phosphatase (46-116) U/L Total Protein (6.4-8.2) g/dl Albumin (3.4-5.0) g/dl Globulin gm/dL Albumin/Globulin Ratio (1-2) Amylase (25-115) U/L Lipase (73-393) U/L Urine Color Yellow (Yellow) Urine Appearance Clear (Clear) Urine pH 5.5 (5.0-8.0) Ur Specific [place] > or = 1.030 (1.005-1.030) Urine Protein 3+ H (Negative) Urine Glucose (UA) 2+ H (Negative) Urine Ketones 4+ H (Negative) Urine Occult Blood 2+ H (Negative) Urine Nitrite Negative (Negative) Urine Bilirubin 2+ H (Negative) Urine Urobilinogen 0.2 (0.2-1.0) Ur Leukocyte Esterase Negative (Negative) U Hyaline Cast (Auto) 0-5 (0-5) /lpf Urine RBC 5-10 H (0-5) /hpf Urine WBC 0-5 (0-5) /hpf Ur Squamous Epith Cells 0-5 (0-5) /hpf Urine Bacteria Few (FEW) /hpf Urine Mucus Few (FEW) /hpf Ketones (0.0-0.3) mM 02/25/20 02/25/20 02/25/20 Range/Units 23:05 23:05 23:10 WBC (4.23-9.07) K/mm3 RBC (4.63-6.08) M/mm3 Hgb (13.7-17.5) gm/dl Hct (40.1-51.0) % MCV (79.0-92.2) fl MCH (25.7-32.2) pg MCHC (32.2-35.5) g/dl RDW Std Deviation (35.1-43.9) fL Plt Count (163-337) K/mm3 MPV (9.4-12.3) fl Neut % (Auto) (34.0-67.9) % Lymph % (Auto) (21.8-53.1) % [place] % (Auto) (5.3-12.2) % Eos % (Auto) (0.8-7.0) Baso % (Auto) (0.1-1.2) % Neut # (Auto) (1.78-5.38) K/mm3 Lymph # (Auto) (1.32-3.57) K/mm3 [place] # (Auto) (0.30-0.82) K/mm3 Eos # (Auto) (0.04-0.54) K/mm3 Baso # (Auto) (0.01-0.08) K/mm3 Manual Slide Review Puncture Site Lt radial ABG pH 7.11 L* (7.35-7.45) ABG pCO2 11.9 L* (35.0-45.0) mmHg ABG pO2 125.0 H (80.0-100.0) mmHg ABG HCO3 3.6 L (22.0-26.0) meq/L ABG O2 Saturation 97.6 H (96.0-97.0) % ABG Base Excess -26.6 L (-2-2.0) Faisal Test Positive VBG pH (7.30-7.40) A-a Gradient 10 mmHg O2 Delivery Device Room air Oxygen Flow Rate 0.0 FiO2 21.00 (21.00-100.00) % Sodium 139 (136-145) mEq/L Potassium 3.9 (3.5-5.1) mEq/L Chloride 98 (98-107) mEq/L Carbon Dioxide 5 L* (21-32) mEq/L Anion Gap 39.9 H (5-15) BUN 21 H (7-18) mg/dL Creatinine 1.5 H (0.7-1.3) mg/dL Est Cr Clr Drug Dosing 76.00 mL/min Estimated GFR (MDRD) 55 (>60) mL/min BUN/Creatinine Ratio 14.0 (14-18) Glucose 199 H (74-106) mg/dL POC Glucose (70-105) mg/dL Lactic Acid 2.4 H* (0.4-2.0) mmol/L Calcium 8.6 (8.5-10.1) mg/dL Phosphorus (2.6-4.7) mg/dL Magnesium 2.3 (1.8-2.4) mg/dl Total Bilirubin 1.8 H (0.2-1.0) mg/dL AST 131 H (15-37) U/L ALT 185 H (16-63) U/L Alkaline Phosphatase 209 H (46-116) U/L Total Protein 8.6 H (6.4-8.2) g/dl Albumin 4.3 (3.4-5.0) g/dl Globulin 4.3 gm/dL Albumin/Globulin Ratio 1.0 (1-2) Amylase (25-115) U/L Lipase (73-393) U/L Urine Color (Yellow) Urine Appearance (Clear) Urine pH (5.0-8.0) Ur Specific [place] (1.005-1.030) Urine Protein (Negative) Urine Glucose (UA) (Negative) Urine Ketones (Negative) Urine Occult Blood (Negative) Urine Nitrite (Negative) Urine Bilirubin (Negative) Urine Urobilinogen (0.2-1.0) Ur Leukocyte Esterase (Negative) U Hyaline Cast (Auto) (0-5) /lpf Urine RBC (0-5) /hpf Urine WBC (0-5) /hpf Ur Squamous Epith Cells (0-5) /hpf Urine Bacteria (FEW) /hpf Urine Mucus (FEW) /hpf Ketones (0.0-0.3) mM 02/25/20 02/26/20 02/26/20 Range/Units 23:26 00:04 01:04 WBC (4.23-9.07) K/mm3 RBC (4.63-6.08) M/mm3 Hgb (13.7-17.5) gm/dl Hct (40.1-51.0) % MCV (79.0-92.2) fl MCH (25.7-32.2) pg MCHC (32.2-35.5) g/dl RDW Std Deviation (35.1-43.9) fL Plt Count (163-337) K/mm3 MPV (9.4-12.3) fl Neut % (Auto) (34.0-67.9) % Lymph % (Auto) (21.8-53.1) % [place] % (Auto) (5.3-12.2) % Eos % (Auto) (0.8-7.0) Baso % (Auto) (0.1-1.2) % Neut # (Auto) (1.78-5.38) K/mm3 Lymph # (Auto) (1.32-3.57) K/mm3 [place] # (Auto) (0.30-0.82) K/mm3 Eos # (Auto) (0.04-0.54) K/mm3 Baso # (Auto) (0.01-0.08) K/mm3 Manual Slide Review Puncture Site ABG pH (7.35-7.45) ABG pCO2 (35.0-45.0) mmHg ABG pO2 (80.0-100.0) mmHg ABG HCO3 (22.0-26.0) meq/L ABG O2 Saturation (96.0-97.0) % ABG Base Excess (-2-2.0) Faisal Test VBG pH (7.30-7.40) A-a Gradient mmHg O2 Delivery Device Oxygen Flow Rate FiO2 (21.00-100.00) % Sodium (136-145) mEq/L Potassium (3.5-5.1) mEq/L Chloride (98-107) mEq/L Carbon Dioxide (21-32) mEq/L Anion Gap (5-15) BUN (7-18) mg/dL Creatinine (0.7-1.3) mg/dL Est Cr Clr Drug Dosing mL/min Estimated GFR (MDRD) (>60) mL/min BUN/Creatinine Ratio (14-18) Glucose (74-106) mg/dL POC Glucose 152 H 194 H 197 H (70-105) mg/dL Lactic Acid (0.4-2.0) mmol/L Calcium (8.5-10.1) mg/dL Phosphorus (2.6-4.7) mg/dL Magnesium (1.8-2.4) mg/dl Total Bilirubin (0.2-1.0) mg/dL AST (15-37) U/L ALT (16-63) U/L Alkaline Phosphatase (46-116) U/L Total Protein (6.4-8.2) g/dl Albumin (3.4-5.0) g/dl Globulin gm/dL Albumin/Globulin Ratio (1-2) Amylase (25-115) U/L Lipase (73-393) U/L Urine Color (Yellow) Urine Appearance (Clear) Urine pH (5.0-8.0) Ur Specific [place] (1.005-1.030) Urine Protein (Negative) Urine Glucose (UA) (Negative) Urine Ketones (Negative) Urine Occult Blood (Negative) Urine Nitrite (Negative) Urine Bilirubin (Negative) Urine Urobilinogen (0.2-1.0) Ur Leukocyte Esterase (Negative) U Hyaline Cast (Auto) (0-5) /lpf Urine RBC (0-5) /hpf Urine WBC (0-5) /hpf Ur Squamous Epith Cells (0-5) /hpf Urine Bacteria (FEW) /hpf Urine Mucus (FEW) /hpf Ketones (0.0-0.3) mM 02/26/20 02/26/20 02/26/20 Range/Units 01:55 01:58 02:00 WBC (4.23-9.07) K/mm3 RBC (4.63-6.08) M/mm3 Hgb (13.7-17.5) gm/dl Hct (40.1-51.0) % MCV (79.0-92.2) fl MCH (25.7-32.2) pg MCHC (32.2-35.5) g/dl RDW Std Deviation (35.1-43.9) fL Plt Count (163-337) K/mm3 MPV (9.4-12.3) fl Neut % (Auto) (34.0-67.9) % Lymph % (Auto) (21.8-53.1) % [place] % (Auto) (5.3-12.2) % Eos % (Auto) (0.8-7.0) Baso % (Auto) (0.1-1.2) % Neut # (Auto) (1.78-5.38) K/mm3 Lymph # (Auto) (1.32-3.57) K/mm3 [place] # (Auto) (0.30-0.82) K/mm3 Eos # (Auto) (0.04-0.54) K/mm3 Baso # (Auto) (0.01-0.08) K/mm3 Manual Slide Review Puncture Site ABG pH (7.35-7.45) ABG pCO2 (35.0-45.0) mmHg ABG pO2 (80.0-100.0) mmHg ABG HCO3 (22.0-26.0) meq/L ABG O2 Saturation (96.0-97.0) % ABG Base Excess (-2-2.0) Faisal Test VBG pH 7.14 L (7.30-7.40) A-a Gradient mmHg O2 Delivery Device Oxygen Flow Rate FiO2 (21.00-100.00) % Sodium 137 (136-145) mEq/L Potassium 4.5 (3.5-5.1) mEq/L Chloride 97 L (98-107) mEq/L Carbon Dioxide 8 L* (21-32) mEq/L Anion Gap 36.5 H (5-15) BUN 19 H (7-18) mg/dL Creatinine 1.3 (0.7-1.3) mg/dL Est Cr Clr Drug Dosing 87.69 mL/min Estimated GFR (MDRD) > 60 (>60) mL/min BUN/Creatinine Ratio 14.6 (14-18) Glucose 215 H (74-106) mg/dL POC Glucose 183 H (70-105) mg/dL Lactic Acid (0.4-2.0) mmol/L Calcium 8.1 L (8.5-10.1) mg/dL Phosphorus (2.6-4.7) mg/dL Magnesium 2.1 (1.8-2.4) mg/dl Total Bilirubin (0.2-1.0) mg/dL AST (15-37) U/L ALT (16-63) U/L Alkaline Phosphatase (46-116) U/L Total Protein (6.4-8.2) g/dl Albumin (3.4-5.0) g/dl Globulin gm/dL Albumin/Globulin Ratio (1-2) Amylase (25-115) U/L Lipase (73-393) U/L Urine Color (Yellow) Urine Appearance (Clear) Urine pH (5.0-8.0) Ur Specific [place] (1.005-1.030) Urine Protein (Negative) Urine Glucose (UA) (Negative) Urine Ketones (Negative) Urine Occult Blood (Negative) Urine Nitrite (Negative) Urine Bilirubin (Negative) Urine Urobilinogen (0.2-1.0) Ur Leukocyte Esterase (Negative) U Hyaline Cast (Auto) (0-5) /lpf Urine RBC (0-5) /hpf Urine WBC (0-5) /hpf Ur Squamous Epith Cells (0-5) /hpf Urine Bacteria (FEW) /hpf Urine Mucus (FEW) /hpf Ketones (0.0-0.3) mM 02/26/20 02/26/20 02/26/20 Range/Units 03:00 03:07 03:57 WBC (4.23-9.07) K/mm3 RBC (4.63-6.08) M/mm3 Hgb (13.7-17.5) gm/dl Hct (40.1-51.0) % MCV (79.0-92.2) fl MCH (25.7-32.2) pg MCHC (32.2-35.5) g/dl RDW Std Deviation (35.1-43.9) fL Plt Count (163-337) K/mm3 MPV (9.4-12.3) fl Neut % (Auto) (34.0-67.9) % Lymph % (Auto) (21.8-53.1) % [place] % (Auto) (5.3-12.2) % Eos % (Auto) (0.8-7.0) Baso % (Auto) (0.1-1.2) % Neut # (Auto) (1.78-5.38) K/mm3 Lymph # (Auto) (1.32-3.57) K/mm3 [place] # (Auto) (0.30-0.82) K/mm3 Eos # (Auto) (0.04-0.54) K/mm3 Baso # (Auto) (0.01-0.08) K/mm3 Manual Slide Review Puncture Site ABG pH (7.35-7.45) ABG pCO2 (35.0-45.0) mmHg ABG pO2 (80.0-100.0) mmHg ABG HCO3 (22.0-26.0) meq/L ABG O2 Saturation (96.0-97.0) % ABG Base Excess (-2-2.0) Faisal Test VBG pH (7.30-7.40) A-a Gradient mmHg O2 Delivery Device Oxygen Flow Rate FiO2 (21.00-100.00) % Sodium (136-145) mEq/L Potassium (3.5-5.1) mEq/L Chloride (98-107) mEq/L Carbon Dioxide (21-32) mEq/L Anion Gap (5-15) BUN (7-18) mg/dL Creatinine (0.7-1.3) mg/dL Est Cr Clr Drug Dosing mL/min Estimated GFR (MDRD) (>60) mL/min BUN/Creatinine Ratio (14-18) Glucose (74-106) mg/dL POC Glucose 210 H 215 H (70-105) mg/dL Lactic Acid 1.4 (0.4-2.0) mmol/L Calcium (8.5-10.1) mg/dL Phosphorus (2.6-4.7) mg/dL Magnesium (1.8-2.4) mg/dl Total Bilirubin (0.2-1.0) mg/dL AST (15-37) U/L ALT (16-63) U/L Alkaline Phosphatase (46-116) U/L Total Protein (6.4-8.2) g/dl Albumin (3.4-5.0) g/dl Globulin gm/dL Albumin/Globulin Ratio (1-2) Amylase (25-115) U/L Lipase (73-393) U/L Urine Color (Yellow) Urine Appearance (Clear) Urine pH (5.0-8.0) Ur Specific [place] (1.005-1.030) Urine Protein (Negative) Urine Glucose (UA) (Negative) Urine Ketones (Negative) Urine Occult Blood (Negative) Urine Nitrite (Negative) Urine Bilirubin (Negative) Urine Urobilinogen (0.2-1.0) Ur Leukocyte Esterase (Negative) U Hyaline Cast (Auto) (0-5) /lpf Urine RBC (0-5) /hpf Urine WBC (0-5) /hpf Ur Squamous Epith Cells (0-5) /hpf Urine Bacteria (FEW) /hpf Urine Mucus (FEW) /hpf Ketones (0.0-0.3) mM 02/26/20 02/26/20 02/26/20 Range/Units 05:03 05:05 05:05 WBC 11.06 H (4.23-9.07) K/mm3 RBC 5.17 (4.63-6.08) M/mm3 Hgb 16.2 D (13.7-17.5) gm/dl Hct 47.8 (40.1-51.0) % MCV 92.5 H (79.0-92.2) fl MCH 31.3 (25.7-32.2) pg MCHC 33.9 (32.2-35.5) g/dl RDW Std Deviation 41.1 (35.1-43.9) fL Plt Count 153 L (163-337) K/mm3 MPV 10.9 (9.4-12.3) fl Neut % (Auto) 75.0 H (34.0-67.9) % Lymph % (Auto) 11.9 L (21.8-53.1) % [place] % (Auto) 12.2 (5.3-12.2) % Eos % (Auto) 0 L (0.8-7.0) Baso % (Auto) 0.3 (0.1-1.2) % Neut # (Auto) 8.29 H (1.78-5.38) K/mm3 Lymph # (Auto) 1.32 (1.32-3.57) K/mm3 [place] # (Auto) 1.35 H (0.30-0.82) K/mm3 Eos # (Auto) 0.00 L (0.04-0.54) K/mm3 Baso # (Auto) 0.03 (0.01-0.08) K/mm3 Manual Slide Review Puncture Site ABG pH (7.35-7.45) ABG pCO2 (35.0-45.0) mmHg ABG pO2 (80.0-100.0) mmHg ABG HCO3 (22.0-26.0) meq/L ABG O2 Saturation (96.0-97.0) % ABG Base Excess (-2-2.0) Faisal Test VBG pH (7.30-7.40) A-a Gradient mmHg O2 Delivery Device Oxygen Flow Rate FiO2 (21.00-100.00) % Sodium 137 (136-145) mEq/L Potassium 4.5 (3.5-5.1) mEq/L Chloride 99 (98-107) mEq/L Carbon Dioxide 11 L (21-32) mEq/L Anion Gap 31.5 H (5-15) BUN 16 (7-18) mg/dL Creatinine 1.3 (0.7-1.3) mg/dL Est Cr Clr Drug Dosing 87.69 mL/min Estimated GFR (MDRD) > 60 (>60) mL/min BUN/Creatinine Ratio 12.3 L (14-18) Glucose 214 H (74-106) mg/dL POC Glucose 188 H (70-105) mg/dL Lactic Acid (0.4-2.0) mmol/L Calcium 8.1 L (8.5-10.1) mg/dL Phosphorus 1.2 L (2.6-4.7) mg/dL Magnesium 1.9 (1.8-2.4) mg/dl Total Bilirubin 1.8 H (0.2-1.0) mg/dL AST 110 H (15-37) U/L ALT 151 H (16-63) U/L Alkaline Phosphatase 163 H (46-116) U/L Total Protein 7.8 (6.4-8.2) g/dl Albumin 3.9 (3.4-5.0) g/dl Globulin 3.9 gm/dL Albumin/Globulin Ratio 1.0 (1-2) Amylase (25-115) U/L Lipase (73-393) U/L Urine Color (Yellow) Urine Appearance (Clear) Urine pH (5.0-8.0) Ur Specific [place] (1.005-1.030) Urine Protein (Negative) Urine Glucose (UA) (Negative) Urine Ketones (Negative) Urine Occult Blood (Negative) Urine Nitrite (Negative) Urine Bilirubin (Negative) Urine Urobilinogen (0.2-1.0) Ur Leukocyte Esterase (Negative) U Hyaline Cast (Auto) (0-5) /lpf Urine RBC (0-5) /hpf Urine WBC (0-5) /hpf Ur Squamous Epith Cells (0-5) /hpf Urine Bacteria (FEW) /hpf Urine Mucus (FEW) /hpf Ketones (0.0-0.3) mM 02/26/20 02/26/20 02/26/20 Range/Units 05:08 06:00 06:51 WBC (4.23-9.07) K/mm3 RBC (4.63-6.08) M/mm3 Hgb (13.7-17.5) gm/dl Hct (40.1-51.0) % MCV (79.0-92.2) fl MCH (25.7-32.2) pg MCHC (32.2-35.5) g/dl RDW Std Deviation (35.1-43.9) fL Plt Count (163-337) K/mm3 MPV (9.4-12.3) fl Neut % (Auto) (34.0-67.9) % Lymph % (Auto) (21.8-53.1) % [place] % (Auto) (5.3-12.2) % Eos % (Auto) (0.8-7.0) Baso % (Auto) (0.1-1.2) % Neut # (Auto) (1.78-5.38) K/mm3 Lymph # (Auto) (1.32-3.57) K/mm3 [place] # (Auto) (0.30-0.82) K/mm3 Eos # (Auto) (0.04-0.54) K/mm3 Baso # (Auto) (0.01-0.08) K/mm3 Manual Slide Review Puncture Site ABG pH (7.35-7.45) ABG pCO2 (35.0-45.0) mmHg ABG pO2 (80.0-100.0) mmHg ABG HCO3 (22.0-26.0) meq/L ABG O2 Saturation (96.0-97.0) % ABG Base Excess (-2-2.0) Faisal Test VBG pH 7.20 L (7.30-7.40) A-a Gradient mmHg O2 Delivery Device Oxygen Flow Rate FiO2 (21.00-100.00) % Sodium (136-145) mEq/L Potassium (3.5-5.1) mEq/L Chloride (98-107) mEq/L Carbon Dioxide (21-32) mEq/L Anion Gap (5-15) BUN (7-18) mg/dL Creatinine (0.7-1.3) mg/dL Est Cr Clr Drug Dosing mL/min Estimated GFR (MDRD) (>60) mL/min BUN/Creatinine Ratio (14-18) Glucose (74-106) mg/dL POC Glucose 200 H 198 H (70-105) mg/dL Lactic Acid (0.4-2.0) mmol/L Calcium (8.5-10.1) mg/dL Phosphorus (2.6-4.7) mg/dL Magnesium (1.8-2.4) mg/dl Total Bilirubin (0.2-1.0) mg/dL AST (15-37) U/L ALT (16-63) U/L Alkaline Phosphatase (46-116) U/L Total Protein (6.4-8.2) g/dl Albumin (3.4-5.0) g/dl Globulin gm/dL Albumin/Globulin Ratio (1-2) Amylase (25-115) U/L Lipase (73-393) U/L Urine Color (Yellow) Urine Appearance (Clear) Urine pH (5.0-8.0) Ur Specific [place] (1.005-1.030) Urine Protein (Negative) Urine Glucose (UA) (Negative) Urine Ketones (Negative) Urine Occult Blood (Negative) Urine Nitrite (Negative) Urine Bilirubin (Negative) Urine Urobilinogen (0.2-1.0) Ur Leukocyte Esterase (Negative) U Hyaline Cast (Auto) (0-5) /lpf Urine RBC (0-5) /hpf Urine WBC (0-5) /hpf Ur Squamous Epith Cells (0-5) /hpf Urine Bacteria (FEW) /hpf Urine Mucus (FEW) /hpf Ketones (0.0-0.3) mM 02/26/20 02/26/20 02/26/20 Range/Units 08:00 08:12 08:14 WBC (4.23-9.07) K/mm3 RBC (4.63-6.08) M/mm3 Hgb (13.7-17.5) gm/dl Hct (40.1-51.0) % MCV (79.0-92.2) fl MCH (25.7-32.2) pg MCHC (32.2-35.5) g/dl RDW Std Deviation (35.1-43.9) fL Plt Count (163-337) K/mm3 MPV (9.4-12.3) fl Neut % (Auto) (34.0-67.9) % Lymph % (Auto) (21.8-53.1) % [place] % (Auto) (5.3-12.2) % Eos % (Auto) (0.8-7.0) Baso % (Auto) (0.1-1.2) % Neut # (Auto) (1.78-5.38) K/mm3 Lymph # (Auto) (1.32-3.57) K/mm3 [place] # (Auto) (0.30-0.82) K/mm3 Eos # (Auto) (0.04-0.54) K/mm3 Baso # (Auto) (0.01-0.08) K/mm3 Manual Slide Review Puncture Site ABG pH (7.35-7.45) ABG pCO2 (35.0-45.0) mmHg ABG pO2 (80.0-100.0) mmHg ABG HCO3 (22.0-26.0) meq/L ABG O2 Saturation (96.0-97.0) % ABG Base Excess (-2-2.0) Faisal Test VBG pH 7.28 L (7.30-7.40) A-a Gradient mmHg O2 Delivery Device Oxygen Flow Rate FiO2 (21.00-100.00) % Sodium 132 L (136-145) mEq/L Potassium 4.3 (3.5-5.1) mEq/L Chloride 98 (98-107) mEq/L Carbon Dioxide 11 L (21-32) mEq/L Anion Gap 27.3 H (5-15) BUN 13 (7-18) mg/dL Creatinine 1.2 (0.7-1.3) mg/dL Est Cr Clr Drug Dosing 95.00 mL/min Estimated GFR (MDRD) > 60 (>60) mL/min BUN/Creatinine Ratio 10.8 L (14-18) Glucose 200 H (74-106) mg/dL POC Glucose 177 H (70-105) mg/dL Lactic Acid (0.4-2.0) mmol/L Calcium 8.1 L (8.5-10.1) mg/dL Phosphorus (2.6-4.7) mg/dL Magnesium 1.6 L (1.8-2.4) mg/dl Total Bilirubin (0.2-1.0) mg/dL AST (15-37) U/L ALT (16-63) U/L Alkaline Phosphatase (46-116) U/L Total Protein (6.4-8.2) g/dl Albumin (3.4-5.0) g/dl Globulin gm/dL Albumin/Globulin Ratio (1-2) Amylase (25-115) U/L Lipase (73-393) U/L Urine Color (Yellow) Urine Appearance (Clear) Urine pH (5.0-8.0) Ur Specific [place] (1.005-1.030) Urine Protein (Negative) Urine Glucose (UA) (Negative) Urine Ketones (Negative) Urine Occult Blood (Negative) Urine Nitrite (Negative) Urine Bilirubin (Negative) Urine Urobilinogen (0.2-1.0) Ur Leukocyte Esterase (Negative) U Hyaline Cast (Auto) (0-5) /lpf Urine RBC (0-5) /hpf Urine WBC (0-5) /hpf Ur Squamous Epith Cells (0-5) /hpf Urine Bacteria (FEW) /hpf Urine Mucus (FEW) /hpf Ketones (0.0-0.3) mM 02/26/20 02/26/20 02/26/20 Range/Units 09:08 10:19 11:13 WBC (4.23-9.07) K/mm3 RBC (4.63-6.08) M/mm3 Hgb (13.7-17.5) gm/dl Hct (40.1-51.0) % MCV (79.0-92.2) fl MCH (25.7-32.2) pg MCHC (32.2-35.5) g/dl RDW Std Deviation (35.1-43.9) fL Plt Count (163-337) K/mm3 MPV (9.4-12.3) fl Neut % (Auto) (34.0-67.9) % Lymph % (Auto) (21.8-53.1) % [place] % (Auto) (5.3-12.2) % Eos % (Auto) (0.8-7.0) Baso % (Auto) (0.1-1.2) % Neut # (Auto) (1.78-5.38) K/mm3 Lymph # (Auto) (1.32-3.57) K/mm3 [place] # (Auto) (0.30-0.82) K/mm3 Eos # (Auto) (0.04-0.54) K/mm3 Baso # (Auto) (0.01-0.08) K/mm3 Manual Slide Review Puncture Site ABG pH (7.35-7.45) ABG pCO2 (35.0-45.0) mmHg ABG pO2 (80.0-100.0) mmHg ABG HCO3 (22.0-26.0) meq/L ABG O2 Saturation (96.0-97.0) % ABG Base Excess (-2-2.0) Faisal Test VBG pH (7.30-7.40) A-a Gradient mmHg O2 Delivery Device Oxygen Flow Rate FiO2 (21.00-100.00) % Sodium (136-145) mEq/L Potassium (3.5-5.1) mEq/L Chloride (98-107) mEq/L Carbon Dioxide (21-32) mEq/L Anion Gap (5-15) BUN (7-18) mg/dL Creatinine (0.7-1.3) mg/dL Est Cr Clr Drug Dosing mL/min Estimated GFR (MDRD) (>60) mL/min BUN/Creatinine Ratio (14-18) Glucose (74-106) mg/dL POC Glucose 205 H 246 H 247 H (70-105) mg/dL Lactic Acid (0.4-2.0) mmol/L Calcium (8.5-10.1) mg/dL Phosphorus (2.6-4.7) mg/dL Magnesium (1.8-2.4) mg/dl Total Bilirubin (0.2-1.0) mg/dL AST (15-37) U/L ALT (16-63) U/L Alkaline Phosphatase (46-116) U/L Total Protein (6.4-8.2) g/dl Albumin (3.4-5.0) g/dl Globulin gm/dL Albumin/Globulin Ratio (1-2) Amylase (25-115) U/L Lipase (73-393) U/L Urine Color (Yellow) Urine Appearance (Clear) Urine pH (5.0-8.0) Ur Specific [place] (1.005-1.030) Urine Protein (Negative) Urine Glucose (UA) (Negative) Urine Ketones (Negative) Urine Occult Blood (Negative) Urine Nitrite (Negative) Urine Bilirubin (Negative) Urine Urobilinogen (0.2-1.0) Ur Leukocyte Esterase (Negative) U Hyaline Cast (Auto) (0-5) /lpf Urine RBC (0-5) /hpf Urine WBC (0-5) /hpf Ur Squamous Epith Cells (0-5) /hpf Urine Bacteria (FEW) /hpf Urine Mucus (FEW) /hpf Ketones (0.0-0.3) mM 02/26/20 02/26/20 Range/Units 12:00 12:11 WBC (4.23-9.07) K/mm3 RBC (4.63-6.08) M/mm3 Hgb (13.7-17.5) gm/dl Hct (40.1-51.0) % MCV (79.0-92.2) fl MCH (25.7-32.2) pg MCHC (32.2-35.5) g/dl RDW Std Deviation (35.1-43.9) fL Plt Count (163-337) K/mm3 MPV (9.4-12.3) fl Neut % (Auto) (34.0-67.9) % Lymph % (Auto) (21.8-53.1) % [place] % (Auto) (5.3-12.2) % Eos % (Auto) (0.8-7.0) Baso % (Auto) (0.1-1.2) % Neut # (Auto) (1.78-5.38) K/mm3 Lymph # (Auto) (1.32-3.57) K/mm3 [place] # (Auto) (0.30-0.82) K/mm3 Eos # (Auto) (0.04-0.54) K/mm3 Baso # (Auto) (0.01-0.08) K/mm3 Manual Slide Review Puncture Site ABG pH (7.35-7.45) ABG pCO2 (35.0-45.0) mmHg ABG pO2 (80.0-100.0) mmHg ABG HCO3 (22.0-26.0) meq/L ABG O2 Saturation (96.0-97.0) % ABG Base Excess (-2-2.0) Faisal Test VBG pH 7.31 (7.30-7.40) A-a Gradient mmHg O2 Delivery Device Oxygen Flow Rate FiO2 (21.00-100.00) % Sodium (136-145) mEq/L Potassium (3.5-5.1) mEq/L Chloride (98-107) mEq/L Carbon Dioxide (21-32) mEq/L Anion Gap (5-15) BUN (7-18) mg/dL Creatinine (0.7-1.3) mg/dL Est Cr Clr Drug Dosing mL/min Estimated GFR (MDRD) (>60) mL/min BUN/Creatinine Ratio (14-18) Glucose (74-106) mg/dL POC Glucose 214 H (70-105) mg/dL Lactic Acid (0.4-2.0) mmol/L Calcium (8.5-10.1) mg/dL Phosphorus (2.6-4.7) mg/dL Magnesium (1.8-2.4) mg/dl Total Bilirubin (0.2-1.0) mg/dL AST (15-37) U/L ALT (16-63) U/L Alkaline Phosphatase (46-116) U/L Total Protein (6.4-8.2) g/dl Albumin (3.4-5.0) g/dl Globulin gm/dL Albumin/Globulin Ratio (1-2) Amylase (25-115) U/L Lipase (73-393) U/L Urine Color (Yellow) Urine Appearance (Clear) Urine pH (5.0-8.0) Ur Specific [place] (1.005-1.030) Urine Protein (Negative) Urine Glucose (UA) (Negative) Urine Ketones (Negative) Urine Occult Blood (Negative) Urine Nitrite (Negative) Urine Bilirubin (Negative) Urine Urobilinogen (0.2-1.0) Ur Leukocyte Esterase (Negative) U Hyaline Cast (Auto) (0-5) /lpf Urine RBC (0-5) /hpf Urine WBC (0-5) /hpf Ur Squamous Epith Cells (0-5) /hpf Urine Bacteria (FEW) /hpf Urine Mucus (FEW) /hpf Ketones (0.0-0.3) mM Med Orders - Current: Current Medications Cyclobenzaprine HCl (Flexeril) 10 mg PO TID PRN PRN Reason: Muscle Spasm Last Admin: 02/26/20 10:26 Dose: 10 mg Enoxaparin Sodium (Lovenox) 40 mg SUBCUT DAILY ALBERTO Last Admin: 02/26/20 08:17 Dose: 40 mg Insulin Human Regular 100 unit (/ Sodium Chloride) 100 mls @ 8.16 mls/hr IV TITRATE ALBERTO; Protocol Last Titration: 02/26/20 10:39 Dose: 0.01 units/kg/hr, 1.5 mls/hr Potassium Chloride/Dextrose/Sod Cl (D5 1/2 Ns W/ 20 Meq/L Kcl) 1,000 mls @ 250 mls/hr IV ASDIRECTED ALBERTO Last Infusion: 02/26/20 09:10 Dose: 200 mls/hr Magnesium Sulfate 4 gm/ Premix 100 mls @ 25 mls/hr IV ONETIME ONE Stop: 02/26/20 14:29 Last Admin: 02/26/20 10:22 Dose: 25 mls/hr Sodium Phosphate 30 mmole/ (Sodium Chloride) 260 mls @ 130 mls/hr IV Q2H ALBERTO Stop: 02/26/20 17:59 Labetalol HCl (Normodyne) 100 mg PO TID ALBERTO Last Admin: 02/26/20 08:20 Dose: 100 mg Lorazepam (Ativan) 1 mg IVPUSH Q4H PRN PRN Reason: Anxiety Last Admin: 02/26/20 04:52 Dose: 1 mg Metoprolol Tartrate (Lopressor) 5 mg IVPUSH Q2H PRN PRN Reason: Hypertension Discontinued Medications Sodium Chloride (Normal Saline) 1,000 mls @ 999 mls/hr IV NOW STA Stop: 02/25/20 21:31 Last Admin: 02/25/20 20:37 Dose: 999 mls/hr Sodium Chloride (Normal Saline) 1,000 mls @ 9,999 mls/min IV ONETIME ONE Stop: 02/25/20 20:35 Last Admin: 02/25/20 21:20 Dose: 9,999 mls/min Insulin Human Regular 100 unit (/ Sodium Chloride) 100 mls @ 8.16 mls/hr IV TITRATE ALBERTO; Protocol Last Titration: 02/25/20 22:58 Dose: 0.04 units/kg/hr, 4 mls/hr Potassium Chloride/Dextrose/Sod Cl (D5 1/2 Ns W/ 20 Meq/L Kcl) 1,000 mls @ 200 mls/hr IV ASDIRECTED ALBERTO Last Infusion: 02/25/20 23:28 Dose: 250 mls/hr Insulin Human Regular (Humulin R) 8 unit IV ONETIME ONE Stop: 02/25/20 20:39 Last Admin: 02/25/20 20:42 Dose: 8 unit Metoprolol Tartrate (Lopressor) 5 mg IVPUSH ONETIME ONE Stop: 02/25/20 23:20 Last Admin: 02/25/20 23:29 Dose: 5 mg Metoprolol Tartrate (Lopressor) Confirm Administered Dose 5 mg .ROUTE .STK-MED ONE Stop: 02/25/20 23:22 Last Admin: 02/25/20 23:34 Dose: Not Given Ondansetron HCl (Zofran) 4 mg IVPUSH ONETIME ONE Stop: 02/25/20 20:32 Last Admin: 02/25/20 20:36 Dose: 4 mg Ondansetron HCl (Zofran) 4 mg IVPUSH ONETIME ONE Stop: 02/25/20 20:37 Last Admin: 02/25/20 21:20 Dose: 4 mg - Exam Quality Assessment: No: Supplemental Oxygen General: Alert, Oriented HEENT: Pupils Equal, Mucous Membr. Moist/[place] Neck: Supple Lungs: Clear to Auscultation, Normal Respiratory Effort Cardiovascular: Regular Rate, Regular Rhythm GI/Abdominal Exam: Normal Bowel Sounds, No Distention, Tender (Diffuse tenderness worse in the epigastrium). No: Rigid, Rebound Extremities: Normal Inspection, Normal Range of Motion, Non-Tender, No Pedal Edema, Normal Capillary Refill Skin: Warm, Dry, Intact Psy/Mental Status: Alert, Normal Affect, Normal Mood Sepsis Event Note - Evaluation Sepsis Screening Result: No Definite Risk - Focused Exam Vital Signs: Vital Signs Temp Pulse Pulse Resp BP BP Pulse Ox 02/26/20 12:00 98.7 F 87 18 147/101 H 100 02/26/20 08:20 95 143/96 H 02/26/20 08:00 98.9 F 95 22 H 143/96 H 100 02/26/20 04:00 98.5 F 17 142/91 H 100 Date Exam was Performed: 02/26/20 Time Exam was Performed: 12:40 - Problem List Review Problem List Initiated/Reviewed/Updated: Yes - My Orders Last 24 Hours: My Active Orders 02/25/20 22:53 Oxygen Therapy [RC] PRN Up With Assistance [RC] ASDIRECTED VTE/DVT Education [RC] Vital Signs [RC] Q4HR Resuscitation Status Routine 02/25/20 22:57 Blood Glucose Check, Bedside [RC] Q1H 02/25/20 23:00 Enoxaparin [Lovenox] 40 mg SUBCUT DAILY 02/25/20 23:20 D5 1/2 NS w/ 20 mEq/L KCl 1,000 ml IV ASDIRECTED 02/25/20 23:30 Insulin Regular, Human [HumuLIN R] 100 unit Sodium Chloride 0.9% [Normal Saline] 99 ml IV TITRATE 02/25/20 23:47 Metoprolol Tartrate [Lopressor] 5 mg IVPUSH Q2H PRN 02/25/20 23:49 LORazepam [Ativan] 1 mg IVPUSH Q4H PRN 02/25/20 Dinner Nothing per Oral Now Diet [DIET] 02/26/20 09:00 Labetalol [Normodyne] 100 mg PO TID 02/26/20 09:55 Cyclobenzaprine [Flexeril] 10 mg PO TID PRN 02/26/20 10:30 Magnesium Sulfate/Water [Magnesium Sulfate in Water Premix] 4 gm Premix Bag 1 bag IV ONETIME 02/26/20 12:12 BASIC METABOLIC PANEL,BMP [CHEM] Q4H 02/26/20 14:00 Sodium Phosphate 30 mmole Sodium Chloride 0.9% [Normal Saline] 250 ml IV Q2H 02/26/20 16:00 BASIC METABOLIC PANEL,BMP [CHEM] Q4H MG [MAGNESIUM] [CHEM] Q4H 02/26/20 20:00 BASIC METABOLIC PANEL,BMP [CHEM] Q4H MG [MAGNESIUM] [CHEM] Q4H 02/27/20 00:00 BASIC METABOLIC PANEL,BMP [CHEM] Q4H MG [MAGNESIUM] [CHEM] Q4H 02/27/20 04:00 BASIC METABOLIC PANEL,BMP [CHEM] Q4H MG [MAGNESIUM] [CHEM] Q4H 02/27/20 05:11 CBC WITH AUTO DIFF [HEME] AM 02/27/20 08:00 BASIC METABOLIC PANEL,BMP [CHEM] Q4H MG [MAGNESIUM] [CHEM] Q4H 02/27/20 12:00 BASIC METABOLIC PANEL,BMP [CHEM] Q4H MG [MAGNESIUM] [CHEM] Q4H 02/27/20 16:00 BASIC METABOLIC PANEL,BMP [CHEM] Q4H MG [MAGNESIUM] [CHEM] Q4H - Plan Plan:: DKA * Patient ran out of [employer] 3 weeks ago, drank 3 mixed drinks 3 days ago, started developing nausea and vomiting 2 days ago. * Initial glucose 485, bicarb 6, anion gap 45.1, ketones 20.62 * Initial arterial blood gas: pH 7.04, PCO2 8.7, PO2 137.0 on room air, HCO3 2.2. * Patient given 2 L of normal saline in the emergency department and started on insulin drip. Plan * Continue DKA protocol * D5 half-normal saline with 20 mEq/mL KCl titrate to keep blood sugars approximately 200 * IV insulin drip to keep blood sugars approximately 200 * Bedside fingerstick blood sugar every hour * Check electrolytes, renal function, and magnesium every 3-4 hours. * N.p.o. until out of acidosis and anion gap has closed. Acute renal insufficiency -improved * Secondary to hypovolemia. * Initial renal function: Estimated GFR 44, creatinine 1.8, BUN 19 * Estimated GFR greater than 60, creatinine 1.2, BUN 13 Plan * Follow electrolytes and renal function every 4 hours. * Continue IV rehydration and correction of metabolic acidosis * Avoid renal toxic medication including NSAIDs Dehydration/hypovolemia/polycythemia -improved * Renal function, elevated hemoglobin, and elevated lactic acid all back to normal levels Plan * Continue IV hydration Hypertension/tachycardia * Severely elevated blood pressure when admitted to the ICU * Blood pressure much better controlled with IV metoprolol * Heart rate in 90-100 * Has not been able to keep down his labetalol Plan * Metoprolol tartrate 5 mg IV every 2 hours as needed systolic blood pressure greater than 180 or diastolic blood pressure greater than 110. Also for heart rate greater than 125 * Restart labetalol as soon as he is able to take oral medications Back pain * Patient has chronic low back pain that seems to be worsened by the hospital beds Plan * Tylenol and Flexeril as needed * Avoid NSAIDs VTE prophylaxis with Lovenox CODE STATUS full code Disposition: Admit to ICU and monitor closely.
[2020-02-26] MEDS: Sodium Phosphate 30 MMOLE in Sodium Chloride 0.9% 250 ML IV SCH ×2 (14:32→18:11)
[2020-02-26] MEDS: Potassium Chloride 10 MEQ in Premix Bag 1 BAG IV SCH ×2 (22:07→23:06)
[2020-02-27] MEDS: D5 1/2 NS w/ 20 mEq/L KCl 1,000 ML IV SCH ×4 (02:25→22:58)
[2020-02-27] MEDS: Enoxaparin 40 MG/0.4 ML Syringe SUBCUT SCH (08:05)
[2020-02-27] MEDS: Labetalol 100 MG Tab PO SCH ×3 (08:05→21:31)
[2020-02-27] MEDS: Potassium Chloride 10 MEQ in Premix Bag 1 BAG IV SCH ×9 (08:08→23:29)
[2020-02-27] MEDS: LORazepam 2 MG/ML SDV IVPUSH PRN (08:09)
[2020-02-27] MEDS ORDERED: Magnesium Sulfate/Water 4 GM in Premix Bag 1 BAG IV ONE (08:51)
--- NOTE | 2020-02-27 09:43 | PCM.PN ---
- General Info Date of Service: 02/27/20 Admission Dx/Problem (Free Text): Admission Diagnosis/Problem Admission Diagnosis/Problem Diabetic ketoacidosis Subjective Update: Patient continues to improve. He still has some nausea and mild abdominal pain. He is taking ice chips. No bowel movement. Functional Status: Reports: Pain Controlled - Review of Systems General: Reports: No Symptoms HEENT: Reports: No Symptoms Pulmonary: Reports: No Symptoms Cardiovascular: Reports: No Symptoms Gastrointestinal: Reports: Nausea Musculoskeletal: Reports: Back Pain - Patient Data Vitals - Most Recent: Last Vital Signs Temp 97.6 F 02/27/20 08:00 Pulse 92 02/27/20 08:05 Resp 18 02/27/20 08:00 BP 150/101 H 02/27/20 08:05 Pulse Ox 99 02/27/20 08:00 Weight - Most Recent: 172 lb I&O - Last 24 Hours: Intake & Output 02/26/20 02/27/20 02/27/20 22:59 06:59 14:59 Intake Total 3701 1878 Output Total 1000 1000 Balance 2701 878 Lab Results Last 24 Hours: Laboratory Results - last 24 hr 02/26/20 02/26/20 02/26/20 Range/Units 10:19 11:13 12:00 WBC (4.23-9.07) K/mm3 RBC (4.63-6.08) M/mm3 Hgb (13.7-17.5) gm/dl Hct (40.1-51.0) % MCV (79.0-92.2) fl MCH (25.7-32.2) pg MCHC (32.2-35.5) g/dl RDW Std Deviation (35.1-43.9) fL Plt Count (163-337) K/mm3 MPV (9.4-12.3) fl Neut % (Auto) (34.0-67.9) % Lymph % (Auto) (21.8-53.1) % Loving % (Auto) (5.3-12.2) % Eos % (Auto) (0.8-7.0) Baso % (Auto) (0.1-1.2) % Neut # (Auto) (1.78-5.38) K/mm3 Lymph # (Auto) (1.32-3.57) K/mm3 Loving # (Auto) (0.30-0.82) K/mm3 Eos # (Auto) (0.04-0.54) K/mm3 Baso # (Auto) (0.01-0.08) K/mm3 VBG pH 7.31 (7.30-7.40) Sodium (136-145) mEq/L Potassium (3.5-5.1) mEq/L Chloride (98-107) mEq/L Carbon Dioxide (21-32) mEq/L Anion Gap (5-15) BUN (7-18) mg/dL Creatinine (0.7-1.3) mg/dL Est Cr Clr Drug Dosing mL/min Estimated GFR (MDRD) (>60) mL/min BUN/Creatinine Ratio (14-18) Glucose (74-106) mg/dL POC Glucose 246 H 247 H (70-105) mg/dL Calcium (8.5-10.1) mg/dL Magnesium (1.8-2.4) mg/dl Ketones (0.0-0.3) mM 02/26/20 02/26/20 02/26/20 Range/Units 12:11 12:12 13:09 WBC (4.23-9.07) K/mm3 RBC (4.63-6.08) M/mm3 Hgb (13.7-17.5) gm/dl Hct (40.1-51.0) % MCV (79.0-92.2) fl MCH (25.7-32.2) pg MCHC (32.2-35.5) g/dl RDW Std Deviation (35.1-43.9) fL Plt Count (163-337) K/mm3 MPV (9.4-12.3) fl Neut % (Auto) (34.0-67.9) % Lymph % (Auto) (21.8-53.1) % Loving % (Auto) (5.3-12.2) % Eos % (Auto) (0.8-7.0) Baso % (Auto) (0.1-1.2) % Neut # (Auto) (1.78-5.38) K/mm3 Lymph # (Auto) (1.32-3.57) K/mm3 Loving # (Auto) (0.30-0.82) K/mm3 Eos # (Auto) (0.04-0.54) K/mm3 Baso # (Auto) (0.01-0.08) K/mm3 VBG pH (7.30-7.40) Sodium 133 L (136-145) mEq/L Potassium 4.2 (3.5-5.1) mEq/L Chloride 98 (98-107) mEq/L Carbon Dioxide 13 L (21-32) mEq/L Anion Gap 26.2 H (5-15) BUN 12 (7-18) mg/dL Creatinine 1.1 (0.7-1.3) mg/dL Est Cr Clr Drug Dosing 103.63 mL/min Estimated GFR (MDRD) > 60 (>60) mL/min BUN/Creatinine Ratio 10.9 L (14-18) Glucose 260 H (74-106) mg/dL POC Glucose 214 H 230 H (70-105) mg/dL Calcium 8.2 L (8.5-10.1) mg/dL Magnesium (1.8-2.4) mg/dl Ketones (0.0-0.3) mM 02/26/20 02/26/20 02/26/20 Range/Units 14:13 15:07 15:55 WBC (4.23-9.07) K/mm3 RBC (4.63-6.08) M/mm3 Hgb (13.7-17.5) gm/dl Hct (40.1-51.0) % MCV (79.0-92.2) fl MCH (25.7-32.2) pg MCHC (32.2-35.5) g/dl RDW Std Deviation (35.1-43.9) fL Plt Count (163-337) K/mm3 MPV (9.4-12.3) fl Neut % (Auto) (34.0-67.9) % Lymph % (Auto) (21.8-53.1) % Loving % (Auto) (5.3-12.2) % Eos % (Auto) (0.8-7.0) Baso % (Auto) (0.1-1.2) % Neut # (Auto) (1.78-5.38) K/mm3 Lymph # (Auto) (1.32-3.57) K/mm3 Loving # (Auto) (0.30-0.82) K/mm3 Eos # (Auto) (0.04-0.54) K/mm3 Baso # (Auto) (0.01-0.08) K/mm3 VBG pH (7.30-7.40) Sodium (136-145) mEq/L Potassium (3.5-5.1) mEq/L Chloride (98-107) mEq/L Carbon Dioxide (21-32) mEq/L Anion Gap (5-15) BUN (7-18) mg/dL Creatinine (0.7-1.3) mg/dL Est Cr Clr Drug Dosing mL/min Estimated GFR (MDRD) (>60) mL/min BUN/Creatinine Ratio (14-18) Glucose (74-106) mg/dL POC Glucose 246 H 261 H 263 H (70-105) mg/dL Calcium (8.5-10.1) mg/dL Magnesium (1.8-2.4) mg/dl Ketones (0.0-0.3) mM 02/26/20 02/26/20 02/26/20 Range/Units 16:15 17:08 18:00 WBC (4.23-9.07) K/mm3 RBC (4.63-6.08) M/mm3 Hgb (13.7-17.5) gm/dl Hct (40.1-51.0) % MCV (79.0-92.2) fl MCH (25.7-32.2) pg MCHC (32.2-35.5) g/dl RDW Std Deviation (35.1-43.9) fL Plt Count (163-337) K/mm3 MPV (9.4-12.3) fl Neut % (Auto) (34.0-67.9) % Lymph % (Auto) (21.8-53.1) % Loving % (Auto) (5.3-12.2) % Eos % (Auto) (0.8-7.0) Baso % (Auto) (0.1-1.2) % Neut # (Auto) (1.78-5.38) K/mm3 Lymph # (Auto) (1.32-3.57) K/mm3 Loving # (Auto) (0.30-0.82) K/mm3 Eos # (Auto) (0.04-0.54) K/mm3 Baso # (Auto) (0.01-0.08) K/mm3 VBG pH (7.30-7.40) Sodium 135 L (136-145) mEq/L Potassium 3.6 (3.5-5.1) mEq/L Chloride 99 (98-107) mEq/L Carbon Dioxide 15 L (21-32) mEq/L Anion Gap 24.6 H (5-15) BUN 9 (7-18) mg/dL Creatinine 1.1 (0.7-1.3) mg/dL Est Cr Clr Drug Dosing 103.63 mL/min Estimated GFR (MDRD) > 60 (>60) mL/min BUN/Creatinine Ratio 8.2 L (14-18) Glucose 258 H (74-106) mg/dL POC Glucose 252 H 210 H (70-105) mg/dL Calcium 7.9 L (8.5-10.1) mg/dL Magnesium 2.3 (1.8-2.4) mg/dl Ketones (0.0-0.3) mM 02/26/20 02/26/20 02/26/20 Range/Units 19:22 20:09 20:15 WBC (4.23-9.07) K/mm3 RBC (4.63-6.08) M/mm3 Hgb (13.7-17.5) gm/dl Hct (40.1-51.0) % MCV (79.0-92.2) fl MCH (25.7-32.2) pg MCHC (32.2-35.5) g/dl RDW Std Deviation (35.1-43.9) fL Plt Count (163-337) K/mm3 MPV (9.4-12.3) fl Neut % (Auto) (34.0-67.9) % Lymph % (Auto) (21.8-53.1) % Loving % (Auto) (5.3-12.2) % Eos % (Auto) (0.8-7.0) Baso % (Auto) (0.1-1.2) % Neut # (Auto) (1.78-5.38) K/mm3 Lymph # (Auto) (1.32-3.57) K/mm3 Loving # (Auto) (0.30-0.82) K/mm3 Eos # (Auto) (0.04-0.54) K/mm3 Baso # (Auto) (0.01-0.08) K/mm3 VBG pH (7.30-7.40) Sodium 136 (136-145) mEq/L Potassium 3.5 (3.5-5.1) mEq/L Chloride 100 (98-107) mEq/L Carbon Dioxide 16 L (21-32) mEq/L Anion Gap 23.5 H (5-15) BUN 8 (7-18) mg/dL Creatinine 1.0 (0.7-1.3) mg/dL Est Cr Clr Drug Dosing 114.00 mL/min Estimated GFR (MDRD) > 60 (>60) mL/min BUN/Creatinine Ratio 8.0 L (14-18) Glucose 227 H (74-106) mg/dL POC Glucose 212 H 219 H (70-105) mg/dL Calcium 7.6 L (8.5-10.1) mg/dL Magnesium 2.0 (1.8-2.4) mg/dl Ketones (0.0-0.3) mM 02/26/20 02/26/20 02/27/20 Range/Units 21:04 22:03 00:05 WBC (4.23-9.07) K/mm3 RBC (4.63-6.08) M/mm3 Hgb (13.7-17.5) gm/dl Hct (40.1-51.0) % MCV (79.0-92.2) fl MCH (25.7-32.2) pg MCHC (32.2-35.5) g/dl RDW Std Deviation (35.1-43.9) fL Plt Count (163-337) K/mm3 MPV (9.4-12.3) fl Neut % (Auto) (34.0-67.9) % Lymph % (Auto) (21.8-53.1) % Loving % (Auto) (5.3-12.2) % Eos % (Auto) (0.8-7.0) Baso % (Auto) (0.1-1.2) % Neut # (Auto) (1.78-5.38) K/mm3 Lymph # (Auto) (1.32-3.57) K/mm3 Loving # (Auto) (0.30-0.82) K/mm3 Eos # (Auto) (0.04-0.54) K/mm3 Baso # (Auto) (0.01-0.08) K/mm3 VBG pH (7.30-7.40) Sodium (136-145) mEq/L Potassium (3.5-5.1) mEq/L Chloride (98-107) mEq/L Carbon Dioxide (21-32) mEq/L Anion Gap (5-15) BUN (7-18) mg/dL Creatinine (0.7-1.3) mg/dL Est Cr Clr Drug Dosing mL/min Estimated GFR (MDRD) (>60) mL/min BUN/Creatinine Ratio (14-18) Glucose (74-106) mg/dL POC Glucose 219 H 192 H 200 H (70-105) mg/dL Calcium (8.5-10.1) mg/dL Magnesium (1.8-2.4) mg/dl Ketones (0.0-0.3) mM 02/27/20 02/27/20 02/27/20 Range/Units 00:20 01:47 04:00 WBC (4.23-9.07) K/mm3 RBC (4.63-6.08) M/mm3 Hgb (13.7-17.5) gm/dl Hct (40.1-51.0) % MCV (79.0-92.2) fl MCH (25.7-32.2) pg MCHC (32.2-35.5) g/dl RDW Std Deviation (35.1-43.9) fL Plt Count (163-337) K/mm3 MPV (9.4-12.3) fl Neut % (Auto) (34.0-67.9) % Lymph % (Auto) (21.8-53.1) % Loving % (Auto) (5.3-12.2) % Eos % (Auto) (0.8-7.0) Baso % (Auto) (0.1-1.2) % Neut # (Auto) (1.78-5.38) K/mm3 Lymph # (Auto) (1.32-3.57) K/mm3 Loving # (Auto) (0.30-0.82) K/mm3 Eos # (Auto) (0.04-0.54) K/mm3 Baso # (Auto) (0.01-0.08) K/mm3 VBG pH (7.30-7.40) Sodium 136 137 (136-145) mEq/L Potassium 3.7 3.3 L (3.5-5.1) mEq/L Chloride 101 101 (98-107) mEq/L Carbon Dioxide 17 L 21 (21-32) mEq/L Anion Gap 21.7 H 18.3 H (5-15) BUN 7 8 (7-18) mg/dL Creatinine 1.0 0.9 (0.7-1.3) mg/dL Est Cr Clr Drug Dosing 114.00 126.66 mL/min Estimated GFR (MDRD) > 60 > 60 (>60) mL/min BUN/Creatinine Ratio 7.0 L 8.9 L (14-18) Glucose 205 H 194 H (74-106) mg/dL POC Glucose 205 H (70-105) mg/dL Calcium 7.6 L 7.9 L (8.5-10.1) mg/dL Magnesium 1.9 2.1 (1.8-2.4) mg/dl Ketones (0.0-0.3) mM 02/27/20 02/27/20 02/27/20 Range/Units 04:00 04:05 04:05 WBC 4.85 (4.23-9.07) K/mm3 RBC 4.76 (4.63-6.08) M/mm3 Hgb 15.4 (13.7-17.5) gm/dl Hct 43.0 (40.1-51.0) % MCV 90.3 (79.0-92.2) fl MCH 32.4 H (25.7-32.2) pg MCHC 35.8 H (32.2-35.5) g/dl RDW Std Deviation 39.4 (35.1-43.9) fL Plt Count 102 L (163-337) K/mm3 MPV 9.9 (9.4-12.3) fl Neut % (Auto) 57.6 (34.0-67.9) % Lymph % (Auto) 24.9 (21.8-53.1) % Loving % (Auto) 13.0 H (5.3-12.2) % Eos % (Auto) 3.5 (0.8-7.0) Baso % (Auto) 1.0 (0.1-1.2) % Neut # (Auto) 2.79 (1.78-5.38) K/mm3 Lymph # (Auto) 1.21 L (1.32-3.57) K/mm3 Loving # (Auto) 0.63 (0.30-0.82) K/mm3 Eos # (Auto) 0.17 (0.04-0.54) K/mm3 Baso # (Auto) 0.05 (0.01-0.08) K/mm3 VBG pH (7.30-7.40) Sodium (136-145) mEq/L Potassium (3.5-5.1) mEq/L Chloride (98-107) mEq/L Carbon Dioxide (21-32) mEq/L Anion Gap (5-15) BUN (7-18) mg/dL Creatinine (0.7-1.3) mg/dL Est Cr Clr Drug Dosing mL/min Estimated GFR (MDRD) (>60) mL/min BUN/Creatinine Ratio (14-18) Glucose (74-106) mg/dL POC Glucose 178 H 178 H (70-105) mg/dL Calcium (8.5-10.1) mg/dL Magnesium (1.8-2.4) mg/dl Ketones (0.0-0.3) mM 02/27/20 02/27/20 02/27/20 Range/Units 06:08 08:02 08:02 WBC (4.23-9.07) K/mm3 RBC (4.63-6.08) M/mm3 Hgb (13.7-17.5) gm/dl Hct (40.1-51.0) % MCV (79.0-92.2) fl MCH (25.7-32.2) pg MCHC (32.2-35.5) g/dl RDW Std Deviation (35.1-43.9) fL Plt Count (163-337) K/mm3 MPV (9.4-12.3) fl Neut % (Auto) (34.0-67.9) % Lymph % (Auto) (21.8-53.1) % Loving % (Auto) (5.3-12.2) % Eos % (Auto) (0.8-7.0) Baso % (Auto) (0.1-1.2) % Neut # (Auto) (1.78-5.38) K/mm3 Lymph # (Auto) (1.32-3.57) K/mm3 Loving # (Auto) (0.30-0.82) K/mm3 Eos # (Auto) (0.04-0.54) K/mm3 Baso # (Auto) (0.01-0.08) K/mm3 VBG pH (7.30-7.40) Sodium 136 (136-145) mEq/L Potassium 3.4 L (3.5-5.1) mEq/L Chloride 100 (98-107) mEq/L Carbon Dioxide 20 L (21-32) mEq/L Anion Gap 19.4 H (5-15) BUN 6 L (7-18) mg/dL Creatinine 0.9 (0.7-1.3) mg/dL Est Cr Clr Drug Dosing 126.66 mL/min Estimated GFR (MDRD) > 60 (>60) mL/min BUN/Creatinine Ratio 6.7 L (14-18) Glucose 196 H (74-106) mg/dL POC Glucose 213 H (70-105) mg/dL Calcium 8.1 L (8.5-10.1) mg/dL Magnesium 1.7 L (1.8-2.4) mg/dl Ketones 3.82 (0.0-0.3) mM Med Orders - Current: Current Medications Cyclobenzaprine HCl (Flexeril) 10 mg PO TID PRN PRN Reason: Muscle Spasm Last Admin: 02/26/20 10:26 Dose: 10 mg Enoxaparin Sodium (Lovenox) 40 mg SUBCUT DAILY ALBERTO Last Admin: 02/27/20 08:05 Dose: 40 mg Insulin Human Regular 100 unit (/ Sodium Chloride) 100 mls @ 8.16 mls/hr IV TITRATE ALBERTO; Protocol Last Titration: 02/26/20 10:39 Dose: 0.01 units/kg/hr, 1.5 mls/hr Potassium Chloride/Dextrose/Sod Cl (D5 1/2 Ns W/ 20 Meq/L Kcl) 1,000 mls @ 150 mls/hr IV ASDIRECTED ALBERTO Last Admin: 02/27/20 09:24 Dose: 150 mls/hr Potassium Chloride 10 meq/ (Premix) 100 mls @ 100 mls/hr IV Q1H ALBERTO Stop: 02/27/20 12:14 Last Admin: 02/27/20 09:15 Dose: 100 mls/hr Magnesium Sulfate 4 gm/ Premix 50 mls @ 12.5 mls/hr IV ONETIME ONE Stop: 02/27/20 12:50 Last Admin: 02/27/20 09:25 Dose: 12.5 mls/hr Labetalol HCl (Normodyne) 100 mg PO TID ALBERTO Last Admin: 02/27/20 08:05 Dose: 100 mg Lorazepam (Ativan) 1 mg IVPUSH Q4H PRN PRN Reason: Anxiety Last Admin: 02/27/20 08:09 Dose: 1 mg Metoprolol Tartrate (Lopressor) 5 mg IVPUSH Q2H PRN PRN Reason: Hypertension Discontinued Medications Sodium Chloride (Normal Saline) 1,000 mls @ 999 mls/hr IV NOW STA Stop: 02/25/20 21:31 Last Admin: 02/25/20 20:37 Dose: 999 mls/hr Sodium Chloride (Normal Saline) 1,000 mls @ 9,999 mls/min IV ONETIME ONE Stop: 02/25/20 20:35 Last Admin: 02/25/20 21:20 Dose: 9,999 mls/min Insulin Human Regular 100 unit (/ Sodium Chloride) 100 mls @ 8.16 mls/hr IV TITRATE ALBERTO; Protocol Last Titration: 02/25/20 22:58 Dose: 0.04 units/kg/hr, 4 mls/hr Potassium Chloride/Dextrose/Sod Cl (D5 1/2 Ns W/ 20 Meq/L Kcl) 1,000 mls @ 200 mls/hr IV ASDIRECTED ALBERTO Last Infusion: 02/25/20 23:28 Dose: 250 mls/hr Magnesium Sulfate 4 gm/ Premix 100 mls @ 25 mls/hr IV ONETIME ONE Stop: 02/26/20 14:29 Last Admin: 02/26/20 10:22 Dose: 25 mls/hr Sodium Phosphate 30 mmole/ (Sodium Chloride) 260 mls @ 130 mls/hr IV Q2H [facility] Stop: 02/26/20 17:59 Last Admin: 02/26/20 18:11 Dose: 130 mls/hr Potassium Chloride 10 meq/ (Premix) 100 mls @ 100 mls/hr IV Q1H [facility] Stop: 02/26/20 22:59 Last Admin: 02/26/20 23:06 Dose: 100 mls/hr Insulin Human Regular (Humulin R) 8 unit IV ONETIME ONE Stop: 02/25/20 20:39 Last Admin: 02/25/20 20:42 Dose: 8 unit Metoprolol Tartrate (Lopressor) 5 mg IVPUSH ONETIME ONE Stop: 02/25/20 23:20 Last Admin: 02/25/20 23:29 Dose: 5 mg Metoprolol Tartrate (Lopressor) Confirm Administered Dose 5 mg .ROUTE .STK-MED ONE Stop: 02/25/20 23:22 Last Admin: 02/25/20 23:34 Dose: Not Given Ondansetron HCl (Zofran) 4 mg IVPUSH ONETIME ONE Stop: 02/25/20 20:32 Last Admin: 02/25/20 20:36 Dose: 4 mg Ondansetron HCl (Zofran) 4 mg IVPUSH ONETIME ONE Stop: 02/25/20 20:37 Last Admin: 02/25/20 21:20 Dose: 4 mg - Exam General: Alert, Oriented HEENT: Pupils Equal, Mucous Membr. Moist/[place] Neck: Supple Lungs: Clear to Auscultation, Normal Respiratory Effort Cardiovascular: Regular Rate, Regular Rhythm GI/Abdominal Exam: Normal Bowel Sounds, Soft, No Organomegaly, No Distention, No Abnormal Bruit, No Mass, Tender (Mild epigastric tenderness) Extremities: Normal Inspection, Normal Range of Motion, Non-Tender, No Pedal Edema, Normal Capillary Refill Skin: Warm, Dry, Intact Neurological: No New Focal Deficit Psy/Mental Status: Alert, Normal Affect, Normal Mood Sepsis Event Note - Evaluation Sepsis Screening Result: No Definite Risk - Focused Exam Vital Signs: Vital Signs Temp Pulse Resp BP BP BP Pulse Ox 02/27/20 08:05 92 150/101 H 02/27/20 08:00 97.6 F 18 150/101 H 99 05/14/20 06:09 13 140/85 98 02/27/20 05:00 11 L 99 02/27/20 04:00 97.8 F 12 142/100 H 99 02/27/20 03:00 12 100 02/27/20 02:00 18 99 02/27/20 01:43 23 H 140/101 H 02/27/20 01:00 16 99 02/27/20 00:00 98.1 F 15 142/93 H 100 02/26/20 22:45 Pulse Ox 02/27/20 08:05 02/27/20 08:00 02/27/20 06:09 02/27/20 05:00 02/27/20 04:00 02/27/20 03:00 02/27/20 02:00 02/27/20 01:43 02/27/20 01:00 02/27/20 00:00 02/26/20 22:45 98 Date Exam was Performed: 02/27/20 Time Exam was Performed: 11:18 - Problem List Review Problem List Initiated/Reviewed/Updated: Yes - My Orders Last 24 Hours: My Active Orders 02/26/20 09:00 Labetalol [Normodyne] 100 mg PO TID 02/26/20 09:55 Cyclobenzaprine [Flexeril] 10 mg PO TID PRN 02/27/20 08:15 Potassium Chloride [KCl 10 MEQ in Water 100 ML] 10 meq Premix Bag 1 bag IV Q1H 02/27/20 08:51 Magnesium Sulfate/Water [Magnesium Sulfate in Water Premix] 4 gm Premix Bag 1 bag IV ONETIME 02/27/20 12:00 BASIC METABOLIC PANEL,BMP [CHEM] Q4H MG [MAGNESIUM] [CHEM] Q4H 02/27/20 16:00 BASIC METABOLIC PANEL,BMP [CHEM] Q4H MG [MAGNESIUM] [CHEM] Q4H - Plan Plan:: DKA * Patient ran out of [employer] 3 weeks ago, drank 3 mixed drinks 3 days ago, started developing nausea and vomiting 2 days ago. * Initial glucose 485, bicarb 6, anion gap 45.1, ketones 20.62 * Initial arterial blood gas: pH 7.04, PCO2 8.7, PO2 137.0 on room air, HCO3 2.2. * Patient given 2 L of normal saline in the emergency department and started on insulin drip. * Significant improvement in symptoms and labs. Anion gap is down to 19, ketones down to 5, and symptoms much improved. Blood sugars are around 200 on 150 mL/h of D5 half-normal saline with 20 mEq of KCl per liter on 1.5 units of IV insulin per hour. Plan * Continue DKA protocol * D5 half-normal saline with 20 mEq/mL KCl titrate to keep blood sugars approximately 200 * IV insulin drip to keep blood sugars approximately 200 * Bedside fingerstick blood sugar every 2 hours * Check electrolytes, renal function, and magnesium every 4 hours until completely asymptomatic or anion gap is closed. * N.p.o. until out of acidosis and anion gap has closed. Acute renal insufficiency -resolved * Secondary to hypovolemia. * Initial renal function: Estimated GFR 44, creatinine 1.8, BUN 19 * Current estimated GFR greater than 60, creatinine 0.9, BUN 8 Plan * Follow electrolytes and renal function every 4 hours. * Avoid renal toxic medication including NSAIDs Dehydration/hypovolemia/polycythemia -resolved * Renal function, elevated hemoglobin, and elevated lactic acid all back to normal levels Plan * Continue current treatment Hypertension/tachycardia -improved * Severely elevated blood pressure when admitted to the ICU * Blood pressure much better controlled with IV metoprolol * Heart rate in 90-100 * Restarted labetalol yesterday Plan * Metoprolol tartrate 5 mg IV every 2 hours as needed systolic blood pressure greater than 180 or diastolic blood pressure greater than 110. Also for heart rate greater than 125 * Restarted labetalol yesterday Back pain * Patient has chronic low back pain that seems to be worsened by the hospital beds Plan * Tylenol and Flexeril as needed * Avoid NSAIDs VTE prophylaxis with Lovenox CODE STATUS full code Disposition: Admit to ICU and monitor closely.
[2020-02-27 12:52] LABS: HEMOGLOBIN A1C 12.3 % (4.50-6.20)
[2020-02-27] MEDS ORDERED: Potassium Chloride 10 MEQ in Premix Bag 1 BAG IV SCH (14:00)
[2020-02-28] MEDS: Potassium Chloride 10 MEQ in Premix Bag 1 BAG IV SCH (00:29)
[2020-02-28] MEDS: LORazepam 2 MG/ML SDV IVPUSH PRN ×2 (04:13→14:21)
[2020-02-28] MEDS: D5 1/2 NS w/ 20 mEq/L KCl 1,000 ML IV SCH (05:38)
[2020-02-28] MEDS ORDERED: Insulin Glarg,Human.Rec.Analog 100 Unit/ML SUBCUT ONE (08:44)
[2020-02-28] MEDS: Labetalol 100 MG Tab PO SCH ×3 (08:54→21:09)
[2020-02-28] MEDS: Enoxaparin 40 MG/0.4 ML Syringe SUBCUT SCH (08:54)
--- NOTE | 2020-02-28 09:50 | PCM.PN ---
- General Info Date of Service: 02/28/20 Subjective Update: INTERVAL HISTORY Overnight Events: - Slept ok - No complaints - Ambulating to and from restroom without difficulty Vital Signs: BP trend: 108-150/91-106 HR trend: 71-101 Tmax: 98.6 SatO2: >99% on RA Drips: Insulin D5 BM: today Diabetes: Glucose trend: 127-213 Insulin use: insulin drip, 36u/24h (on for 48 hours) New results: K 3.4--> 3.3 Gap closed from 45 on admission Ketones still not normal, likely elevated now due to NPO status - Patient Data Vitals - Most Recent: Last Vital Signs Temp 97.6 F 02/28/20 08:00 Pulse 75 02/28/20 08:54 Resp 16 02/28/20 08:00 BP 141/106 H 02/28/20 08:54 Pulse Ox 100 02/28/20 08:00 Weight - Most Recent: 77.564 kg - Exam General: Alert, Oriented, Cooperative, No Acute Distress HEENT: Pupils Equal, Pupils Reactive, Mucous Membr. Moist/[place] Neck: Supple, Trachea Midline, No JVD Lungs: Clear to Auscultation, Normal Respiratory Effort. No: Crackles, Rales, Rhonchi, Rub Cardiovascular: Regular Rate, Regular Rhythm GI/Abdominal Exam: Normal Bowel Sounds, Soft, Non-Tender, Distended. No: Guarding, Rigid, Rebound Back Exam: Normal Inspection Extremities: Normal Range of Motion, Non-Tender Neurological: No New Focal Deficit Psy/Mental Status: Alert Sepsis Event Note - Evaluation Sepsis Screening Result: No Definite Risk - Focused Exam Vital Signs: Vital Signs Temp Pulse Pulse Resp BP BP BP 02/28/20 08:54 75 141/106 H 02/28/20 08:00 97.6 F 101 H 16 141/106 H 02/28/20 04:06 17 02/28/20 04:00 98.5 F 18 144/107 H 02/28/20 00:00 97.6 F 14 133/98 H 02/27/20 22:00 14 02/27/20 21:58 Pulse Ox Pulse Ox 02/28/20 08:54 02/28/20 08:00 100 02/28/20 04:06 100 02/28/20 04:00 100 02/28/20 00:00 99 05/14/20 22:00 100 02/27/20 21:58 100 Date Exam was Performed: 02/28/20 Time Exam was Performed: 17:12 - Problem List & Annotations (1) DKA (diabetic ketoacidoses) SNOMED Code(s): 237827262, 135104031 Code(s): E11.10 - TYPE 2 DIABETES MELLITUS WITH KETOACIDOSIS WITHOUT COMA Status: Acute Current Visit: Yes Qualifiers: Diabetes mellitus type: type 2 (2) Economic circumstance affecting care SNOMED Code(s): 188242218 Code(s): Z59.9 - PROBLEM RELATED TO HOUSING AND ECONOMIC CIRCUMSTANCES, UNSP Status: Acute Current Visit: Yes (3) Abnormal liver function tests SNOMED Code(s): 387627976 Code(s): R94.5 - ABNORMAL RESULTS OF LIVER FUNCTION STUDIES Status: Acute Current Visit: No (4) Alcohol abuse SNOMED Code(s): 59005889 Code(s): F10.10 - ALCOHOL ABUSE, UNCOMPLICATED Status: Chronic Priority: High Current Visit: No (5) Anxiety SNOMED Code(s): 74141041 Code(s): F41.9 - ANXIETY DISORDER, UNSPECIFIED Status: Acute Current Visit: No (6) Diabetes mellitus SNOMED Code(s): 38772395 Code(s): E11.9 - TYPE 2 DIABETES MELLITUS WITHOUT COMPLICATIONS Status: Acute Current Visit: No (7) Drug dependence SNOMED Code(s): 456265125 Code(s): F19.20 - OTHER PSYCHOACTIVE SUBSTANCE DEPENDENCE, UNCOMPLICATED Status: Acute Current Visit: No (8) High anion gap metabolic acidosis SNOMED Code(s): 02675733 Code(s): E87.2 - ACIDOSIS Status: Acute Current Visit: No (9) Hypokalemia SNOMED Code(s): 76522898 Code(s): E87.6 - HYPOKALEMIA Status: Acute Current Visit: No (10) Ketonemia SNOMED Code(s): 543036915 Code(s): R79.89 - OTHER SPECIFIED ABNORMAL FINDINGS OF BLOOD CHEMISTRY Status: Acute Current Visit: No (11) Marijuana abuse SNOMED Code(s): 56116358 Code(s): F12.10 - CANNABIS ABUSE, UNCOMPLICATED Status: Acute Current Visit: No (12) Acute kidney injury SNOMED Code(s): 94471821, 37757560 Code(s): N17.9 - ACUTE KIDNEY FAILURE, UNSPECIFIED Status: Acute Current Visit: Yes - Problem List Review Problem List Initiated/Reviewed/Updated: Yes - Plan Plan:: ASSESSMENT Day 1 - Came for nausea and vomiting x 2 days - Ran out of insulin >1m ago - Drinks mixed drinks - Anion gap on admission 45 and pH 7.04 - Started on insulin drip - Admitted to ICU on DKA protocol - Signs of volume depletion clinically and on labs - Significantly abnormal BP once in ICU - Started on Metoprolol as needed - On labetalol at home Day 2 - GFR improved from 44 to >60 - Continued to require insulin drip - Admission labs with significant abnormalities Day 3 - Gap closed this morning - BP improved, trend 108-150/91-106 - HR improved as well, trend 71-101 - Ketones significantly improved but within normal limits for patient being NPO for > 24h - A1c 12.3 up from 9 3 months ago PLAN BY SYSTEMS: Neurology: Minimize central acting medications as possible. Discuss starting SSRI with patient Respiratory: Monitor SatO2 with VS Cardiovascular: D/C IVF once eating Monitor BP PRN Hydralazine Discuss other BP management options with patient GI and Nutrition: Start diet 1 hour after stopping insulin drip PRN bowel regimen. Kidney and Electrolytes: Monitoring of intake, output and overall fluid balance. Maintain neutral as possible. Avoid nephrotoxic medications. Monitor electrolytes and replace as needed. Trend creatinine and BUN. Endocrine: Start long acting 24u bedtime and 4u premeals today Continue accuchecks before meals and 2 hours post meals Hypoglycemia protocol in place. Infectious Disease: Trend temperature. Panculture if febrile. Hematology and Coagulation: No active bleeding, no coagulopathy to correct, no need to transfuse blood products at the moment. Goal hemoglobin >7g Musculoskeletal and Skin: Encourage ambulation PROPHYLAXIS: DVT- not indicated GI- not indicated CODE STATUS: FULL CODE DISPOSITION: Patient admitted to ICU for DKA protocol, was on insulin drip for 48 hours, will transition today to long acting and premeal insulin. Will address need for assistance program for insulin.
[2020-02-28] MEDS: Insulin Lispro 100 Units/ML 3 ML Vial SUBCUT SCH ×2 (10:21→16:58)
[2020-02-28] MEDS ORDERED: Insulin Glarg,Human.Rec.Analog 100 Unit/ML SUBCUT SCH (21:00)
[2020-02-29] MEDS: LORazepam 2 MG/ML SDV IVPUSH PRN (03:33)
[2020-02-29] MEDS: Insulin Lispro 100 Units/ML 3 ML Vial SUBCUT SCH ×3 (06:31→16:47)
[2020-02-29] MEDS: Labetalol 100 MG Tab PO SCH (08:36)
[2020-02-29] MEDS: Enoxaparin 40 MG/0.4 ML Syringe SUBCUT SCH (08:36)
[2020-02-29] MEDS ORDERED: Insulin Glarg,Human.Rec.Analog 100 Unit/ML SUBCUT ONE (09:20)
[2020-02-29] MEDS ORDERED: hydrALAZINE 20 MG/ML SDV IVPUSH PRN (09:20)
[2020-02-29] MEDS ORDERED: Metoprolol Tartrate 5 MG/5 ML SDV IVPUSH PRN (09:20)
[2020-02-29] MEDS ORDERED: Insulin Glarg,Human.Rec.Analog 100 Unit/ML SUBCUT SCH ×2 (09:30→21:00)
[2020-02-29] MEDS: Lisinopril 10 MG Tab PO SCH (10:12)
--- NOTE | 2020-02-29 10:48 | PCM.PN ---
- General Info Date of Service: 02/29/20 Subjective Update: INTERVAL HISTORY Overnight Events: - Slept ok - No complaints - Ambulating to and from restroom without difficulty - Tolerating diet Vital Signs: BP trend: 118-141/87-106 HR trend: 72-101 Tmax: 98.5 BM: today Diabetes: Premeal glucose trend : 169-233 Postprandial trend: 165-242 Glargine 24u and 4u premeals - Patient Data Vitals - Most Recent: Last Vital Signs Temp 98.1 F 02/29/20 09:00 Pulse 94 02/29/20 09:00 Resp 16 02/29/20 09:00 BP 126/86 02/29/20 10:12 Pulse Ox 100 02/29/20 09:00 Weight - Most Recent: 79.832 kg - Exam General: Alert, Oriented, Cooperative, No Acute Distress HEENT: Pupils Equal, Mucous Membr. Moist/[place] Neck: Supple. No: Lymphadenopathy Lungs: Clear to Auscultation. No: Crackles, Rales, Rhonchi, Rub, Stridor, Wheezing Cardiovascular: Regular Rate, Regular Rhythm. No: Murmurs, Gallops, Rubs GI/Abdominal Exam: Normal Bowel Sounds, Soft, Distended. No: Guarding, Rigid, Rebound, Tender Extremities: Normal Inspection Sepsis Event Note - Evaluation Sepsis Screening Result: No Definite Risk - Focused Exam Vital Signs: Vital Signs Temp Pulse Pulse Resp BP BP BP 02/29/20 10:12 126/86 02/29/20 09:00 98.1 F 94 16 129/89 02/29/20 08:36 97 129/89 02/29/20 03:00 74 18 143/108 H Pulse Ox 02/29/20 10:12 02/29/20 09:00 100 02/29/20 08:36 02/29/20 03:00 100 Date Exam was Performed: 02/29/20 Time Exam was Performed: 16:51 - Problem List & Annotations (1) DKA (diabetic ketoacidoses) SNOMED Code(s): 286131413, 245998101 Code(s): E11.10 - TYPE 2 DIABETES MELLITUS WITH KETOACIDOSIS WITHOUT COMA Status: Acute Current Visit: Yes Qualifiers: Diabetes mellitus type: type 2 (2) Economic circumstance affecting care SNOMED Code(s): 997399822 Code(s): Z59.9 - PROBLEM RELATED TO HOUSING AND ECONOMIC CIRCUMSTANCES, UNSP Status: Acute Current Visit: Yes (3) Abnormal liver function tests SNOMED Code(s): 904686549 Code(s): R94.5 - ABNORMAL RESULTS OF LIVER FUNCTION STUDIES Status: Acute Current Visit: No (4) Alcohol abuse SNOMED Code(s): 49667488 Code(s): F10.10 - ALCOHOL ABUSE, UNCOMPLICATED Status: Chronic Priority: High Current Visit: No (5) Anxiety SNOMED Code(s): 81333614 Code(s): F41.9 - ANXIETY DISORDER, UNSPECIFIED Status: Acute Current Visit: No (6) Diabetes mellitus SNOMED Code(s): 40190366 Code(s): E11.9 - TYPE 2 DIABETES MELLITUS WITHOUT COMPLICATIONS Status: Acute Current Visit: No (7) Drug dependence SNOMED Code(s): 177153332 Code(s): F19.20 - OTHER PSYCHOACTIVE SUBSTANCE DEPENDENCE, UNCOMPLICATED Status: Acute Current Visit: No (8) High anion gap metabolic acidosis SNOMED Code(s): 48965544 Code(s): E87.2 - ACIDOSIS Status: Acute Current Visit: No (9) Hypokalemia SNOMED Code(s): 96234703 Code(s): E87.6 - HYPOKALEMIA Status: Acute Current Visit: No (10) Ketonemia SNOMED Code(s): 260868248 Code(s): R79.89 - OTHER SPECIFIED ABNORMAL FINDINGS OF BLOOD CHEMISTRY Status: Acute Current Visit: No (11) Marijuana abuse SNOMED Code(s): 39804345 Code(s): F12.10 - CANNABIS ABUSE, UNCOMPLICATED Status: Acute Current Visit: No (12) Acute kidney injury SNOMED Code(s): 47012543, 34109004 Code(s): N17.9 - ACUTE KIDNEY FAILURE, UNSPECIFIED Status: Acute Current Visit: Yes - Problem List Review Problem List Initiated/Reviewed/Updated: Yes - Plan Plan:: ASSESSMENT Day 1 - Came for nausea and vomiting x 2 days - Ran out of insulin >1m ago - Drinks mixed drinks - Anion gap on admission 45 and pH 7.04 - Started on insulin drip - Admitted to ICU on DKA protocol - Signs of volume depletion clinically and on labs - Significantly abnormal BP once in ICU - Started on Metoprolol as needed - On labetalol at home Day 2 - GFR improved from 44 to >60 - Continued to require insulin drip - Admission labs with significant abnormalities Day 3 - Gap closed this morning - BP improved, trend 108-150/91-106 - HR improved as well, trend 71-101 - Ketones significantly improved but within normal limits for patient being NPO for > 24h - A1c 12.3 up from 9 3 months ago Day 4 - Started on diet yesterday - Glucose still not controlled - UA on admission with proteinuria, patient not allergic to GRANT or ARBs - No hypoglycemia episodes - Labs within normal limits except for POC glucose PLAN BY SYSTEMS: Neurology: Minimize central acting medications as possible. Discuss starting SSRI with patient Respiratory: Monitor SatO2 with VS Cardiovascular: Monitor BP PRN Hydralazine for BP Start lisinopril PRN metoprolol for tachycardia GI and Nutrition: Continue diet PRN bowel regimen. Kidney and Electrolytes: Monitoring of intake, output and overall fluid balance. Maintain neutral as possible. Avoid nephrotoxic medications. Monitor electrolytes and replace as needed. Trend creatinine and BUN. Endocrine: Increase glargine from 24u to 35 at bedtime Continue 4u premeals Continue accuchecks before meals and 2 hours post meals Hypoglycemia protocol in place. Infectious Disease: Trend temperature. Panculture if febrile. Hematology and Coagulation: No active bleeding, no coagulopathy to correct, no need to transfuse blood products at the moment. Goal hemoglobin >7g Musculoskeletal and Skin: Encourage ambulation PROPHYLAXIS: DVT- not indicated GI- not indicated CODE STATUS: FULL CODE DISPOSITION: Patient admitted to ICU for DKA protocol, was on insulin drip for 48 hours, transitioned to long acting insulin yesterday. Still need to adjust insulin prior to discharge. Will address need for assistance program for insulin.
[2020-02-29] MEDS ORDERED: Acetaminophen 325 MG Tab PO SCH (19:45)
[2020-02-29] MEDS ORDERED: Acetaminophen 325 MG/10.15 ML ML PO PRN (19:48)
[2020-02-29] MEDS ORDERED: Acetaminophen 325 MG Tab PO PRN (19:55)
[2020-03-01] MEDS ORDERED: Insulin Glarg,Human.Rec.Analog 100 Unit/ML SUBCUT SCH
[2020-03-01] MEDS: Insulin Lispro 100 Units/ML 3 ML Vial SUBCUT SCH ×2 (07:38→12:26)
[2020-03-01] MEDS: Lisinopril 10 MG Tab PO SCH (09:15)
[2020-03-01] MEDS: Enoxaparin 40 MG/0.4 ML Syringe SUBCUT SCH (09:16)
--- NOTE | 2020-03-01 10:07 | PCM.DCSUM1 ---
Discharge Summary - Hospital Course HPI Initial Comments: 29-year-old type I diabetic well known to the hospitalist service presents to the emergency department with fatigue, nausea, and vomiting for the last 2 days. Patient states he ran out of Lantus approximately 3 weeks ago. He thought he was doing well, but not checking his blood sugars because he also ran out of strips, until 2 days ago. 3 days ago he did have 3 mixed drinks. He has a long history of DKA and pancreatitis. His last admission was in November. Patient states that he has dry mouth, racing heart, anxiety, and diffuse abdominal pain. Denies any fever or chills. He states he feels like he is breathing fast. Patient's normal insulin regimen is Lantus 12 units daily, Humalog 4 units with each meal, and labetalol 100 mg 3 times daily for hypertension. He is not sure he has been able to keep down his labetalol for last 2 days. When the patient presented to the emergency department he was tachycardic, hypertensive, tachypneic, and smelled ketotic. Initial blood work showed hemoconcentration with a hemoglobin of 19.2. Initial glucose was 485 with serum ketones of 20.6. His anion gap was 45.1 and he had renal insufficiency with BUN of 19 and a creatinine of 1.8. Lactic acid was 2.6. Liver function was abnormal with a total bilirubin of 2.3 and elevated liver enzymes. Lipase was 475. Initial ABG: pH 7.04, PCO2 8.7, PO2 137 on room air, HCO3 2.2. Diagnosis: Stroke: No - Discharge Data Discharge Date: 03/01/20 Discharge Disposition: Home, Self-Care 01 Condition: Good - Referral to Home Health Primary Care Physician: Sylvester Price MD - Discharge Diagnosis/Problem(s) (1) DKA (diabetic ketoacidoses) SNOMED Code(s): 416376399, 298330132 ICD Code: E11.10 - TYPE 2 DIABETES MELLITUS WITH KETOACIDOSIS WITHOUT COMA Status: Acute Current Visit: Yes Qualifiers: Diabetes mellitus type: type 2 (2) Economic circumstance affecting care SNOMED Code(s): 112130182 ICD Code: Z59.9 - PROBLEM RELATED TO HOUSING AND ECONOMIC CIRCUMSTANCES, UNSP Status: Acute Current Visit: Yes (3) Abnormal liver function tests SNOMED Code(s): 085781627 ICD Code: R94.5 - ABNORMAL RESULTS OF LIVER FUNCTION STUDIES Status: Acute Current Visit: No (4) Alcohol abuse SNOMED Code(s): 75226988 ICD Code: F10.10 - ALCOHOL ABUSE, UNCOMPLICATED Status: Chronic Priority : High Current Visit: No (5) Anxiety SNOMED Code(s): 53003894 ICD Code: F41.9 - ANXIETY DISORDER, UNSPECIFIED Status: Acute Current Visit: No (6) Diabetes mellitus SNOMED Code(s): 04458153 ICD Code: E11.9 - TYPE 2 DIABETES MELLITUS WITHOUT COMPLICATIONS Status: Acute Current Visit: No (7) Drug dependence SNOMED Code(s): 266139096 ICD Code: F19.20 - OTHER PSYCHOACTIVE SUBSTANCE DEPENDENCE, UNCOMPLICATED Status: Acute Current Visit: No (8) High anion gap metabolic acidosis SNOMED Code(s): 42587171 ICD Code: E87.2 - ACIDOSIS Status: Acute Current Visit: No (9) Hypokalemia SNOMED Code(s): 01016453 ICD Code: E87.6 - HYPOKALEMIA Status: Acute Current Visit: No (10) Ketonemia SNOMED Code(s): 544490846 ICD Code: R79.89 - OTHER SPECIFIED ABNORMAL FINDINGS OF BLOOD CHEMISTRY Status: Acute Current Visit: No (11) Marijuana abuse SNOMED Code(s): 94533985 ICD Code: F12.10 - CANNABIS ABUSE, UNCOMPLICATED Status: Acute Current Visit: No (12) Acute kidney injury SNOMED Code(s): 26815509, 31131879 ICD Code: N17.9 - ACUTE KIDNEY FAILURE, UNSPECIFIED Status: Acute Current Visit: Yes - Patient Summary/Data Hospital Course: ASSESSMENT Day 1 - Came for nausea and vomiting x 2 days - Ran out of insulin >1m ago - Drinks mixed drinks - Anion gap on admission 45 and pH 7.04 - Started on insulin drip - Admitted to ICU on DKA protocol - Signs of volume depletion clinically and on labs - Significantly abnormal BP once in ICU - Started on Metoprolol as needed - On labetalol at home Day 2 - GFR improved from 44 to >60 - Continued to require insulin drip - Admission labs with significant abnormalities Day 3 - Gap closed this morning - BP improved, trend 108-150/91-106 - HR improved as well, trend 71-101 - Ketones significantly improved but within normal limits for patient being NPO for > 24h - A1c 12.3 up from 9 3 months ago Day 4 - Started on diet yesterday - Glucose still not controlled - UA on admission with proteinuria, patient not allergic to GRANT or ARBs - No hypoglycemia episodes - Labs within normal limits except for POC glucose Day 5 - BP improved - Glucose improved with changes made yesterday - Tolerating diet - Discharge to home to follow up with PCP - Patient Instructions Diet: Diabetic Diet Activity: As Tolerated - Discharge Plan *PRESCRIPTION DRUG MONITORING PROGRAM REVIEWED*: No *COPY OF PRESCRIPTION DRUG MONITORING REPORT IN PATIENT KENJI: No Prescriptions/Med Rec: Insulin Glarg,Human.Rec.Analog [Lantus] 35 unit SUBCUT BEDTIME #15 ml Insulin Lispro [HumaLOG] 6 unit SUBCUT TIDMEALS #3 vial lisinopriL [Prinivil] 10 mg PO BEDTIME #30 tablet Home Medications: Home Meds Multivitamin [Multivitamins] 1 cap PO DAILY 02/26/20 [History] Insulin Glarg,Human.Rec.Analog [Lantus] 35 unit SUBCUT BEDTIME #15 ml 03/01/20 [ Rx] Insulin Lispro [HumaLOG] 6 unit SUBCUT TIDMEALS #3 vial 03/01/20 [Rx] lisinopriL [Prinivil] 10 mg PO BEDTIME #30 tablet 03/01/20 [Rx] Oxygen Therapy Mode: Room Air Patient Handouts: Type 2 Diabetes Mellitus, Diagnosis, Adult, Cannabis Use Disorder, Diabetic Ketoacidosis, What You Need to Know About Marijuana Use Forms: ED Department Discharge Referrals: Sylvester Price MD [Primary Care Provider] - - Discharge Summary/Plan Comment DC Time >30 min.: Yes - General Info Date of Service: 03/01/20 Subjective Update: Slept OK Tolerating diet BM yesterday Ambulating without difficulties - Patient Data Vitals - Most Recent: Last Vital Signs Temp 97.1 F 03/01/20 09:21 Pulse 78 03/01/20 09:21 Resp 16 03/01/20 09:21 BP 133/100 H 03/01/20 09:21 Pulse Ox 100 03/01/20 09:21 Weight - Most Recent: 78.925 kg - Exam General: Reports: Alert, Oriented, Cooperative, No Acute Distress HEENT: Reports: Pupils Equal, Pupils Reactive, Mucous Membr. Moist/[place] Neck: Reports: Supple, Trachea Midline, No JVD, No Thyromegaly Lungs: Reports: Clear to Auscultation, Normal Respiratory Effort Cardiovascular: Reports: Regular Rate, Regular Rhythm, No Murmurs. Denies: Gallops, Rubs GI/Abdominal Exam: Normal Bowel Sounds, Soft, Non-Tender. No: Distended, Guarding, Rigid Back Exam: Reports: Normal Inspection Extremities: Normal Inspection, Normal Range of Motion Neurological: Reports: No New Focal Deficit Psy/Mental Status: Reports: Alert, Normal Affect, Normal Mood
== END 2020-03-01 13:35 | disposition home or self-care (01) | DRG 638 ==
LOC: JD.ED 20:15 → JD.ICU 22:37
PROVIDERS: ADMIT Family Medicine; ATTEND Family Medicine
DX: E10.10 Type 1 diabetes mellitus with ketoacidosis without coma (principal); F19.20 Other psychoactive substance dependence, uncomplicated; N17.9 Acute kidney failure, unspecified; F10.10 Alcohol abuse, uncomplicated; F41.9 Anxiety disorder, unspecified; E87.6 Hypokalemia; R74.8 Abnormal levels of other serum enzymes; F12.10 Cannabis abuse, uncomplicated; H54.7 Unspecified visual loss; I10 Essential (primary) hypertension; K76.0 Fatty (change of) liver, not elsewhere classified; G89.29 Other chronic pain; M54.5 Low back pain; E86.0 Dehydration; E86.1 Hypovolemia; D75.1 Secondary polycythemia; Z90.49 Acquired absence of other specified parts of digestive tract; Z79.4 Long term (current) use of insulin; Z59.9 Problem related to housing and economic circumstances, unspecified
CPT/HCPCS: 36415; 36600; 80048; 80053; 81001; 82009; 82150; 82800; 82803; 82962; 83036; 83605; 83690; 83735; 84100; 85025; 96361; 96374; 96376; 99284-25; 99285; A9270-GY; J1650; J1815-GY; J2060; J2405; J3475; J3480; J3490; J7030; J7050

== ENCOUNTER 2020-03-25 22:32 | Emergency (ER) | payer OTHER, SELFPAY ==
[2020-03-25] MEDS ORDERED: Sodium Chloride 0.9% 1,000 ML IV SCH (23:15)
--- NOTE | 2020-03-25 23:32 | EDM.PDOC ---
ED HPI GENERAL MEDICAL PROBLEM - General Chief Complaint: General Stated Complaint: blood pressure weak Time Seen by Provider: 03/25/20 22:36 Source of Information: Reports: Patient History Limitations: Reports: No Limitations - History of Present Illness INITIAL COMMENTS - FREE TEXT/NARRATIVE: TRIAGE NOTE -- pt c/o sudden onset generalized weak feeling. Denies n/v/d. Has IDDM and has not been able to check sugars d/t running out of strips. States has been eating and drinking ok. Pt sates he became diaphoretic. Pt denies chest pain or SOB> [ End ] The patient's complaint is fairly nonspecific just a generalized feeling of weakness and not being well. No chest pain. No shortness of breath. No syncope or near syncope. Primary concern is about 2 hours of sweating which resolved upon arrival at the emergency department. Risk factors consist of diabetes, high blood pressure, former smoking status, alcohol and other substance abuse. Patient has not taken any medication or any other measure in an effort to moderate his symptoms. - Related Data Allergies Allergy/AdvReac Type Severity Reaction Status Date / Time No Known Allergies Allergy Verified 03/25/20 22:42 Home Meds: Home Meds Multivitamin [Multivitamins] 1 cap PO DAILY 02/26/20 [History] Insulin Glarg,Human.Rec.Analog [Lantus] 35 unit SUBCUT BEDTIME #15 ml 03/01/20 [ Rx] Insulin Lispro [HumaLOG] 6 unit SUBCUT TIDMEALS #3 vial 03/01/20 [Rx] lisinopriL [Prinivil] 10 mg PO BEDTIME #30 tablet 03/01/20 [Rx] Past Medical History HEENT History: Reports: Impaired Vision Other HEENT History: Wears glasss Cardiovascular History: Reports: Hypertension Gastrointestinal History: Reports: Chronic Diarrhea, Gastritis, Pancreatitis, Other (See Below) Other Gastrointestinal History: Fatty liver, acute pancreatitis--recurrent bouts of pancreatitis due to alcohol use Musculoskeletal History: Reports: Back Pain, Chronic Psychiatric History: Reports: Addiction, Anxiety, Other (See Below) Other Psychiatric History: alcohol abuse & withdrawl Endocrine/Metabolic History: Reports: Diabetes, Type II - Infectious Disease History Infectious Disease History: Reports: Chicken Pox - Past Surgical History Head Surgeries/Procedures: Reports: None GI Surgical History: Reports: Cholecystectomy Social & Family History - Family History Family Medical History: Noncontributory - Tobacco Use Smoking Status *Q: Former Smoker Used Tobacco, but Quit: Yes Month/Year Tobacco Last Used: 2016 - Caffeine Use Caffeine Use: Reports: None Caffeine Use Comment: doesnt drink soda often, "takes me 3 hours to finish one soda" - Alcohol Use Days Per Week of Alcohol Use: 2 Number of Drinks Per Day: 2 Total Drinks Per Week: 4 - Recreational Drug Use Recreational Drug Use: Yes Drug Use in Last 12 Months: Yes Recreational Drug Type: Reports: Marijuana/Hashish Recreational Drug Use Frequency: Monthly - Living Situation & Occupation Living situation: Reports: Single, Other (Has a 2-year daughter with ex- girlfriend) 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 ED EXAM, GENERAL - Physical Exam Exam: See Below Exam Limited By: No Limitations General Appearance: Alert, WD/WN, No Apparent Distress Eye Exam: Bilateral Eye: EOMI, PERRL Ears: Normal External Exam Nose: Normal Inspection Throat/Mouth: Normal Inspection Head: Atraumatic, Normocephalic Neck: Normal Inspection, Supple, Non-Tender Respiratory/Chest: No Respiratory Distress, Lungs Clear, Normal Breath Sounds Cardiovascular: Bradycardia GI/Abdominal: Soft, Non-Tender Back Exam: Normal Inspection Extremities: Normal Inspection, Non-Tender, No Pedal Edema Neurological: Alert, Oriented, Normal Cognition, No Motor/Sensory Deficits Psychiatric: Normal Affect Skin Exam: Warm, Dry Course - Vital Signs Last Recorded V/S: Last Vital Signs Temp 35.8 C L 03/25/20 22:44 Pulse 80 03/26/20 00:18 Resp 16 03/26/20 00:18 BP 159/98 H 03/26/20 00:18 Pulse Ox 100 03/25/20 22:44 - Orders/Labs/Meds Orders: Active Orders 24 hr Category Date Time Status EKG Documentation Completion [RC] STAT Care 03/25/20 23:01 Active Chest 1V Frontal [CR] Stat Exams 03/25/20 23:01 Taken Sodium Chloride 0.9% [Normal Saline] 1,000 ml Med 03/25/20 23:15 Active IV ASDIRECTED Medication Orders Sodium Chloride (Normal Saline) 1,000 mls @ 150 mls/hr IV ASDIRECTED ALBERTO Last Admin: 03/25/20 23:19 Dose: 150 mls/hr Labs: Laboratory Tests 03/25/20 03/25/20 03/25/20 Range/Units 22:53 23:20 23:20 WBC 5.78 (4.23-9.07) K/mm3 RBC 5.53 (4.63-6.08) M/mm3 Hgb 17.1 (13.7-17.5) gm/dl Hct 49.4 (40.1-51.0) % MCV 89.3 (79.0-92.2) fl MCH 30.9 (25.7-32.2) pg MCHC 34.6 (32.2-35.5) g/dl RDW Std Deviation 39.4 (35.1-43.9) fL Plt Count 200 D (163-337) K/mm3 MPV 9.9 (9.4-12.3) fl Neutrophils % (Manual) 43 (40-60) % Band Neutrophils % 8 (0-10) % Lymphocytes % (Manual) 32 (20-40) % Atypical Lymphs % 0 % Monocytes % (Manual) 13 H (2-10) % Eosinophils % (Manual) 4 (0.8-7.0) % Basophils % (Manual) 0 L (0.2-1.2) Platelet Estimate Adequate Plt Morphology Comment Normal RBC Morph Comment Normal PT 11.1 (9.7-12.0) SECONDS INR 1.02 APTT (22-31) SECONDS Sodium (136-145) mEq/L Potassium (3.5-5.1) mEq/L Chloride (98-107) mEq/L Carbon Dioxide (21-32) mEq/L Anion Gap (5-15) BUN (7-18) mg/dL Creatinine (0.7-1.3) mg/dL Est Cr Clr Drug Dosing mL/min Estimated GFR (MDRD) (>60) mL/min BUN/Creatinine Ratio (14-18) Glucose (74-106) mg/dL POC Glucose 77 (70-105) mg/dL Calcium (8.5-10.1) mg/dL Total Bilirubin (0.2-1.0) mg/dL AST (15-37) U/L ALT (16-63) U/L Alkaline Phosphatase (46-116) U/L Troponin I (0.00-0.056) ng/mL C-Reactive Protein (<1.0) mg/dL Total Protein (6.4-8.2) g/dl Albumin (3.4-5.0) g/dl Globulin gm/dL Albumin/Globulin Ratio (1-2) Lipase (73-393) U/L TSH 3rd Generation (0.358-3.74) uIU/mL Urine Color (Yellow) Urine Appearance (Clear) Urine pH (5.0-8.0) Ur Specific [place] (1.005-1.030) Urine Protein (Negative) Urine Glucose (UA) (Negative) Urine Ketones (Negative) Urine Occult Blood (Negative) Urine Nitrite (Negative) Urine Bilirubin (Negative) Urine Urobilinogen (0.2-1.0) Ur Leukocyte Esterase (Negative) U Hyaline Cast (Auto) (0-5) /lpf Urine RBC (0-5) /hpf Urine WBC (0-5) /hpf Ur Squamous Epith Cells (0-5) /hpf Urine Bacteria (FEW) /hpf Fine Granular Casts (0-5) /lpf Urine Mucus (FEW) /hpf Urine Opiates Screen (GLCBSV=664) Ur Buprenorphine Scrn (CUTOFF=10) Ur Oxycodone Screen (OCE2KX=120) Urine Methadone Screen (BIM5KU=494) Ur Propoxyphene Screen (PADUOD=710) Ur Barbiturates Screen (YZICQI=546) Ur Tricyclics Screen (SNSKUS=391) Ur Phencyclidine Scrn (CUTOFF=25) Ur Amphetamine Screen (SNDRZK=714) U Methamphetamines Scrn (PCHMNW=349) U Benzodiazepines Scrn (GJLBDY=867) U Cocaine Metab Screen (TAZNFZ=008) U Marijuana (THC) Screen (CUTOFF=50) Ethyl Alcohol (0.00) gm% 03/25/20 03/25/20 03/25/20 Range/Units 23:20 23:20 23:20 WBC (4.23-9.07) K/mm3 RBC (4.63-6.08) M/mm3 Hgb (13.7-17.5) gm/dl Hct (40.1-51.0) % MCV (79.0-92.2) fl MCH (25.7-32.2) pg MCHC (32.2-35.5) g/dl RDW Std Deviation (35.1-43.9) fL Plt Count (163-337) K/mm3 MPV (9.4-12.3) fl Neutrophils % (Manual) (40-60) % Band Neutrophils % (0-10) % Lymphocytes % (Manual) (20-40) % Atypical Lymphs % % Monocytes % (Manual) (2-10) % Eosinophils % (Manual) (0.8-7.0) % Basophils % (Manual) (0.2-1.2) Platelet Estimate Plt Morphology Comment RBC Morph Comment PT (9.7-12.0) SECONDS INR APTT 28 (22-31) SECONDS Sodium 141 (136-145) mEq/L Potassium 3.3 L (3.5-5.1) mEq/L Chloride 100 (98-107) mEq/L Carbon Dioxide 31 (21-32) mEq/L Anion Gap 13.3 (5-15) BUN 8 (7-18) mg/dL Creatinine 0.9 (0.7-1.3) mg/dL Est Cr Clr Drug Dosing 126.66 mL/min Estimated GFR (MDRD) > 60 (>60) mL/min BUN/Creatinine Ratio 8.9 L (14-18) Glucose 82 (74-106) mg/dL POC Glucose (70-105) mg/dL Calcium 9.2 (8.5-10.1) mg/dL Total Bilirubin 1.9 H (0.2-1.0) mg/dL AST 156 H (15-37) U/L ALT 89 H (16-63) U/L Alkaline Phosphatase 179 H (46-116) U/L Troponin I < 0.017 (0.00-0.056) ng/mL C-Reactive Protein <0.2 (<1.0) mg/dL Total Protein 8.4 H (6.4-8.2) g/dl Albumin 4.3 (3.4-5.0) g/dl Globulin 4.1 gm/dL Albumin/Globulin Ratio 1.1 (1-2) Lipase 30 L (73-393) U/L TSH 3rd Generation 2.925 (0.358-3.74) uIU/mL Urine Color (Yellow) Urine Appearance (Clear) Urine pH (5.0-8.0) Ur Specific [place] (1.005-1.030) Urine Protein (Negative) Urine Glucose (UA) (Negative) Urine Ketones (Negative) Urine Occult Blood (Negative) Urine Nitrite (Negative) Urine Bilirubin (Negative) Urine Urobilinogen (0.2-1.0) Ur Leukocyte Esterase (Negative) U Hyaline Cast (Auto) (0-5) /lpf Urine RBC (0-5) /hpf Urine WBC (0-5) /hpf Ur Squamous Epith Cells (0-5) /hpf Urine Bacteria (FEW) /hpf Fine Granular Casts (0-5) /lpf Urine Mucus (FEW) /hpf Urine Opiates Screen (JCRRWA=971) Ur Buprenorphine Scrn (CUTOFF=10) Ur Oxycodone Screen (YGY0GA=471) Urine Methadone Screen (LEV2JE=682) Ur Propoxyphene Screen (VRUAAM=028) Ur Barbiturates Screen (RAKBKI=225) Ur Tricyclics Screen (QGMDJH=690) Ur Phencyclidine Scrn (CUTOFF=25) Ur Amphetamine Screen (MWZBHU=747) U Methamphetamines Scrn (PQBMMY=463) U Benzodiazepines Scrn (BPPMBN=489) U Cocaine Metab Screen (HEIKJH=294) U Marijuana (THC) Screen (CUTOFF=50) Ethyl Alcohol 0.00 (0.00) gm% 03/26/20 03/26/20 Range/Units 00:13 00:13 WBC (4.23-9.07) K/mm3 RBC (4.63-6.08) M/mm3 Hgb (13.7-17.5) gm/dl Hct (40.1-51.0) % MCV (79.0-92.2) fl MCH (25.7-32.2) pg MCHC (32.2-35.5) g/dl RDW Std Deviation (35.1-43.9) fL Plt Count (163-337) K/mm3 MPV (9.4-12.3) fl Neutrophils % (Manual) (40-60) % Band Neutrophils % (0-10) % Lymphocytes % (Manual) (20-40) % Atypical Lymphs % % Monocytes % (Manual) (2-10) % Eosinophils % (Manual) (0.8-7.0) % Basophils % (Manual) (0.2-1.2) Platelet Estimate Plt Morphology Comment RBC Morph Comment PT (9.7-12.0) SECONDS INR APTT (22-31) SECONDS Sodium (136-145) mEq/L Potassium (3.5-5.1) mEq/L Chloride (98-107) mEq/L Carbon Dioxide (21-32) mEq/L Anion Gap (5-15) BUN (7-18) mg/dL Creatinine (0.7-1.3) mg/dL Est Cr Clr Drug Dosing mL/min Estimated GFR (MDRD) (>60) mL/min BUN/Creatinine Ratio (14-18) Glucose (74-106) mg/dL POC Glucose (70-105) mg/dL Calcium (8.5-10.1) mg/dL Total Bilirubin (0.2-1.0) mg/dL AST (15-37) U/L ALT (16-63) U/L Alkaline Phosphatase (46-116) U/L Troponin I (0.00-0.056) ng/mL C-Reactive Protein (<1.0) mg/dL Total Protein (6.4-8.2) g/dl Albumin (3.4-5.0) g/dl Globulin gm/dL Albumin/Globulin Ratio (1-2) Lipase (73-393) U/L TSH 3rd Generation (0.358-3.74) uIU/mL Urine Color Yellow (Yellow) Urine Appearance Clear (Clear) Urine pH 6.0 (5.0-8.0) Ur Specific [place] > or = 1.030 (1.005-1.030) Urine Protein 2+ H (Negative) Urine Glucose (UA) Trace H (Negative) Urine Ketones Trace H (Negative) Urine Occult Blood Trace-lysed H (Negative) Urine Nitrite Negative (Negative) Urine Bilirubin Negative (Negative) Urine Urobilinogen 0.2 (0.2-1.0) Ur Leukocyte Esterase Negative (Negative) U Hyaline Cast (Auto) 0-5 (0-5) /lpf Urine RBC Not seen (0-5) /hpf Urine WBC 0-5 (0-5) /hpf Ur Squamous Epith Cells 0-5 (0-5) /hpf Urine Bacteria Rare (FEW) /hpf Fine Granular Casts 0-5 (0-5) /lpf Urine Mucus Many H (FEW) /hpf Urine Opiates Screen Negative (PPCIHT=623) Ur Buprenorphine Scrn Negative (CUTOFF=10) Ur Oxycodone Screen Negative (RGF1GQ=195) Urine Methadone Screen Negative (BBR4NX=656) Ur Propoxyphene Screen Negative (VRNGFI=075) Ur Barbiturates Screen Negative (MKDHWX=720) Ur Tricyclics Screen Negative (CNBDKU=845) Ur Phencyclidine Scrn Negative (CUTOFF=25) Ur Amphetamine Screen Negative (NKRNVW=935) U Methamphetamines Scrn Negative (XLKWRO=366) U Benzodiazepines Scrn Negative (KXZVJT=081) U Cocaine Metab Screen Negative (LWZAUO=939) U Marijuana (THC) Screen Presumptive positive H (CUTOFF=50) Ethyl Alcohol (0.00) gm% Meds: Medications Generic Name Dose Route Start Last Admin Trade Name Freq PRN Reason Stop Dose Admin Sodium Chloride 1,000 mls @ 150 mls/hr 03/25/20 23:15 03/25/20 23:19 Normal Saline IV 150 mls/hr ASDIRECTED [facility] Administration - Re-Assessments/Exams Free Text/Narrative Re-Assessment/Exam: 03/26/20 01:08 The patient has had a fairly exhaustive evaluation for weakness and sweating. There are no salient lab abnormals other than mild elevation of LFTs related undoubtedly to alcohol abuse. No instability or finding on exam that is troubling. There is been some mild bradycardia on monitor but patient is taking a beta-shree. He has local physician and is to notify primary this morning for further recommendations. Strict precautions for return to ER. 03/26/20 01:11 Departure - Departure Time of Disposition: 01:10 Disposition: Home, Self-Care 01 Condition: Good Clinical Impression: Sweating, Weakness - Discharge Information *PRESCRIPTION DRUG MONITORING PROGRAM REVIEWED*: Not Applicable *COPY OF PRESCRIPTION DRUG MONITORING REPORT IN PATIENT KENJI: Not Applicable Referrals: Sylvester Price MD [Primary Care Provider] - Forms: ED Department Discharge Additional Instructions: You have been seen for an episode of weakness and sweating. There are no significant findings of a serious acute pathological condition at this time. In light of your risk factors including diabetes it is recommended that you call your primary this morning and arrange to have close follow-up. Do not hesitate to return to ER by EMS for any troubling symptoms at all especially including chest pain, fever, or any symptom of acute illness or condition. Sepsis Event Note (ED) - Evaluation Sepsis Screening Result: No Definite Risk - Focused Exam Vital Signs: Vital Signs Temp Pulse Resp BP Pulse Ox 03/26/20 00:18 80 16 159/98 H 03/25/20 22:44 35.8 C L 46 L 12 173/101 H 100 - My Orders Last 24 Hours: My Active Orders 03/25/20 23:01 EKG Documentation Completion [RC] STAT Chest 1V Frontal [CR] Stat 03/25/20 23:15 Sodium Chloride 0.9% [Normal Saline] 1,000 ml IV ASDIRECTED - Assessment/Plan Last 24 Hours: My Active Orders 03/25/20 23:01 EKG Documentation Completion [RC] STAT Chest 1V Frontal [CR] Stat 03/25/20 23:15 Sodium Chloride 0.9% [Normal Saline] 1,000 ml IV ASDIRECTED
--- NOTE | 2020-03-26 05:31 | CR ---
Chest: Portable view of the chest was obtained. Comparison: Prior chest x-ray of . Heart size and mediastinum are normal. Lungs are clear. Bony structures are unremarkable. Impression: 1. Nothing acute is seen on portable chest x-ray. Diagnostic code #1 This report was dictated in MDT
== END 2020-03-26 01:19 | disposition home or self-care (01) ==
LOC: JD.ED 22:32
DX: R53.1 Weakness (principal); R61 Generalized hyperhidrosis; I10 Essential (primary) hypertension; E11.9 Type 2 diabetes mellitus without complications; Z79.4 Long term (current) use of insulin; Z87.891 Personal history of nicotine dependence; Z79.899 Other long term (current) drug therapy
CPT/HCPCS: 36415; 71045; 80053; 80306; 80307; 81001; 82962; 83690; 84443; 84484; 85007; 85027; 85610; 85730; 86140; 93005; 99285; J7030; 93010; 99283